=== PATIENT | female | born 1940 | race Caucasian/White ===

== ENCOUNTER 2017-01-29 05:59 | Emergency (ER) | payer MEDICARE, MEDICAID ==
[~2017-01-29] VITALS: Ht 177.8 cm; Wt 172.4 kg
--- NOTE | 2017-01-29 06:36 | Emergency Room Report ---
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 IS O2 DEPENDENT AT 3L PER N/C. 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 N Clinical Suspician of Infection? Y Mental Status: 1 - Regular (Normal Baseline) Sepsis Risk:Severe Sepsis Risk Have you (or family members/close friends) recently traveled outside the [place]? N If Yes, where/when: Have you had exposure to infectious disease within the past month? N TB? Other? Specify: Source patient, RN notes reviewed, family, EMS, old records Exam Limitations no limitations Comment pt with prod cough with no hemoptysis over the last few days and no chest pain - uses 02 daily Cardiac Chest Pain Chest pain indicative of cardiac No Timing/Duration this morning Severity moderate ALLERGIES Coded Allergies: No Known Allergies (10/10/16) Home Medications Active Scripts Albuterol/Ipratropiu (Duoneb) 3 ML IH QID #120 NEB Prov: 11/02/11 Reported Medications LISINOPRIL (Lisinopril) 20 MG PO DAILY Clopidogrel Bisulfate (Plavix) 75 MG PO DAILY Tramadol Hcl (Tramadol 50MG) 1-2 TAB PO TID Cyclobenzaprine Hcl (Flexeril) 5 MG PO DAILY OXYCODONE HCL/ACETAMINOPHEN (Percocet 5-325 MG Tablet) 1 TAB PO Q 6 HOURS PRN PAIN WARFARIN SOD (Warfarin 5MG) 5 MG PO DAILY Furosemide (Lasix 40MG) 40 MG PO DAILY PRAMIPEXOLE DIHYDROCHLORIDE MO (Pramipexole) 0.25 MG NG DAILY Sertraline Hydrochloride (Sertraline 100MG) 100 MG PO DAILY Sitagliptin Phosphate (Januvia) 100 MG PO DAILY History Medical History General CAD? Yes Angina: Yes SC: No Hypertension? Yes Hyperlipidemia? No CHF? Yes DVT? No PE? No COPD? Yes Asthma? Yes Anemia? No GERD? No Gastric ulcers? No GI Bleed? No Hernia? No Thyroid Problems? No Hypothyroidism? No CVA? No Seizures? No Diabetes? Yes Insulin Dependent: No Insulin Pump: No Home FSBS? Yes Renal Insuffiency? No End Stage Renal Disease? No UTI? No Stones? No BPH? No GB Disease: Yes Nephritic Syndrome? No Asplenia? No Hepatitis? No Sickle Cell Disease? No Arthritis? No Migraines? No Cataracts? No Glaucoma? No MRSA? No HIV? No TB? No Anxiety? Yes Depression? No Cancer? No More? No Immunization Hx DT/Tetanus UNKNOWN Surgical Hx Previous Surgery?Y JOVANNA GALLBLADDER [id number] STENT INSERTION Social History Smoking Hx Smoker: Former Smoker Tobacco: No Are you/the child exposed to second-hand smoke: No Alcohol Alcohol: No Drugs none Review of Systems All Other Systems Reviewed and Negative Constitutional see HPI, denies fever, weakness Eyes denies drainage ENT denies: ear discharge, epistaxis, throat pain, throat swelling. Respiratory cough, shortness of breath, denies wheezing Cardiovascular see HPI, chest pain, denies palpitations, denies syncope Gastrointestinal denies abdominal pain, denies diarrhea, denies vomiting Genitourinary denies: dysuria, frequency, hesitancy, hematuria. Musculoskeletal denies back pain, denies joint pain, denies joint swelling, denies neck pain Skin denies rash Psychiatric/Neurological denies headache, denies seizure Physical Exam Vital Signs Vital Signs Date Time Temp Pulse Resp B/P Pulse O2 O2 Flow FiO2 Ox Delivery Rate 01/29 0729 93 20 130/97 95 3 01/29 0642 98.0 112 20 123/106 92 4 01/29 0614 24 93 6 01/29 0614 93 01/29 0600 98.0 100 24 137/62 93 6 - WBC >12,000 or <4,000 or 10% bands? 2 or more SIRS Criteria Met? B/P:130/97 MAP:87 Creatinine >2.0? UA output<0.5ml/kg/hr for 2 hrs? Platelet count >100,000? Lactate >2.0mmol/1? INR >1.2 or PTT > than 60 sec? Evidence of Organ Dysfunction? Provider documented clinical suspician of infection? Y Sepsis Criteria Count: 2 Sepsis Risk: Severe Sepsis Risk General Appearance no apparent distress Eye Exam - bilateral eye PERRL, bilateral eye EOMI Ear, Nose, Throat normal ENT inspection Neck non-tender Respiratory Status No: respiratory distress. Lung Sounds bilateral: rhonchi, wheezing. 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 No Results/Orders Laboratory Tests 01/29/17 0625: Lactic Acid 0.6 01/29/17 0625: B-Natriuretic Peptide 113 H 01/29/17 0625: Sodium 135 L, Potassium 5.3 H, Chloride 98, Carbon Dioxide 34 H, BUN 27 H, Creatinine 1.0, Estimated Creat Clear 134, Estimated GFR (MDRD) 54 L, Glucose 108 H, Calcium 8.7, Total Bilirubin 0.4, AST 15, ALT 20, Alkaline Phosphatase 105, Creatine Kinase 54, CK-MB (CK-2) Rel Index 1.5, CK and CKMB Interp 0.8, Troponin I < 0.02, Total Protein 7.7, Albumin 3.1 L, Globulin 4.6 H, Albumin/ Globulin Ratio 0.7 L, PT 33.9 H, INR 3.10 H, WBC 11.3 H, RBC 3.68 L, Hgb 10.9 L, Hct 33.9 L, MCV 91.9, RDW 13.7, Plt Count 351, MPV 7.1 L, Gran % 80.1 H, Gran # 9.0 H, Lymphocytes % 11.8, Monocytes % 4.1, Eosinophils % 3.7, Basophils % 0.3, Lymphocytes # 1.3, Monocytes # 0.5, Eosinophils # 0.4, Basophils # 0.0, PUBS MCHC 32.1, MCH 29.5 Current Medication Orders Sig/Prieto Start time Last Medication Dose Route Stop Time Status Admin Albuterol 0 .STK-MED ONE 01/29 737 DC INH Albuterol/Ipratropium 0 .STK-MED ONE 01/29 731 DC INH Albuterol 2.5 MG ONCE ONE 01/29 07 DC 01/29 INH 01/29 0731 0736 Ceftriaxone Sodium 1 GM ONCE ONE 01/29 730 DC 01/29 Sodium Chloride 50 ML IV 01/29 0759 0729 Methylprednisolone 125 MG ONCE ONE 01/29 0730 DC 01/29 Sodium Succinate IV 01/29 731 0728 Ceftriaxone Sodium 0 .STK-MED ONE 01/30 728 DC IV Methylprednisolone 0 .STK-MED ONE 01/30 728 DC Sodium Succinate .ROUTE Sodium Chloride 50 ML .STK-MED ONE 01/30 728 DC IV Furosemide 0 .STK-MED ONE 01/29 719 DC .ROUTE Furosemide 40 MG ONCE ONE 01/29 07 DC 01/29 IV 01/30 716 07 Sodium Chloride 10 ML PRN PRN 01/29 06 AC IV 01/30 0609 Orders Procedure Date/time Status RT REQUEST ALBUTEROL NEB 01/29 0725 Active PROTHROMBIN TIME 01/29 0646 Complete BRAIN NATRIURETIC PEPTIDE 01/29 0646 Complete ELECTROCARDIOGRAM REQUEST 01/29 0611 Active IV SALINE LOCK 01/29 0611 Active OXYGEN PER NURSE 01/29 0611 Active CULTURE, BLOOD 01/29 0611 Active URINALYSIS/COMPLETE 01/29 0611 Active LACTIC ACID 01/29 0611 Complete CBC WITH AUTO DIFF 01/29 0611 Complete CARDIAC ENZYMES 01/29 0611 Complete CHEM 12 PROFILE 01/29 0611 Complete CM/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 ST/Twave chgs XRAY/CT/US XRAY/CT/US XRAY chest XR interpretation by reviewed by me Xray Results abnormal (cm) Departure Departure Time of Disposition 0759 Disposition DC Home or Self Care(routine) Clinical Impression Primary Impression: Bronchitis Secondary Impressions: A-fib Qualifiers: Atrial fibrillation type: chronic Qualified Code: I48.2 - Chronic atrial fibrillation Condition STABLE Referrals RAJESH CALDWELL (Family) Patient Instructions DI for Acute Bronchitis Additional Instructions use meds and see pcp for follow up Discharge Counseling Counseled pt/family regarding diagnosis, test results, medications/RX, follow up needs Prescriptions Current Visit Scripts Azithromycin (Zithromycin (Z-SARAH) 250MG Tab) 250 MG PO DAILY #6 TAB TAKE TWO (2) TABLETS ON DAY 1, THEN ONE (1) TABLET DAY #2 THRU #5 ED Critical Care Critical Care No at 0804
[2017-01-29 06:38] LABS: HEMOGLOBIN 10.9 g/dL (12.2-16.2); LYMPH # 1.3 K/mm3 (0.7-4.5); LYMPH % 11.8 % (10-50.0)
--- NOTE | 2017-01-29 07:09 | RADIOLOGY REPORT PS360 ---
CHEST-PORTABLE HISTORY: Shortness of breath C/O SOB ORDERING PHYSICIAN: Angel Luis Delaney MD PATIENT AGE: 76 years COMPARISON: 11/01/2011 FINDINGS: The cardiomediastinal silhouette and pulmonary vascularity are within normal limits. The lungs are clear without infiltrates, suspicious nodules, or pleural effusions. No acute bony abnormalities. IMPRESSION: Negative chest, no acute finding
[2017-01-29 07:12] LABS: BUN 27 mg/dL (7-18); GFR (ESTIMATED) 54 ML/MIN (59-)
[2017-01-29 08:24] VITALS: BP 130/97
--- OUTSIDE RECORDS SUMMARY | 2017-02-21 02:36 | External Medical Summary Rpt ---
Author Author , VINNIE BIRMINGHAM Address Unknown Phone [email or web address] Care Team Providers Care Rhit Name Role Phone NATALIA BRIAN, Unavailable Unavailable NATALIA BRIAN [facility], Unavailable Unavailable [facility], Unavailable Unavailable [facility] BIRDWHISTELL, Unavailable Unavailable BIRDWHISTELL BIRDWHISTELL, Unavailable Unavailable BIRDWHISTELL BIRDWHISTELL MAT, Unavailable Unavailable [facility], Unavailable Unavailable [facility] CONCEPCIÓN FARIA, Unavailable Unavailable CONCEPCIÓN FARIA [facility] Unavailable Unavailable [facility], [facility] MARLYN, ELI H, Unavailable Unavailable MARLYN, ELI H ELIECER BADILLO, Unavailable Unavailable ELIECER BADILLO [facility]OND Unavailable Unavailable [facility] Unavailable Unavailable SERVICE, [facility] MELINA AYALA BUCK, Unavailable Unavailable DIGNA MCLAUGHLIN Unavailable Unavailable ANJANA DOMÍNGUEZ Unavailable Unavailable CONCEPCIÓN GONZALEZ, Unavailable Unavailable CONCEPCIÓN YE[facility], Unavailable Unavailable [facility] Unavailable Unavailable PULMONARY M, [facility] [place] [facility] [facility] YAJAIRA TER, YAJAIRA TER Unavailable Unavailable ORTEGA HESHAM, ORTEGA Unavailable Unavailable HESHAM [facility], Unavailable Unavailable [facility] TERE, TERE Unavailable Unavailable TERE MARIA ISABEL, Unavailable Unavailable TERE MARIA ISABEL ANNE CARRANZA, Unavailable Unavailable ANNE CARRANZA MD Un[facility] MD [facility] ASTRID GOODWIN Unavailable Unavailable ASTRID GOODWIN Unavailable Unavailable [facility]available Unavailable SPECIAL, [facility] CRISTY CARSON III, Unavailable Unavailable CRISTY CARSON III [facility], Unavailable Unavailable [facility], Unavailable Unavailable [facility] RONALD SEGURA, Unavailable Unavailable RONALD SEGURA [facility] Unavailable Unavailable [facility], [facility] Unavailable Unavailable [facility]ATION [facility], [facility] Unavailable Unavailable [facility], [facility] Unavailable Unavailable H[facility]PITA[facility] Unavailable Unavailable HOSPITAL, [facility] Unavailable Unavailable HOSPITA, [facility] GREGONIS VERITO, Unavailable Unavailable GREGONIS VERITO ANKITA RHO, ANKITA Unavailable Unavailable RHO ANKITA, NATTY G, Unavailable Unavailable ANKITA, NATTY G REMINGTON, SANDRO E, Unavailable Unavailable REMINGTON, SANDRO E HALLAK PAT, HALLAK Unavailable Unavailable PAT KEYUR NICK, Unavailable Unavailable KEYUR NICK DAVID P, Unavailable Unavailable CONCEPCIÓN LAMAR [facility] Unavailable Unavailable INC, [facility] Unavailable Unavailable HOSPITAL P, [facility] P MARIE PICHARDO, Unavailable Unavailable MARIE PICHARDO, Unavailable Unavailable Tod PERES KAPALI, Unavailable Unavailable N A LEELA III JASON, Unavailable Unavailable LEELA III JASON [facility] Unavailable Unavailable IMAGING ASS, [facility] DOMINGO DO, Unavailable Unavailable DOMINGO DO KUMSEEMA III DAYNE, Unavailable Unavailable KUMLER III [facility] Unavailable Unavailable [facility], [facility] Unavailable Unavailable [facility], [facility], Unavailable [facility]available [facility] Unavailable Unavailable [facility] L[facility]NN JR DWI, LYNN Unavailable Unavailable JR DWI CRIS BAILEY E, Unavailable Unavailable CRIS BAILEY E JOSAFAT REY, Unavailable Unavailable JOSAFAT RYE MARTIN J, Unavailable Unavailable MERLIN BREWSTER MARTIN Unavailable Unavailable MERLIN ROSE Unavailable Unavailable MERLIN NÚÑEZ Unavailable Unavailable ANGE KASPER, Unavailable Unavailable ANGE BOYER CARLI, Unavailable Unavailable CAIO CARLI CAIO CARLI, Unavailable Unavailable CAIO CARLI CAIO, CARLI B, Unavailable Unavailable CAIO, CARLI B [facility] Unavailable Unavailable ASSOCIAT, [facility] Unavailable Unavailable SURGERY, [facility] Unavailable Unavailable MEDICAL, [facility] CAROLANN GARDNER, Unavailable Unavailable CAROLANN GARDNER [facility] Unavailable Unavailable ASSOCIATES, [facility] CARLOTA STAFFORD Unavailable Unavailable [facility] Unavailable Unavailable LAB, [facility] Unavailable Unavailable LAB, [facility] MELLISSA DUONG, Unavailable Unavailable MELLISSA DUONG [facility], Unavailable Unavailable [facility], Unavailable Unavailable [facility] LING DEYANIRA, Unavailable Unavailable LING DEYANIRA LING DEYANIRA, Unavailable Unavailable LING DEYANIRA MISSAEL ERNIE, MISSAEL ERNIE Unavailable Unavailable MISSAEL ERNIE, MISSAEL ERNIE Unavailable Unavailable ANSLEY ROXANA, ANSLEY ROXANA Unavailable Unavailable SARAFF KIR, SARAFF Unavailable Unavailable KIR SCALF YUE, SCALF YUE Unavailable Unavailable SCALF, FAROOQ E, Unavailable Unavailable SCALF, FAROOQ E [facility] Unavailable Un[facility], [facility] Unavailable Unavailable [facility] LLC, [facility] Unavailable Unavailable [facility]QU[facility], [facility] Unavailable Unavailable [facility]QUIP[facility], [facility] Unavailable Unavailable INC, [facility] Unavailable Unavailable NETWORK, [facility] Unavailable Unavailable NETWORK, [facility], Unavailable Unavailable [facility] DOUG CAMACHO Unavailable Unavailable MARICRUZ, Unavailable Unavailable MARICRUZ DEL [facility] ALEXANDER [facility] Unavailable Unavailable SU[facility]PLY, [facility] Unavailable Unavailable SUPPLY, [facility], Unavailable Unavailable [facility], HEALTHCARE SUPPLY, [facility], Unavailable Unavailable LLC, HEALTHCARE SUPPLY, [facility] Unavailable Unavailable INC PATRICA HARO, Unavailable Unavailable PATRICA HARO [facility] [id number], Unavailable Unavailable [facility] [id number] [facility] Unavailable Unavailable #571, [facility] Unavailable [facility]available #591, [facility] # Unavailable Unavailable [id number], [facility] # [id number] TERESO III DEYANIRA, Unavailable Unavailable GALMAN III YUE LOPEZ, Unavailable Unavailable YUE DANG A D, Unavailable Unavailable Britta DIEGO [facility], Unavailable [facility]available [facility], [facility]available [facility]available [facility] AMADOR CAMERON K, Unavailable Unavailable AMADOR CAMERON K [facility], Unavailable [facility]available [facility], Unavailable Unavailable [facility] RAJESH DERAS, Unavailable Unavailable RAJESH DERAS Purpose Continuity of Care Document - 05-28-2007 through 2016 Problems Code Diagnosis DOS Provider Status G4730 SLEEP APNEA 12-17-2016 [facility] UNSPECIFIED MEDICAL EQUIPME J449 CHRONIC 12-17-2016 [facility] 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 UNS EQUIPME 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 R69 ILLNESS 11-20-2016 [facility] UNSPECIFIED TRANSPORTAT ION SER E119 TYPE 2 11-13-2016 [facility]ICAL WITHOUT SUPPLY COMPLICATIO NS I10 ESSENTIAL 10-26-2016 [facility] PRIMARY L HYPERTENSIO N M6281 MUSCLE 10-26-2016 [facility] WEAKNESS L GENERALIZED R296 REPEATED 10-26-2016 [facility] FALLS L I110 HYPERTENSIV 10-13-2016 [place] E HEART COMMUNTIY DISEASE HOSPITA WITH HEART FAILURE I4891 UNSPECIFIED 10-13-2016 [place] ATRIAL COMMUNTIY FIBRILLATIO HOSPITA N I509 HEART 10-13-2016 [place] FAILURE COMMUNTIY UNSPECIFIED HOSPITA M170 BILATERAL 10-13-2016 [place] PRIMARY COMMUNTIY OSTEOARTHRI HOSPITA TIS OF KNEE V23833 PAIN IN 10-13-2016 [facility] [place] RIGHT KNEE RADIOLOGY J57780 PAIN IN 10-13-2016 [facility] [place] LEFT KNEE RADIOLOGY M797 FIBROMYALGI 10-13-2016 [place] A COMMUNTIY HOSPITA S60649 PERSONAL 10-13-2016 [facility] HISTORY OF COMMUNTIY NICOTINE HOSPITA DEPENDENCE M1611 UNILATERAL 10-10-2016 [place] PRIMARY [facility]ICAL OSTEOARTHRI IMAGING ASS TIS RIGHT HIP M65990 PAIN IN 10-10-2016 [place] RIGHT HIP MEDICAL IMAGING ASS M68503 PAIN IN 10-10-2016 [place] RIGHT LEG MEDICAL IMAGING ASS 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 E1165 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[facility] DIABETES L MELLITUS WITH HYPERGLYCEM IA G4733 OBSTRUCTIVE 07-11-2016 [facility] SLEEP HOME APNEA ADULT MEDICAL PEDIATRIC EQUIPME 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 R079 CHEST PAIN 06-28-2016 [place] UNSPECIFIED CARDIOLOGY R609 EDEMA 06-28-2016 [place] UNSPECIFIED CARDIOLOGY E6601 MORBID 06-27-2016 [facility] OBESITY DUE INC TO EXCESS CALORIES M150 PRIMARY 06-27-2016 [facility] GENERALIZED MOBILITY INC OSTEOARTHRI TIS I5033 ACUTE ON 05-16-2016 [facility] CHRON L DIASTOLIC CONGESTIV HEART FAILURE Z6843 BODY MASS 05-16-2016 [facility] INDEX BMI L 50-59.9 ADULT M069 RHEUMATOID 04-25-2016 [facility] ARTHRITIS MOBILITY UNSPECIFIED INC M1990 UNSPECIFIED 04-25-2016 [facility] OSTEOARTHRI INC TIS UNSPECIFIED SITE E668 OTHER 01-05-2016 [facility] OBESITY L MAT J441 CHRONIC 01-05-2016 [facility] OBSTRUCTIVE L MAT PULMONARY DZ W/EXACERBAT ION N189 CHRONIC 01-05-2016 [facility] KIDNEY L MAT DISEASE UNSPECIFIED Z9181 HISTORY OF 01-05-2016 [facility] FALLING L MAT J56359 PAIN IN 12-10-2015 [place] RIGHT COMMUNTIY SHOULDER HOSPITA R57106 PAIN IN 12-10-2015 [place] LEFT LEG COMMUNTIY HOSPITA R600 LOCALIZED 12-10-2015 [facility] [place] EDEMA RADIOLOGY E662 MORBID 08-09-2015 [facility] SEVERE L MAT OBESITY W/ALVEOLAR HYPOVENTILA TION E669 OBESITY 07-13-2015 [place] [facility] UNSPECIFIED COMMUNTIY HOSPITA G2581 RESTLESS 07-13-2015 [place] LEGS COMMUNTIY SYNDROME HOSPITA G4710 HYPERSOMNIA 07-13-2015 EAR, NOSE AND THROAT UNSPECIFIED SPECIAL G4761 PERIODIC 07-13-2015 [place] LIMB COMMUNTIY MOVEMENT HOSPITA DISORDER R0689 OTHER 07-13-2015 [place] ABNORMALITI COMMUNTIY ES OF HOSPITA BREATHING I259 CHRONIC 06-14-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 UNSPECIFIED J9600 ACUTE 06-14-2015 MISSAEL ERNIE RESPIRATORY FAIL UNS HYPOXIA/HYP ERCAPNIA J9601 ACUTE 06-14-2015 [place] RESPIRATORY COMMUNTIY FAILURE HOSPITA WITH HYPOXIA J9602 ACUTE 06-14-2015 [place] RESPIRATORY COMMUNTIY FAILURE HOSPITA WITH HYPERCAPNIA N179 ACUTE 06-14-2015 [place] KIDNEY COMMUNTIY FAILURE HOSPITA UNSPECIFIED R0602 SHORTNESS 06-14-2015 [facility] [place] OF BREATH RADIOLOGY R200 ANESTHESIA 06-14-2015 MISSAEL ERNIE OF SKIN R4781 SLURRED 06-14-2015 [facility] [place] SPEECH RADIOLOGY Z6844 BODY MASS 06-14-2015 [place] INDEX BMI COMMUNTIY 60.0-69.9 HOSPITA ADULT 496 CHRONIC 01-22-2015 [facility] AIRWAY HOME OBSTRUCTION MEDICAL NEC EQUIPME 69979 OSTEOARTHRO 01-22-2015 [facility] S UNSPEC HOME WHETHER MEDICAL GEN/LOC EQUIPME UNSPEC SITE 45742 HYPERSOMNIA 01-14-2015 [facility] WITH SLEEP HOME APNEA MEDICAL UNSPECIFIED EQUIPME 91957 ATRIAL 12-17-2014 [facility] [employer] [facility] 03581 DIAB W/O 11-09-2014 [place] COMP TYPE STATES II/UNS NOT MEDICAL STATED SUPPLY UNCNTRL 28711 DIAB W/O 10-08-2014 [email or web address] COMP TYPE II/UNS TYPE UNCNTRL 76996 OBSTRUCTIVE 07-27-2014 [place] SLEEP COMMUNTIY APNEA HOSPITA 31484 GENERALIZED 07-06-2014 [facility] DISORDER 53518 RESTLESS 07-06-2014 [facility] LEGS L MAT SYNDROME 4149 UNSPECIFIED 07-06-2014 [facility] ISCHEMIC HEART DISEASE 5852 CHRONIC 07-06-2014 [facility] DISEASE STAGE II (MILD) 82200 GENERALIZED 07-06-2014 [facility] L MAT OSTEOARTHRO SIS UNSPECIFIED SITE 11156 SHORTNESS 02-24-2014 [facility] [place] PULMONARY M 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 29075 OTHER 02-24-2014 [facility] [place] NONSPECIFIC RADIOLOGY ABNORMAL FINDING OF LUNG FIELD 2662 OTHER 02-05-2014 [facility] B-COMPLEX L MAT DEFICIENCIE S V0382 NEED PROPH 02-05-2014 [facility] VACCINATION L MAT AGAINST STREP PNEUMONE V0481 NEED 02-05-2014 [facility] PROPHYLACTI L MAT C VACCINATION &INOCULATIO N FLU V5861 LONG-TERM 02-05-2014 [facility] (CURRENT) L [place] 32464 INSOMNIA 01-01-2014 [facility] UNSPECIFIED L MAT V643 PROCEDURE 12-09-2013 [facility] NOT CARRIED REGIONAL OUT FOR MEDICAL OTHER REASONS 7821 RASH AND 12-02-2013 [facility] OTHER L MAT NONSPECIFIC SKIN ERUPTION 4019 UNSPECIFIED 11-26-2013 [facility] ESSENTIAL REGIONAL HYPERTENSIO MEDICAL N 4293 CARDIOMEGAL 11-26-2013 [facility] ASSOCIAT 65756 OTHER 11-26-2013 [facility] DISEASES OF RADIOLOGY LUNG NOT ASSOCIAT ELSEWHERE CLASSIFIED V7283 OTHER 11-26-2013 [facility] SPECIFIED RADIOLOGY PRE-OPERATI ASSOCIAT VE EXAMINATION V7284 UNSPECIFIED 11-26-2013 [facility] PRE-OPERATI MEDICAL VE EXAMINATION 32619 MORBID 11-17-2013 [place] OBESITY CARDIOLOGY 52902 COR 11-17-2013 [place] ATHEROSLERO CARDIOLOGY UNSPEC TYPE VESSEL STILLAGUAMISH/DIDI T 80742 PRIMARY 10-02-2013 [facility] LOCALIZED L MAT OSTEOARTHRO SIS OT SPEC SITES 62608 UNSPECIFIED 10-02-2013 [facility] RETENTION L MAT OF URINE 22375 HYPOXEMIA 02-27-2013 [facility] MEDICAL EQUIPME 2724 OTHER AND 02-17-2013 [facility] HYPERLIPIDE SHAKIRA 4139 OTHER AND 02-17-2013 [facility]OSPITAL ANGINA PECTORIS 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 TRAN[facility] ANGPLSTY STS 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-30-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 27985 IDIOPATH 12-26-2012 [facility] SLEEP REL CARLI NONOBST ALVEOLAR HYPOVENT 4770 ALLERGIC 12-26-2012 [facility] RHINITIS CARLI DUE TO POLLEN 4778 ALLERGIC 12-26-2012 [facility] RHINITIS CARLI DUE TO OTHER ALLERGEN 3319 UNSPECIFIED 11-19-2012 [place] CEREBRAL MEDICAL DEGENERATIO IMAGING ASS N 4359 UNSPECIFIED 11-19-2012 [facility] CEREBRAL INC ISCHEMIA 4371 OTH 11-19-2012 [place] 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 4553 EXTERNAL 09-05-2012 [facility] W[facility] HEMORRHOIDS WITHOUT MENTION COMP 30022 DIVERTICULO 09-05-2012 [facility] SIS OF COLON 30858 DIARRHEA 09-05-2012 [facility] 14443 PRIMARY 07-01-2012 [facility] LOCALIZED GENERAL OSTEOARTHRO SURGERY SIS LOWER LEG 25660 PAIN IN 07-01-2012 [place] JOINT, GENERAL LOWER LEG SURGERY 14491 GENU VARUM 07-01-2012 [place] GENERAL SURGERY 4111 INTERMEDIAT 03-06-2012 [facility] SYNDROME 28171 CHEST PAIN 12-01-2011 [facility] [place] UNSPECIFIED RADIOLOGY 4011 ESSENTIAL 11-30-2011 [facility] Brown HYPERTENSIO ANJANA KAMARA N, [facility]ENIGN PLLC 80052 ATRIAL 11-30-2011 CON[facility] YEUNG MD PLLC 2409 GOITER, 11-01-2011 [place] UNSPECIFIED [facility] HOSPITA 490 BRONCHITIS 11-01-2011 [facility] III NOT DEYANIRA SPECIFIED ACUTE OR CHRONIC 88205 OBST 11-01-2011 [facility] HOSPITAL P W/ACUTE BRONCHITIS 48053 FEVER 11-01-2011 WEHR[facility] III UNSPECIFIED DEYANIRA 73911 OTHER CHEST 10-27-2011 [facility] ANT PAIN 7823 EDEMA 10-07-2011 [facility] HOME MEDICAL EQUIPME 7993 UNSPECIFIED 10-07-2011 [facility] MEDICAL EQUIPME 4280 CONGESTIVE 06-27-2011 [facility] RENAL CARE FAILURE PSC UNSPECIFIED 2859 UNSPECIFIED 05-19-2011 [facility] 7295 PAIN IN 03-31-2011 [facility] TISSUES OF MEDICAL LIMB SUPPLY 96329 OTHER FLUID 01-17-2011 [facility] 5853 CHRONIC 01-17-2011 [facility] DISEASE NETWORK STAGE III (MODERATE) 86217 OBSTRUCTIVE 01-09-2011 [facility] AN[facility] CHRONIC BRONCHITIS WITH EXACERBATIO N 5859 CHRONIC 01-09-2011 [facility] KIDNEY DISEASE UNSPECIFIED 66064 GEN 01-09-2011 [facility] OSTEOARTHRO SIS INVOLVING MULTIPLE SITES 72874 OBESITY, 01-06-2011 [facility] ANT UNSPECIFIED 75115 HTN CKD UNS 12-20-2010 [place] W/CKD COMMUNITY STAGE I HOSPITA THRU STAGE IV/UNS 74400 UNSPECIFIED 12-20-2010 [place] DIASTOLIC [facility] HEART HOSPITA FAILURE V8543 BODY MASS 12-20-2010 [place] INDEX COMMUNITY 50.0-59.9 HOSPITA ADULT 5990 URINARY 12-07-2010 [facility] INFE[facility] HOLDING SITE NOT SPECIFIED 86218 NOCTURIA 12-07-2010 [facility] 99372 URGENCY OF 12-07-2010 [facility] URINATION AMB 78873 URINARY 12-07-2010 [facility] HESITANCY AMB 74242 UNSPECIFIED 09-27-2010 [facility] SLEEP CARLI APNEA 91480 ACUTE 07-07-2010 [facility] GASTRITIS NKLIN DAYNE WITHOUT MENTION OF HEMORRHAGE 91164 ATROPHIC 07-07-2010 PATHOLOGY & GASTRITIS CYTOLOGY WITHOUT LAB MENTION OF HEMORRHAGE 62150 OTHER SPEC 07-07-2010 [place] [facility] GASTRITIS COMMUNITY WITHOUT HOSPITA MENTION HEMORRHAGE 5533 DIAPHRAGMAT 07-07-2010 [place] [facility] YANET W/O COMMUNITY MENTION HOSPITA OBSTRUCTION /GANGREN 97392 ABDOMINAL 07-07-2010 [facility] PAIN, NKLIN DAYNE EPIGASTRIC 3970 DISEASES OF 04-29-2010 [facility] TRICUSPID [facility] VALVE 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[facility] DISORDERS 65215 OTHER 04-29-2010 [facility] CARDIAC DYSRHYTHMIA S 65480 NUCLEAR 02-16-2010 [facility] SCLEROSIS DEYANIRA 35727 REGULAR 02-16-2010 [facility]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 DEYANIRA 68881 UNSPECIFIED 02-16-2010 [place] [address] MEMORY LOSS 01-05-2010 [facility] ANT 7931 NONSPEC 01-05-2010 [facility] [place] FIND RAD RADIOLOGY OTH EXAM BODY STRUCT LUNG FIELD 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 [facility] 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 7804 DIZZINESS 08-13-2009 [facility] AND [place] [facility] GIDDINESS 27590 OTHER 08-13-2009 [facility] ABNORMAL [facility] GLUCOSE 2449 UNSPECIFIED 08-11-2009 [facility] HOSP HYPOTHYROID INC ISM 7820 DISTURBANCE 08-04-2009 CON[facility] Hein OF SKIN MD [facility] SENSATION PSC 44474 ATHEROSLERO 07-30-2009 [facility] ART H EXTREM CARDIOLOGY W/INTERMIT ASSOC CLAUDICAT V1582 PERS HX 07-30-2009 [facility] TOBACCO USE [facility] PRESENTING HAZARDS HEALTH 7862 COUGH 07-02-2009 [facility] 7291 UNSPECIFIED 06-30-2009 [facility] MYALGIA [facility] [facility] AND MYOSITIS 4412 THORACIC 06-22-2009 [facility] [place] ANEURYSM RADIOLOGY WITHOUT MENTION OF RUPTURE 2761 HYPOSMOLALI 06-21-2009 [facility] MUNOZ TY AND/OR HYPONATREMI A 2767 HYPERPOTASS 06-21-2009 [facility] MUNOZ EMIA 43557 UNSPEC 06-21-2009 [facility] [place] CERBRL ART RADIOLOGY OCCLUSION W/O MENTION INFARCT 5849 ACUTE 06-21-2009 [facility] MUNOZ KIDNEY FAILURE UNSPECIFIED 5939 UNSPECIFIED 06-21-2009 [place] DISORDER [facility]RETER [facility] 67370 RHABDOMYOLY 06-21-2009 [place] SIS [facility]GENCY SERVICES ASSOC[facility]ATES 53467 ALTERED 06-21-2009 [place] MENTAL EMERGENCY STATUS SERVICES [facility] 83007 NONSPECIFIC 06-21-2009 [place] ABNORMAL EMERGENCY ELECTROCARD SERVICES IOGRAM ASSOCIATES 62153 HYPERTENSIV 06-16-2009 [place] [facility] DISEASE HOSPITAL UNSPEC W/HEART FAIL 4409 GENERALIZED 06-16-2009 [place] [facility] AND [facility] UNSPECIFIED HOSPITAL ATHEROSCLER OSIS V4509 OTHER 06-16-2009 [facility] CARDIAC [facility] DEVICE IN SITU V5789 OTHER 06-16-2009 [place] SPECIFIED [facility] ION PROCEDURE OTHER 2788 OTHER 06-09-2009 [place] V173 FAMILY 06-09-2009 [place] HISTORY OF [facility] ISCHEMIC HOSPITAL HEART DISEASE 7242 LUMBAGO 02-01-2009 ANGE BOYER 26803 SPINAL STEN 12-30-2008 [facility] [place] [facility] AL W/O ASSOCIATES NEUROGENIC CLAUDICATIO N 07058 OTHER&UNSPE 10-20-2008 [facility] [place] CIFIED DISC RADIOLOGY DISORDER OF LUMBAR REGION 4539 EMBOLISM 10-15-2008 [facility] AND H THROMBOSIS CARDIOLOGY OF ASSOC UNSPECIFIED SITE 84182 PAIN IN 10-15-2008 [facility] [place] JOINT RADIOLOGY PELVIC REGION AND THIGH 7224 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-13-2008 [facility] [place] 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 70314 AC ARLEN 10-12-2008 [facility] UNSPEC DEEP PROF SERV VES LOWER EXT V854 BODY MASS 10-12-2008 [facility] INDEX 40 HOSPITAL AND OVER ADULT 2801 IRON DEFIC 10-09-2008 [facility] DIET IRON INTAKE V5869 LONG-TERM 10-09-2008 [facility] (CURRENT) [facility] USE OF HOSPITAL OTHER PROF SERV MEDICATIONS 69519 ASTHMA, 09-17-2008 [facility] UNSPECIFIED [facility] , HOSP UNSPECIFIED STATUS 84340 UNSPECIFIED 09-17-2008 [facility] ARTHROPATHY HOSP SITE UNSPECIFIED 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 ELENO LAM[facility] 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 61663 COUGH 07-14-2008 [facility], VARIANT CARLI B ASTHMA 69794 UNSPECIFIED 2008 [facility] OSTEOPOROSI INC S 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 4779 ALLERGIC 05-21-2008 [facility], RHINITIS CARLI B CAUSE UNSPECIFIED 24578 OTHER 02-06-2008 [facility], CHRONIC CARLI B ALLERGIC CONJUNCTIVI TIS 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, OF NASAL CARLI B TURBINATES 4720 CHRONIC 01-21-2008 CAIO, RHINITIS CARLI B 4910 SIMPLE 01-21-2008 [facility] [id number] ESOPHAGEAL 01-21-2008 CAIO, REFLUX CARLI B [id number] PAIN IN 12-17-2007 [facility] [id number] UNSPECIFIED 12-17-2007 [facility] 58052 OTH 09-02-2007 AD FIBROMATOSE MELLISSA D S MUSCLE LIGAMENT AND FASCIA OTH 4660 ACUTE 08-19-2007 [facility] 08138 CAVUS 08-05-2007 AD DEFORMITY MELLISSA D OF FOOT, ACQUIRED Allergies, Adverse Reactions, Alerts Clinical Alert Notifications Alert Diabetes: no A1C in the last 6 months Diabetes: no eye exam in the last 365 days Diabetes: no influenza vaccine in the last 365 days Diabetes: no lipid panel in the last 365 days Diabetes: no urine protein screening in the last 365 days Medications Na ND Rx Da Fi Fi Am Da Di Ph RX Ph St me C No te ll ll ou ys ag ar # ys at rm s nt no ma ic us Or Da si cy ia de te s n re d TE [phone] 0 15 15 WA 44 MA Ac MA 87 -2 -2 .0 L- 96 RT ti ZE 70 6- 6- 00 MA 50 IN ve PA 14 20 20 RT 2 M 60 11 11 AN 15 1 PH TH AR ON MG MA Y CY L CA # PS UL 10 E 05 91 BE 68 04 04 00 30 7 WA 73 No Ac NZ 38 -0 -2 .0 L- 38 t ti ON 20 7- 4- 00 MA 51 Av ve AT 24 20 20 RT 6 ai AT 80 08 08 la E 1 PH bl 20 A1 e 0 0- MG 15 69 CA PS UL E RE 00 01 03 00 60 30 WA 73 No Ac QU 00 -1 -2 .0 L- 24 t ti IP 74 8- 6- 00 MA 27 Av ve 3 89 20 20 RT 7 ai 52 08 08 la MG 0 PH bl A1 e TA 0- BL 15 ET 69 00 05 03 06 30 30 WA 72 No Ac 00 -0 -2 .0 L- 82 t ti 60 6- 6- 00 MA 95 Av ve 11 20 20 RT 7 ai 73 07 08 la 1 PH bl A1 e 0- 15 69 TR 00 08 03 05 24 30 WA 72 No Ac AM 37 -2 -2 0. L- 99 t ti AD 84 0- 5- 00 MA 50 Av ve OL 15 20 20 0 RT 7 ai 10 07 08 la HC 1 PH bl L A1 e 50 0- 15 MG 69 TA BL ET 00 05 03 06 30 30 WA 72 No Ac 00 -0 -2 .0 L- 82 t ti 60 6- 5- 00 MA 95 Av ve 11 20 20 RT 7 ai 73 07 08 la 1 PH bl A1 e 0- 15 69 00 05 03 06 30 30 WA 72 No Ac 00 -0 -2 .0 L- 82 t ti 60 6- 4- 00 MA 95 Av ve 11 20 20 RT 7 ai 73 07 08 la 1 PH bl A1 e 0- 15 69 00 12 03 00 12 30 WA 45 No Ac 40 -2 -2 0. L- 09 t ti 60 8- 4- 00 MA 75 Av ve 36 20 20 0 RT 9 ai 30 07 08 la 1 PH bl A1 e 0- 15 69 RE 00 07 03 05 30 30 WA 72 No Ac QU 00 -2 -2 .0 L- 94 t ti IP 74 3- 4- 00 MA 40 Av ve 3 89 20 20 RT 2 ai 52 07 08 la MG 0 PH bl A1 e TA 0- BL 15 ET 69 Immunization Name Date Rout CVX Reac Dose Comm Prov Is Faci e tion ent ider Refu lity Give sed n IIV3 03-14 141 MART No MART 6-20 IN IN VACC 10 ANT INE SPLI T VIRU ANT S 0.5 ML DOSA GE IM USE IIV3 01-13 141 MART No MART 1-20 IN, IN, VACC 09 ANTH ANTH INE GINA GINA SPLI L L T VIRU S 0.5 ML DOSA GE IM USE Procedures Procedure DOS Code Location Performer Comment NEBULIZER E0570 FRAN PETERS WITH 7 HOME HOME COMPRESSO MEDICAL MEDICAL R EQUIPME EQUIPME HOS BED E0303 FRAN PETERS HEVY DUTY 7 HOME HOME W/WT CAP MEDICAL MEDICAL >350 EQUIPME EQUIPME PDS</=TO 600 PDS NONEMERGE A0130 FEDERATED FEDERATED NCY 7 TRANS TRANSPORT TRANSPORT SERVBLUEG ATION: ATION SER MAI ROTHI R VAN NEBULIZER E0570 FRAN PETERS WITH 7 HOME HOME COMPRESSO MEDICAL MEDICAL R EQUIPME EQUIPME BLD GLU A4253 [facility] TEST/REAG 7 [facility] T STRIPS MEDICAL MEDICAL HOME BLD SUPPLY SUPPLY GLU MON-50 NORMAL A4256 [facility] LOW AND 7 [facility] HIGH MEDICAL MEDICAL CALIBRATO SUPPLY SUPPLY R SOLUTION/ CHIPS LANCETS A4259 [facility] PER BOX 7 [facility] MEDICAL MEDICAL SUPPLY SUPPLY REPL BRANT A4235 [facility] LITHIUM 7 [facility] MED NECES MEDICAL MEDICAL ROMÁN BG SUPPLY SUPPLY MON OWN PT EA SPRING-PO A4258 [facility] WERED 7 [facility] DEVICE MEDICAL MEDICAL FOR SUPPLY SUPPLY LANCET EACH HOS BED E0303 FRAN PETERS HEVY DUTY 7 HOME HOME W/WT CAP MEDICAL MEDICAL >350 EQUIPME EQUIPME PDS</=TO 600 PDS PHYS CERT G0180 [facility]IRD[facility]IST BIRDWHIST MCR-COVR 7 ELL ELL ROMÁN HLTH SRVC PER CERT PRD NONEMERGE A0130 FEDERATED FEDERATED NCY 7 TRANS TRANSPORT TRANSPORT SERVBLUEG ATION: ATION SER MAI ROTHI R VAN NEBULIZER E0570 FRAN PETERS WITH 7 HOME HOME COMPRESSO MEDICAL MEDICAL R EQUIPME EQUIPME RADIOLOGI 28423 [facility] VAHID Mcclain 7 RADIOLOGY EXAMINATI ON KNEE 1/2 VIEWS THERAPEUT 33300 [facility] IC 7 N N PROPHYLAC COMMUNTIY COMMUNTIY TIC/DX HOSPITA HOSPITA INJECTION SUBQ/IM HOS BED E0303 FRAN FRAN HEVY DUTY 7 HOME HOME W/WT CAP MEDICAL MEDICAL >350 EQUIPME EQUIPME PDS</=TO 600 PDS DUP-SCAN 12404 FARZANA TERE XTR VEINS 7 MEDICAL IMAGING UNILATERA ASS L/LIMITED STUDY RADEX HIP 84936 FARZANA CULLEN 7 MEDICAL UNILATERA IMAGING L WITH ASS PELVIS 2-3 VIEWS NEBULIZER E0570 FRAN PETERS WITH 7 HOME HOME COMPRESSO MEDICAL MEDICAL R EQUIPME EQUIPME HOS BED E0303 FARN FRAN HEVY DUTY 7 HOME HOME W/WT CAP MEDICAL MEDICAL >350 EQUIPME EQUIPME PDS</=TO 600 PDS PORTABLE E0443 FRAN RAMIREZRELL O2 7 HOME HOME CONTENTS MEDICAL MEDICAL GASEOUS 1 EQUIPME EQUIPME MO SUPPLY=1 UNIT NORMAL A4256 [facility] AND [address] [place] [address] MEDICAL MEDICAL CALIBRATO SUPPLY SUPPLY R SOLUTION/ CHIPS PORTABLE E0443 FRAN RAMIREZRELL O2 7 HOME HOME CONTENTS MEDICAL MEDICAL GASEOUS 1 EQUIPME EQUIPME MO SUPPLY=1 UNIT NEBULIZER E0570 FRAN PETERS WITH 7 HOME HOME COMPRESSO MEDICAL MEDICAL R EQUIPME EQUIPME PHYS CERT G0180 BIRDWHIST BIRDWHIST MCR-COVR 7 ELL ELL ROMÁN HLTH SRVC PER CERT PRD HOS BED E0303 FRAN FRAN HEVY DUTY 7 HOME HOME W/WT CAP MEDICAL MEDICAL >350 EQUIPME EQUIPME PDS</=TO 600 PDS CONTINUOU E0601 FRAN PETERS S 7 HOME HOME POSITIVE MEDICAL MEDICAL AIRWAY EQUIPME EQUIPME PRESSURE DEVICE PORTABLE E0443 FRAN RAMIREZRELL O2 7 HOME HOME CONTENTS MEDICAL MEDICAL GASEOUS 1 EQUIPME EQUIPME MO SUPPLY=1 UNIT ECG 76098 AMINAH CAMACHO ROUTINE 7 N ECG CARDIOLOG W/LEAST Y 12 LDS W/I&R PWR E2366 EXTREME EXTREME ACSS 7 MOBILITY MOBILITY BATTRY INC INC CHRGR 1 MODE W/ONLY 1 BATTRY REPR/SRVC K0739 EXTREME EXTREME DME NOT 7 MOBILITY MOBILITY O2 RQR INC INC TECH CMPNT PER 15 MINS NEBULIZER E0570 FRAN PETERS WITH 7 HOME HOME COMPRESSO MEDICAL MEDICAL R EQUIPME EQUIPME HOS BED E0303 FRAN PETERS HEVY DUTY 7 HOME HOME W/WT CAP MEDICAL MEDICAL >350 EQUIPME EQUIPME PDS</=TO 600 PDS CONTINUOU E0601 FRAN PETERS S 7 HOME HOME POSITIVE MEDICAL MEDICAL AIRWAY EQUIPME EQUIPME PRESSURE DEVICE PORTABLE E0443 FRAN PETERS O2 7 HOME HOME CONTENTS MEDICAL MEDICAL GASEOUS 1 EQUIPME EQUIPME MO SUPPLY=1 UNIT NORMAL A4256 [place] LOW AND 7 STATES STATES HIGH MEDICAL MEDICAL CALIBRATO SUPPLY SUPPLY R SOLUTION/ CHIPS LANCETS A4259 UNITED UNITED PER BOX 7 STATES STATES OF [facility] MEDICAL MEDICAL SUPPLY SUPPLY BLD GLU A4253 UNITED UNITED TEST/REAG 7 STATES STATES T STRIPS MEDICAL MEDICAL HOME BLD SUPPLY SUPPLY GLU MON-50 ADMN SET A7003 YOUR YOUR SM VOL 7 PHARMACY PHARMACY NONFILTR [employer] PNEUMAT NEBULIZR DISPBL PHRM Q0513 YOUR YOUR DISPENSIN 7 PHARMACY PHARMACY G FEE [employer] INHALATIO N RX; PER 30 DAYS NEBULIZER E0570 FRAN PETERS WITH 7 HOME HOME COMPRESSO MEDICAL MEDICAL R EQUIPME EQUIPME ALBUTEROL J7620 YOUR YOUR TO 2.5 7 PHARMACY PHARMACY MG & [employer] IPRATROPI UM BROM TO 0.5 MG HOS BED E0303 FRAN PETERS HEVY DUTY 7 HOME HOME W/WT CAP MEDICAL MEDICAL >350 EQUIPME EQUIPME PDS</=TO 600 PDS CONTINUOU E0601 FRAN PETERS S 6 HOME HOME POSITIVE MEDICAL MEDICAL AIRWAY EQUIPME EQUIPME PRESSURE DEVICE PORTABLE E0443 FRAN PETERS O2 6 HOME HOME CONTENTS MEDICAL MEDICAL GASEOUS 1 EQUIPME EQUIPME MO SUPPLY=1 UNIT PWR WC E2361 EXTREME EXTREME ACSS 22NF 6 MOBILITY MOBILITY SEALED INC INC LEAD ACID BATTRY EA REPR/SRVC K0739 EXTREME EXTREME DME NOT 6 MOBILITY MOBILITY O2 RQR INC INC TECH CMPNT PER 15 MINS HOS BED E0303 FRAN RAMIREZRELL HEVY DUTY 6 HOME HOME W/WT CAP MEDICAL MEDICAL >350 EQUIPME EQUIPME PDS</=TO 600 PDS CONTINUOU E0601 FRAN PETERS S 6 HOME HOME POSITIVE MEDICAL MEDICAL AIRWAY EQUIPME EQUIPME PRESSURE DEVICE PORTABLE E0443 FRAN PETERS O2 6 HOME HOME CONTENTS MEDICAL MEDICAL GASEOUS 1 EQUIPME EQUIPME MO SUPPLY=1 UNIT HOS BED E0303 FRAN PETERS HEVY DUTY 6 HOME HOME W/WT CAP MEDICAL MEDICAL >350 EQUIPME EQUIPME PDS</=TO 600 PDS CONTINUOU E0601 FRAN Denney 6 HOME HOME POSITIVE MEDICAL MEDICAL AIRWAY EQUIPME EQUIPME PRESSURE DEVICE BLD GLU A4253 [facility] TEST/REAG 6 [facility] STATES T STRIPS MEDICAL MEDICAL HOME BLD SUPPLY SUPPLY GLU MON-50 SPRING-PO A4258 [facility] WERED [address] [place] [address] STATES DEVICE MEDICAL MEDICAL FOR SUPPLY SUPPLY LANCET EACH REPL BRANT A4235 [facility] LITHIUM 6 [facility] STATES MED NECES MEDICAL MEDICAL ROMÁN BG SUPPLY SUPPLY MON OWN PT EA LANCETS A4259 [facility] PER BOX 6 [facility] OF [facility] MEDICAL MEDICAL SUPPLY SUPPLY NORMAL A4256 [facility] LOW AND 6 [facility] HIGH MEDICAL MEDICAL CALIBRATO SUPPLY SUPPLY R SOLUTION/ CHIPS HOS BED E0303 FRAN PETERS HEVY DUTY 6 HOME HOME W/WT CAP MEDICAL MEDICAL >350 EQUIPME EQUIPME PDS</=TO 600 PDS CONTINUOU E0601 FRAN PETERS S 6 HOME HOME POSITIVE MEDICAL MEDICAL AIRWAY EQUIPME EQUIPME PRESSURE DEVICE O2 CONC 1 E1390 FRAN PETERS [place] 6 HOME HOME 85%/>02 MEDICAL MEDICAL CONC AT EQUIPME EQUIPME PRSC FLW RATE PRTBLE E0431 FRAN PETERS GASEOUS 6 HOME HOME O2 SYS MEDICAL MEDICAL RENT; EQUIPME EQUIPME FLWMTR HUMIDFR&M ASK HOS BED E0303 FRAN PETERS HEVY DUTY 6 HOME HOME W/WT CAP MEDICAL MEDICAL >350 EQUIPME EQUIPME PDS</=TO 600 PDS CONTINUOU E0601 FRAN PETERS S 6 HOME HOME POSITIVE MEDICAL MEDICAL AIRWAY EQUIPME EQUIPME PRESSURE DEVICE PHYS G0179 BIRDWHIST BIRDWHIST RE-CERT 6 ELL MAT ELL MAT MCR-COVR ROMÁN HLTH SRVC RE-CERT PRD O2 CONC 1 E1390 FRAN PETERS [place] 6 HOME HOME 85%/>02 MEDICAL MEDICAL CONC AT EQUIPME EQUIPME PRSC FLW RATE PRTBLE E0431 FRAN PETERS GASEOUS 6 HOME HOME O2 SYS MEDICAL MEDICAL RENT; EQUIPME EQUIPME FLWMTR HUMIDFR&M ASK CONTINUOU E0601 FRAN PETERS S 6 HOME HOME POSITIVE MEDICAL MEDICAL AIRWAY EQUIPME EQUIPME PRESSURE DEVICE DUP-SCAN 90289 [facility] [place] SCALF YUE XTR VEINS 6 RADIOLOGY UNILATERA L/LIMITED STUDY RADIOLOGI 67841 [facility] [place] SCALF YUE C 6 RADIOLOGY EXAMINATI ON KNEE 3 VIEWS RADEX 76078 [facility] [place] SCALF YUE SHOULDER 6 RADIOLOGY COMPLETE MINIMUM 2 VIEWS FILTER A7038 FRAN PETERS DISPBL 6 HOME HOME USED MEDICAL MEDICAL W/POS EQUIPME EQUIPME ARWAY PRESSURE DEVICE TUBING A7037 FRAN PETERS USED WITH 6 HOME HOME POSITIVE MEDICAL MEDICAL AIRWAY EQUIPME EQUIPME PRESSURE DEVICE FACE MASK A7031 FRAN PETERS 6 HOME HOME INTERFACE MEDICAL MEDICAL REPLCMT EQUIPME EQUIPME FULL FACE MASK EA PRTBLE E0431 FRAN PETERS GASEOUS 6 HOME HOME O2 SYS MEDICAL MEDICAL RENT; EQUIPME EQUIPME FLWMTR HUMIDFR&M ASK O2 CONC 1 E1390 FRAN GARAY [place] 6 HOME HOME 85%/>02 MEDICAL MEDICAL CONC AT E[facility] CONTINUOU E0601 FRAN PETERS S 6 HOME HOME POSITIVE MEDICAL MEDICAL AIRWAY EQUIPME EQUIPME PRESSURE DEVICE BLD GLU A4253 UNITED UNITED TEST/REAG 6 STATES STATES T STRIPS MEDICAL MEDICAL HOME BLD SUPPLY SUPPLY GLU MON-50 LANCETS A4259 UNITED UNITED PER BOX 6 STATES STATES OF [facility] MEDICAL MEDICAL SUPPLY SUPPLY NORMAL A4256 UNITED UNITED LOW AND 6 [facility] STATES HIGH MEDICAL MEDICAL CALIBRATO SUPPLY SUPPLY R SOLUTION/ CHIPS O2 CONC 1 E1390 FRAN PETERS [place] 6 HOME HOME 85%/>02 MEDICAL MEDICAL CONC AT EQUIPME EQUIPME PRSC FLW RATE PHYS G0179 BIRDWHIST BIRDWHIST RE-CERT 6 ELL MAT DESIREE [facility] MCR-COVR ROMÁN HLTH SRVC RE-CERT PRD PRTBLE E0431 FRAN PETERS GASEOUS 6 HOME HOME O2 SYS MEDICAL MEDICAL RENT; EQUIPME EQUIPME FLWMTR HUMIDFR&M ASK CONTINUOU E0601 FRAN RAMIREZRELL S 6 HOME HOME POSITIVE MEDICAL MEDICAL AIRWAY EQUIPME EQUIPME PRESSURE DEVICE FACE MASK A7031 FRAN FRAN 6 HOME HOME INTERFACE MEDICAL MEDICAL REPLCMT EQUIPME EQUIPME FULL FACE MASK EA PRTBLE E0431 FRAN PETERS GASEOUS 6 HOME HOME O2 SYS MEDICAL MEDICAL RENT; EQUIPME EQUIPME FLWMTR HUMIDFR&M ASK O2 CONC 1 E1390 FRAN PETERS [place] 6 HOME HOME 85%/>02 MEDICAL MEDICAL CONC AT EQUIPME EQUIPME PRSC FLW RATE CONTINUOU E0601 FRAN PETERS S 6 HOME HOME POSITIVE MEDICAL MEDICAL AIRWAY EQUIPME EQUIPME PRESSURE DEVICE FULL FACE A7030 FRAN PETERS MASK 6 HOME HOME USED MEDICAL MEDICAL W/POS EQUIPME EQUIPME ARWAY PRESS DEVICE EA HEADGEAR A7035 FRAN PETERS USED 6 HOME HOME W/POSITIV MEDICAL MEDICAL E AIRWAY EQUIPME EQUIPME PRESSURE DEVICE PHYS G0179 BIRDWHIST BIRDWHIST RE-CERT 6 [facility] RAMÍREZ [facility] MCR-COVR ROMÁN HLTH SRVC RE-CERT PRD O2 CONC 1 E1390 FRAN PETERS [place] 6 HOME HOME 85%/>02 MEDICAL MEDICAL CONC AT EQUIPME EQUIPME PRSC FLW RATE PRTBLE E0431 FRAN PETERS GASEOUS 6 HOME HOME O2 SYS MEDICAL MEDICAL RENT; EQUIPME EQUIPME FLWMTR HUMIDFR&M ASK HUMDIFIR E0562 FRAN PETERS HEATED 6 HOME HOME USED MEDICAL MEDICAL W/POS EQUIPME EQUIPME ARWAY PRESSURE DEVICE FILTER A7038 FRAN PETRES DISPBL 6 HOME HOME USED MEDICAL MEDICAL W/POS EQUIPME EQUIPME ARWAY PRESSURE DEVICE FILTER A7039 FRAN PETERS NON 6 HOME HOME DISPBL MEDICAL MEDICAL USED EQUIPME EQUIPME W/POS ARWAY PRESS DEVICE TUBING A7037 FRAN PETERS USED WITH 6 HOME HOME POSITIVE MEDICAL MEDICAL AIRWAY EQUIPME EQUIPME PRESSURE DEVICE CONTINUOU E0601 FRAN PETERS S 6 HOME HOME POSITIVE MEDICAL MEDICAL AIRWAY EQUIPME EQUIPME PRESSURE DEVICE O2 CONC 1 E1390 FRAN PETERS [place] 6 HOME HOME 85%/>02 MEDICAL MEDICAL CONC AT EQUIPME EQUIPME [facility] FLW RATE PRTBLE E0431 FRAN PETERS GASEOUS 6 HOME HOME O2 SYS MEDICAL MEDICAL RENT; EQUIPME EQUIPME FLWMTR HUMIDFR&M ASK POLYSOM 47173 [facility] 6/>YRS 6 N N SLEEP COMMUNTIY COMMUNTIY W/CPAP HOSPITA HOSPITA 4/> ADDL STEVE ATTND PHYS CERT G0180 BIRDWHIST BIRDWHIST MCR-COVR 6 ELL MAT ELL MAT ROMÁN HLTH SRVC PER CERT PRD O2 CONC 1 E1390 FRAN PETERS [place] 6 HOME HOME 85%/>02 MEDICAL MEDICAL CONC AT EQUIPME [facility]QU[facility]ME [facility] [address]11 BIRDWHIST BIRDWHIST DISCHARGE 6 ELL MAT ELL MAT DAY MANAGEMEN T 30 MIN/< PRTBLE E0431 FRAN PETERS GASEOUS 6 HOME HOME O2 SYS MEDICAL MEDICAL RENT; EQUIPME EQUIPME FLWMTR HUMIDFR&M ASK CRITICAL 02882 MISSAEL KLEIN CARE 6 ILL/INJUR ED PATIENT INIT 30-[address] [place] [address] [facility] [place] ANKITA HEAD/BRAI 6 RADIOLOGY RHO N W/O CONTRAST MATERIAL RADIOLOGI 00297 [facility] [place] ANKITA C 6 RADIOLOGY RHO EXAMINATI ON CHEST SINGLE VIEW FRONTAL ECG 71332 MISSAEL KLEIN ROUTINE 6 ECG W/LEAST 12 LDS I&R ONLY O2 CONC 1 E1390 FRAN GARAY [place] 6 HOME HOME 85%/>02 MEDICAL MEDICAL CONC AT EQUIPME EQUIPME [facility] FLW RATE PRTBLE E0431 FRAN PETERS GASEOUS 6 HOME HOME O2 SYS MEDICAL MEDICAL RENT; EQUIPME EQUIPME FLWMTR HUMIDFR&M ASK PRTBLE E0431 FRAN PETERS GASEOUS 5 HOME HOME O2 SYS MEDICAL MEDICAL RENT; EQUIPME EQUIPME FLWMTR HUMIDFR&M ASK O2 CONC 1 E1390 FRAN GARAY [place] 5 HOME HOME 85%/>02 MEDICAL MEDICAL CONC AT EQUIPME EQUIPME PRSC FLW RATE O2 CONC 1 E1390 FRAN GARAY [place] 5 HOME HOME 85%/>02 MEDICAL MEDICAL CONC AT EQUIPME EQUIPME PRSC FLW RATE PRTBLE E0431 FRAN PETERS GASEOUS 5 HOME HOME O2 SYS MEDICAL MEDICAL RENT; EQUIPME EQUIPME FLWMTR HUMIDFR&M ASK PRTBLE E0431 FRAN PETERS GASEOUS 5 HOME HOME O2 SYS MEDICAL MEDICAL RENT; EQUIPME EQUIPME FLWMTR HUMIDFR&M ASK O2 CONC 1 E1390 FRAN GARAY [place] 5 HOME HOME 85%/>02 MEDICAL MEDICAL CONC AT EQUIPME EQUIPME PRSC FLW RATE WALKER E0149 FRAN PETERS HEAVY 5 HOME HOME DUTY MEDICAL MEDICAL WHEELED EQUIPME EQUIPME RIGID/FOL D ANY TYPE EA O2 CONC 1 E1390 FRAN SINGER 5 HOME HOME 85%/>02 MEDICAL MEDICAL CONC AT EQUIPME EQUIPME PRSC FLW RATE PRTBLE E0431 FRAN PETERS GASEOUS 5 HOME HOME O2 SYS MEDICAL MEDICAL RENT; EQUIPME EQUIPME FLWMTR HUMIDFR&M ASK PRVS TEST G0249 [facility] & 5 [facility] EQUIP E SUPPLY, E SUPPLY, [employer] MON; ONCE A WEEK O2 CONC 1 E1390 FRAN GARAY [place] 5 HOME HOME 85%/>02 MEDICAL MEDICAL CONC AT EQUIPME EQUIPME PRSC FLW RATE PRTBLE E0431 FRAN PETERS GASEOUS 5 HOME HOME O2 SYS MEDICAL MEDICAL RENT; EQUIPME EQUIPME FLWMTR HUMIDFR&M ASK PRTBLE E0431 FRAN PETERS GASEOUS 5 HOME HOME O2 SYS MEDICAL MEDICAL RENT; EQUIPME EQUIPME FLWMTR HUMIDFR&M ASK O2 CONC 1 E1390 FRAN PETERS [place] 5 HOME HOME 85%/>02 MEDICAL MEDICAL CONC AT EQUIPME EQUIPME PRSC FLW RATE SPRING-PO A4258 UNITED UNITED WERED 5 [facility] STATES DEVICE MEDICAL MEDICAL FOR SUPPLY SUPPLY LANCET EACH NORMAL A4256 [place] LOW AND 5 [facility] HIGH MEDICAL MEDICAL CALIBRATO SUPPLY SUPPLY R SOLUTION/ CHIPS REPL BRANT A4233 [place] ALKALINE 5 [facility] STATES NOT J MEDICAL MEDICAL CELL ROMÁN SUPPLY SUPPLY BG MON OWND PT O2 CONC 1 E1390 FRAN GARAY [place] 5 HOME HOME 85%/>02 MEDICAL MEDICAL CONC AT EQUIPME EQUIPME PRSC FLW RATE PRTBLE E0431 FRAN PETERS GASEOUS 5 HOME HOME O2 SYS MEDICAL MEDICAL RENT; EQUIPME EQUIPME FLWMTR HUMIDFR&M ASK BLD GLU A4253 [facility] TEST/REAG 5 MEDICAL MEDICAL T STRIPS [place] HOME BLD GLU MON-50 LANCETS A4259 [facility] PER BOX 5 MEDICAL MEDICAL OF [facility] O2 CONC 1 E1390 FRAN GARAY [place] 5 HOME HOME 85%/>02 MEDICAL MEDICAL CONC AT EQUIPME EQUIPME PRSC FLW RATE PRTBLE E0431 FRAN PETERS GASEOUS 5 HOME HOME O2 SYS MEDICAL MEDICAL RENT; EQUIPME EQUIPME FLWMTR HUMIDFR&M ASK PRTBLE E0431 FRAN PETERS GASEOUS 5 HOME HOME O2 SYS MEDICAL MEDICAL RENT; EQUIPME EQUIPME FLWMTR HUMIDFR&M ASK O2 CONC 1 E1390 FRAN GARAY [place] 5 HOME HOME 85%/>02 MEDICAL MEDICAL CONC AT EQUIPME EQUIPME PRSC FLW RATE BLD GLU A4253 UNITED UNITED TEST/REAG 5 STATES STATES T STRIPS MEDICAL MEDICAL HOME BLD SUPPLY SUPPLY GLU MON-50 LANCETS A4259 UNITED UNITED PER BOX 5 STATES STATES OF [facility] MEDICAL MEDICAL SUPPLY SUPPLY NORMAL A4256 [place] LOW AND 5 STATES STATES HIGH MEDICAL MEDICAL CALIBRATO SUPPLY SUPPLY R SOLUTION/ CHIPS POLYSOM 75378 [facility] 6/>YRS 5 N N SLEEP 4/> COMMUNTIY COMMUNTIY ADDL HOSPITA HOSPITA STEVE ATTND NORMAL A4256 [facility] LOW AND 5 MEDICAL MEDICAL HIGH [place] CALIBRATO R SOLUTION/ CHIPS LANCETS A4259 [facility] PER BOX 5 MEDICAL MEDICAL 100 [email or web address] [place] BLD GLU A4253 [facility] TEST/REAG 5 MEDICAL MEDICAL T STRIPS [facility] HOME BLD GLU MON-50 O2 CONC 1 E1390 FRAN PETERS [place] 5 HOME HOME 85%/>02 MEDICAL MEDICAL CONC AT EQUIPME EQUIPME PRSC FLW RATE PRTBLE E0431 FRAN FRAN GASEOUS 5 HOME HOME O2 SYS MEDICAL MEDICAL RENT; EQUIPME EQUIPME FLWMTR HUMIDFR&M ASK COMPREHEN 91644 [facility] SIVE 5 DIAGNOSTI DIAGNOSTI [place] [address] [facility] THYROXINE 5 DIAGNOSTI DIAGNOSTI TOTAL CS CS COLLECTIO 51706 [facility] N VENOUS 5 DIAGNOSTI DIAGNOSTI [place] [address] [facility] THYROID 5 DIAGNOSTI DIAGNOSTI STIMULATI CS CS NG HORMONE TSH HEMOGLOBI 50838 [facility] N 5 DIAGNOSTI DIAGNOSTI GLYCOSYLA CS CS EUGENIO A1C THYROID 58623 [facility] HORM 5 DIAGNOSTI DIAGNOSTI UPTK/THYR CS CS OID HORMONE BINDING RATIO BLOOD 52255 [facility] COUNT 5 DIAGNOSTI DIAGNOSTI COMPLETE CS CS AUTO&AUTO DIFRNTL WBC PRTBLE E0431 FRAN FRAN GASEOUS 5 HOME HOME O2 SYS MEDICAL MEDICAL RENT; EQUIPME EQUIPME FLWMTR HUMIDFR&M ASK REPL BRANT A4233 [place] UNITED ALKALINE 4 STATES STATES NOT J MEDICAL MEDICAL CELL ROMÁN SUPPLY SUPPLY BG MON OWND PT BLD GLU A4253 UNITED UNITED TEST/REAG 4 STATES STATES T STRIPS MEDICAL MEDICAL HOME BLD SUPPLY SUPPLY GLU MON-50 LANCETS A4259 UNITED UNITED PER BOX 4 STATES STATES OF [facility] MEDICAL MEDICAL SUPPLY SUPPLY NORMAL A4256 [place] LOW AND 4 [facility] STATES HIGH MEDICAL MEDICAL CALIBRATO SUPPLY SUPPLY R SOLUTION/ CHIPS PRTBLE E0431 FRAN PETERS GASEOUS 4 HOME HOME O2 SYS MEDICAL MEDICAL RENT; EQUIPME EQUIPME FLWMTR HUMIDFR&M ASK O2 CONC 1 E1390 FRAN PETERS [place] 4 HOME HOME 85%/>02 MEDICAL MEDICAL CONC AT EQUIPME EQUIPME PRSC FLW RATE O2 CONC 1 E1390 FRANCURT PETERS [place] 4 HOME HOME 85%/>02 MEDICAL MEDICAL CONC AT EQUIPME EQUIPME PRSC FLW RATE PRTBLE E0431 FRAN RAMIREZRELL GASEOUS 4 HOME HOME O2 SYS MEDICAL MEDICAL RENT; EQUIPME EQUIPME FLWMTR HUMIDFR&M ASK BLD GLU A4253 [facility] TEST/REAG 4 MEDICAL MEDICAL T STRIPS [facility] HOME BLD GLU SUN- SPMTRY 74314 [facility] W/VC 4 N N EXPIRATOR COMMUNITY COMMUNITY Y JIE HOSPITA HOSPITA W/WO MXML VOL VNTJ BRNCDILAT 92239 [facility] RSPSE 4 [place] SPMTRY PULMONARY PRE&POST- M BRNCDILAT ADMN PLETHYSMO 74872 [facility] GRAPHY 4 [place] VER[place] LUNG PULMONARY VOLUMES M W/WO AIRWAY RESIST CT THORAX 04753 [facility] [place] SCALF YUE W/O 4 [place] [address] [facility] DIFFUSING 4 [place] VERITO CAPACITY PULMONARY M O2 CONC 1 E1390 FRAN PETERS [place] 4 HOME HOME 85%/>02 MEDICAL MEDICAL CONC AT EQUIPME EQUIPME PRSC FLW RATE PRTBLE E0431 FRAN RAMIREZRELL GASEOUS 4 HOME HOME O2 SYS MEDICAL MEDICAL RENT; EQUIPME EQUIPME FLWMTR HUMIDFR&M ASK INJECTION J3420 BIRDWHIST BIRDWHIST VIT B-12 4 ELL MAT ELL MAT [place] TO 1000 MCG PHRM Q0513 [facility] DISPENSIN 4 PHARMACY PHARMACY G FEE #591 #591 INHALATIO N RX; PER 30 DAYS THERAPEUT 51321 BIRDWHIST BIRDWHIST IC 4 ELL MAT DESIREE MAT PROPHYLAC TIC/DX INJECTION SUBQ/IM ALBUTEROL J7613 [facility] INHAL 4 PHARMACY PHARMACY NON-CP #591 #591 PROD THRU DME U DOSE 1 MG LANCETS A4259 [facility] PER BOX 4 MEDICAL MEDICAL OF 100 [place] BLD GLU A4253 [facility] TEST/REAG 4 MEDICAL MEDICAL T STRIPS [place] HOME BLD GLU MON-50 NORMAL A4256 [facility] LOW AND 4 MEDICAL MEDICAL HIGH [place] CALIBRATO R SOLUTION/ CHIPS SPRING-PO A4258 [facility] WERED 4 MEDICAL SDET [facility] FOR LANCET EACH O2 CONC 1 E1390 FRAN FRAN DEL [place] 4 HOME HOME 85%/>02 MEDICAL MEDICAL CONC AT EQUIPME EQUIPME PRS FLW RATE PRTBLE E0431 FRAN FRAN GASEOUS 4 HOME HOME O2 SYS MEDICAL MEDICAL RENT; EQUIPME EQUIPME FLWMTR HUMIDFR&M ASK INJECTION J3420 BIRDWHIST BIRDWHIST VIT B-12 4 ELL LEXI RAMÍREZ MAT [place]AN[place]BA [place] TO 1000 MCG THERAPEUT 96825 BIRDWHIST BIRDWHIST IC 4 ELL MAT DESIREE MAT PROPHYLAC TIC/DX INJECTION SUBQ/IM O2 CONC 1 E1390 FRAN FRAN DEL PORT 4 HOME HOME 85%/>02 MEDICAL MEDICAL CONC AT EQUIPME EQUIPME PRSC FLW RATE PRTBLE E0431 FRAN FRAN GASEOUS 4 HOME HOME O2 SYS MEDICAL MEDICAL RENT; EQUIPME EQUIPME FLWMTR HUMIDFR&M ASK ANTIBODY 47242 [facility] BOWER SCREEN 4 W W RBC EACH [facility] MEDICAL MEDICAL TECHNIQUE THERAPEUT 96772 BIRDWHIST BIRDWHIST IC 4 ELL MAT DESIREE MAT PROPHYLAC TIC/DX INJECTION SUBQ/IM INJECTION J3420 BIRDWHIST BIRDWHIST VIT B-12 4 ELL MAT DESIREE MAT [place] TO 1000 MCG ANTIBODY 29717 CHELI BOWER SCREEN 4 W W RBC EACH [facility] SER[facility] MEDICAL MEDICAL TECHNIQUE RADIOLOGI 94165 [facility] EXAM 4 HESHAM CHEST 2 RADIOLOGY VIEWS ASSOCIAT FRONTAL&L ATERAL ECG 70272 [facility] ROUTINE 4 N N ECG CARDIOLOG CARDIOLOG W/LEAST Y Y 12 LDS W/I&R O2 CONC 1 E1390 [facility] [place] 4 HOME HOME 85%/>02 MEDICAL MEDICAL CONC AT EQUIPME EQUIPME PRSC FLW RATE PRTBLE E0431 FRAN FRAN GASEOUS 4 HOME HOME O2 SYS MEDICAL MEDICAL RENT; EQUIPME EQUIPME FLWMTR HUMIDFR&M ASK PRTBLE E0431 FRAN FRAN GASEOUS 4 HOME HOME O2 SYS MEDICAL MEDICAL RENT; EQUIPME EQUIPME FLWMTR HUMIDFR&M ASK O2 CONC 1 E1390 [facility] [place] 4 HOME HOME 85%/>02 MEDICAL MEDICAL CONC AT EQUIPME EQUIPME PRSC FLW RATE FORMOTERO J7606 YOUR YOUR L 4 PHARMACY PHARMACY FUMARATE [facility] INHAL [place] U DOSE FORM 20 MCG BUDESONID J7626 YOUR YOUR E INHAL 4 PHARMACY PHARMACY NON-CP [facility] UNIT DOSE UP TO 0.5 MG ADMN SET A7005 YOUR YOUR W/SM VOL 4 PHARMACY PHARMACY NONFILTR [employer] NEBULIZR NON-DISPB L ALBUTEROL J7613 YOUR YOUR INHAL 4 PHARMACY PHARMACY NON-CP [facility] PROD THRU DME U DOSE 1 MG THERAPEUT 09852 BIRDWHIST BIRDWHIST IC 4 ELL MAT ELL MAT PROPHYLAC TIC/DX INJECTION SUBQ/IM INJECTION J3420 BIRDWHIST BIRDWHIST VIT B-12 4 ELL MAT ELL MAT CYAN[place] TO 1000 MCG O2 CONC 1 E1390 [facility] [place] 4 HOME HOME 85%/>02 MEDICAL MEDICAL CONC AT EQUIPME EQUIPME PRSC FLW RATE PRTBLE E0431 FRAN FRAN GASEOUS 4 HOME HOME O2 SYS MEDICAL MEDICAL RENT; EQUIPME EQUIPME FLWMTR HUMIDFR&M ASK PRTBLE E0431 FRAN PETERS GASEOUS 4 HOME HOME O2 SYS MEDICAL MEDICAL RENT; EQUIPME EQUIPME FLWMTR HUMIDFR&M ASK O2 CONC 1 E1390 [facility] [place] 4 HOME HOME 85%/>02 MEDICAL MEDICAL CONC AT EQUIPME EQUIPME PRSC FLW RATE O2 CONC 1 E1390 FRAN GARAY [place] 4 HOME HOME 85%/>02 MEDICAL MEDICAL CONC AT EQUIPME EQUIPME PRSC FLW RATE PRTBLE E0431 FRAN PETERS GASEOUS 4 HOME HOME O2 SYS MEDICAL MEDICAL RENT; EQUIPME EQUIPME FLWMTR HUMIDFR&M ASK FORMOTERO J7606 YOUR YOUR L 4 PHARMACY PHARMACY [facility] INHAL [place] U DOSE FORM 20 MCG BUDESONID J7626 YOUR YOUR E INHAL 4 PHARMACY PH[facility]ACY [facility] UNIT DOSE UP TO 0.5 MG ALBUTEROL J7613 YOUR YOUR INHAL 4 PHARMACY PHARMACY [facility] PROD THRU DME U DOSE 1 MG PHRM Q0513 YOUR YOUR DISPENSIN 4 PHARMACY PHARMACY [facility] INHALATIO N RX; PER 30 DAYS PRTBLE E0431 FRAN PETERS GASEOUS 4 HOME HOME O2 SYS MEDICAL MEDICAL RENT; EQUIPME EQUIPME FLWMTR HUMIDFR&M ASK O2 CONC 1 E1390 [facility] [place] 4 HOME HOME 85%/>02 MEDICAL MEDICAL CONC AT EQUIPME EQUIPME PRSC FLW RATE FORMOTERO J7606 YOUR YOUR L 3 PHARMACY PHARMACY [facility] INHAL [place] U DOSE FORM 20 MCG BUDESONID J7626 YOUR YOUR E INHAL 3 PHARMACY PHARMACY [facility] UNIT DOSE UP TO 0.5 MG PHRM Q0513 YOUR YOUR DISPENSIN 3 PHARMACY PHARMACY [facility] INHALATIO N RX; PER 30 DAYS ALBUTEROL J7613 YOUR YOUR INHAL 3 PHARMACY PHARMACY [facility] PROD THRU DME U DOSE 1 MG O2 CONC 1 E1390 [facility] [place] 3 HOME HOME 85%/>02 MEDICAL MEDICAL CONC AT EQUIPME EQUIPME PRSC FLW RATE PRTBLE E0431 FRAN RAMIREZRELL GASEOUS 3 HOME HOME O2 SYS MEDICAL MEDICAL RENT; EQUIPME EQUIPME FLWMTR HUMIDFR&M ASK PRTBLE E0431 FRAN RAMIREZRELL GASEOUS 3 HOME HOME O2 SYS MEDICAL MEDICAL RENT; EQUIPME EQUIPME FLWMTR HUMIDFR&M ASK O2 CONC 1 E1390 [facility] [place] 3 HOME HOME 85%/>02 MEDICAL MEDICAL CONC AT EQUIPME EQUIPME PRSC FLW RATE PRTBLE E0431 FRAN PETERS GASEOUS 3 HOME HOME O2 SYS MEDICAL MEDICAL RENT; EQUIPME EQUIPME FLWMTR HUMIDFR&M ASK FORMOTERO J7606 YOUR YOUR L 3 PHARMACY PHARMACY FUMARATE [employer] INHAL [place]OR[place] U DOSE FORM 20 MCG BUDESONID J7626 YOUR YOUR E INHAL 3 PHARMACY PHARMACY NON-CP [employer] UNIT DOSE UP TO 0.5 MG ALBUTEROL J7613 YOUR YOUR INHAL 3 PHARMACY PHARMACY NON-CP [employer] PROD THRU DME U DOSE 1 MG PHRM Q0513 YOUR YOUR DISPENSIN 3 PHARMACY PHARMACY G FEE [employer] INHALATIO N RX; PER 30 DAYS PROTHROMB 87533 [facility] IN TIME [address] [place] [address] R & L HRT [address] WINJX HRT ART& L VENTR IMG PROTHROMB 17193 [facility] IN [address] [facility] [place]IN [address] [facility] DGRADJ [address] [place] [address] PRODUCTS D-DIMER QUANTITAT DINA BLOOD [address] COMPLETE AUTOMATED RADIOLOGI [address] EXAMINATI ON CHEST SINGLE VIEW FRONTAL LIPID [address] HOSP[facility] BASIC [address] [facility] METABOLIC [address] [place] [address] PANEL CALCIUM TOTAL O2 CONC 1 E1390 FRAN PETERS DEL PORT 3 HOME HOME 85%/>02 MEDICAL MEDICAL CONC AT EQUIPME EQUIPME PRSC FLW RATE ECG 95881 [facility] OLIVARES ROUTINE 3 KIR KIR ECG W/LEAST 12 LDS TRCG ONLY W/O I&R ECHO 71850 [facility] OLIVARES TTHRC R-T 3 KIR KIR 2D W/WOM-MOD E COMPL SPEC&COLR D PRTBLE E0431 FRAN FRAN GASEOUS 3 HOME HOME O2 SYS MEDICAL MEDICAL RENT; EQUIPME EQUIPME FLWMTR HUMIDFR&M ASK ADMN SET A7003 FRAN FRAN SM VOL 3 HOME HOME NONFILTR MEDICAL MEDICAL PNEUMAT EQUIPME EQUIPME NEBULIZR DISPBL PWR E2361 EXTREME EXTREME ACSS 22NF 3 MOBILITY MOBILITY SEALED INC INC LEAD ACID BATTRY EA REPR/SRVC K0739 EXTREME EXTREME DME NOT 3 MOBILITY MOBILITY O2 RQR INC INC TECH CMPNT PER 15 MINS PWR E2366 EXTREME EXTREME ACSS 3 MOBILITY MOBILITY BATTRY INC INC CHRGR 1 MODE W/ONLY 1 BATTRY PRTBLE E0431 FRAN FRAN GASEOUS 3 HOME HOME O2 SYS MEDICAL MEDICAL RENT; EQUIPME EQUIPME FLWMTR HUMIDFR&M ASK BUDESONID J7626 YOUR YOUR E INHAL 3 PHARMACY PHARMACY NON- [employer] [facility] UNIT DOSE UP TO 0.5 MG FORMOTERO J7606 YOUR YOUR L 3 PHARMACY PHARMACY FUMARATE [facility] INHAL [place] U DOSE FORM 20 MCG PHRM Q0513 YOUR YOUR DISPENSIN 3 PHARMACY PHARMACY G FEE [facility] INHALATIO N RX; PER 30 DAYS BRNCDILAT 94747 CAIO CAIO RSPSE 3 CARLI BOYCE SPMTRY PRE&POST- BRNCDILAT ADMN PRESSURIZ 26587 CAIO CAIO ED/NONPRE 3 CARLI BOYCE SSURIZED INHALATIO N TREATMENT ALBUTEROL J7613 YOUR YOUR INHAL 3 PHARMACY PHARMACY NON- [employer] [facility] PROD THRU DME U DOSE 1 MG DEMO&/NOVA 45993 CAIO CAIO L OF PT 3 CARLI BOYCE UTILIZ AERSL GEN/NEB/I NHLR/IP ADMN SET A7005 YOUR YOUR W/SM VOL 3 PHARMACY PH[facility] NEBULIZR NON-DISPB L PRTBLE E0431 FRAN RAMIREZRELL GASEOUS 3 HOME HOME O2 SYS MEDICAL MEDICAL RENT; EQUIPME EQUIPME FLWMTR HUMIDFR&M ASK COLLECTIO 27980 JACQUES HANNA N VENOUS 3 [facility] BLOOD INC INC VENIPUNCT URE CREATININ 48364 JACQUES HANNA E BLOOD 3 [facility] INC INC MRI BRAIN 42561 [place] TERE BRAIN 3 MEDICAL [place] ISABEL STEM W/[place] [address] JACQUES HANNA UREA 3 [facility] NITROGEN INC INC QUANTITAT DINA O2 CONC 1 E1390 FRAN PETERS [place] 3 HOME HOME 85%/>02 MEDICAL MEDICAL CONC AT EQUIPME EQUIPME PRSC FLW RATE PRTBLE E0431 FRAN RAMIREZRELL GASEOUS 3 HOME HOME O2 SYS MEDICAL MEDICAL RENT; EQUIPME EQUIPME FLWMTR HUMIDFR&M ASK ECG 83963 MAITEAFF MARSHALL ROUTINE 3 KIR KIR ECG W/LEAST 12 LDS TRCG ONLY W/O I&R ECHO 44153 MARSHALL OLIVARES TTHRC R-T 3 KIR KIR 2D W/WOM-MOD E COMPL SPEC&COLR D PRTBLE E0431 FRAN RAMIREZRELL GASEOUS 3 HOME HOME O2 SYS MEDICAL MEDICAL RENT; EQUIPME EQUIPME FLWMTR HUMIDFR&M ASK COLONOSCO 10477 ASTRID WILTON ASTRID WILTON PY 3 W/BIOPSY SINGLE/[place] [address] SURG 3 MACEY & PATHOLOGY DUBILIER GROSS&DASHA ROSCOPIC EXAM PRTBLE E0431 FRAN RAMIREZRELL GASEOUS 3 HOME HOME O2 SYS MEDICAL MEDICAL RENT; EQUIPME EQUIPME FLWMTR HUMIDFR&M ASK PRTBLE E0431 FRAN RAMIREZRELL GASEOUS 3 HOME HOME O2 SYS MEDICAL MEDICAL RENT; EQUIPME EQUIPME FLWMTR HUMIDFR&M ASK COMMODE E0168 FRAN PETERS CHAIR 3 HOME HOME XTRA MEDICAL MEDICAL WIDE&/HEV EQUIPME EQUIPME Y DUTY STATION/M OBIL LANCETS A4259 [place] PER BOX 3 STATES STATES OF MEDICAL MEDICAL SUPPLY SUPPLY NORMAL A4256 [place] LOW AND 3 [facility] HIGH MEDICAL MEDICAL CALIBRATO SUPPLY SUPPLY R SOLUTION/ CHIPS BLD GLU A4253 UNITED [place] TEST/REAG 3 STATES STATES T STRIPS MEDICAL MEDICAL HOME BLD SUPPLY SUPPLY GLU MON-50 RADIOLOGI 85591 CHELI Mcclain 3 W GENERAL III DAYNE EXAMINATI SURGERY ON KNEE 1/2 VIEWS RADIOLOGI 02398 CHELI Mcclain EXAM 3 W GENERAL III DAYNE BOTH SURGERY KNEES STANDING ANTEROPOS T PRTBLE E0431 FRAN PETERS GASEOUS 3 HOME HOME O2 SYS MEDICAL MEDICAL RENT; EQUIPME EQUIPME FLWMTR HUMIDFR&M ASK PRTBLE E0431 FRAN PETERS GASEOUS 3 HOME HOME O2 SYS MEDICAL MEDICAL RENT; EQUIPME EQUIPME FLWMTR HUMIDFR&M ASK O2 CONC 1 E1390 FRAN PETERS DEL PORT 3 HOME HOME 85%/>02 MEDICAL MEDICAL CONC AT EQUIPME EQUIPME PRSC FLW RATE PRTBLE E0431 FRAN PETERS GASEOUS 2 HOME HOME O2 SYS MEDICAL MEDICAL RENT; EQUIPME EQUIPME FLWMTR HUMIDFR&M ASK BLD GLU A4253 UNITED [place] TEST/REAG 2 STATES STATES T STRIPS MEDICAL MEDICAL HOME BLD SUPPLY SUPPLY GLU MON-50 NORMAL A4256 UNITED UNITED LOW AND 2 STATES STATES HIGH MEDICAL MEDICAL CALIBRATO SUPPLY SUPPLY R SOLUTION/ CHIPS LANCETS A4259 UNITED UNITED PER BOX 2 STATES STATES OF [facility] MEDICAL MEDICAL SUPPLY SUPPLY SPRING-PO A4258 [place] WERED 2 [facility] STATES DEVICE MEDICAL MEDICAL FOR SUPPLY SUPPLY LANCET EACH REPL BRANT A4233 [place] ALKALINE 2 [facility] STATES NOT J MEDICAL MEDICAL CELL ROMÁN SUPPLY SUPPLY BG MON OWND PT PRTBLE E0431 FRAN PETERS GASEOUS 2 HOME HOME O2 SYS MEDICAL MEDICAL RENT; EQUIPME EQUIPME FLWMTR HUMIDFR&M ASK CV STRS [address] XERS&/OR RX CONT ECG TRCG ONLY MYOCARDIA [address] MULTIPLE STUDIES INJECTION J2785 [address] REGADENOS ON 0.1 MG PRTBLE E0431 FRAN FRAN GASEOUS 2 HOME HOME O2 SYS MEDICAL MEDICAL RENT; EQUIPME EQUIPME FLWMTR HUMIDFR&M ASK ECG 92164 [place] SARAFF ROUTINE 2 INTERNAL KIR ECG MEDICINE W/LEAST 12 LDS TRCG ONLY W/O I&R PRTBLE E0431 FRAN FRAN GASEOUS 2 HOME HOME O2 SYS MEDICAL MEDICAL RENT; EQUIPME EQUIPME FLWMTR HUMIDFR&M ASK PRTBLE E0431 FRAN FRAN GASEOUS 2 HOME HOME O2 SYS MEDICAL MEDICAL RENT; EQUIPME EQUIPME FLWMTR HUMIDFR&M ASK LANCETS A4259 UNITED UNITED PER BOX 2 STATES STATES OF 100 MEDICAL MEDICAL SUPPLY SUPPLY BLD GLU A4253 UNITED [place] TEST/REAG 2 STATES STATES T STRIPS MEDICAL MEDICAL HOME BLD SUPPLY SUPPLY GLU MON-50 NORMAL A4256 UNITED [place] LOW AND 2 STATES STATES HIGH MEDICAL MEDICAL CALIBRATO SUPPLY SUPPLY R SOLUTION/ [facility] [address] [place] DISCHARGE 2 ANJANA GARNER MD [facility] MANAGEMEN T 30 MIN/< ECHO 78273 [place] TRANSESOP 2 ANJANA GRANT HAG R-T [facility] 2D W/PRB IMG ACQUISJ I&R RADIOLOGI 36545 [facility] [place] LEELA C 2 RADIOLOGY III JASON EXAMINATI ON CHEST SINGLE VIEW FRONTAL PRESCRIPT G8553 [place] [facility] IONS GEN 2 ANJANA GRANT TRANSMITT [facility] ED QUALIFIED ERX SYS MEDICATIO 60170 [place] N ADMIN & 2 ANJANA GRANT MD [facility] HEMODYNAM IC MEASURMEN T ECHO 40435 [place] TTHRC R-T 2 ANJANA Duong MD [facility] W/WOM-MOD E COMPL SPEC&COLR D ECG 32763 [place] ROUTINE 2 ANJANA GRANT ECG [facility] W/LEAST 12 LDS I&R ONLY CATH PLMT 40405 [place] L HRT & 2 ANJANA GRANT ARTS PLL W/NJX & ANGIO IMG S&I INITIAL 80326 [place] Brown [facility] 2 ANJANA GRANT CARE/DAY PLL 50 MINUTES ECG 80257 ALEXA OLIVARES ROUTINE 2 INTERNAL KIR ECG MEDICINE W/LEAST 12 LDS TRCG ONLY W/O I&R PRTBLE E0431 FRAN PETERS GASEOUS 2 HOME HOME O2 SYS MEDICAL MEDICAL RENT; EQUIPME EQUIPME FLWMTR HUMIDFR&M ASK CREATINE 67784 JACQUES HANNA KINASE 2 [place] [address] JACQUES HANNA INFUSION 2 [facility] THERAPY/P INC INC ROPHYLAXI S /DX 1ST TO 1 [place] [address] JACQUES HANNA TROPONIN 2 [facility] QUANTITAT INC INC DINA CREATINE 94165 JACQUES HANNA KINASE MB 2 [facility] FRACTION INC INC ONLY CREATINE 17795 JACQUES HANNA KINASE MB 2 [facility] [place] [address] JACQUES HANNA TROPONIN 2 [facility] QUANTITAT INC INC DINA BLOOD 71286 JACQUES HANNA COUNT 2 [facility] COMPLETE INC INC AUTO&AUTO DIFRNTL WBC NATRIURET 70803 JACQUES HANNA IC 2 [facility] PEPTIDE INC INC ECG 82405 JACQUES BAILEY JR ROUTINE 2 [facility] W/LEAST P 12 LDS I&R ONLY RADIOLOGI 64382 FARZANA Mcclain 2 MEDICAL [place] ISABEL EXAMINATI IMAGING ON CHEST ASS SINGLE VIEW FRONTAL CREATINE 92669 JACQUES HANNA KINASE 2 [facility] TOTAL INC INC COMPREHEN 75281 JACQUES HANNA SIVE 2 [facility] METABOLIC INC INC PANEL PRESSURIZ 14781 JACQUES HANNA ED/NONPRE 2 [facility] SSURIZED INC INC INHALATIO N TREATMENT US SOFT 16770 [facility] TISSUE 2 N N [facility] H[facility]PITA TIME IMGE DOCM ECG 68916 JACQUES HANNA ROUTINE 2 [facility] ECG INC INC W/LEAST 12 LDS TRCG ONLY W/O I&R URNLS DIP 83497 JACQUES HANNA 2 [facility] STICK/TAB INC INC LET REAGENT AUTO MICROSCOP Y CULTURE 31839 JACQUES HANNA BACTERIAL 2 [facility] BLOOD INC INC AEROBIC W/ID ISOLATES PRTBLE E0431 FRAN FRAN GASEOUS 2 HOME HOME O2 SYS MEDICAL MEDICAL RENT; EQUIPME EQUIPME FLWMTR HUMIDFR&M ASK ECG 84966 MERLIN BOYER ROUTINE 2 ANT ANT ECG W/LEAST 12 LDS W/I&R HOS BED E0303 FRAN FRAN HEVY DUTY 2 HOME HOME W/WT CAP MEDICAL MEDICAL >350 EQUIPME EQUIPME PDS</=TO 600 PDS PRTBLE E0431 FRAN FRAN GASEOUS 2 HOME HOME O2 SYS MEDICAL MEDICAL RENT; EQUIPME EQUIPME FLWMTR HUMIDFR&M ASK HOS BED E0303 FRAN FRAN HEVY DUTY 2 HOME HOME W/WT CAP MEDICAL MEDICAL >350 EQUIPME EQUIPME PDS</=TO 600 PDS PRTBLE E0431 FRAN FRAN GASEOUS 2 HOME HOME O2 SYS MEDICAL MEDICAL RENT; EQUIPME EQUIPME FLWMTR HUMIDFR&M ASK BLD GLU A4253 UNITED UNITED TEST/REAG 2 STATES STATES T STRIPS MEDICAL MEDICAL HOME BLD SUPPLY SUPPLY GLU MON-50 SPRING-PO A4258 UNITED UNITED WERED 2 STATES STATES DEVICE MEDICAL MEDICAL FOR SUPPLY SUPPLY LANCET EACH NORMAL A4256 [place] LOW AND 2 STATES STATES HIGH MEDICAL MEDICAL CALIBRATO SUPPLY SUPPLY R SOLUTION/ [facility] LANCETS A4259 [place] PER BOX 2 [facility] STATES OF 100 MEDICAL MEDICAL SUPPLY SUPPLY REPL BRANT A4233 [facility] 2 STATES STATES NOT J MEDICAL MEDICAL CELL ROMÁN SUPPLY SUPPLY BG MON OWND PT HOS BED E0303 FRAN PETERS HEVY DUTY 2 HOME HOME W/WT CAP MEDICAL MEDICAL >350 EQUIPME EQUIPME PDS</=TO 600 PDS PRTBLE E0431 FRAN PETERS GASEOUS 2 HOME HOME O2 SYS MEDICAL MEDICAL RENT; EQUIPME EQUIPME FLWMTR HUMIDFR&M ASK PORTABLE E0443 FRAN PETERS O2 2 HOME HOME CONTENTS MEDICAL MEDICAL GASEOUS 1 EQUIPME EQUIPME MO SUPPLY=1 UNIT LIPID 55937 [facility]ST PANEL 2 DIAGNOSTI DIAGNOSTI CS CS COMPREHEN 30534 [facility] SIVE 2 DIAGNOSTI DIAGNOSTI METABOLIC CS CS PANEL COLLECTIO 10521 [facility] N VENOUS 2 DIAGNOSTI DIAGNOSTI [place] [address] [facility] THYROID 2 DIAGNOSTI DIAGNOSTI STIMULATI CS CS NG HORMONE TSH HEMOGLOBI 88614 [facility] N 2 DIAGNOSTI DIAGNOSTI GLYCOSYLA CS CS EUGENIO A1C BLOOD 94867 [facility] COUNT 2 DIAGNOSTI DIAGNOSTI COMPLETE CS CS AUTO&AUTO DIFRNTL WBC HOS BED E0303 FRAN PETERS HEVY DUTY 2 HOME HOME W/WT CAP MEDICAL MEDICAL >350 EQUIPME EQUIPME PDS</=TO 600 PDS PRTBLE E0431 FRAN PETERS GASEOUS 2 HOME HOME O2 SYS MEDICAL MEDICAL RENT; EQUIPME EQUIPME FLWMTR HUMIDFR&M ASK BASIC 77468 [facility] METABOLIC 2 RENAL PAT PANEL CARE PSC CALCIUM IONIZED CREATININ 25218 [facility] E OTHER 2 RENAL PAT SOURCE CARE PSC COLLECTIO 32916 [facility] N VENOUS 2 RENAL PAT BLOOD CARE PSC VENIPUNCT URE URNLS DIP 42474 [facility] 2 RENAL PAT STICK/TAB CARE PSC LET RGNT AUTO W/O MICROSCOP Y HOS BED E0303 FRAN RAMIREZRELL HEVY DUTY 2 HOME HOME W/WT CAP MEDICAL MEDICAL >350 EQUIPME EQUIPME PDS</=TO 600 PDS PRTBLE E0431 FRAN RAMIREZRELL GASEOUS 2 HOME HOME O2 SYS MEDICAL MEDICAL RENT; EQUIPME EQUIPME FLWMTR HUMIDFR&M ASK COMPREHEN 75969 [facility] SIVE 2 DIAGNOSTI DIAGNOSTI METABOLIC CS CS PANEL COLLECTIO 80898 [facility] N VENOUS 2 DIAGNOSTI DIAGNOSTI BLOOD CS CS VENIPUNCT URE HEMOGLOBI 08391 [facility] QUEST N 2 DIAGNOSTI DIAGNOSTI GLYCOSYLA CS CS EUGENIO A1C HOS BED E0303 FRAN FRAN HEVY DUTY 1 HOME HOME W/WT CAP MEDICAL MEDICAL >350 EQUIPME EQUIPME PDS</=TO 600 PDS PRTBLE E0431 FRAN FRAN GASEOUS 1 HOME HOME O2 SYS MEDICAL MEDICAL RENT; EQUIPME EQUIPME FLWMTR HUMIDFR&M ASK BLD GLU A4253 UNITED [place] TEST/REAG 1 STATES STATES T STRIPS MEDICAL MEDICAL HOME BLD SUPPLY SUPPLY GLU MON-50 LANCETS A4259 UNITED UNITED PER BOX 1 STATES STATES OF [facility] MEDICAL MEDICAL SUPPLY SUPPLY NORMAL A4256 [place] LOW AND 1 [facility] HIGH MEDICAL MEDICAL CALIBRATO SUPPLY SUPPLY R SOLUTION/ CHIPS PRTBLE E0431 FRAN FRAN GASEOUS 1 HOME HOME O2 SYS MEDICAL MEDICAL RENT; EQUIPME EQUIPME FLWMTR HUMIDFR&M ASK HOS BED E0303 FRAN RAMIREZRELL HEVY DUTY 1 HOME HOME W/WT CAP MEDICAL MEDICAL >350 EQUIPME EQUIPME PDS</=TO 600 PDS PRTBLE E0431 FRAN RAMIREZRELL GASEOUS 1 HOME HOME O2 SYS MEDICAL MEDICAL RENT; EQUIPME EQUIPME FLWMTR HUMIDFR&M ASK HOS BED E0303 FRAN FRAN HEVY DUTY 1 HOME HOME W/WT CAP MEDICAL MEDICAL >350 EQUIPME EQUIPME PDS</=TO 600 PDS ADMINISTR G0008 MERLIN BOYER ATION OF 1 ANT ANT INFLUENZA VIRUS VACCINE INFLUENZA Q2037 MERLIN BOYER VACC 1 ANT ANT SPLIT VIRUS 3 YRS & > IM FLUVIRIN PRTBLE E0431 FRANCURT PETERS GASEOUS 1 HOME HOME O2 SYS MEDICAL MEDICAL RENT; EQUIPME EQUIPME FLWMTR HUMIDFR&M ASK 25 69061 [facility] SPECTRUM HYDROXY 1 LABORATOR LABORATOR INCLUDES Y NETWORK Y NETWORK FRACTIONS IF PERFORMED CALCIUM 83975 [facility] TOTAL 1 LABORATOR LABORATOR Y NETWORK Y NETWORK CREATININ 33454 SPECTRUM SPECTRUM E OTHER 1 LABORATOR LABOR[place] [address] S[facility]RUM SPECTRUM URINE 1 LABORATOR LABORATOR [place] [address] SPECTRUM SPECTRUM UREA 1 LABORATOR LABORATOR NITROGEN [place] [address] SPECTRUM SPECTRUM PARATHORM 1 LABORATOR LABORATOR [place] [address] SPECTRUM SPECTRUM PHOSPHORU 1 LABORATOR LABORATOR S Y NETWORK Y NETWORK INORGANIC BASIC 98283 [facility] S[facility] METABOLIC 1 LABORATOR LABORATOR PANEL Y NETWORK Y NETWORK CALCIUM TOTAL O2 CONC 1 E1390 FRAN PETERS [place] 1 HOME HOME 85%/>02 MEDICAL MEDICAL CONC AT EQUIPME EQUIPME PRSC FLW RATE PHYS CERT G0180 MERLIN BOYER MCR-COVR 1 ANT ANT ROMÁN HLTH SRVC PER CERT PRD HOS BED E0303 FRAN PETERS HEVY DUTY 1 HOME HOME W/WT CAP MEDICAL MEDICAL >350 EQUIPME EQUIPME PDS</=TO 600 PDS PRTBLE E0431 FRAN PETERS GASEOUS 1 HOME HOME O2 SYS MEDICAL MEDICAL RENT; EQUIPME EQUIPME FLWMTR HUMIDFR&M [facility] 92328 MERLIN BOYER DISCHARGE 1 ANT ANT DAY MANAGEMEN T 30 MIN/< A4258 UNITED UNITED WERED 1 STATES STATES DEVICE MEDICAL MEDICAL FOR SUPPLY SUPPLY LANCET EACH BLD GLU A4253 UNITED UNITED TEST/REAG 1 STATES STATES T STRIPS MEDICAL MEDICAL HOME BLD SUPPLY SUPPLY GLU MON-50 NORMAL A4256 UNITED [place] LOW AND 1 STATES STATES HIGH MEDICAL MEDICAL CALIBRATO SUPPLY SUPPLY R SOLUTION/ [place]IPS LANCETS A4259 UNITED UNITED PER BOX 1 STATES STATES OF [facility] MEDICAL MEDICAL SUPPLY SUPPLY REPL BRANT A4233 UNITED UNITED ALKALINE 1 STATES STATES NOT J MEDICAL MEDICAL CELL ROMÁN SUPPLY SUPPLY BG MON OWND PT SBSQ [address]11 [facility] 1 RENAL CARE/DAY CARE PSC 35 MINUTES NEBULIZER E0570 US MED US MED WITH 1 INC INC COMPRESSO R SBSQ 11044 [facility] 1 ANT ANT CARE/DAY 25 MINUTES SBSQ 68977 [facility] 1 RENAL CARE/DAY CARE PSC 35 MINUTES SBSQ 55183 [facility] 1 RENAL CARE/DAY CARE PSC 35 MINUTES SBSQ 87121 [facility] 1 ANT ANT CARE/DAY 25 MINUTES INITIAL 02874 [facility] 1 RENAL CARE/DAY CARE PSC 70 MINUTES INITIAL 27834 [facility] 1 ANT ANT CARE/DAY 50 MINUTES O2 CONC 1 E1390 [facility] 1 HOME HOME 85%/>02 MEDICAL MEDICAL CONC AT EQUIPME EQUIPME [facility] FLW RATE CULTURE 87795 LAB FRANK LAB FRANK BACTERIAL 1 [employer] QUANTTATI VE COLONY COUNT URINE URNLS DIP 99209 [facility] 1 AMB AMB STICK/TAB LET RGNT NON-AUTO W/O MICRSCP MARIFER 49377 [facility] 1 AMB AMB ING RESIDUAL URINE&/BL ADDER CAP HOS BED E0303 FRAN FRAN HEVY DUTY 1 HOME HOME W/WT CAP MEDICAL MEDICAL >350 EQUIPME EQUIPME PDS</=TO 600 PDS PRTBLE E0431 FRAN FRAN GASEOUS 1 HOME HOME O2 SYS MEDICAL MEDICAL RENT; EQUIPME EQUIPME FLWMTR HUMIDFR&M ASK NEBULIZER E0570 US MED US MED WITH 1 INC INC COMPRESSO R O2 CONC 1 E1390 FRAN [place] [place] 1 HOME HOME 85%/>02 MEDICAL MEDICAL CONC AT EQUIPME EQUIPME [facility] FLW RATE HOS BED E0303 FRAN FRAN HEVY DUTY 1 HOME HOME W/WT CAP MEDICAL MEDICAL >350 EQUIPME EQUIPME PDS</=TO 600 PDS PRTBLE E0431 FRAN PETERS GASEOUS 1 HOME MED HOME MED O2 SYS EQUIP. L EQUIP. L RENT; FLWMTR HUMIDFR&M ASK NEBULIZER E0570 US MED US MED WITH 1 INC INC COMPRESSO R O2 CONC 1 E1390 FRAN [facility] [place] 1 HOME MED HOME MED 85%/>02 EQUIP. L EQUIP. L CONC AT [facility] FLW RATE HOS BED E0303 FRAN PETERS HEVY DUTY 1 HOME HOME W/WT CAP MEDICAL MEDICAL >350 EQUIPME EQUIPME PDS</=TO 600 PDS DEMO&/NOVA 55922 CAIO CAIO L OF PT 1 CARLI CARLI UTILIZ AERSL GEN/NEB/I NHLR/IP THERAPEUT 25692 CAIO CAIO IC 1 CARLI CARLI PROPHYLAC TIC/DX INJECTION SUBQ/IM PRTBLE E0431 FRAN PETERS GASEOUS 1 HOME MED HOME MED O2 SYS EQUIP. L EQUIP. L RENT; FLWMTR HUMIDFR&M ASK INJECTION J2010 CAIO CAIO 1 CARLI CARLI LINCOMYCI N HCL UP TO 300 MG LEVALBUTE J7614 CAIO CAIO ROL INHAL 1 CARLI CARLI NON-CP THRU DME U DOSE 0.5 MG HEMOGLOBI 91010 [facility] N 1 [facility] GLYCOSYLA EUGENIO A1C COMPREHEN 72355 [facility] SIVE 1 [facility] METABOLIC PANEL COLLECTIO 01091 [facility] N VENOUS 1 [facility] BLOOD VENIPUNCT URE BRNCDILAT 92172 CAIO CAIO RSPSE 1 CARLI CARLI SPMTRY PRE&POST- BRNCDILAT ADMN INJECTION J1040 CAIO CAIO 1 CARLI CARLI METHYLPRE DNISOLONE ACETATE 80 MG IPRATROPI J7644 CAIO CAIO UM 1 CARLI CARLI BROMIDE INHAL NON-CP U DOSE PER MG LANCETS A4259 UNITED UNITED PER BOX 1 STATES STATES OF [facility] MEDICAL MEDICAL SUPPLY SUPPLY NORMAL A4256 [place] LOW AND 1 [facility] HIGH MEDICAL MEDICAL CALIBRATO SUPPLY SUPPLY R SOLUTION/ [place]IPS BLD GLU A4253 UNITED UNITED TEST/REAG 1 STATES STATES T STRIPS MEDICAL MEDICAL HOME BLD SUPPLY SUPPLY GLU MON-50 NEBULIZER E0570 US MED US MED WITH 1 INC INC COMPRESSO R O2 CONC 1 E1390 FRAN [place] 1 HOME MED HOME MED 85%/>02 EQUIP. L EQUIP. L CONC AT [facility] FLW RATE PRTBLE E0431 FRAN RAMIREZRELL GASEOUS 1 HOME MED HOME MED O2 SYS EQUIP. L EQUIP. L RENT; FLWMTR HUMIDFR&M ASK NEBULIZER E0570 US MED US MED WITH 1 INC INC COMPRESSO R PRTBLE E0431 FRAN RAMIREZRELL GASEOUS 1 HOME MED HOME MED O2 SYS EQUIP. L EQUIP. L RENT; FLWMTR HUMIDFR&M ASK NEBULIZER E0570 US MED US MED WITH 1 INC INC COMPRESSO R O2 CONC 1 E1390 FRAN PETERS [place] 1 HOME MED HOME MED 85%/>02 EQUIP. L EQUIP. L CONC AT [facility] FLW RATE ANES 80983 [facility] UPPER GI 1 ANESTHESI PAT ENDOSCOPY A GROUP PROXIMAL PSC TO DUODENUM SPECIAL 80332 PATHOLOGY PATHOLOGY STAIN 1 & & GROUP 1 CYTOLOGY CYTOLOGY MICROORGA LAB LAB NISMS I&R SPCL STN 48918 PATHOLOGY PATHOLOGY 2 I&R 1 & & EXCPT CYTOLOGY CYTOLOGY MICROORG/ LAB LAB ENZYME/IM CYT UNLISTED 22824 [facility] ANESTHESI 1 N N A [facility] PROCEDURE HOSPITA HOSPITA EGD 91200 [facility] TRANSORAL 1 N N BIOPSY [facility] SINGLE/[place] [address] PATHOLOGY PATHOLOGY SURG 1 & & PATHOLOGY CYTOLOGY CYTOLOGY LAB LAB GROSS&DASHA ROSCOPIC EXAM GLUC BLD 94153 [facility] GLUC MNTR 1 N N DEV [facility] CLEARED HOSPITA HOSPITA FDA SPEC HOME USE PRTBLE E0431 [facility] 1 HOME MED HOME MED O2 SYS EQUIP. L EQUIP. L RENT; FLWMTR HUMIDFR&M ASK HEMOGLOBI 37561 [facility] N 1 [facility] GLYCOSYLA EUGENIO A1C BLOOD 22830 [facility] COUNT 1 [facility] COMPLETE AUTO&AUTO DIFRNTL WBC COMPREHEN 31547 [facility] SIVE 1 [facility] METABOLIC PANEL COLLECTIO 55466 [facility] N VENOUS 1 [facility] BLOOD VENIPUNCT URE NEBULIZER E0570 US MED US MED WITH 1 INC INC COMPRESSO R BLD GLU A4253 [facility] TEST/REAG 1 [facility] T STRIPS MEDICAL MEDICAL HOME BLD SUPPLY SUPPLY GLU MON-50 SPRING-PO A4258 [facility] WERED 1 [facility] DEVICE MEDICAL MEDICAL FOR SUPPLY SUPPLY LANCET EACH REPL BRANT A4235 [facility] LITHIUM [address] [place] [address] MED NECES MEDICAL MEDICAL ROMÁN BG SUPPLY SUPPLY MON OWN PT EA NORMAL A4256 [facility] LOW AND 1 [facility] HIGH MEDICAL MEDICAL CALIBRATO SUPPLY SUPPLY R SOLUTION/ CHIPS LANCETS A4259 [facility] PER BOX [address] [place] [address] MEDICAL MEDICAL SUPPLY SUPPLY FILTER A7013 US MED US MED DISPOSABL 1 INC INC W/AREOSOL COMPRESS/ US GENERATOR ADMN SET A7003 US MED US MED SM VOL 1 INC INC NONFILTR PNEUMAT NEBULIZR DISPBL PHRM Q0513 [facility] MED US MED DISPENSIN 1 INC INC G FEE INHALATIO N RX; PER 30 DAYS ALBUTEROL J7620 US MED US MED TO 2.5 1 INC INC MG & IPRATROPI UM BROM TO 0.5 MG O2 CONC 1 E1390 [facility] DEL PORT 1 HOME MED HOME MED 85%/>02 EQUIP. L EQUIP. L CONC AT [facility] FLW RATE PRTBLE E0431 [facility] 1 HOME MED HOME MED O2 SYS EQUIP. L EQUIP. L RENT; FLWMTR HUMIDFR&M ASK NEBULIZER E0570 US MED US MED WITH 1 INC INC COMPRESSO R ALBUTEROL J7620 US MED US MED TO 2.5 1 INC INC MG & IPRATROPI UM BROM TO 0.5 MG ADMN SET A7003 US MED US MED SM VOL 1 INC INC NONFILTR PNEUMAT NEBULIZR DISPBL FILTER A7013 US MED US MED DISPOSABL 1 INC INC W/AREOSOL COMPRESS/ US GENERATOR PHRM Q0513 US MED US MED DISPENSIN 1 INC INC G FEE INHALATIO N RX; PER 30 DAYS O2 CONC 1 E1390 [facility] [place] 0 HOME MED HOME MED 85%/>02 EQUIP. L EQUIP. L CONC AT [facility] FLW RATE PRTBLE E0431 [facility] 0 HOME MED HOME MED O2 SYS EQUIP. L EQUIP. L RENT; FLWMTR HUMIDFR&M ASK PLCMT G0269 [facility] OCCL DEVC [address] [place] [address] ARLEN/ART POST SURG/INTR VNL PROC FIBRIN 60987 [facility] [id number] PRODUCTS D-DIMER QUANTITAT DINA COLLECTIO 63349 [facility] VENOUS [address] [place] [address] [place] [address] [facility] TRIIODOTH [address] [place] [address] YRONINE T3 TOTAL TT3 INJECTION 92293 [facility] CARDIAC [address] [place] [address] CATHJ L VENTR/L ATR ANGIOGRAP H BLOOD 51568 [facility] COUNT [address] [place] [address] COMPLETE AUTOMATED HEMOGLOBI [id number] GLYCOSYLA EUGENIO A1C NATRIURET 55042 [facility] IC [address] [place] [address] PEPTIDE RADIOLOGI 08109 [facility] C EXAM [address] [place] [address] CHEST 2 VIEWS FRONTAL&[place] [address] [facility] THYROID 38 [place] [address] STIMULATI NG HORMONE TSH L HRT [id number] [place] [address] [facility] C-[address] F/SLCTV C ANGRPH I SI&R 10516 [facility] F/NJX PX [address] [place] [address] DURING C-CATHJ VENTR&/AT R ANGRPH I SI&R 57706 [facility] F/ORX PX [address] [place] [address] DURING C-CATHJ PULM&/OR SELECT ECHO 78431 [facility] TTHRC R-T [address] [place] [address] 2D W/WOM-MOD E COMPL SPEC&COLR D INTRDUCR/ C1894 [facility] SHEATH [address] [place] [address] NOT GUID INTRACARD EP NON-LASR CLOSURE C1760 [facility] DEVICE [address] [place] [address] VASCULAR ECG 72110 [facility] ROUTINE [address] [place] [address] ECG W/LEAST 12 LDS TRCG ONLY W/O I&R BASIC [address] PANEL CALCIUM IONIZED NEBULIZER E0570 US MED US MED WITH 0 INC INC COMPRESSO R ALBUTEROL J7620 US MED US MED TO 2.5 0 INC INC MG & IPRATROPI UM BROM TO 0.5 MG FILTER A7013 US MED US MED DISPOSABL 0 INC INC W/AREOSOL COMPRESS/ US GENERATOR ADMN SET A7003 US MED US MED SM VOL 0 INC INC NONFILTR PNEUMAT NEBULIZR DISPBL PHRM Q0513 US MED US MED DISPENSIN 0 INC INC G FEE INHALATIO N RX; PER 30 DAYS BLD GLU A4253 YUVAL-LATONIA BARAKAT-LATONIA TEST/REAG 0 PHARMACY PHARMACY T STRIPS #591 #591 HOME BLD GLU MON-50 O2 CONC 1 E1390 [facility] 0 HOME MED HOME MED 85%/>02 EQUIP. L EQUIP. L CONC AT [facility] FLW RATE PRTBLE E0431 FRAN PETERS GASEOUS 0 HOME MED HOME MED O2 SYS EQUIP. L EQUIP. L RENT; FLWMTR HUMIDFR&M ASK ADMINISTR G0008 MERLIN BOYER ATION OF 0 ANT ANT INFLUENZA VIRUS VACCINE IIV3 56912 MERLIN BOYER VACCINE 0 ANT ANT SPLIT VIRUS 0.5 ML DOSAGE IM USE COMPREHEN 82043 [facility] SIVE 0 [facility] METABOLIC PANEL COLLECTIO 03103 [facility] N VENOUS 0 [facility] BLOOD VENIPUNCT URE HEMOGLOBI 81797 [facility] N 0 [facility] GLYCOS[place] [address] [facility] THYROID 0 [facility] STIMULATI NG HORMONE TSH BLD GLU A4253 UNITED UNITED TEST/REAG 0 STATES STATES T STRIPS MEDICAL MEDICAL HOME BLD SUPPLY SUPPLY GLU MON-50 LANCETS A4259 UNITED UNITED PER BOX 0 STATES STATES OF 100 MEDICAL MEDICAL SUPPLY SUPPLY NORMAL A4256 UNITED [place] LOW AND 0 STATES STATES HIGH MEDICAL MEDICAL CALIBRATO SUPPLY SUPPLY R SOLUTION/ CHIPS NEBULIZER E0570 US MED US MED WITH 0 INC INC COMPRESSO R ALBUTEROL J7620 US MED US MED TO 2.5 0 INC INC MG & IPRATROPI UM BROM TO 0.5 MG ADMN SET A7003 US MED US MED SM VOL 0 INC INC NONFILTR PNEUMAT NEBULIZR DISPBL FILTER A7013 US MED US MED DISPOSABL 0 INC INC W/AREOSOL COMPRESS/ US GENERATOR PHRM Q0513 US MED US MED DISPENSIN 0 INC INC G FEE INHALATIO N RX; PER 30 DAYS O2 CONC 1 E1390 FRAN RAMIREZRELL [place] 0 HOME MED HOME MED 85%/>02 EQUIP. L EQUIP. L CONC AT [facility] FLW RATE NEBULIZER E0570 US MED US MED WITH 0 INC INC COMPRESSO R DETERMINA 84059 RICHARDSO RICHARDSO TION 0 N DEYANIRA N DEYANIRA REFRACTIV E STATE O2 CONC 1 E1390 [facility]AN RAM[place]ZRELL [place] 0 HOME MED HOME MED 85%/>02 EQUIP. L EQUIP. L CONC AT [facility] FLW RATE ALBUTEROL J7620 US MED US MED TO 2.5 0 INC INC MG & IPRATROPI UM BROM TO 0.5 MG PHRM Q0513 US MED US MED DISPENSIN 0 INC INC G FEE INHALATIO N RX; PER 30 DAYS FILTER A7013 US MED US MED DISPOSABL 0 INC INC W/AREOSOL COMPRESS/ US GENERATOR ADMN SET A7003 US MED US MED SM VOL 0 INC INC NONFILTR PNEUMAT NEBULIZR DISPBL NEBULIZER E0570 US MED US MED WITH 0 INC INC COMPRESSO R O2 CONC 1 E1390 [facility] [place] 0 HOME MED HOME MED 85%/>02 EQUIP. L EQUIP. L CONC AT [facility] FLW RATE COMPREHEN 29760 [facility] SIVE 0 [place] [facility] METABOLIC PANEL COLLECTIO 83518 [facility] N VENOUS 0 [facility] BLOOD VENIPUNCT URE ELECTRIC E0215 UNITED [place] HEAT PAD 0 STATES STATES MOIST MEDICAL MEDICAL SUPPLY SUPPLY COLLECTIO 46281 [facility] N VENOUS 0 [facility] BLOOD VENIPUNCT URE COMPREHEN 09974 [facility] SIVE 0 [facility] METABOLIC PANEL BLOOD 73643 [facility] COUNT 0 [facility] COMPLETE AUTO&[place] [address] [facility] THYROID 0 [facility] STIMULATI NG HORMONE TSH RADIOLOGI 86561 [facility] C EXAM 0 N N CHEST 2 COMMUNITY COMMUNITY VIEWS HOSPITA HOSPITA FRONTAL&L ATERAL BLD GLU A4253 UNITED UNITED TEST/REAG 0 STATES STATES T STRIPS MEDICAL MEDICAL HOME BLD SUPPLY SUPPLY GLU MON-50 SPRING-PO A4258 UNITED UNITED WERED 0 STATES STATES DEVICE MEDICAL MEDICAL FOR SUPPLY SUPPLY LANCET EACH NORMAL A4256 UNITED UNITED LOW AND 0 STATES STATES HIGH MEDICAL MEDICAL CALIBRATO SUPPLY SUPPLY R SOLUTION/ CHIPS LANCETS A4259 UNITED UNITED PER BOX 0 STATES STATES OF [facility] MEDICAL MEDICAL SUPPLY SUPPLY ADMN SET A7003 US MED US MED SM VOL 0 INC INC NONFILTR PNEUMAT NEBULIZR DISPBL FILTER A7013 US MED US MED DISPOSABL 0 INC INC W/AREOSOL COMPRESS/ US GENERATOR PHRM Q0513 US MED US MED DISPENSIN 0 INC INC G FEE INHALATIO N RX; PER 30 DAYS ALBUTEROL J7620 US MED US MED TO 2.5 0 INC INC MG & IPRATROPI UM BROM TO 0.5 MG NEBULIZER E0570 US MED US MED WITH 0 INC INC COMPRESSO R O2 CONC 1 E1390 FRAN FRAN [place] 0 HOME MED HOME MED 85%/>02 EQUIP. L EQUIP. L CONC AT [facility] FLW RATE COMPREHEN 86465 [facility] SIVE 0 [facility] METABOLIC PANEL COLLECTIO 73258 [facility] N VENOUS 0 [facility] BLOOD VENIPUNCT URE HEMOGLOBI 62141 [facility] N 0 [facility] GLYCOSYLA EUGENIO A1C O2 CONC 1 E1390 FRAN FRAN [place] 0 HOME MED HOME MED 85%/>02 EQUIP. EQUIP. CONC AT [facility] FLW RATE O2 CONC 1 E1390 FRAN FRAN [place] 0 HOME MED HOME MED 85%/>02 EQUIP. EQUIP. CONC AT [facility] FLW RATE PWR E2361 SOURCE SOURCE ACSS 22NF 0 ONE ONE SEALED MEDICAL CROSSING WATCHMAN ACID INC INC BATTRY EA PWR K0825 SOURCE SOURCE GRP 2 0 ONE ONE HEVY DUTY MEDICAL MEDICAL CAPT INC INC CHAIR PT [phone] LBS WHEELCHAI E2208 SOURCE SOURCE R 0 ONE ONE ACCESSORY MEDICAL MEDICAL CYLINDER INC INC TANK CARRIER EACH ACCSS E0973 SOURCE SOURCE ADJUSTBL 0 ONE ONE HT DTACH MEDICAL MEDICAL ARMRST INC INC CMPL ASSMBL EA BLD GLU A4253 [facility] TEST/REAG 0 PHARMACY PHARMACY T STRIPS #591 #591 HOME BLD GLU MON-50 O2 CONC 1 E1390 FRANEngageSciencesRELL DEL [place] 0 HOME MED HOME MED 85%/>02 EQUIP. EQUIP. CONC AT [facility] FLW RATE PROTEIN 96589 [facility] TOTAL 0 [facility] XCPT REFRACTOM ETRY URINE COLLECTIO 92269 [facility] N VENOUS 0 [facility] BLOOD VENIPUNCT URE PROTEIN 33075 [facility] ELECTROP 0 [facility] FXJ&NEEL OTH FLUS CONCENTRA TI PROTEIN 67970 [facility] ELECTROPH 0 [facility] ORETIC FRACTJ&QU ANTJ SERUM PROTEIN 98808 [facility] XCPT 0 [facility] REFRACTOM ETRY SERUM PLASMA/WH L BLD CREATININ 36284 [facility] E OTHER 0 [facility] [place] [address] [facility] IRON 0 [facility] BLOOD 61288 [facility] COUNT 0 [facility] COMPLETE AUTO&AUTO DIFRNTL WBC IRON 48017 [facility] BINDING 0 [facility] CAPACITY HEMOGLOBI 04178 [facility] N 0 [facility] GLYCOSYLA EUGENIO A1C COLLECTIO 75625 [facility] N VENOUS 0 [facility] [place] [address] [facility] FERRITIN 0 [facility] COMPREHEN 89647 [facility] SIVE 0 [facility] METABOLIC PANEL PROTEIN 42440 JACQUES HANNA ELECTROPH 0 [facility] ORETIC INC INC FRACTJ&QU ANTJ SERUM CYANOCOBA 68071 JACQUES HANNA CAMILLE 0 [facility] VITAMIN INC INC B-12 COLLECTIO 96137 JACQUES HANNA N VENOUS 0 [facility] BLOOD INC INC VENIPUNCT URE HEMOGLOBI 79063 JACQUES HANNA N 0 [facility]OS[facility] GLYCOSYLA [place] [address] JACQUES HANNA FREE 0 [facility] [place] [address] JACQUES HANNA THYROID 0 [facility] STIMULATI INC INC NG HORMONE TSH O2 CONC 1 E1390 [facility] [place] 0 HOME MED HOME MED 85%/>02 EQUIP. EQUIP. CONC [facility] PRSC FLW RATE NDL EMG 2 08765 [facility], XTR W/WO 0 MD [facility] RELATED PSC PARASPINA L AREAS NRV CNDJ 60634 [facility], AMPLT&LAT 0 MD [facility] ENCY EA PSC NRV MOTOR W/F-WAVE STD NRV CNDJ 89320 [facility], AMPLITUDE 0 MD [facility] F[facility] & PSC LATENCY EACH NERVE SENSORY CHLORIDE 95614 [facility] BLD [address] [place] [address] [place] [address] [facility] UREA [address] [place] [address] NITROGEN QUANTITAT DINA BLOOD [address] HEMATOCRI T SODIUM [address] PLASMA OR WHOLE BLOOD GLUCOSE [address] DINA BLOOD XCPT REAGENT STRIP AORTOGRAP 33317 [facility] HY ABDL [address] [place] [address] BI ILIOFEM LOW EXTREM CATH RS&I ANGIOGRAP 95852 [facility] ANJANA, HY 0 LTH [facility] EXTREMITY CARDIOLOG Y ASSOC BILATERAL RS&I AORTOGRAP 75931 [facility] ANJANA, HY 0 LTH [facility] ABDOMINAL CARDIOLOG Y ASSOC SERIALOGR APHY RS&I POTASSIUM [address] PLASMA/WH OLE BLOOD BLOOD 94096 [facility] COUNT [address] [place] [address] PLATELET AUTOMATED CREATININ 44395 [facility] E BLOOD [address] [place] [address] COLLECTIO 89149 [facility] N VENOUS [address] [place] [address] BLOOD VENIPUNCT URE INTRODUCT 61662 [facility] ION [address] [place] [address] CATHETER AORTA CATHETER C1887 [facility] GUIDING [address] [place] [address] INTRDUCR/ C1894 [facility] SHEATH [address] [place] [address] NOT GUID INTRACARD EP NON-LASR CLOSURE C1760 [facility] DEVICE [address] [place] [address] VASCULAR PLCMT G0269 [facility] OCCL DEVC [address] [place] [address] ARLEN/ART POST SURG/INTR VNL PROC URNLS DIP 34756 RAKESH COCOLG, 0 AMADOR AMADOR STICK/TAB K K LET RGNT NON-AUTO W/O MICRSCP MARIFER 06570 COCOLG COCOLG, POST-VOID 0 AMADOR AMADOR ING K K RESIDUAL URINE&/BL ADDER CAP O2 CONC 1 E1390 FRAN PETERS [place] 0 HOME MED HOME MED 85%/>02 EQUIP. EQUIP. CONC AT [facility] FLW RATE CT THORAX 46541 [facility] W/O 0 N N [facility] BLOOD 44744 [facility] COUNT 0 [facility] COMPLETE AUTO&AUTO DIFRNTL WBC CREATINE 63427 [facility] KINASE 0 [facility] TOTAL COLLECTIO 20124 [facility] N VENOUS 0 [facility] BLOOD VENIPUNCT URE COMPREHEN 34530 [facility] SIVE 0 [facility] METABOLIC PANEL C-REACTIV 44904 [facility] E PROTEIN 0 [facility] EXTRACTAB 60348 [facility] LE 0 [facility] NUCLEAR ANTIGEN ANTIBODY ANY METHOD ANTIBODY 30567 [facility] BORDETELL 0 [facility] A ANTINUCLE 61214 [facility] AR 0 [facility] ANTIBODIE S CARMINE ALBUTEROL J7620 [facility] TO 2.5 0 PHARMACY PHARMACY MG & #571 #571 IPRATROPI UM BROM TO 0.5 MG HOME E0607 [facility] BLOOD 0 PHARMACY PHARMACY GLUCOSE #571 #571 MONITOR LANCETS A4259 [facility] PER BOX 0 PHARMACY PHARMACY OF 100 #571 #571 BLD GLU A4253 [facility] TEST/REAG 0 PHARMACY PHARMACY T STRIPS #571 #571 HOME BLD GLU MON-50 PHRM Q0513 SUNDAY BRAND DISPENSIN 0 PHARMACY PHARMACY G FEE #571 #571 INHALATIO N RX; PER 30 DAYS HOSPITAL 78724 [facility] DISCHARGE 0 ANT ANT DAY MANAGEMEN T 30 MIN/< RADIOLOGI 87433 [facility] VAHID DERAS, C EXAM 0 RADIOLOGY RAJESH Casas CHEST 2 VIEWS FRONTAL&L ATERAL SBSQ 54298 [facility] 0 ANT ANT CARE/DAY 25 MINUTES CRITICAL 10240 NINA CLINE, CARE 0 EMERGENCY ELI H ILL/INJUR SERVICES ED PATIENT ASSOCIATE INIT S 30-[place] [address] [facility] VAHID DERAS, HEAD/BRAI 0 RADIOLOGY RAJESH Casas N W/O CONTRAST MATERIAL RADIOLOGI 65840 [facility] VAHID DERAS, C 0 RADIOLOGY RAJESH Casas EXAMINATI ON CHEST SING[place]IEW FRONTAL ECG 80639 NINA CLINE, ROUTINE 0 EMERGENCY ELI H ECG SERVICES W/LEAST 12 [facility] ASSOCIATE I&R ONLY S INITIAL 15861 [facility] 0 ANT ANT CARE/DAY 70 MINUTES OUTPATIEN 50423 [facility] T CARDIAC 0 N N REHAB [facility] ECG MONITORIN G CV STRS 01000 ZULEIKA YEUNG, TST 0 LTH [facility] XERS&/OR CARDIOLOG RX CONT Y ASSOC ECG W/SI&R MYOCARDIA 51018 ZULEIKA YEUNG L SPECT 0 LTH [facility] MULTIPLE CARDIOLOG STUDIES Y ASSOC TECHNETIU A9502 ZULIEKA YEUNG M TC-99M 0 LTH [facility] TETROFOSM CARDIOLOG IN DX PER Y ASSOC STUDY DOSE INJECTION J2785 ZULEIKA YEUNG, 0 LTH [facility] REGADENOS CARDIOLOG ON 0.1 MG Y ASSOC ECG 07781 [facility] ROUTINE 0 N N ECG [facility] W/[facility] 12 [facility] TRCG ONLY W/O I&R NON-INVAS 62447 [facility] 0 N N PHYSIOLOG [facility] EXTREMITY ART 2 LEVEL O2 CONC 1 E1390 [facility]AN FRAN [place] 0 HOME MED HOME MED 85%/>02 EQUIP. EQUIP. CONC AT [facility] FLW RATE HOSPITAL 33896 MERLIN BOYER, DISCHARGE 0 ANGE L ANGE L DAY MANAGEMEN T 30 MIN/< SBSQ 24905 [facility] ANGE L CARE/DAY 25 MINUTES INITIAL 03058 MERLIN BOYER, [facility] 0 ANGE L ANGE L CARE/DAY 70 MINUTES DEMO&/NOVA 54025 [facility] L OF PT 0 N N UTILIZ [facility] GEN/NEB/I NHLR/IP ECHO 83064 CANDIDO REY, [facility] R-T 0 JOSAFAT MAURICE 2D P P W/WOM-MOD E COMPL SPEC&COLR D RADIOLOGI 54642 [facility] [place] ANKITA, C EXAM 0 RADIOLOGY NATTY G CHEST 2 VIEWS FRONTAL&L ATERAL O2 CONC 1 E1390 [facility] [place] 9 HOME MED HOME MED 85%/>02 EQUIP. EQUIP. CONC AT [facility] FLW RATE O2 CONC 1 E1390 [facility] [place]AN [place] 9 HOME MED HOME MED 85%/>02 EQUIP. EQUIP. CONC AT [facility] FLW RATE O2 CONC 1 E1390 [facility] [place] [place] 9 HOME MED HOME MED 85%/>02 EQUIP. EQUIP. CONC AT [facility] FLW RATE O2 CONC 1 E1390 [facility] [place] [place] 9 HOME MED HOME MED 85%/>02 EQUIP. EQUIP. CONC AT [facility] FLW RATE ARTHROCEN 79539 MERLIN BOYER TESIS 9 ANGE [place] ASPIR&/IN J MAJOR JT/KELLY W/O US ADMINISTR G0008 MERLIN BOYER, ATION OF 9 ANGE [place] INFLUENZA VIRUS VACCINE IIV3 23551 MERLIN, MERLIN, VACCINE 9 ANGE L ANGE L SPLIT VIRUS 0.5 ML DOSAGE IM USE O2 CONC 1 E1390 [facility] [place] 9 HOME MED HOME MED 85%/>02 EQUIP. EQUIP. CONC AT [facility] FLW RATE O2 CONC 1 E1390 [facility] [place] 9 HOME MED HOME MED 85%/>02 EQUIP. EQUIP. CONC AT [facility] FLW RATE 3D 99395 TERE CARRANZA, RENDERING 9 ANNE ANNE W/INTERP & [place] [address]37 TERE CARRANZA, SPINAL 9 ANNE ANNE CANAL LUMBAR W/O CONTRAST MATERIAL NEBULIZER E0570 FRAN FRAN WITH 9 HOME MED HOME MED COMPRESSO EQUIP. EQUIP. R [facility] O2 CONC 1 E1390 FRAN PETERS [place] 9 HOME MED HOME MED 85%/>02 EQUIP. EQUIP. CONC AT [facility] FLW RATE HOSPITAL 84801 ZULEIKA YEUNG, DISCHARGE 9 [facility] DAY CARDIOLOG MANAGEMEN Y ASSOC T 30 MIN/< ECG 01402 ZULEIKA YEUNG, ROUTINE 9 [facility] ECG CARDIOLOG W/LEAST Y ASSOC 12 LDS I&R ONLY CT LUMBAR 99120 [facility] [place] SCALF, SPINE 9 RADIOLOGY FAROOQ E W/CONTRAS T MATERIAL MYELOGRAP 13991 [facility] [place] SCAL[place], Y 9 RADIOLOGY FAROOQ E LUMBOSACR AL RS&I NEBULIZER E0570 FRAN PETERS WITH 9 HOME MED HOME MED COMPRESSO EQUIP. EQUIP. R [facility] CONTRAST 8721 [facility] MYELOGRAM [address] [place] [address] [facility]NA, [facility] 9 [facility] CARE/DAY CARDIOLOG 15 Y ASSOC MINUTES [facility] [address] [facility] 9 PHYSICIAN RONALD Marshall CARE/DAY S GROUP 25 MINUTES [facility] [address]304 [facility] 9 MD Oskar FARIA SHARON CARE/DAY PSC [address] LOWER [address] [facility] [place] AYALA, EXTREMITY 9 RADIOLOGY MELINA L W/O CONTRAST MATERIAL NON-INVAS 68933 [facility], 9 [facility] PHYSIOLOG CARDIOLOG IC STD Y ASSOC EXTREMITY ART 2 LEVEL INITIAL 54972 [facility] INPAT[facility] 9 MD Oskar FARIA SHARON CONSULT PSC NEW/ESTAB PT 110 MIN SBSQ 03265 [facility] CARE/DAY CARDIOLOG 15 Y ASSOC MINUTES ECG 37453 [facility] ANJANA, ROUTINE 9 [facility] ECG CARDIOLOG W/LEAST Y ASSOC 12 LDS I&[place] [address] [facility] [place] ANGIOGRAP 9 RADIOLOGY LD, A D HY CHEST W/CONTRAS T/[place] [address] [facility] [place] CERVICAL 9 RADIOLOGY LD, A D SPINE W/O CONTRAST MATERIAL INITIAL 65621 [facility] CARE/DAY CARDIOLOG 30 Y ASSOC MINUTES AMB A0427 [facility] SERVICE 9 AMBULANCE AMBULANCE ALS SERVICE SERVICE EMERGENCY TRANSPORT LEVEL 1 CRITICAL 45806 [facility] 9 EMERGENCY MERLIN J ILL/INJUR SERVICES ED PATIENT ASSOCIATE INIT S 30-74 MIN BLOOD 63551 JACQUES HANNA COUNT 9 [facility] COMPLETE INC INC AUTO&AUTO DIFRNTL WBC ECG 41315 JACQUES BRIAN, ROUTINE 9 [facility] ECG HOSPITAL W/LEAST PROF SERV 12 LDS I&R ONLY 3D 73169 JACQUES HANNA RENDERING 9 [facility] INC INC W/INTERP& POSTPROC DIFF WORK STATION CT LOWER 44277 FARZANA GARDNER, EXTREMITY 9 MEDICAL CAROLANN P W/O IMAGING CONTRAST ASSOCIATE MATERIAL S COMPREHEN 90042 JACQUES HANNA SIVE 9 [facility] METABOLIC INC INC PANEL THERAPEUT 24221 JACQUES HANNA IC 9 [facility] INJECTION INC INC IV PUSH EACH NEW DRUG FIBRIN 17627 JACQUES HANNA DGRADJ 9 [facility] PRODUCTS INC INC D-DIMER QUAL/SEMI NEEL GROUND A0425 [facility] 9 AMBULANCE AMBULANCE PER SERVICE SERVICE STATUTE MILE DUP-SCAN 19376 FARZANA GARDNER, XTR VEINS 9 MEDICAL CAROLANN P IMAGING UNILATERA ASSOCIATE L/LIMITED S STUDY ECG 23989 JACQUES HANNA ROUTINE 9 [facility] ECG INC INC W/LEAST 12 LDS TRCG ONLY W/O I&R THERAPEUT 90244 JACQUES HANNA IC 9 [facility] PROPHYLAC INC INC TIC/DX INJECTION SUBQ/IM HOSPITAL 86542 ZULEIKA YEUNG, DISCHARGE 9 [facility] DAY CARDIOLOG MANAGEMEN Y ASSOC T 30 MIN/< ECG 98190 ZULEIKA YEUNG, ROUTINE 9 [facility] ECG CARDIOLOG W/LEAST Y ASSOC 12 LDS I&R ONLY ECHO 27735 ZULEIKA YEUNG, TTHRC R-T 9 [facility] 2D CARDIOLOG W/WOM-MOD Y ASSOC E COMPL SPEC&COLR D I SI&R 16362 MARYA ANJANA, F/NJX PX 9 [facility] DURING CARDIOLOG C-CATHJ Y ASSOC PULM&/OR SELECT I SI&R 86177 COMMONAMYA ANJANA, F/NJX PX 9 [facility] DURING CARDIOLOG C-CATHJ Y ASSOC VENTR&[place] [address] ZULEIKA YEUNG, C-CATHJ 9 [facility] F/SLCTV C CARDIOLOG ANGRPH Y ASSOC L HRT 33332 ZULEIKA YEUNG, CATHETERI 9 [facility] ZATION CARDIOLOG RETROGRAD Y ASSOC E BRACHIAL PERQ INITIAL 10909 PULMONARY SADIE INPATIENT 9 S, CONSULT ASSOCIATE QUANG MARKHAM/ESTAB S, INC PT 80 MIN ENDOLUMIN 54298 ZULEIKA YEUNG, AL 9 [facility] CORONARY CARDIOLOG IVUS OCT Y ASSOC I&R INITIAL VESSEL TCAT PLMT 52823 ZULEIKA KESSLERIDY, 9 LTH [facility] Brwon INTRACORO CARDIOLOG NARY Y ASSOC STENT PRQ 1 VESSEL INJECTION 17389 ZULEIKA YEUNG, CARDIAC 9 [facility] CATHJ L CARDIOLOG VENTR/L Y ASSOC ATR ANGIOGRAP H SPMTRY 24337 PULMONARY VILLARAN, W/VC 9 PATRICA EXPIRATOR ASSOCIATE Y JIE S, INC W/WO MXML VOL VNTJ PERQ 0066 [facility] TRANSLUMI [address] [place] [address] NAL CORONARY ANGIOPLAS TY PTCA ANGIOCARD 8853 [facility] IOGRAPHY [address] [place] [address] OF LEFT HEART STRUCTURE S INSERTION [address] DRUG-ELUT ING CORONARY ARTERY STENT CORONARY 8856 [facility] ARTERIOGR [address] [place] [address] APHY USING TWO CATHETERS LEFT 3722 [facility] HEART [address] [place] [address] CARDIAC CATHETERI ZATION O2 CONC 1 E1390 [facility] [place] 9 HOME MED HOME MED 85%/>02 EQUIP. EQUIP. CONC AT [employer] PRS FLW RATE CRITICAL 11898 AMOS MONTERROSO 9 EMERGENCY KEYUR R ILL/INJUR SERVICES ED PATIENT ASSOCIATE INIT S 30-74 MIN BASIC 62613 JACQUES HANNA METABOLIC 9 [facility] PANEL INC INC CALCIUM TOTAL ECG 74551 OMA PRATER 9 [facility] W/LEAST PROF SERV 12 LDS I&R ONLY CREATINE 70218 JACQUES HANNA KINASE 9 [facility] TOTAL INC INC RADIOLOGI 33868 Johny ÁLVAREZ 9 MEDICAL ANNE EXAMINATI IMAGING ON CHEST ASSOCIATE SINGLE S VIEW FRONTAL BLOOD 81498 JACQUES HANNA COUNT 9 [facility] COMPLETE INC INC AUTO&AUTO DIFRNTL WBC CREATINE 77379 JACQUES HANNA KINASE MB 9 [facility] [place] [address] JACQUES HANNA TROPONIN 9 [facility] QUANTITAT INC INC DINA THER 74757 JACQUES HANNA PROPH/DX 9 [facility] NJX IV INC INC PUSH SINGLE/1S T SBST/DRUG ECG 58019 JACQUES HANNA ROUTINE 9 [facility] ECG INC INC W/LEAST 12 LDS TRCG ONLY W/O I&R INITIAL [address] CARE/DAY CARDIOLOG 50 Y ASSOC MINUTES GROUND A0425 [facility] MILEAGE 9 AMBULANCE AMBULANCE PER SERVICE SERVICE STATUTE MILE AMBULANCE A0429 [facility] SERVICE 9 AMBULANCE AMBULANCE BLS SERVICE SERVICE EMERGENCY TRANSPORT LIPID 50151 JACQUES HANNA PANEL 9 [facility] INC INC DUP-SCAN 58573 ALEXA BADILLO, LIONELR VEINS 9 ELIECER Casey COMPLETE CARDIOLOG Y BILATERAL CONSULTAN STUDY T NEBULIZER E0570 FRAN PETERS WITH 9 HOME MED HOME MED COMPRESSO EQUIP. EQUIP. R [facility] ANESTHESI 70482 [facility] A LUMBAR 9 [facility] ANESTHESI M NOS A PSC GRAFF 86250 NEUROSURG NEUROSURG FACETECTO 9 ICAL ICAL MY&FORAMT ASSOCIATE ASSOCIATE KEVIN 1 SGM S S EA CRV THRC/LMBR OTHER 0309 [facility] EXPLORATI 9 [facility] RESSION OF SPINAL CANAL [facility] 67567 NEUROSURG NEUROSURG FACETECTO 9 ICAL ICAL MY & ASSOCIATE ASSOCIATE FORAMOTOM S S Y 1 SEGMENT LUMBAR ECG 88717 CARDIOLOG Tod BANDA ROUTINE 9 Y A ECG ASSOCIATE W/LEAST S OF 12 LDS FORMAN W/I&R ECG 04437 [facility] ROUTINE 9 ORTH, ECG CARDIOLOG MARIE W/LEAST Y 12 LDS CONSULTAN I&R ONLY T O2 CONC 1 E1390 [facility] [place] 9 HOME MED HOME MED 85%/>02 EQUIP. EQUIP. CONC AT [facility] FLW RATE NEBULIZER E0570 FRAN PETERS WITH 9 HOME MED HOME MED COMPRESSO EQUIP. EQUIP. R [facility] O2 CONC 1 E1390 [facility] [place] 9 HOME MED HOME MED 85%/>02 EQUIP. EQUIP. CONC AT [facility] FLW RATE 3D 85908 TERE CARRANZA, RENDERING 9 ANNE ANNE W/INTERP & [place] [address] TERE, TERE, SPINAL 9 ANNE ANNE CANAL LUMBAR W/O CONTRAST MATERIAL NEBULIZER E0570 FRAN FRAN WITH 9 HOME MED HOME MED COMPRESSO EQUIP. EQUIP. R [facility] PROF SVCS 55473 CAIO, CAIO, ALLG 9 CARLI B CARLI B IMMNTX X W/PRV ALLGIC XTRCS NJXS SPMTRY 81619 CAIO, CAIO, W/VC 9 CARLI B CARLI B EXPIRATOR Y JIE W/WO MXML VOL VNTJ O2 CONC 1 E1390 [facility] [place] 9 HOME MED HOME MED 85%/>02 EQUIP. EQUIP. CONC AT [facility] FLW RATE 25 [id number] JACQUES HANNA HYDROXY 9 [facility] INCLUDES INC INC FRACTIONS IF PERFORMED COLLECTIO 76792 JACQUES HANNA N VENOUS 9 MEM [facility]OSP BLOOD INC INC VENIPUNCT URE FLUOR 49133 BRIANDA LAMAR, NEEDLE/CA 9 CONCEPCIÓN Ferrera TH SPINE/PAR ASPINAL DX/[place] NJX 85771 BRIANDA LAMAR, ANES&/STR 9 CONCEPCIÓN Ferrera D JT NRV LMBR/SAC 1 LVL O2 CONC 1 E1390 [facility] [place] 9 HOME MED HOME MED 85%/>02 EQUIP. EQUIP. CONC AT [facility] FLW RATE NEBULIZER E0570 FRAN FRAN WITH 9 HOME MED HOME MED COMPRESSO EQUIP. EQUIP. R [facility] SPMTRY 49539 CAIO, CAIO, W/VC 9 CARLI B CARLI B EXPIRATOR Y JIE W/WO MXML VOL VNTJ O2 CONC 1 E1390 [facility] [place] 8 HOME MED HOME MED 85%/>02 EQUIP. EQUIP. CONC AT [facility] FLW RATE NEBULIZER E0570 FRAN PETERS WITH 8 HOME MED HOME MED COMPRESSO EQUIP. EQUIP. R [facility] O2 CONC 1 E1390 [facility] [place] 8 HOME MED HOME MED 85%/>02 EQUIP. EQUIP. CONC AT [facility] FLW RATE PROF SVCS 04497 CAIO, CAIO, ALLG 8 CARLI B CARLI B IMMNTX X W/PRV ALLGIC XTRCS NJXS NEBULIZER E0570 FRAN PETERS WITH 8 HOME MED HOME MED COMPRESSO EQUIP. EQUIP. R [facility] O2 CONC 1 E1390 [facility] [place] 8 HOME MED HOME MED 85%/>02 EQUIP. EQUIP. CONC AT [facility] FLW RATE PROF SVCS 40684 CAIO, CAIO, ALLG 8 CARLI B CARLI B IMMNTX X W/PRV ALLGIC XTRCS NJXS PROF SVCS 00251 CAIO, CAIO, ALLG 8 CARLI B CARLI B IMMNTX X W/PRV ALLGIC XTRCS NJXS NEBULIZER E0570 FRAN PETERS WITH 8 HOME MED HOME MED COMPRESSO EQUIP. EQUIP. R [facility] PREPJ& 25412 CAIO, CAIO, ALLERGEN 8 CARLI B CARLI B IMMUNOTHE RAPY 1/ASSOCIATE ART DIRECTOR ANTIGEN O2 CONC 1 E1390 [facility] 8 HOME MED HOME MED 85%/>02 EQUIP. EQUIP. CONC AT [facility] FLW RATE SPMTRY 91064 CAIO, CAIO, W/VC 8 CARLI B CARLI B EXPIRATOR Y JIE W/WO MXML VOL VNTJ PERCUTANE 18897 CAIO, CAIO, OUS TESTS 8 CARLI B CARLI B W/ALLERGE VIKA EXTRACTS INTRACUTA 95422 CAIO, CAIO, NEOUS 8 CARLI B CARLI B TESTS W/ALLERGE VIKA EXTRACTS O2 CONC 1 E1390 [facility] [place] 8 HOME MED HOME MED 85%/>02 EQUIP. EQUIP. CONC AT [facility] FLW RATE COLLECTIO 16790 JACQUES HANNA N VENOUS 8 [facility] [place] [address] JACQUES HANNA GAMMAGLOB 8 [facility] ULIN IGE INC INC BLOOD 55656 JACQUES HANNA COUNT 8 [facility] COMPLETE INC INC AUTO&AUTO DIFRNTL WBC RADIOLOGI 49800 JACQUES HANNA C EXAM 8 [facility] CHEST 2 INC INC VIEWS FRONTAL&L ATERAL ALPHA-1-A 86755 JACQUES HANNA NTITRYPSI 8 [facility] N TOTAL INC INC ALPHA-1-A 31073 JACQUES HANNA NTITRYPSI 8 [facility] N INC INC PHENOTYPE PERCUTANE 75571 CAIO KEARNEY, OUS TESTS 8 CARLI B CARLI B W/ALLERGE VIKA EXTRACTS BRNCDILAT 63165 CAIO KEARNEY, RSPSE 8 CARLI B CARLI B SPMTRY PRE&POST- BRNCDILAT ADMN NEBULIZER E0570 FRAN PETERS WITH 8 HOME MED HOME MED COMPRESSO EQUIP. EQUIP. R [facility] ADMN SET A7005 YOUR YOUR W/SM VOL 8 PHARMACY PHARMACY NONFILTR [facility] NEBULIZR NON-DISPB L BUDESONID J7626 CAIO KEARNEY, E INHAL 8 CARLI B CARLI B NON-CP UNIT DOSE UP TO 0.5 MG ALBUTEROL J7620 YOUR YOUR TO 2.5 8 PHARMACY PHARMACY MG & [facility] IPRATROPI UM BROM TO 0.5 MG ALBUTEROL J7611 CAIO KEARNEY, INHAL 8 CARLI B CARLI B NON-CP THRU DME CONC FORM 1 MG IPRATROPI J7644 CAIO KEARNEY 8 CARLI B CARLI B BROMIDE INHAL NON-CP U DOSE PER MG AREO MASK A7015 FRAN PETERS USED W/ 8 HOME MED HOME MED DME NEB EQUIP. EQUIP. [facility] ALBUTEROL J7613 YOUR YOUR INHAL 8 PHARMACY PHARMACY NON-[facility] PROD THRU DME U DOSE 1 MG PHARM [id number] YOUR YOUR DISPEN 8 PHARMACY PHARMACY FEE INHAL [facility] RX; INITIAL 30-DAY SUPPLY O2 CONC 1 E1390 [facility] 8 HOME MED HOME MED 85%/>02 EQUIP. EQUIP. CONC AT [facility] FLW RATE O2 CONC 1 E1390 [facility] 8 HOME MED HOME MED 85%/>02 EQUIP. EQUIP. CONC AT [facility] FLW RATE O2 CONC 1 [facility] MED HOME MED 85%/>02 EQUIP. EQUIP. CONC AT [facility] FLW RATE O2 CONC 1 E1390 [facility] 8 HOME MED HOME MED 85%/>02 EQUIP. EQUIP. CONC AT [facility] FLW RATE COLLECTIO 72601 [place], N VENOUS 8 [facility] VENIPUNCT CENTERINC URE INJECTION 91980 PAWSAT, PAWSAT, 1 TENDON 8 MELLISSA Casas SHEATH/LI GAMENT APONEUROS IS INJECTION J1030 PAWSAT, PAWSAT, 8 MELLISSA Yessenia Casas METHYLPRE DNISOLONE ACETATE 40 MG O2 CONC 1 E1390 [facility] 8 HOME MED HOME MED 85%/>02 EQUIP. EQUIP. CONC AT [facility] FLW RATE INJECTION J1030 PAWSAT, PAWSAT, 8 MELLISSA Casas METHYLPRE DNISOLONE ACETATE 40 MG INJECTION 56468 PAWSAT, PAWSAT, 1 TENDON 8 MELLISSA Casas SHEATH/LI GAMENT APONEUROS IS STRAPPING 42056 PAWSAT, PAWSAT, ANKLE 8 MELLISSA Casas &/FOOT O2 CONC 1 E1390 [facility] 8 HOME MED HOME MED 85%/>02 EQUIP. EQUIP. CONC AT [facility] FLW RATE O2 CONC 1 E1390 [facility] 8 HOME MED HOME MED 85%/>02 EQUIP. EQUIP. CONC AT [facility] FLW RATE O2 CONC 1 E1390 [facility] 8 HOME MED HOME MED 85%/>02 EQUIP. EQUIP. CONC AT [facility] FLW RATE Encounters Encounter Start End Date Code Location Performer Type Date EMERGENCY 16564 [facility] 7 7 N [facility] 7 N OUTPATIEN [facility] HOSPITA OFF[facility] 00340 [facility] 7 7 N T VISIT CARDIOLOG 25 Y MINUTES OFFICE 90043 [facility] OUTPATIEN 7 7 DESIREE RAMÍREZ T VISIT 25 MINUTES HOSPITAL [facility] 62157 [facility] 6 6 DESIREE ELLIOTT T VISIT 15 MINUTES HOSPITAL [facility] - 6 6 N [facility] - 6 6 N [facility]PATIENT [facility] 5 5 [facility] 25504 [facility] OUTPATIEN 5 5 DESIREE ELLIOTT T VISIT 25 MINUTES HOSPITAL [facility] - 4 4 N OUTPATIEN [facility] HOSPITA OFFICE 80754 BIRDWHIST BIRDWHIST OUTPATIEN 4 4 DESIREE ELLIOTT T VISIT 10 MINUTES [facility] - 4 4 W [facility] MEAWVIE - 4 4 W [facility] [address] OFFICE 35947 CAIO CAIO OUTPATIEN 3 3 CARLI CARLI T VISIT 40 MINUTES HOSPITAL JACQUES - 3 3 [facility] OUTPATIEN INC T OFFICE 11410 CHELI HANSEN OUTPATIEN 3 3 W GENERAL III DAYNE T NEW 30 SURGERY MINUTES OFFICE 85231 MERLIN Schmitt OUTPATILAY 2 2 C C T VISIT 25 MINUTES [facility] - 2 [facility] OUTPATIEN T OFFICE 67249 MERLIN ROJAS 2 2 ANT ANT T VISIT 25 MINUTES HOSPITAL JACQU[facility] - 2 2 [facility] OUTPATIEN INC T EMERGENCY 68154 JACQUES 2 2 [facility] DEPARTMEN INC T VISIT HIGH/URGE NT SEVERITY OFFICE 19238 MERLIN ROJAS 2 2 ANT ANT T VISIT 25 MINUTES OFFICE 98721 [facility] RENAL PAT T VISIT CARE PSC 25 MINUTES OFFICE 27928 MERLIN ROJAS 2 2 ANT ANT T VISIT 25 MINUTES OFFICE 26860 MERLIN ROJAS 1 1 ANT ANT T VISIT 15 MINUTES OFFICE 32052 [facility] 1 1 RENAL PAT T VISIT CARE PSC 25 MINUTES OFFICE 25139 MERLIN ROJAS 1 1 ANT ANT T VISIT 25 MINUTES HOSPITAL [facility] - 1 N INPATIENT COMMUNITY HOSPITA OFFICE 77926 [facility] OUTPATIEN 1 1 AMB AMB T VISIT 25 MINUTES OFFICE 16859 MERLIN ROJAS 1 1 ANT ANT T VISIT 15 MINUTES OFFICE 06564 MERLIN ROJAS 1 1 ANT ANT T VISIT 15 MINUTES OFFICE 81873 MERLIN ROJAS 1 1 ANT ANT T VISIT 25 MINUTES HOSPITAL [facility] - 1 1 N OUTPATIEN [facility] HOSPITA OFFICE 18548 MERLIN BOYER OUTPATIEN 1 1 ANT ANT T VISIT 25 MINUTES [facility] 0 0 [facility] OUTPATI T OFFICE 81533 MERLIN BOYER OUTPATIEN 0 0 ANT ANT T VISIT 25 MINUTES OFFICE 19281 [facility] OUTPATIEN 0 0 N DEYANIRA T NEW 45 MINUTES OFFICE 39597 MERLIN BOYER OUTPATIEN 0 0 ANT ANT T VISIT 25 MINUTES HOSPITAL [facility] - 0 0 N OUTPATIEN [facility] HOSPITA OFFICE 79980 MERLIN BOYER OUTPATIEN 0 0 ANT ANT T VISIT 25 MINUTES OFFICE 44056 MERLIN BOYER OUTPATIEN 0 0 ANGE [place] T VISIT 25 MINUTES OFFICE 33486 MERLIN BOYER OUTPATIEN 0 0 ANT ANT T VISIT 25 MINUTES OFFICE 26280 MERLNI BOYER OUTPATIEN 0 0 ANT ANT T VISIT 25 MINUTES HOSPITAL JACQU[facility] - 0 0 [facility] OUTPATIEN [facility] T OFFICE 39177 CONCEPCIÓN FARIA, OUTPATIEN 0 0 MD CONCEPCIÓN FARIA T VISIT PSC 40 MINUTES [facility] - 0 0 [facility] OUTPATI T OFFICE 94013 WINDISCH, WINDISCH, OUTPATIEN 0 0 AMADOR AMADOR T NEW 30 K K MINUTES OFFICE 21816 MARYA ANJANA OUTPATIEN 0 0 [facility] CONCEPCIÓN Vazquez VISIT 5 CARDIOLOG MINUTES Y ASSOC [facility] - 0 0 N OUTPATIEN [facility] HOSPITAL OFFICE 87045 COMMONWEA ANJANA OUTPATIEN 0 0 [facility] CONCEPCIÓN Brown T VISIT CARDIOLOG 15 Y ASSOC MINUTES OFFICE 11607 [facility] OUTPATIEN 0 0 N T NEW [facility] - [address] [facility] - 0 0 N INPATIENT [facility] OFFICE 99431 MERLIN BOYER OUTPATIEN 9 9 ANGE [place] T VISIT 15 MINUTES OFFICE 15334 NEUROSURG BOB DO 9 9 ICAL DOMINGO Ferrera T VISIT ASSOCIATE 15 S MINUTES OFFICE 05600 MERLIN BOYER OUTPATIEN 9 9 ANGE [place] T NEW 45 MINUTES [address] [address] INPATIENT EMERGENCY 35518 JACQUES DEPT 9 9 [facility] VISIT INC HIGH SEVERITY& THREAT FUN EMERGENCY 83515 JACQUES DEPT 9 9 [facility] VISIT INC HIGH SEVERITY& THREAT FUN [facility] [address] INPATIENT HOSPITAL [facility] - 9 9 [facility] OFFICE 62795 CARDIOLOG Tod BANDAAT 9 9 Y A ION ASSOCIATE NEW/ESTAB S OF PATIENT [place] 40 MIN OFFICE 35749 BRIANDA LAMAR OUTPATIEN 9 9 CONCEPCIÓN Ferrera T VISIT 25 MINUTES OFFICE 82576 CAIO KEARNEY OUTPATIEN 9 9 CARLI B CARLI B T VISIT 25 MINUTES HOSP[facility] [place] - 9 9 [facility] OUTPATIEN INC T OFFICE 99215 BRIANDA LAMAR OUTPATIEN 9 9 CONCEPCIÓN Ferrera T NEW 45 MINUTES OFFICE 52042 CAIO KEARNEY OUTPATIEN 9 9 CARLI B CARLI B T VISIT 25 MINUTES OFFICE 00227 CAIO KEARNEY OUTPATILAY 8 8 CARLI B CARLI B T VISIT 25 MINUTES HOSPITAL J[facility] - 8 8 [facility] OUTPATIEN INC T OFFICE 35789 CAIO KEARNEY, CONSULTAT 8 8 CARLI B CARLI B ION NEW/ESTAB PATIENT 80 MIN OFFICE 21719 [place] OUT[facility]IEN 8 8 PRIMARY T VISIT CARE 10 [facility] [place] FREE 8 8 PRIMARY STANDING CARE [facility] OFFICE 97148 [place] OUTPATIEN 8 8 PRIMARY T VISIT CARE 10 [facility] [place] FREE 8 8 PRIMARY STANDING CARE [facility] [place] FREE 8 8 PRIMARY STANDING CARE [facility] OFFICE 88470 [place] OUTPATIEN 8 8 PRIMARY T VISIT CARE 10 [facility] OFFICE 67881 PAWSAT, AD, OUTPATIEN 8 8 MELLISSA Casas T [facility] 20 MINUTES OFFICE 34288 [place] OUTPATIEN 8 8 PRIMARY T VISIT CARE 10 [facility] [place] FREE 8 8 PRIMARY STANDING CARE [facility] FREE 8 8 [facility]
--- OUTSIDE RECORDS SUMMARY | 2017-02-21 02:36 | External Medical Summary Rpt ---
Author Author , VINNIE BIRMINGHAM Address Unknown Phone [email or web address] Care Team Providers Care Procurement Agent Name Role Phone NATALIA BRIAN, Unavailable Unavailable [...] Unavailable Unavailable ELIECER BADILLO BOND Unavailable Unavailable [facility] Unavailable Unavailable SERVICE, [facility] MELINA AYALA BUCK, Unavailable Unavailable DIGNA MCLAUGHLIN Unavailable Unavailable ANJANA DOMÍNGUEZ Unavailable Unavailable CONCEPCIÓN GONZALEZ, Unavailable Unavailable CONCEPCIÓN YEUNG [facility], Unavailable Unavailable [facility] Unavailable Unavailable PULMONARY M, [facility] YAJAIRA TER, YAJAIRA TER Unavailable Unavailable ORTEGA HESHAM, ORTEGA Unavailable Unavailable HESHAM [facility], Unavailable Unavailable [facility] TERE, TERE Unavailable Unavailable TERE MARIA ISABEL, Unavailable Unavailable TERE MARIA ISABEL ANNE CARRANZA, Unavailable Unavailable ANNE CARRANZA MD Un[facility] ASTRID GOODWIN Unavailable Unavailable ASTRID [...] Unavailable Unavailable [facility]SP[facility]ATION [facility], [facility] Unavailable Unavailable CARDIOLOGY, [facility] Unavailable Unavailable HOSPITA, [facility] Unavailable [facility]available HOSPITAL, [facility] Unavailable Unavailable HOSPITA, [facility] GREGONIS VERITO, Unavailable Unavailable GREGONIS VERITO ANKITA RHO, ANKITA Unavailable Unavailable RHO ANKITA, NATTY G, Unavailable Unavailable ANKITA, NATTY G REMINGTON, SANDRO E, Unavailable Unavailable REMINGTON, SANDRO E HALLAK PAT, HALLAK Unavailable Unavailable PAT KEYUR NICK, Unavailable Unavailable KEYUR NICK DAVID P, Unavailable Unavailable CONCEPCIÓN LAMAR [facility] Unavailable Unavailable INC, [facility] Unavailable Unavailable HOSPITAL P, [facility] P MARIE PICHARDO, Unavailable Unavailable MARIE PICHARDO, Unavailable Unavailable Tod PERES KAPALI, Unavailable Unavailable N A LEELA III JASON, Unavailable Unavailable LEELA III JASON [facility] Unavailable Unavailable IMAGING ASS, [facility] DOMINGO DO, Unavailable Unavailable DOMINGO DO KUMSEEMA III DAYNE, Unavailable Unavailable KUMLER III [facility] Unavailable Unavailable [facility], [facility] Unavailable Unavailable HOLD[facility], [facility], Unavailable [facility]available [facility] Unavailable Unavailable [facility] L[facility]NN JR DWI, LYNN Unavailable Unavailable JR DWI CRIS BAILEY E, Unavailable Unavailable CRIS BAILEY E JOSAFAT REY, Unavailable Unavailable JOSAFAT REY MARTIN J, Unavailable Unavailable MERLIN BREWSTER MARTIN Unavailable Unavailable MERLIN ROSE Unavailable Unavailable MERLIN NÚÑEZ Unavailable Unavailable ANGE KASPER, Unavailable Unavailable ANGE BOYER CARLI, Unavailable Unavailable CAIO CARLI CAIO CARLI, Unavailable Unavailable CAIO CARLI CAIO, CARLI B, Unavailable Unavailable CAIO, CARLI B [facility] Unavailable Unavailable ASSOCIAT, [facility] Unavailable Unavailable SURGERY, [facility] Unavailable Unavailable MEDICAL, [facility] CAROLANN GARDNER, Unavailable Unavailable CAROLANN GARDNER [...] LABORATORY Unavailable Unavailable NETWORK, [facility], Unavailable Unavailable [facility] DOUG CAMACHO Unavailable Unavailable MARICRUZ, Unavailable Unavailable MARICRUZ [facility] Unavailable Unavailable SUPPLY, [facility] Unavailable Unavailable SUPPLY, [facility], Unavailable Unavailable [facility], HEALTHCARE SUPPLY, [facility], Unavailable Unavailable LLC, HEALTHCARE SUPPLY, [facility], [facility] Unavailable Unavailable INC PATRICA HARO, Unavailable Unavailable PATRICA HARO [facility] [id number], Unavailable Unavailable [facility] [id number] [facility] Unavailable Unavailable #571, [facility] Unavailable Unavailable #591, [facility] # Unavailable Unavailable [id number], [facility] # [id number] TERESO III DEYANIRA, Unavailable Unavailable GALMAN III [...] TRANSPORTAT ION SER E119 TYPE 2 11-13-2016 [facility]ICAL WITHOUT SUPPLY COMPLICATIO NS I10 ESSENTIAL 10-26-2016 [facility] PRIMARY L HYPERTENSIO N M6281 MUSCLE 10-26-2016 [facility] WEAKNESS L GENERALIZED R296 REPEATED 10-26-2016 [facility] FALLS L I110 HYPERTENSIV 10-13-2016 [facility] E HEART COMMUNTIY DISEASE HOSPITA WITH HEART FAILURE I4891 UNSPECIFIED 10-13-2016 [facility] ATRIAL COMMUNTIY FIBRILLATIO HOSPITA N I509 HEART 10-13-2016 [facility] FAILURE COMMUNTIY UNSPECIFIED HOSPITA M170 BILATERAL 10-13-2016 [facility] PRIMARY COMMUNTIY OSTEOARTHRI HOSPITA TIS OF KNEE G43124 PAIN IN 10-13-2016 [facility] [place] RIGHT [place]NEE RADIOLOGY C17625 PAIN IN 10-13-2016 [facility] [place] LEFT KNEE RADIOLOGY M797 FIBROMYALGI 10-13-2016 [facility] A COMMUNTIY HOSPITA M48966 PERSONAL 10-13-2016 [facility] HISTORY OF COMMUNTIY NICOTINE HOSPITA DEPENDENCE M1611 UNILATERAL 10-10-2016 [facility] OSTEOARTHRI IMAGING ASS TIS RIGHT HIP Q33447 PAIN IN 10-10-2016 [place] RIGHT HIP MEDICAL IMAGING ASS J07584 PAIN IN 10-10-2016 [place] RIGHT LEG MEDICAL IMAGING ASS 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 E1165 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[facility] DIABETES L MELLITUS WITH HYPERGLYCEM IA G4733 OBSTRUCTIVE 07-11-2016 [facility]EP HOME APNEA ADULT MEDICAL PEDIATRIC EQUIPME 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 R079 CHEST PAIN 06-28-2016 [facility] UNSPECIFIED CARDIOLOGY R609 EDEMA 06-28-2016 [facility] UNSPECIFIED CARDIOLOGY E6601 MORBID 06-27-2016 EXTREME SEVERE [...] HISTORY OF 01-05-2016 [facility] FALLING L MAT V67579 PAIN IN 12-10-2015 [facility] RIGHT COMMUNTIY SHOULDER HOSPITA Y47713 PAIN IN 12-10-2015 [facility] LEFT LEG COMMUNTIY HOSPITA R600 LOCALIZED 12-10-2015 [facility] [place] EDEMA RADIOLOGY E662 MORBID 08-09-2015 [facility] SEVERE L MAT OBESITY W/ALVEOLAR HYPOVENTILA TION E669 OBESITY 07-13-2015 [facility] UNSPECIFIED COMMUNTIY HOSPITA G2581 RESTLESS 07-13-2015 [facility] LEGS COMMUNTIY SYNDROME HOSPITA G4710 HYPERSOMNIA 07-13-2015 EAR, NOSE AND THROAT UNSPECIFIED SPECIAL G4761 PERIODIC 07-13-2015 [facility] LIMB COMMUNTIY MOVEMENT HOSPITA DISORDER R0689 OTHER 07-13-2015 [facility] ABNORMALITI COMMUNTIY ES OF HOSPITA BREATHING I259 CHRONIC 06-14-2015 [facility] ISCHEMIC COMMUNTIY HEART HOSPITA DISEASE UNSPECIFIED J9600 ACUTE 06-14-2015 [facility] ERNIE RESPIRATORY FAIL UNS HYPOXIA/HYP ERCAPNIA J9601 ACUTE 06-14-2015 [facility] RESPIRATORY COMMUNTIY FAILURE HOSPITA WITH HYPOXIA J9602 ACUTE 06-14-2015 [facility] RESPIRATORY COMMUNTIY FAILURE HOSPITA WITH HYPERCAPNIA N179 ACUTE 06-14-2015 [facility] KIDNEY COMMUNTIY FAILURE HOSPITA UNSPECIFIED R0602 SHORTNESS 06-14-2015 [facility] [place] OF BREATH RADIOLOGY R200 ANESTHESIA 06-14-2015 [facility] ERNIE OF SKIN R4781 SLURRED 06-14-2015 [facility] [place] SPEECH RADIOLOGY Z6844 BODY MASS 06-14-2015 [facility] INDEX BMI COMMUNTIY 60.0-69.9 HOSPITA ADULT 496 CHRONIC 01-22-2015 [facility]AY HOME OBSTRUCTION MEDICAL NEC EQUIPME 25649 OSTEOARTHRO 01-22-2015 [facility] S UNSPEC HOME WHETHER MEDICAL GEN/LOC EQUIPME UNSPEC SITE 68835 HYPERSOMNIA 01-14-2015 [facility] WITH SLEEP HOME APNEA MEDICAL UNSPECIFIED EQUIPME 70233 ATRIAL 12-17-2014 [email or web address] N SUPPL[facility] [employer] 99939 DIAB W/O 11-09-2014 [facility] COMP TYPE STATES II/UNS NOT MEDICAL STATED SUPPLY UNCNTRL 47722 DIAB W/O 10-08-2014 [facility] MENT[facility] MEDICAL RUST COMP TYPE II/UNS TYPE UNCNTRL 29757 OBSTRUCTIVE 07-27-2014 [facility] SLEEP COMMUNTIY APNEA HOSPITA 29250 GENERALIZED 07-06-2014 [facility] DISORDER 58303 RESTLESS 07-06-2014 [facility] LEGS L MAT SYNDROME 4149 UNSPECIFIED 07-06-2014 [facility] ISCHEMIC HEART DISEASE 5852 CHRONIC 07-06-2014 [facility] DISEASE STAGE II (MILD) 91161 GENERALIZED 07-06-2014 [facility] L MAT OSTEOARTHRO SIS UNSPECIFIED SITE 83924 SHORTNESS 02-24-2014 [facility] BREATH [place] PULMONARY M 55174 SOLITARY 02-24-2014 [facility] PULMONARY COMMUNITY NODULE HOSPITA 35058 OTHER 02-24-2014 [facility] [place] NONSPECIFIC RADIOLOGY ABNORMAL FINDING OF LUNG FIELD 2662 OTHER 02-05-2014 [facility] B-COMPLEX L MAT DEFICIENCIE S V0382 NEED PROPH 02-05-2014 [facility] VACCINATION L MAT AGAINST STREP PNEUMONE V0481 NEED 02-05-2014 [facility] PROPHYLACTI L MAT C VACCINATION &INOCULATIO N FLU V5861 LONG-TERM 02-05-2014 [facility] (CURRENT) L MAT USE OF ANTICOAGULA NTS 00363 INSOMNIA 01-01-2014 [facility] UNSPECIFIED L MAT V643 PROCEDURE 12-09-2013 [facility] NOT CARRIED REGIONAL OUT FOR MEDICAL OTHER REASONS 7821 RASH AND 12-02-2013 [facility] OTHER L MAT NONSPECIFIC SKIN ERUPTION 4019 UNSPECIFIED 11-26-2013 [facility] ESSENTIAL REGIONAL HYPERTENSIO MEDICAL N 4293 CARDIOMEGAL 11-26-2013 [facility] Y [facility] ASSOC[facility]AT 36291 OTHER 11-26-2013 [facility] DISEASES OF RADIOLOGY LUNG NOT ASSOCIAT ELSEWHERE CLASSIFIED V7283 OTHER 11-26-2013 [facility] SPECIFIED RADIOLOGY PRE-OPERATI ASSOCIAT VE EXAMINATION V7284 UNSPECIFIED 11-26-2013 [facility] PRE-OPERATI MEDICAL VE EXAMINATION 35549 MORBID 11-17-2013 [facility] OBESITY CARDIOLOGY 77401 COR 11-17-2013 [facility] ATHEROSLERO CARDIOLOGY UNSPEC TYPE VESSEL EWIIAAPAAYP/DIDI T 32075 PRIMARY 10-02-2013 [facility] LOCALIZED L MAT OSTEOARTHRO SIS OT SPEC SITES 36363 UNSPECIFIED 10-02-2013 [facility] RETENTION L MAT OF URINE 38388 HYPOXEMIA 02-27-2013 [facility] MEDICAL EQUIPME 2724 OTHER AND 02-17-2013 [facility] HYPERLIPIDE SHAKIRA 4139 OTHER AND 02-17-2013 [facility] HOSPITAL ANGINA PECTORIS 93284 CORONARY 02-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 CORONARY ARTERY 4168 OTHER 02-17-2013 [facility] 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 30367 OTHER 02-14-2013 [facility] MALAISE AND HOSPITAL FATIGUE 38120 OTHER 02-14-2013 [facility] DYSPNEA AND HOSPITAL RESPIRATORY ABNORMALITI ES V4582 POSTSURG 02-14-2013 [facility] PERCTONSIL HOSPITAL TRANSLUMINA L COR ANGPLSTY STS 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-30-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 10833 IDIOPATH 12-26-2012 [facility] SLEEP REL CARLI NONOBST ALVEOLAR HYPOVENT 4770 ALLERGIC 12-26-2012 [facility] RHINITIS CARLI DUE TO POLLEN 4778 ALLERGIC 12-26-2012 [facility] RHINITIS CARLI DUE TO OTHER ALLERGEN 3319 UNSPECIFIED 11-19-2012 [place] CERE[facility]AL MEDICAL DEGENERATIO IMAGING ASS N 4359 UNSPECIFIED 11-19-2012 [facility] CEREBRAL INC ISCHEMIA 4371 OTH 11-19-2012 [place] 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 4553 EXTERNAL 09-05-2012 [facility] HEMORRHOIDS WITHOUT MENTION COMP 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 51475 DIARRHEA 09-05-2012 [facility] 46883 PRIMARY 07-01-2012 [facility] LOCALIZED GENERAL OSTEOARTHRO SURGERY SIS LOWER LEG 04200 PAIN IN 07-01-2012 [facility] JOINT, GENERAL LOWER LEG SURGERY 70103 GENU VARUM 07-01-2012 [facility] GENER[facility] 4111 INTERMEDIAT 03-06-2012 [facility] SYNDROME 45748 CHEST PAIN 12-01-2011 [facility] [place] UNSPECIFIED RADIOLOGY 4011 ESSENTIAL 11-30-2011 CON[facility] Brown HYPERTENSIO ANJANA KAMARA N, BENIGN PLLC 71482 ATRIAL 11-30-2011 CONCEPCIÓN YEUNG MD PLLC 2409 GOITER, 11-01-2011 [facility] UNSPECIFIED [facility] HOSPITA 490 BRONCHITIS 11-01-2011 [facility] III NOT DEYANIRA SPECIFIED ACUTE OR CHRONIC 81682 OBST 11-01-2011 [facility] HOSPITAL P W/ACUTE BRONCHITIS 21106 FEVER 11-01-2011 [facility] III UNSPECIFIED DEYANIRA 14236 OTHER CHEST 10-27-2011 [facility] ANT PAIN 7823 EDEMA 10-07-2011 [facility] MEDICAL EQUIPME 7993 UNSPECIFIED 10-07-2011 [facility] MEDICAL EQUIPME 4280 CONGESTIVE 06-27-2011 [facility] RENAL CARE FAILURE PSC UNSPECIFIED 2859 UNSPECIFIED 05-19-2011 [facility]EMIA [facility] 7295 PAIN IN 03-31-2011 [facility] TISSUES OF MEDICAL LIMB SUPPLY 92602 OTHER FLUID 01-17-2011 [facility] 5853 CHRONIC 01-17-2011 [facility] DISEASE NETWORK STAGE III (MODERATE) 60776 OBSTRUCTIVE 01-09-2011 [facility] ANT CHRONIC BRONCHITIS WITH EXACERBATIO N 5859 CHRONIC 01-09-2011 [facility] ANT KIDNEY DISEASE UNSPECIFIED 79002 GEN 01-09-2011 [facility] ANT OSTEOARTHRO SIS INVOLVING MULTIPLE SITES 28845 OBESITY, 01-06-2011 [facility] ANT UNSPECIFIED 45663 HTN CKD UNS 12-20-2010 [facility] W/CKD COMMUNITY STAGE I HOSPITA THRU STAGE IV/UNS 43556 UNSPECIFIED 12-20-2010 [facility] DIASTOLIC [facility] HEART HOSPITA FAILURE V8543 BODY MASS 12-20-2010 [facility] INDEX COMMUNITY 50.0-59.9 HOSPITA ADULT 5990 URINARY 12-07-2010 LAB [facility] [employer] HOLDING SITE NOT SPECIFIED 74520 NOCTURIA 12-07-2010 [facility] 31791 URGENCY OF 12-07-2010 [facility] URINATION AMB 10224 URINARY 12-07-2010 [facility] HESITANCY AMB 74146 UNSPECIFIED 09-27-2010 [facility] SLEEP CARLI APNEA 53364 ACUTE 07-07-2010 [facility] GASTRITIS NKLIN DAYNE WITHOUT MENTION OF HEMORRHAGE 71485 ATROPHIC 07-07-2010 PATHOLOGY & GASTRITIS CYTOLOGY WITHOUT LAB MENTION OF HEMORRHAGE 20990 OTHER SPEC 07-07-2010 [facility] GASTRITIS COMMUNITY WITHOUT HOSPITA MENTION HEMORRHAGE 5533 DIAPHRAGMAT 07-07-2010 [facility] YANET W/O COMMUNITY MENTION HOSPITA OBSTRUCTION /GANGREN 64184 ABDOMINAL 07-07-2010 [facility] PAIN, NKLIN DAYNE EPIGASTRIC 3970 DISEASES OF 04-29-2010 [facility] TRICUSPID [facility] VALVE 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 56894 OTHER 04-29-2010 [facility] CARDIAC DYSRHYTHMIA S 94010 NUCLEAR 02-16-2010 [facility] SCLEROSIS DEYANIRA 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 DEYANIRA 44783 UNSPECIFIED 02-16-2010 [place] [address] MEMORY LOSS 01-05-2010 [facility] ANT 7931 NONSPEC 01-05-2010 [facility] [place] FIND RAD RADIOLOGY OTH EXAM BODY STRUCT LUNG FIELD 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 [facility] 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 7804 DIZZINESS 08-13-2009 [facility] AND [place] [facility] GIDDINESS 38595 OTHER 08-13-2009 [facility] ABNORMAL [facility] GLUCOSE 2449 UNSPECIFIED 08-11-2009 [facility] HOSP HYPOTHYROID INC ISM 7820 DISTURBANCE 08-04-2009 CON[facility] Hein OF SKIN MD GIANA SENSATION PSC 38326 ATHEROSLERO 07-30-2009 [facility] ART H EXTREM CARDIOLOGY W/INTERMIT ASSOC CLAUDICAT V1582 PERS HX 07-30-2009 [facility] TOBACCO USE [facility] PRESENTING [facility] 7862 COUGH 07-02-2009 [facility] 7291 UNSPECIFIED 06-30-2009 [facility] MYALGIA [facility] AND MYOSITIS 4412 THORACIC 06-22-2009 [facility] [place] ANEURYSM RADIOLOGY WITHOUT MENTION OF RUPTURE 2761 HYPOSMOLALI 06-21-2009 [facility] MUNOZ TY AND/OR HYPONATREMI A 2767 HYPERPOTASS 06-21-2009 [facility] MUNOZ EMIA 78779 UNSPEC 06-21-2009 [facility] [place] CERBRL ART RADIOLOGY OCCLUSION W/O MENTION INFARCT 5849 ACUTE 06-21-2009 [facility] MUNOZ KIDNEY FAILURE UNSPECIFIED 5939 UNSPECIFIED 06-21-2009 [facility] DISORDER [facility] 57793 RHABDOMYOLY 06-21-2009 [facility] SIS [facility] 99297 ALTERED 06-21-2009 [facility] MENTAL EMERGENCY STATUS SERVICES [facility] 26381 NONSPECIFIC 06-21-2009 [facility] ABNORMAL EMERGENCY ELECTROCARD SERVICES IOGRAM ASSOCIATES 89146 HYPERTENSIV 06-16-2009 [facility] UNSPEC W/HEART FAIL 4409 GENERALIZED 06-16-2009 [facility] AND [facility] UNSPECIFIED HOSPITAL ATHEROSCLER OSIS V4509 OTHER 06-16-2009 [facility] CARDIAC [facility] DEVICE IN SITU V5789 OTHER 06-16-2009 [facility] SPECIFIED [facility] REHABILITAT HOSPITAL ION PROCEDURE OTHER 2788 OTHER 06-09-2009 [facility] V173 FAMILY 06-09-2009 [facility] HISTORY OF [facility] ISCHEMIC HOSPITAL HEART DISEASE 7242 LUMBAGO 02-01-2009 ANGE BOYER 25406 SPINAL STEN 12-30-2008 NEUROSURGIC [facility] REG AL W/O ASSOCIATES NEUROGENIC CLAUDICATIO N 08196 OTHER&UNSPE 10-20-2008 [facility] [place] CIFIED DISC RADIOLOGY DISORDER OF LUMBAR REGION 4539 EMBOLISM 10-15-2008 [facility] AND H THROMBOSIS CARDIOLOGY OF ASSOC UNSPECIFIED SITE 48459 PAIN IN 10-15-2008 [facility] [place] JOINT RADIOLOGY PELVIC REGION AND THIGH 7224 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-13-2008 [facility] [place] 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 43553 AC ARLEN 10-12-2008 [facility] UNSPEC DEEP PROF SERV VES LOWER EXT V854 BODY MASS 10-12-2008 [facility] INDEX 40 HOSPITAL AND OVER ADULT 2801 IRON DEFIC 10-09-2008 [facility] DIET IRON INTAKE V5869 LONG-TERM 10-09-2008 [facility] (CURRENT) [facility] USE OF HOSPITAL OTHER PROF SERV MEDICATIONS 90444 ASTHMA, 09-17-2008 [facility] UNSPECIFIED [facility] , HOSP UNSPECIFIED STATUS 56777 UNSPECIFIED 09-17-2008 [facility] ARTHROPATHY HOSP SITE UNSPECIFIED 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 57716 COUGH 07-14-2008 [facility], VARIANT CARLI B ASTHMA 91561 UNSPECIFIED 2008 [facility] OSTEOPOROSI INC S 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 4779 ALLERGIC 05-21-2008 [facility], RHINITIS CARLI B CAUSE UNSPECIFIED 02563 OTHER 02-06-2008 [facility], CHRONIC CARLI B ALLERGIC CONJUNCTIVI TIS 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, OF NASAL CARLI B TURBINATES 4720 CHRONIC 01-21-2008 [facility], RHINITIS CARLI B 4910 SIMPLE 01-21-2008 [facility]IC [facility] 29484 ESOPHAGEAL 01-21-2008 CAIO, REFLUX CARLI B 18443 PAIN IN 12-17-2007 [facility] JOINT, SITE PRIMARY CARE UNSPECIFIED CENTERINC 7245 UNSPECIFIED 12-17-2007 [facility] BACKACHE [facility]ENTER[facility] 85363 OTH 09-02-2007 AD FIBROMATOSE MELLISSA D S MUSCLE LIGAMENT AND FASCIA OTH 4660 ACUTE 08-19-2007 LYNN [facility] BRONCHITIS [facility] 17536 CAVUS 08-05-2007 AD DEFORMITY MELLISSA D OF [...] MEDICAL R EQUIPME EQUIPME BLD GLU A4253 [facility] TEST/REAG 7 [facility] T [facility] MEDICAL MEDICAL HOME BLD SUPPLY SUPPLY GLU MON-50 NORMAL A4256 [facility] LOW AND 7 [facility] HIGH MEDICAL MEDICAL CALIBRATO SUPPLY SUPPLY R SOLUTION/ CHIPS LANCETS A4259 [facility] PER BOX 7 [facility] OF [facility] MEDICAL MEDICAL SUPPLY SUPPLY REPL BRANT A4235 [facility] LITHIUM 7 [facility] MED NECES MEDICAL MEDICAL ROMÁN BG SUPPLY SUPPLY MON OWN PT EA SPRING-PO A4258 [facility] WERED 7 [facility] DEVICE MEDICAL MEDICAL FOR SUPPLY SUPPLY LANCET [...] [facility] MEDICAL R EQUIPME EQUIPME RADIOLOGI 08413 [facility] VAHID Mcclain 7 RADIOLOGY EXAMINATI ON KNEE 1/2 VIEWS THERAPEUT 14035 [facility] IC 7 N N PROPHYLAC COMMUNTIY COMMUNTIY TIC/DX HOSPITA HOSPITA INJECTION SUBQ/IM HOS BED E0303 FRAN FRAN HEVY DUTY 7 HOME HOME W/WT CAP MEDICAL MEDICAL >350 EQUIPME EQUIPME PDS</=TO 600 PDS DUP-SCAN 27626 FARZANA TERE XTR VEINS 7 MEDICAL IMAGING UNILATERA ASS L/LIMITED STUDY RADEX HIP 97373 FARZANA CULLEN 7 MEDICAL UNILATERA IMAGING L WITH ASS PELVIS 2-3 VIEWS NEBULIZER E0570 FRAN PTEERS WITH 7 HOME HOME [facility]O MEDICAL MEDICAL R EQUIPME EQUIPME HOS BED E0303 FRAN FRAN HEVY DUTY 7 HOME HOME W/WT CAP MEDICAL MEDICAL >350 EQUIPME EQUIPME PDS</=TO 600 PDS PORTABLE E0443 FRAN RAMIREZRELL O2 7 HOME HOME CONTENTS MEDICAL MEDICAL GASEOUS 1 EQUIPME EQUIPME MO SUPPLY=1 UNIT NORMAL A4256 [facility] AND [address] [place] [address] MEDICAL MEDICAL CALIBRATO SUPPLY SUPPLY R SOLUTION/ [...] 1 EQUIPME EQUIPME MO SUPPLY=1 UNIT ECG 95435 AMINAH CAMACHO ROUTINE 7 N ECG CARDIOLOG [...] UNITED PER BOX 7 STATES STATES OF [facility] MEDICAL MEDICAL SUPPLY SUPPLY BLD GLU A4253 UNITED UNITED TEST/REAG 7 STATES STATES T STRIPS MEDICAL MEDICAL HOME BLD SUPPLY SUPPLY GLU MON-50 ADMN SET A7003 YOUR YOUR SM VOL 7 PHARMACY PHARMACY NONFILTR [facility] PNEUMAT NEBULIZR DISPBL PHRM Q0513 YOUR YOUR DISPENSIN 7 PHARMACY PHARMACY G FEE [facility] INHALATIO N RX; PER 30 DAYS NEBULIZER E0570 FRAN PETERS WITH 7 HOME HOME [facility] MEDICAL MEDICAL R EQUIPME EQUIPME ALBUTEROL J7620 YOUR YOUR TO 2.5 7 PHARMACY PHARMACY MG & [facility] IPRATROPI UM BROM TO 0.5 MG HOS [...] EQUIPME EQUIPME PRESSURE DEVICE BLD GLU A4253 [facility] TEST/REAG 6 [facility] STATES T STRIPS MEDICAL MEDICAL HOME BLD SUPPLY SUPPLY GLU MON-50 SPRING-PO A4258 [facility] WERED [address] [place] [address] STATES DEVICE MEDICAL MEDICAL FOR SUPPLY SUPPLY LANCET EACH REPL BRANT A4235 [facility] LITHIUM 6 [facility] STATES MED NECES MEDICAL MEDICAL ROMÁN BG SUPPLY SUPPLY MON OWN PT EA LANCETS A4259 [facility] PER BOX 6 [facility] MEDICAL MEDICAL SUPPLY SUPPLY NORMAL A4256 [facility] LOW AND 6 [facility] HIGH MEDICAL MEDICAL CALIBRATO SUPPLY SUPPLY R [...] MEDICAL AIRWAY EQUIPME EQUIPME PRESSURE DEVICE DUP-SCAN 62680 [facility] [place] SCALF Y[place] XTR VEINS 6 RADIOLOGY UNILATERA L/LIMITED STUDY RADIOLOGI 53269 [facility] [place] [facility]AL[facility] C 6 RADIOLOGY EXAMINATI ON KNEE 3 VIEWS RADEX 15900 [facility] [place] SCAL[place] YUE SHOULDER 6 RADIOLOGY [...] 85%/>02 MEDICAL MEDICAL CONC AT EQUIPME EQUIPME [facility] FLW RATE CONTINUOU E0601 FRAN PETERS S 6 HOME HOME POSITIVE MEDICAL MEDICAL AIRWAY EQUIPME EQUIPME PRESSURE DEVICE BLD GLU A4253 [facility] TEST/REAG 6 STATES STATES T STRIPS MEDICAL MEDICAL HOME BLD SUPPLY SUPPLY GLU MON-50 LANCETS A4259 [facility] PER BOX 6 STATES STATES OF [facility] MEDICAL MEDICAL SUPPLY SUPPLY NORMAL A4256 [facility] LOW AND 6 [facility] STATES HIGH MEDICAL MEDICAL CALIBRATO SUPPLY SUPPLY R SOLUTION/ CHIPS O2 CONC 1 E1390 FRAN PETERS DEL PORT 6 HOME HOME 85%/>02 MEDICAL MEDICAL CONC AT EQUIPME EQUIPME PRSC FLW RATE PHYS G0179 BIRDWHIST BIRDWHIST RE-CERT 6 ELL MAT [facility] MCR-COVR ROMÁN HLTH SRVC RE-CERT PRD PRTBLE E0431 FRAN PETERS GASEOUS 6 HOME HOME O2 SYS MEDICAL MEDICAL RENT; EQUIPME EQUIPME FLWMTR HUMIDFR&M ASK CONTINUOU E0601 FRAN RAMIREZRELL S 6 HOME HOME POSITIVE MEDICAL MEDICAL AIRWAY EQUIPME EQUIPME PRESSURE DEVICE FACE MASK A7031 FRAN FARN 6 HOME HOME INTERFACE MEDICAL MEDICAL REPLCMT [...] DEVICE PHYS G0179 BIRDWHIST BIRDWHIST RE-CERT 6 [facility] LEXI RAMÍREZ [facility] MCR-COVR ROMÁN HLTH SRVC RE-CERT PRD O2 [...] EQUIPME ARWAY PRESSURE DEVICE FILTER A7038 FRAN PETERS DISPBL 6 HOME [...] 85%/>02 MEDICAL MEDICAL CONC AT EQUIPME EQUIPME [facility] FLW RATE PRTBLE E0431 FRAN PETERS GASEOUS 6 HOME HOME O2 SYS MEDICAL MEDICAL RENT; EQUIPME EQUIPME FLWMTR HUMIDFR&M ASK POLYSOM 49338 [facility] 6/>YRS 6 N N SLEEP COMMUNTIY COMMUNTIY W/CPAP HOSPITA HOSPITA 4/> ADDL STEVE ATTND PHYS CERT G0180 BIRDWHIST BIRDWHIST MCR-COVR 6 ELL MAT ELL MAT ROMÁN HLTH SRVC PER CERT PRD O2 CONC 1 E1390 FRAN PETERS DEL [place] 6 HOME HOME 85%/>02 MEDICAL MEDICAL CONC AT EQUIPME EQUIPME [facility] 93438 BIRDWHIST BIRDWHIST DISCHARGE 6 ELL MAT ELL MAT DAY MANAGEMEN T 30 MIN/< PRTBLE E0431 FRAN PETERS GASEOUS 6 HOME HOME O2 SYS MEDICAL MEDICAL RENT; EQUIPME EQUIPME FLWMTR HUMIDFR&M ASK CRITICAL 81671 MISSAEL KLEIN CARE 6 ILL/INJUR ED PATIENT INIT 30-[address] [place] [address] [facility] [place] ANKITA HEAD/BRAI 6 RADIOLOGY RHO N W/O CONTRAST MATERIAL RADIOLOGI 47813 [facility] [place] ANKITA C 6 RADIOLOGY RHO EXAMINATI ON CHEST SINGLE VIEW FRONTAL ECG 91893 MISSAEL KLEIN ROUTINE 6 ECG W/LEAST 12 LDS I&R ONLY O2 CONC 1 E1390 FRAN GARAY PORT 6 HOME HOME 85%/>02 MEDICAL MEDICAL CONC AT EQUIPME EQUIPME [facility] FLW RATE PRTBLE E0431 FRAN PETERS [...] SUPPLY SUPPLY LANCET EACH NORMAL A4256 [place] LOW AND 5 [facility] HIGH MEDICAL MEDICAL CALIBRATO SUPPLY SUPPLY R SOLUTION/ CHIPS REPL BRANT A4233 [facility] [place] ALKALINE 5 [facility] STATES NOT [...] PER BOX 5 MEDICAL MEDICAL OF 100 [facility] O2 CONC 1 E1390 FRAN GARAY PORT [...] UNITED PER BOX 5 STATES STATES OF [facility] MEDICAL MEDICAL SUPPLY SUPPLY NORMAL A4256 [place] LOW AND 5 STATES STATES HIGH MEDICAL MEDICAL CALIBRATO SUPPLY SUPPLY R SOLUTION/ CHIPS POLYSOM 00833 [facility] 6/>YRS 5 N N SLEEP 4/> COMMUNTIY COMMUNTIY ADDL HOSPITA HOSPITA STEVE ATTND NORMAL A4256 [facility] LOW AND 5 MEDICAL MEDICAL HIGH [place] CALIBRATO R SOLUTION/ CHIPS LANCETS A4259 [facility] PER BOX 5 MEDICAL MEDICAL 100 [place] BLD GLU A4253 [facility] TEST/REAG 5 MEDICAL MEDICAL T STRIPS [facility] HOME BLD GLU MON-50 O2 CONC 1 E1390 FRAN PETERS DEL PORT 5 HOME HOME 85%/>02 MEDICAL MEDICAL CONC AT EQUIPME EQUIPME PRSC FLW RATE PRTBLE E0431 FRAN FRAN GASEOUS 5 HOME HOME O2 SYS MEDICAL MEDICAL RENT; EQUIPME EQUIPME FLWMTR HUMIDFR&M ASK COMPREHEN 12106 [facility]ST QUEST SIVE 5 DIAGNOSTI DIAGNOST[place] [address] QUEST QUEST THYROXINE 5 DIAGNOSTI DIAGNOSTI TOTAL CS CS COLLECTIO 87568 QUEST QUEST N VENOUS 5 DIAGNOSTI DIAGNOSTI [place] [address] QUEST QUEST THYROID 5 DIAGNOSTI DIAGNOSTI STIMULATI CS CS NG HORMONE TSH HEMOGLOBI 64795 QUEST QUEST N 5 DIAGNOSTI DIAGNOSTI GLYCOSYLA CS CS EUGENIO A1C THYROID 18721 QUEST QUEST HORM 5 DIAGNOSTI DIAGNOSTI UPTK/THYR CS CS OID HORMONE BINDING RATIO BLOOD 89676 QUEST QUEST COUNT 5 DIAGNOSTI DIAGNOSTI COMPLETE [...] UNITED PER BOX 4 STATES STATES OF [facility] MEDICAL MEDICAL SUPPLY SUPPLY NORMAL A4256 [place] LOW AND 4 [facility] STATES [...] BEYOND TEST/REAG 4 MEDICAL MEDICAL T STRIPS [facility] HOME BLD GLU SUN- SPMTRY 95319 [facility] W/VC 4 N N EXPIRATOR COMMUNITY COMMUNITY Y JIE HOSPITA HOSPITA W/WO MXML VOL VNTJ BRNCDILAT 81746 [facility] RSPSE 4 [place] VERITO SPMTRY PULMONARY PRE&POST- M BRNCDILAT ADMN PLETHYSMO 77738 [facility] GRAPHY 4 [place] VERITO LUNG PULMONARY VOLUMES M W/WO AIRWAY RESIST CT THORAX 67761 [facility] [place] SCALF YUE W/O [place] [address] [facility] DIFFUSING 4 [place] VERITO CAPACITY PULMONARY M O2 CONC 1 [...] INHALATIO N RX; PER 30 DAYS THERAPEUT 50811 BIRDWHIST BIRDWHIST IC 4 ELL MAT DESIREE [...] SPRING-PO A4258 [facility]YOND WERED 4 MEDICAL TRANSPORTATION SALES CONSULTANT [facility] FOR LANCET EACH O2 CONC 1 E1390 FRAN FRAN DEL PORT 4 HOME HOME 85%/>02 MEDICAL MEDICAL CONC AT EQUIPME EQUIPME PRS FLW RATE PRTBLE E0431 FRAN FRAN GASEOUS 4 HOME HOME O2 SYS MEDICAL MEDICAL RENT; EQUIPME EQUIPME FLWMTR HUMIDFR&M ASK INJECTION J3420 BIRDWHIST BIRDWHIST VIT B-12 4 ELL LEXI RAMÍREZ MAT CYANOCOBA [place] TO 1000 MCG THERAPEUT 89160 BIRDWHIST BIRDWHIST IC 4 ELL MAT DESIREE MAT PROPHYLAC TIC/DX INJECTION SUBQ/IM O2 CONC 1 E1390 FRAN FRAN DEL PORT 4 HOME HOME 85%/>02 MEDICAL MEDICAL CONC AT EQUIPME EQUIPME PRSC FLW RATE PRTBLE E0431 FRAN FRAN GASEOUS 4 HOME HOME O2 SYS MEDICAL MEDICAL RENT; EQUIPME EQUIPME FLWMTR HUMIDFR&M ASK ANTIBODY 90739 CHELI BOWER SCREEN 4 W W RBC EACH [facility] MEDICAL MEDICAL TECHNIQUE THERAPEUT 51833 BIRDWHIST BIRDWHIST IC 4 ELL MAT DESIREE MAT PROPHYLAC TIC/DX INJECTION SUBQ/IM INJECTION J3420 BIRDWHIST BIRDWHIST VIT B-12 4 ELL MAT DESIREE MAT CYANOCOBA [place] TO 1000 MCG ANTIBODY 88964 CHELI BOWER SCREEN 4 W W RBC EACH [facility] MEDICAL MEDICAL TECHNIQUE RADIOLOGI 90385 [facility] EXAM 4 HESHAM CHEST 2 RADIOLOGY VIEWS ASSOCIAT FRONTAL&L ATERAL ECG 66630 [facility] ROUTINE 4 N N ECG CARDIOLOG [...] YOUR YOUR L 4 PHARMACY PHARMACY FUMARATE [facility] INHAL [place] U DOSE FORM 20 MCG BUDESONID J7626 YOUR YOUR E INHAL 4 PHARMACY PHARMACY NON-CP [facility] UNIT DOSE UP TO 0.5 MG ADMN SET A7005 YOUR YOUR W/SM VOL 4 PHARMACY PHARMACY NONFILTR [facility] NEBULIZR NON-DISPB L ALBUTEROL J7613 YOUR YOUR INHAL 4 PHARMACY PHARMACY NON-CP [facility] PROD THRU DME U DOSE 1 MG THERAPEUT 26488 BIRDWHIST BIRDWHIST IC 4 ELL MAT ELL [...] YOUR YOUR L 3 PHARMACY PHARMACY FUMARATE [facility] INHAL [place] U DOSE FORM 20 MCG BUDESONID J7626 YOUR YOUR E INHAL 3 PHARMACY PHARMACY NON-CP [facility] UNIT DOSE UP TO 0.5 MG ALBUTEROL J7613 YOUR YOUR INHAL 3 PHARMACY PHARMACY NON-CP [facility] PROD THRU DME U DOSE 1 MG PHRM Q0513 YOUR YOUR DISPENSIN 3 PHARMACY PHARMACY G FEE [facility] [employer] INHALATIO N RX; PER 30 DAYS PROTHROMB 72671 [facility] IN TIME [address] [place] [address] R & L HRT [address] WINJX HRT ART& L VENTR IMG PROTHROMB 28856 [facility] IN [address] HOSPITAL FIBRIN [address] [facility] DGRADJ [address] [place] [address] PRODUCTS D-DIMER QUANTITAT DINA BLOOD [address] COMPLETE AUTOMATED RADIOLOGI [address] EXAMINATI ON CHEST SINGLE VIEW FRONTAL LIPID [address] H[facility] BASIC [address] [facility] METABOLIC [address] [place] [address] PANEL CALCIUM TOTAL O2 CONC 1 E1390 FRAN PETERS DEL PORT 3 HOME HOME 85%/>02 MEDICAL MEDICAL CONC AT EQUIPME EQUIPME PRSC FLW RATE ECG 46017 [facility]SH[facility] OLIVARES ROUTINE 3 KIR KIR ECG W/LEAST 12 LDS TRCG ONLY W/O I&R ECHO 06958 [facility] OLIVARES TTHRC R-T 3 KIR KIR [...] YOUR E INHAL 3 PHARMACY PHARMACY NON- [facility] UNIT DOSE UP TO 0.5 MG FORMOTERO J7606 YOUR YOUR L 3 PHARMACY PHARMACY FUMARATE [facility] INHAL [place] U DOSE FORM 20 MCG PHRM Q0513 YOUR YOUR DISPENSIN 3 PHARMACY PHARMACY G FEE [facility] INHALATIO N RX; PER 30 DAYS BRNCDILAT 33363 CAIO CAIO RSPSE 3 CARLI BOYCE SPMTRY PRE&POST- BRNCDILAT ADMN PRESSURIZ 13182 CAIO CAIO ED/NONPRE 3 CARLI BOYCE SSURIZED INHALATIO N TREATMENT ALBUTEROL J7613 YOUR YOUR INHAL 3 PHARMACY PHARMACY NON- [facility] PROD THRU DME U DOSE 1 MG DEMO&/NOVA 02705 CAIO CAIO L OF PT 3 CARLI BOYCE UTILIZ AERSL GEN/NEB/I NHLR/IP ADMN SET A7005 YOUR YOUR W/SM VOL 3 PHARMAC[facility] NE[facility]UL[facility] NON-DISPB L PRTBLE E0431 FRAN RAMIREZRELL GASEOUS 3 HOME HOME O2 SYS MEDICAL MEDICAL RENT; EQUIPME EQUIPME FLWMTR HUMIDFR&M ASK COLLECTIO 85686 JACQUES HANNA N VENOUS 3 [facility] BLOOD INC INC VENIPUNCT URE CREATININ 94808 JACQUES HANNA E BLOOD 3 [facility] INC INC MRI BRAIN 13095 [place] TERE BRAIN 3 MEDICAL MARIA ISABEL STEM W/[place] [address] JACQUES HANNA UREA 3 [facility] NITROGEN INC INC QUANTITAT DINA O2 CONC 1 E1390 FRAN PETERS DEL PORT 3 HOME HOME 85%/>02 MEDICAL MEDICAL CONC AT EQUIPME EQUIPME PRSC FLW RATE PRTBLE E0431 FRAN RAMIREZRELL GASEOUS 3 HOME HOME O2 SYS MEDICAL MEDICAL RENT; EQUIPME EQUIPME FLWMTR HUMIDFR&M ASK ECG 96956 MAITEAFF MARSHALL ROUTINE 3 KIR KIR ECG W/LEAST 12 LDS TRCG ONLY W/O I&R ECHO 23078 MARSH[facility] OLIVARES TTHRC R-T 3 KIR KIR 2D W/WOM-MOD E COMPL SPEC&COLR D PRTBLE E0431 FRAN RAMIREZRELL GASEOUS 3 HOME HOME O2 SYS MEDICAL MEDICAL RENT; EQUIPME EQUIPME FLWMTR HUMIDFR&M ASK COLONOSCO 32643 ASTRID WILTON ASTRID WILTON PY 3 W/BIOPSY SINGLE/[place] [address] SURG 3 MACEY & [...] MEDICAL MEDICAL SUPPLY SUPPLY NORMAL A4256 [place] LOW AND 3 [facility] HIGH MEDICAL MEDICAL CALIBRATO SUPPLY SUPPLY R SOLUTION/ CHIPS BLD GLU A4253 [facility] [place] TEST/REAG 3 STATES STATES T STRIPS MEDICAL MEDICAL HOME BLD SUPPLY SUPPLY GLU MON-50 RADIOLOGI 08669 CHELI Mcclain 3 W GENERAL III DAYNE EXAMINATI SURGERY ON KNEE 1/2 VIEWS RADIOLOGI 20571 CHELI Mcclain EXAM 3 W GENERAL III [...] UNITED PER BOX 2 STATES STATES OF [facility] MEDICAL MEDICAL SUPPLY SUPPLY SPRING-PO A4258 [place] WERED 2 [facility] STATES DEVICE MEDICAL MEDICAL FOR SUPPLY SUPPLY LANCET EACH REPL BRANT A4233 [place] ALKALINE 2 [facility] STATES NOT J MEDICAL MEDICAL CELL ROMÁN SUPPLY SUPPLY BG MON OWND PT PRTBLE E0431 FRAN PETERS GASEOUS 2 HOME HOME O2 SYS MEDICAL MEDICAL RENT; EQUIPME EQUIPME FLWMTR HUMIDFR&M ASK CV STRS [address] XERS&/OR RX CONT ECG TRCG ONLY MYOCARDIA [address] MULTIPLE STUDIES INJECTION J27[address] REGADENOS ON 0.1 MG PRTBLE E0431 FRAN FRAN GASEOUS 2 HOME HOME O2 SYS MEDICAL MEDICAL RENT; EQUIPME EQUIPME FLWMTR HUMIDFR&M ASK ECG 52972 [place] [facility] ROUTINE 2 INTERNAL KIR ECG [...] MEDICAL MEDICAL CALIBRATO SUPPLY SUPPLY R SOLUTION/ [facility] 15521 [facility] DISCHARGE 2 ANJANA GARNER MD [facility] MANAGEMEN T 30 MIN/< ECHO 65333 [facility] TRANSESOP 2 ANJANA GRANT HAG R-T [facility] 2D W/PRB IMG ACQUISJ I&R RADIOLOGI 26516 [facility] [place] LEELA C 2 RADIOLOGY III JASON EXAMINATI ON CHEST SINGLE VIEW FRONTAL PRESCRIPT G8553 [facility] IONS GEN 2 ANJANA GRANT TRANSMITT [facility] ED QUALIFIED ERX SYS MEDICATIO 98505 [facility] N ADMIN & 2 ANJANA GRANT MD [facility] HEMODYNAM IC MEASURMEN T ECHO 88905 [facility] TTHRC R-T 2 ANJANA Duong MD [facility] W/WOM-MOD E COMPL SPEC&COLR D ECG 04131 [facility] ROUTINE 2 ANJANA GRANT ECG [facility] W/LEAST 12 LDS I&R ONLY CATH PLMT 43588 [facility] [facility] L HRT & 2 ANJANA GRANT ARTS PLL W/NJX & ANGIO IMG S&I INITIAL 25321 [facility] Brown [facility] 2 ANJANA GRANT CARE/DAY PLL 50 MINUTES ECG 38684 ALEXA OLIVARES ROUTINE 2 INTERNAL KIR ECG MEDICINE W/LEAST 12 LDS TRCG ONLY W/O I&R PRTBLE E0431 FRAN PETERS GASEOUS 2 HOME HOME O2 SYS MEDICAL MEDICAL RENT; EQUIPME EQUIPME FLWMTR HUMIDFR&M ASK CREATINE 17104 JACQUES HANNA KINASE 2 [place] [address] JACQUES HANNA INFUSION 2 [facility] THERAPY/P INC INC ROPHYLAXI S /DX 1ST TO 1 [place] [address] JACQUES HANNA TROPONIN 2 [facility] QUANTITAT INC INC DINA CREATINE 56060 JACQUES HANNA KINASE MB 2 [facility] FRACTION INC INC ONLY CREATINE 19174 JACQUES HANNA KINASE MB 2 [facility] [place] [address] JACQUES HANNA TROPONIN 2 [facility] QUANTITAT INC INC DINA BLOOD 31501 JACQUES HANNA COUNT 2 [facility] COMPLETE INC INC AUTO&AUTO DIFRNTL WBC NATRIURET 88868 JACQUES HANNA IC 2 [facility] PEPTIDE INC INC ECG 82681 JACQUES BAILEY JR ROUTINE 2 [facility] W/LEAST P 12 LDS I&R ONLY RADIOLOGI 32505 FARZANA Mcclain 2 MEDICAL MARIA ISABEL EXAMINATI IMAGING ON CHEST ASS SINGLE VIEW FRONTAL CREATINE 22644 JACQUES HANNA KINASE 2 [facility] TOTAL INC INC COMPREHEN 26711 JACQUES HANNA SIVE 2 [facility] METABOLIC INC INC PANEL PRESSURIZ 47059 JACQUES HANNA ED/NONPRE 2 [facility] SSURIZED INC INC INHALATIO N TREATMENT US SOFT 72562 [facility] TISSUE 2 N N HEAD & COMMUNITY COMMUNITY NECK REAL HOSPITA HOSPITA TIME IMGE DOCM ECG 39870 JACQUES HANNA ROUTINE 2 [facility] ECG INC INC W/LEAST 12 LDS TRCG ONLY W/O I&R URNLS DIP 76827 JACQUES HANNA 2 [facility] STICK/TAB INC INC LET REAGENT AUTO MICROSCOP Y CULTURE 93376 JACQUES HANNA BACTERIAL 2 [facility] BLOOD INC INC AEROBIC W/ID ISOLATES PRTBLE E0431 FRAN FRAN GASEOUS 2 HOME HOME O2 SYS MEDICAL MEDICAL RENT; EQUIPME EQUIPME FLWMTR HUMIDFR&M ASK ECG 98631 [facility] BOYER ROUTINE 2 ANT ANT ECG [...] SUPPLY SUPPLY LANCET EACH NORMAL A4256 [place] LOW AND 2 STATES STATES HIGH MEDICAL MEDICAL CALIBRATO SUPPLY SUPPLY R SOLUTION/ [facility] LANCETS A4259 [place] PER BOX 2 [facility] STATES [...] 1 EQUIPME EQUIPME MO SUPPLY=1 UNIT LIPID 43567 QUEST QUEST PANEL 2 DIAGNOSTI DIAGNOSTI CS CS COMPREHEN 43280 QUEST QUEST SIVE 2 DIAGNOSTI DIAGNOSTI METABOLIC CS CS PANEL COLLECTIO 49779 QUEST QUEST N VENOUS 2 DIAGNOSTI DIAGNOSTI [place]LOOD [place] [address] QUEST QUEST THYROID 2 DIAGNOSTI DIAGNOSTI STIMULATI CS CS NG HORMONE TSH HEMOGLOBI 77634 QUEST QUEST N 2 DIAGNOSTI DIAGNOSTI GLYCOSYLA CS CS EUGENIO A1C BLOOD 32366 QUEST QUEST COUNT 2 DIAGNOSTI DIAGNOSTI COMPLETE CS CS AUTO&AUTO DIFRNTL WBC HOS BED E0303 FRAN PETERS HEVY DUTY 2 HOME HOME W/WT CAP MEDICAL MEDICAL >350 EQUIPME EQUIPME PDS</=TO 600 PDS PRTBLE E0431 FRAN PETERS GASEOUS 2 HOME HOME O2 SYS MEDICAL MEDICAL RENT; EQUIPME EQUIPME FLWMTR HUMIDFR&M ASK BASIC 72226 [facility] METABOLIC 2 RENAL PAT PANEL CARE PSC CALCIUM IONIZED CREATININ 48188 [facility] E OTHER 2 RENAL PAT SOURCE CARE PSC COLLECTIO 21608 [facility] N VENOUS 2 RENAL PAT BLOOD CARE PSC VENIPUNCT URE URNLS DIP 17306 [facility] 2 RENAL PAT STICK/TAB CARE PSC LET RGNT AUTO W/O MICROSCOP Y HOS BED E0303 FRAN RAMIREZRELL HEVY DUTY 2 HOME HOME W/WT CAP MEDICAL MEDICAL >350 EQUIPME EQUIPME PDS</=TO 600 PDS PRTBLE E0431 FRAN RAMIREZRELL GASEOUS 2 HOME HOME O2 SYS MEDICAL MEDICAL RENT; EQUIPME EQUIPME FLWMTR HUMIDFR&M ASK COMPREHEN 88008 QUEST QUEST SIVE 2 DIAGNOSTI DIAGNOSTI METABOLIC CS CS PANEL COLLECTIO 14312 QUEST QUEST N VENOUS 2 DIAGNOSTI DIAGNOSTI BLOOD CS CS VENIPUNCT URE HEMOGLOBI 47701 QUEST QUEST N 2 DIAGNOSTI DIAGNOSTI GLYCOSYLA [...] UNITED PER BOX 1 STATES STATES OF [facility] MEDICAL MEDICAL SUPPLY SUPPLY NORMAL A4256 [place] LOW AND 1 [facility] HIGH MEDICAL MEDICAL CALIBRATO SUPPLY SUPPLY R [...] RENT; EQUIPME EQUIPME FLWMTR HUMIDFR&M ASK 25 83942 [facility] HYDROXY 1 LABORATOR LABORATOR INCLUDES Y NETWORK Y NETWORK FRACTIONS IF PERFORMED CALCIUM 61290 [facility] TOTAL 1 LABORATOR LABORATOR Y NETWORK Y NETWORK CREATININ 01099 [facility] SPECT[facility] E OTHER 1 LABORATOR LABORATOR [place] [address] SPECTRUM SPECTRUM URINE 1 LABORATOR LABORATOR [place] [address] SPECTRUM SPECTRUM UREA 1 LABORATOR LABORATOR NITROGEN [place] [address] SPECTRUM SPECTRUM PARATHORM 1 LABORATOR LABORATOR [place] [address] SPECTRUM SPECTRUM PHOSPHORU 1 LABORATOR LABORATOR S Y NETWORK Y NETWORK INORGANIC BASIC 24434 [facility] METABOLIC 1 LABORATOR LABORATOR PANEL [...] MEDICAL MEDICAL RENT; EQUIPME EQUIPME FLWMTR HUMIDFR&M [facility] 51499 MERLIN BOYER DISCHARGE 1 ANT ANT DAY [...] UNITED PER BOX 1 STATES STATES OF [facility] MEDICAL MEDICAL SUPPLY SUPPLY REPL BRANT A4233 UNITED UNITED ALKALINE 1 STATES STATES NOT J MEDICAL MEDICAL CELL ROMÁN SUPPLY SUPPLY BG MON OWND PT SBSQ 48571 [facility] 1 RENAL CARE/DAY CARE PSC 35 MINUTES NEBULIZER E0570 US MED US MED WITH 1 INC INC COMPRESSO R SBSQ 55430 [facility] 1 ANT ANT CARE/DAY 25 MINUTES SBSQ 74961 [facility] 1 RENAL CARE/DAY CARE PSC 35 MINUTES SBSQ 18083 [facility] 1 RENAL CARE/DAY CARE PSC 35 MINUTES SBSQ 15410 [facility] 1 ANT ANT CARE/DAY 25 MINUTES INITIAL 25248 [facility] 1 RENAL CARE/DAY CARE PSC 70 MINUTES INITIAL 13384 [facility] 1 ANT ANT CARE/DAY 50 MINUTES O2 CONC 1 E1390 [facility] 1 HOME HOME 85%/>02 MEDICAL MEDICAL CONC AT EQUIPME EQUIPME [facility] FLW RATE CULTURE 97025 LAB FRANK LAB FRANK BACTERIAL 1 [employer] QUANTTATI VE COLONY COUNT URINE URNLS DIP 26104 [facility] 1 AMB AMB STICK/TAB LET RGNT NON-AUTO W/O MICRSCP MARIFER 85072 [facility] 1 AMB AMB ING [...] 85%/>02 MEDICAL MEDICAL CONC AT EQUIPME EQUIPME [facility] FLW RATE HOS BED E0303 FRAN [...] 85%/>02 EQUIP. L EQUIP. L CONC AT [facility] FLW RATE HOS BED E0303 FRAN PETERS HEVY DUTY 1 HOME HOME W/WT CAP MEDICAL MEDICAL >350 EQUIPME EQUIPME PDS</=TO 600 PDS DEMO&/NOVA 84704 CAIO CAIO L OF PT 1 CARLI CARLI UTILIZ AERSL GEN/NEB/I NHLR/IP THERAPEUT 33978 CAIO CAIO IC 1 CARLI CARLI PROPHYLAC TIC/DX INJECTION SUBQ/IM PRTBLE E0431 FRAN PETERS GASEOUS 1 HOME MED HOME MED O2 SYS EQUIP. L EQUIP. L RENT; FLWMTR HUMIDFR&M ASK INJECTION J2010 CAIO CAIO 1 CARLI CARLI LINCOMYCI N HCL UP TO 300 MG LEVALBUTE J7614 CAIO CAIO ROL INHAL 1 CARLI CARLI NON-CP THRU DME U DOSE 0.5 MG HEMOGLOBI 02922 [facility] N 1 [facility] GLYCOSYLA EUGENIO A1C COMPREHEN 38727 [facility] SIVE 1 [facility] METABOLIC PANEL COLLECTIO 71837 [facility] N VENOUS 1 [facility] BLOOD VENIPUNCT URE BRNCDILAT 78717 CAIO CAOI RSPSE 1 CARLI CARLI SPMTRY PRE&POST- BRNCDILAT ADMN INJECTION J1040 CAIO CAIO 1 CARLI CARLI METHYLPRE DNISOLONE ACETATE 80 MG IPRATROPI J7644 CAIO CAIO UM 1 CARLI CARLI BROMIDE INHAL NON-CP U DOSE PER MG LANCETS A4259 UNITED UNITED PER BOX 1 STATES STATES OF [facility] MEDICAL MEDICAL SUPPLY SUPPLY NORMAL A4256 [place] LOW AND 1 [facility] HIGH MEDICAL MEDICAL CALIBRATO SUPPLY SUPPLY R SOLUTION/ [facility] BLD GLU A4253 UNITED UNITED TEST/REAG 1 STATES STATES T STRIPS MEDICAL MEDICAL HOME BLD SUPPLY SUPPLY GLU MON-50 NEBULIZER E0570 US MED US MED WITH 1 INC INC COMPRESSO R O2 CONC 1 E1390 FRAN PETERS [place] 1 HOME MED HOME MED 85%/>02 EQUIP. L EQUIP. L CONC AT [facility] FLW RATE PRTBLE E0431 FRAN RAMIREZRELL [...] 85%/>02 EQUIP. L EQUIP. L CONC AT [facility] FLW RATE ANES 48819 [facility] UPPER GI 1 ANESTHESI PAT ENDOSCOPY A GROUP PROXIMAL PSC TO DUODENUM SPECIAL 43553 PATHOLOGY PATHOLOGY STAIN 1 & & GROUP 1 CYTOLOGY CYTOLOGY MICROORGA LAB LAB NISMS I&R SPCL STN 99780 PATHOLOGY PATHOLOGY 2 I&R 1 & & EXCPT CYTOLOGY CYTOLOGY MICROORG/ LAB LAB ENZYME/IM CYT UNLISTED 53975 [facility] ANESTHESI 1 N N A [facility] [place] [place] PROCEDURE HOSPITA HOSPITA EGD 97847 [facility] TRANSORAL 1 N N BIOPSY [facility] [place] [place] SINGLE/[place] [address] PATHOLOGY PATHOLOGY SURG 1 & & PATHOLOGY CYTOLOGY CYTOLOGY LAB LAB GROSS&DASHA ROSCOPIC EXAM GLUC BLD 81983 [facility] GLUC MNTR 1 N N DEV COMMUNITY [facility] CLEARED HOSPITA HOSPITA FDA SPEC HOME USE PRTBLE E0431 FRAN PETERS GASEOUS 1 HOME MED HOME MED O2 SYS EQUIP. L EQUIP. L RENT; FLWMTR HUMIDFR&M ASK HEMOGLOBI 90469 [facility] N 1 [facility] GLYCOSYLA EUGENIO A1C BLOOD 11586 [facility] COUNT 1 [facility] COMPLETE AUTO&AUTO DIFRNTL WBC COMPREHEN 69464 [facility] SIVE 1 [facility] METABOLIC PANEL COLLECTIO 34678 [facility] N VENOUS 1 [facility] BLOOD VENIPUNCT URE NEBULIZER E0570 US MED US MED WITH 1 INC INC COMPRESSO R BLD GLU A4253 [facility] TEST/REAG 1 [facility] T STRIPS MEDICAL MEDICAL HOME BLD SUPPLY SUPPLY GLU MON-50 SPRING-PO A4258 [facility] WERED 1 [facility] DEVICE MEDICAL MEDICAL FOR SUPPLY SUPPLY LANCET EACH REPL BRANT A4235 [facility] LITHIUM [address] [place] [address] MED NECES MEDICAL MEDICAL ROMÁN BG SUPPLY SUPPLY MON OWN PT EA NORMAL A4256 [facility] LOW AND 1 [facility] HIGH MEDICAL MEDICAL CALIBRATO SUPPLY SUPPLY R SOLUTION/ CHIPS LANCETS A4259 [facility] [address] [place] [address] MEDICAL MEDICAL SUPPLY SUPPLY FILTER A7013 [place] [...] 85%/>02 EQUIP. L EQUIP. L CONC AT [facility] FLW RATE PRTBLE E0431 FRAN PETERS [...] 85%/>02 EQUIP. L EQUIP. L CONC AT [facility] FLW RATE PRTBLE E0431 [facility] GASEOUS 0 HOME MED HOME MED O2 SYS EQUIP. L EQUIP. L RENT; FLWMTR HUMIDFR&M ASK PLCMT [id number] [facility] OCCL DEVC [address] [place] [address] ARLEN/ART POST SURG/INTR VNL PROC FIBRIN 54820 [facility] [address]AD[address] PRODUCTS D-DIMER QUANTITAT DINA COLLECTIO 62112 [facility] VENOUS [address] [place] [address] [place] [address] [facility] TRIIODOTH [address] [place] [address] YRONINE T3 TOTAL TT3 INJECTION 72360 [facility] CARDIAC [address] [place] [address] CATHJ L VENTR/L ATR ANGIOGRAP H BLOOD 78845 [facility] COUNT [address] [place] [address] COMPLETE AUTOMATED HEMOGLOBI [id number] GLYCOSYLA EUGENIO A1C NATRIURET 86024 [facility] IC [address] [place] [address] PEPTIDE RADIOLOGI 78096 [facility] C EXAM [address] [place] [address] CHEST 2 VIEWS FRONTAL&[place] [address] [facility] THYROID [address] [place] [address] STIMULATI NG HORMONE TSH L HRT [id number] [place] [address] [facility] C-[address] F/SLCTV C ANGRPH I SI&R 48702 [facility] F/NJX PX [address] [place] [address] DURING C-CATHJ VENTR&/AT R ANGRPH I SI&R 69490 [facility] F/FLX PX [address] [place] [address] DURING C-CATHJ PULM&/OR SELECT ECHO 56069 [facility] TTHRC R-T [address] [place] [address] 2D W/WOM-MOD E COMPL SPEC&COLR D INTRDUCR/ [id number] [facility] SHEATH [address] [place] [address] NOT GUID INTRACARD EP NON-LASR CLOSURE C1760 [facility] DEVICE [address] [place] [address] VASCULAR ECG 26535 [facility] ROUTINE [address] [place] [address] ECG W/LEAST 12 LDS TRCG ONLY W/O I&R BASIC [id number] PANEL CALCIUM IONIZED NEBULIZER E0570 US [...] 85%/>02 EQUIP. L EQUIP. L CONC AT [facility] FLW RATE PRTBLE E0431 [facility] GASEOUS 0 HOME MED HOME MED O2 SYS EQUIP. L EQUIP. L RENT; FLWMTR HUMIDFR&M ASK ADMINISTR G0008 [facility] BOYER ATION OF 0 ANT ANT INFLUENZA VIRUS VACCINE IIV3 37962 [facility] VACCINE 0 ANT ANT SPLIT VIRUS 0.5 ML DOSAGE IM USE COMPREHEN 59503 [facility] SIVE 0 [facility] METABOLIC PANEL COLLECTIO 55954 [facility] N VENOUS 0 [facility] BLOOD VENIPUNCT URE HEMOGLOBI 20796 [facility] N 0 [facility] [place] [address] [facility] THYROID 0 [facility] STIMULATI NG HORMONE TSH BLD GLU A4253 [place] TEST/REAG 0 STATES STATES T [facility] BLD SUPPLY SUPPLY GLU MON-50 LANCETS A4259 [facility] [place] PER BOX 0 [place] 100 MEDICAL MEDICAL SUPPLY SUPPLY NORMAL A4256 [place] LOW AND 0 STATES STATES HIGH MEDICAL [...] 85%/>02 EQUIP. L EQUIP. L CONC AT [facility] FLW RATE NEBULIZER E0570 US MED US MED WITH 0 INC INC COMPRESSO R DETERMINA 65668 RICHARDSO RICHARDSO TION 0 N DEYANIRA N DEYANIRA REFRACTIV E STATE O2 CONC 1 E1390 [place]AN RAMIREZRELL DEL PORT 0 HOME MED HOME MED 85%/>02 EQUIP. L EQUIP. L CONC AT [facility] FLW RATE ALBUTEROL J7620 US MED [...] 85%/>02 EQUIP. L EQUIP. L CONC AT [facility] FLW RATE COMPREHEN 53524 LABONE OF [facility] OF SIVE 0 [place] [facility] METABOLIC PANEL COLLECTIO 76522 LABONE OF LABONE OF N VENOUS 0 [facility] BLOOD VENIPUNCT URE ELECTRIC E0215 [facility] [place] [facility] PAD 0 STATES STATES MOIST MEDICAL MEDICAL SUPPLY SUPPLY COLLECTIO 75416 LABONE OF LABONE OF N VENOUS 0 [facility] BLOOD VENIPUNCT URE COMPREHEN 13702 LABONE OF LABONE OF SIVE 0 [facility] METABOLIC PANEL BLOOD 86189 LABONE OF LABONE OF COUNT 0 [facility] COMPLETE AUTO&[place] [address] LABONE OF LABONE OF THYROID 0 [facility] STIMULATI NG HORMONE TSH RADIOLOGI 39780 [facility] C EXAM 0 N N CHEST [...] UNITED PER BOX 0 STATES STATES OF [facility] MEDICAL MEDICAL SUPPLY SUPPLY ADMN SET A7003 [...] 85%/>02 EQUIP. L EQUIP. L CONC AT [facility] FLW RATE COMPREHEN 50893 LABONE OF LABONE OF SIVE 0 [facility] METABOLIC PANEL COLLECTIO 79921 LABONE OF LABONE OF N VENOUS 0 [facility] BLOOD VENIPUNCT URE HEMOGLOBI 58297 LABONE OF LABONE OF N 0 [facility] GLYCOSYLA EUGENIO A1C O2 CONC 1 E1390 [place]AN [place] 0 HOME MED HOME MED 85%/>02 EQUIP. EQUIP. CONC AT [facility] FLW RATE O2 CONC 1 E1390 [place]AN [place] 0 HOME MED HOME MED 85%/>02 EQUIP. EQUIP. CONC AT [facility] FLW RATE PWR E2361 SOURCE SOURCE ACSS 22NF 0 ONE ONE SEALED MEDICAL LENDING ADVISOR ACID INC INC BATTRY EA PWR K0825 [...] BLD GLU MON-50 O2 CONC 1 E1390 [place]ANChannelkitRELL DEL [place] 0 HOME MED HOME MED 85%/>02 EQUIP. EQUIP. CONC AT [facility] FLW RATE PROTEIN 23953 LABONE OF LABONE OF TOTAL 0 [facility] XCPT REFRACTOM ETRY URINE COLLECTIO 11960 LABONE OF LABONE OF N VENOUS 0 [facility] BLOOD VENIPUNCT URE PROTEIN 41997 LABONE OF LABONE OF ELECTROP 0 [facility] FXJ&NEEL OTH FLUS CONCENTRA TI PROTEIN 89840 LABONE OF LABONE OF ELECTROPH 0 [facility] ORETIC FRACTJ&QU ANTJ SERUM PROTEIN 44748 LABONE OF LABONE OF XCPT 0 [facility] REFRACTOM ETRY SERUM PLASMA/WH L BLD CREATININ 14213 LABONE OF LABONE OF E OTHER 0 [facility] [place] [address] LABONE OF LABONE OF IRON 0 [facility] BLOOD 94889 LABONE OF LABONE OF COUNT 0 [facility] COMPLETE AUTO&AUTO DIFRNTL WBC IRON 61767 LABONE OF LABONE OF BINDING 0 [facility] CAPACITY HEMOGLOBI 01330 LABONE OF LABONE OF N 0 [facility] GLYCOSYLA EUGENIO A1C COLLECTIO 24160 LABONE OF LABONE OF N VENOUS 0 [facility] [address] LABONE OF LABONE OF FERRITIN 0 [facility] COMPREHEN 06403 LABONE OF LABONE OF SIVE 0 [facility] METABOLIC PANEL PROTEIN 02551 JACQUES HANNA ELECTROPH 0 [facility] ORETIC INC INC FRACTJ&QU ANTJ SERUM CYANOCOBA 49100 JACQUES HANNA [place] 0 [facility] VITAMIN INC INC B-12 COLLECTIO 64015 JACQUES HANNA N VENOUS 0 [facility] BLOOD INC INC VENIPUNCT URE HEMOGLOBI 22557 JACQUES HANNA N 0 [facility] GLYCOSYLA [place] [address] JACQUES HANNA FREE 0 [facility] [place] [address] JACQUES HANNA THYROID 0 [facility] STIMULATI INC INC NG HORMONE TSH O2 CONC 1 E1390 [place]AN [place] 0 HOME MED HOME MED 85%/>02 EQUIP. EQUIP. CONC AT [facility] PRSC FLW RATE NDL EMG 2 29272 [place] FARIA, XTR W/WO 0 MD [facility] FARIA RELATED PSC PARASPINA L AREAS NRV CNDJ 04256 [facility] FARIA, AMPLT&LAT 0 MD [place] FARIA ENCY EA PSC NRV MOTOR W/F-WAVE STD NRV CNDJ 43893 [facility] FARIA, AMPLITUDE 0 MD CONCEPCI[facility] FARIA & PSC LATENCY EACH NERVE SENSORY CHLORIDE 90623 [facility] BLD [address] [place] [address] [place] [address] [facility] UREA [address] [place] [address] NITROGEN QUANTITAT DINA BLOOD [address] HEMATOCRI T SODIUM [address] PLASMA OR WHOLE BLOOD GLUCOSE [address] DINA BLOOD XCPT REAGENT STRIP AORTOGRAP 75513 [facility] HY ABDL [address] [place] [address] BI ILIOFEM LOW EXTREM CATH RS&I ANGIOGRAP 42902 COMMONWEA ANJANA, HY 0 LTH [place] Brown EXTREMITY CARDIOLOG Y ASSOC BILATERAL RS&I AORTOGRAP 38438 COMMON[place]A ANJANA, HY 0 LTH [place]N rBown ABDOMINAL CARDIOLOG Y ASSOC SERIALOGR APHY RS&I POTASSIUM [address] PLASMA/WH OLE BLOOD BLOOD 62732 [facility] COUNT [address] [place] [address] PLATELET AUTOMATED CREATININ 29647 [facility] E BLOOD [address] [place] [address] COLLECTIO 39477 [facility] N VENOUS [address] [place] [address] BLOOD VENIPUNCT URE INTRODUCT 82213 [facility] ION [address] [place] [address] CATHETER AORTA CATHETER C1887 [facility] GUIDING [address] [place] [address] INTRDUCR/ C1894 [facility] SHEATH [address] [place] [address] NOT GUID INTRACARD EP NON-LASR CLOSURE C1760 [facility] DEVICE [address] [place] [address] VASCULAR PLCMT [id number] [facility] OCCL DEVC [address] [place] [address] ARLEN/ART POST SURG/INTR VNL PROC URNLS DIP 43927 RAKESH COCOLG, 0 AMADOR AMADOR STICK/TAB K K LET RGNT NON-AUTO W/O MICRSCP MARIFER 79389 COCOLG COCOLG, POST-VOID 0 AMADOR AMADOR ING K K RESIDUAL URINE&/BL ADDER CAP O2 CONC 1 E1390 [place]AN [place] 0 HOME MED HOME MED 85%/>02 EQUIP. EQUIP. CONC AT [facility] FLW RATE CT THORAX 50274 [facility] W/O 0 N N CONTRAST [facility] BLOOD 91524 LABONE OF LABONE OF COUNT 0 [facility] COMPLETE AUTO&AUTO DIFRNTL WBC CREATINE 88375 LABONE OF LABONE OF KINASE 0 [facility] TOTAL COLLECTIO 05992 LABONE OF LABONE OF N VENOUS 0 [facility] BLOOD VENIPUNCT URE COMPREHEN 71604 LABONE OF LABONE OF SIVE 0 [facility] METABOLIC PANEL C-REACTIV 61517 LABONE OF LABONE OF E PROTEIN 0 [facility] EXTRACTAB 95152 LABONE OF LABONE OF LE 0 [facility] NUCLEAR ANTIGEN ANTIBODY ANY METHOD ANTIBODY 28884 LABONE OF LABONE OF BORDETELL 0 [facility] A ANTINUCLE 92288 LABONE OF LABONE OF AR 0 [facility] ANTIBODIE S CARMINE ALBUTEROL J7620 [facility] [...] INHALATIO N RX; PER 30 DAYS HOSPITAL 17315 [facility] DISCHARGE 0 ANT ANT DAY MANAGEMEN T 30 MIN/< RADIOLOGI 34915 [facility] VAHID DERAS, C EXAM 0 RADIOLOGY RAJESH Casas CHEST 2 VIEWS FRONTAL&L ATERAL SBSQ 73562 [facility] 0 ANT ANT CARE/DAY 25 MINUTES CRITICAL 23974 NINA CLINE, CARE 0 EMERGENCY ELI H ILL/INJUR SERVICES ED PATIENT ASSOCIATE INIT S 30-[place] [address] [facility] VAHID DERAS, HEAD/BRAI 0 RADIOLOGY RAJESH Casas N W/O CONTRAST MATERIAL RADIOLOGI 13219 [facility] VAHID DERAS, C 0 RADIOLOGY RAJESH Casas EXAMINATI ON CHEST SINGLE VIEW FRONTAL ECG 69684 NINA CLINE, ROUTINE 0 EMERGENCY ELI H ECG SERVICES W/LEAST 12 [facility] ASSOCIATE I&R ONLY S INITIAL 10901 [facility] 0 ANT ANT CARE/DAY 70 MINUTES OUTPATIEN 75537 [facility] T CARDIAC 0 N N REHAB [facility] [place] W/[facility] ECG MONITORIN G CV STRS 62272 ZULEIKA YEUNG, TST 0 LTH [place] Brown XERS&/OR CARDIOLOG RX CONT Y ASSOC ECG W/SI&R MYOCARDIA 87322 ZULEIKA YEUNG L SPECT 0 LTH [place] MULTIPLE CARDIOLOG STUDIES Y ASSOC TECHNETIU A9502 ZULEIKA YEUNG M TC-99M 0 LTH [place] Brown TETROFOSM CARDIOLOG IN DX PER Y ASSOC STUDY DOSE INJECTION J2785 ZULEIKA YEUNG, 0 LTH [place] Brown REGADENOS CARDIOLOG ON 0.1 MG Y ASSOC ECG 05531 [facility] ROUTINE 0 N N ECG [facility] [place] W/[facility] 12 [facility] TRCG ONLY W/O I&R NON-INVAS 43756 [facility] 0 N N PHYSIOLOG [facility] EXTREMITY ART 2 LEVEL O2 CONC 1 E1390 [place] 0 HOME MED HOME MED 85%/>02 EQUIP. EQUIP. CONC AT [facility] FLW RATE HOSPITAL 15774 MER[facility] BOYER, DISCHARGE 0 ANGE L ANGE L DAY MANAGEMEN T 30 MIN/< SBSQ 48123 [facility] ANGE L CARE/DAY 25 MINUTES INITIAL 22605 MER[facility] BOYER, [facility] 0 ANGE L ANGE L CARE/DAY 70 MINUTES DEMO&/NOVA 53167 [facility] L OF PT 0 N N UTILIZ [facility] [place] [facility] GEN/NEB/I NHLR/IP ECHO 89074 CANDIDO REY, [facility] R-T 0 JOSAFAT MAURICE 2D P P W/WOM-MOD E COMPL SPEC&COLR D RADIOLOGI 89806 [facility] [place] ANKITA, C EXAM 0 RADIOLOGY NATTY G CHEST 2 VIEWS FRONTAL&L ATERAL O2 CONC 1 E1390 [place] 9 HOME MED HOME MED 85%/>02 EQUIP. EQUIP. CONC AT [facility] FLW RATE O2 CONC 1 E1390 [place] 9 HOME MED HOME MED 85%/>02 EQUIP. EQUIP. CONC AT [facility] FLW RATE O2 CONC 1 E1390 [place] 9 HOME MED HOME MED 85%/>02 EQUIP. EQUIP. CONC AT [facility] FLW RATE O2 CONC 1 E1390 [place] 9 HOME MED HOME MED 85%/>02 EQUIP. EQUIP. CONC AT [facility] FLW RATE ARTHROCEN 42519 MERLIN BOYER TESIS 9 ANGE [place] ASPIR&/IN J MAJOR JT/KELLY W/O US ADMINISTR G0008 MERLIN BOYER, ATION OF 9 ANGE [place] INFLUENZA VIRUS VACCINE IIV3 99955 MERLIN, MERLIN, VACCINE 9 ANGE L ANGE L SPLIT VIRUS 0.5 ML DOSAGE IM USE O2 CONC 1 E1390 [place] 9 HOME MED HOME MED 85%/>02 EQUIP. EQUIP. CONC AT [facility] FLW RATE O2 CONC 1 E1390 [place] 9 HOME MED HOME MED 85%/>02 EQUIP. EQUIP. CONC AT [facility] FLW RATE 3D 73942 TERE CARRANZA, RENDERING 9 ANNE ANNE W/INTERP & [place] [address] TERE CARRANZA, SPINAL 9 ANNE ANNE CANAL LUMBAR W/O CONTRAST MATERIAL NEBULIZER E0570 FRAN FRAN WITH 9 HOME MED HOME MED COMPRESSO EQUIP. EQUIP. R [facility] O2 CONC 1 E1390 [place]AN [place] 9 HOME MED HOME MED 85%/>02 EQUIP. EQUIP. CONC AT [facility] FLW RATE HOSPITAL 04796 ZULEIKA YEUNG, DISCHARGE [address] [facility] DAY CARDIOLOG MANAGEMEN Y ASSOC T 30 MIN/< ECG 50603 ZULEIKA YEUNG, ROUTINE 9 [facility] ECG CARDIOLOG W/LEAST Y ASSOC 12 LDS I&R ONLY CT LUMBAR 10794 [facility] [place] SCALF, SPINE 9 RADIOLOGY FAROOQ E W/CONTRAS T MATERIAL MYELOGRAP 10274 [facility] [place] SCAL[place], Y 9 RADIOLOGY FAROOQ E LUMBOSACR AL RS&I NEBULIZER E0570 FRAN PETERS WITH 9 HOME MED HOME MED COMPRESSO EQUIP. EQUIP. R [facility] CONTRAST 8721 [facility] MYELOGRAM [address] [place] [address] [facility], [facility] 9 [facility] CARE/DAY CARDIOLOG 15 Y ASSOC MINUTES [facility] 88547 [facility] 9 PHYSICIAN RONALD Marshall CARE/DAY S GROUP 25 MINUTES [facility] 09218 [facility] 9 MD Oskar FARIA SHARON CARE/DAY PSC [address] LOWER [address] [facility] [place] AYALA, EXTREMITY 9 RADIOLOGY MELINA L W/O CONTRAST MATERIAL NON-INVAS 51127 [facility] ANJANA, 9 [facility] PHYSIOLOG CARDIOLOG IC STD Y ASSOC EXTREMITY ART 2 LEVEL INITIAL 62340 [facility] INPATIENT 9 MD Oskar FARIA SHARON CONSULT PSC NEW/ESTAB PT 110 MIN SBSQ 40352 [facility] [address] [facility] CARE/DAY CARDIOLOG 15 Y ASSOC MINUTES ECG 24349 [facility] ANJANA, ROUTINE 9 [facility] ECG CARDIOLOG W/LEAST Y ASSOC 12 LDS I&[place] [address] [facility] [place] ANGIOGRAP 9 RADIOLOGY LD, A D HY CHEST W/CONTRAS T/[place] [address] [facility] [place] CERVICAL 9 RADIOLOGY LD, A D SPINE W/O CONTRAST MATERIAL INITIAL 78498 [facility] [address] [facility] CARE/DAY CARDIOLOG 30 Y ASSOC MINUTES AMB A0427 [facility] SERVICE 9 AMBULANCE AMBULANCE ALS SERVICE SERVICE EMERGENCY TRANSPORT LEVEL 1 CRITICAL 23421 [facility] 9 EMERGENCY MERLIN J ILL/INJUR SERVICES ED PATIENT ASSOCIATE INIT S 30-74 MIN BLOOD 84817 JACQUES HANNA COUNT 9 [facility] COMPLETE INC INC AUTO&AUTO DIFRNTL WBC ECG 14880 JACQUES BRIAN, ROUTINE 9 [facility] ECG HOSPITAL W/LEAST PROF SERV 12 LDS I&R ONLY 3D 68051 JACQUES HANNA RENDERING 9 [facility] INC INC W/INTERP& POSTPROC DIFF [place] LOWER 41758 FARZANA GARDNER, EXTREMITY 9 MEDICAL CAROLANN P W/O IMAGING CONTRAST ASSOCIATE MATERIAL S COMPREHEN 27345 JACQUES HANNA SIVE 9 [facility] METABOLIC INC INC PANEL THERAPEUT 47393 JACQUES HANNA IC 9 [facility] INJECTION INC INC IV PUSH EACH NEW DRUG FIBRIN 22349 JACQUES HANNA DGRADJ 9 [facility] PRODUCTS INC INC D-DIMER QUAL/SEMI NEEL GROUND A0425 [facility] 9 AMBULANCE AMBULANCE PER SERVICE SERVICE STATUTE MILE DUP-SCAN 41415 FARZANA GARDNER, XTR VEINS 9 MEDICAL CAROLANN P IMAGING UNILATERA ASSOCIATE L/LIMITED S STUDY ECG 94672 JACQUES HANNA ROUTINE 9 [facility] HOSP ECG INC INC W/LEAST 12 LDS TRCG ONLY W/O I&R THERAPEUT 10800 JACQUES HANNA IC 9 [facility] HOSP PROPHYLAC INC INC TIC/DX INJECTION SUBQ/IM HOSPITAL 15677 ZULEIKA YEUNG, DISCHARGE 9 [facility] [place] Brown DAY CARDIOLOG MANAGEMEN Y ASSOC T 30 MIN/< ECG 84838 ZULEIKA YEUNG, ROUTINE 9 [facility] [place] Brown ECG CARDIOLOG W/LEAST Y ASSOC 12 LDS I&R ONLY ECHO 33256 ZULEIKA YEUNG, TTHRC R-T 9 [facility] CONCEPCI[place]N Brown 2D CARDIOLOG W/WOM-MOD Y ASSOC E COMPL SPEC&COLR D I SI&R 28746 MARYA ANJANA, F/NJX PX 9 [facility] [place]PCI[place] Brown DURING CARDIOLOG C-CATHJ Y ASSOC PULM&/OR SELECT I SI&R 78982 COMMONAMYA ANJANA, F/NJX PX 9 [facility] CONCEPCI[place]N Brown DURING CARDIOLOG C-CATHJ Y ASSOC VENTR&/[place] [address] ZULEIKA YEUNG, C-CATHJ 9 [facility] CONCEPCI[place]N Brown F/SLCTV C CARDIOLOG ANGRPH Y ASSOC L HRT 20315 ZULEIKA YEUNG, CATHETERI 9 [facility] [place] Brown ZATION CARDIOLOG RETROGRAD Y ASSOC E BRACHIAL PERQ INITIAL 63339 PULMONARY SADIE INPATIENT 9 S, CONSULT ASSOCIATE QUANG MARKHAM/ESTAB S, INC PT 80 MIN ENDOLUMIN 24655 ZULEIKA YEUNG, AL 9 [facility] [place] Brown CORONARY CARDIOLOG IVUS OCT Y ASSOC I&R INITIAL VESSEL TCAT PLMT 67949 ZULEIKA KESSLERIDY, 9 LTH [place] Brown INTRACORO CARDIOLOG NARY Y ASSOC STENT PRQ 1 VESSEL INJECTION 79419 ZULEIKA YEUNG, CARDIAC 9 [facility] CONCEPCI[place] Brown CATHJ L CARDIOLOG VENTR/L Y ASSOC ATR ANGIOGRAP H SPMTRY 84083 PULMONARY VILLARAN, W/VC 9 PATRICA EXPIRATOR ASSOCIATE Y JIE S, INC W/WO MXML VOL VNTJ PERQ 0066 [facility] TRANSLUMI [address] [place] [address] NAL CORONARY ANGIOPLAS TY PTCA ANGIOCARD 8853 [facility] IOGRAPHY [address] [place] [address] OF LEFT HEART STRUCTURE S INSERTION [address] DRUG-ELUT ING CORONARY ARTERY STENT CORONARY 8856 [facility] ARTERIOGR [address] [place] [address] APHY USING TWO CATHETERS LEFT 3722 [facility] HEART [address] [place] [address] CARDIAC CATHETERI ZATION O2 CONC 1 E1390 [facility] [place] 9 HOME MED HOME MED 85%/>02 EQUIP. EQUIP. CONC AT [facility] FLW RATE CRITICAL 34178 [facility] MONTERROS[facility] 9 EMERGENCY KEYUR R ILL/INJUR SERVICES ED PATIENT ASSOCIATE INIT S 30-74 MIN BASIC 22918 JACQUES HANNA METABOLIC 9 [facility] HOSP PANEL INC INC CALCIUM TOTAL ECG 66552 OMA PRATER 9 [facility] W/LEAST PROF SERV 12 LDS I&R ONLY CREATINE 10843 JACQUES HANNA KINASE 9 [facility]OS[facility] TOTAL INC INC RADIOLOGI 69951 Johny ÁLVAREZ 9 MEDICAL ANNE EXAMINATI IMAGING ON CHEST ASSOCIATE SINGLE S VIEW FRONTAL BLOOD 28481 JACQUES HANNA COUNT 9 [facility] HOSP COMPLETE INC INC AUTO&AUTO DIFRNTL WBC CREATINE 88688 JACQUES HANNA KINASE MB 9 [facility] [place] [address] JACQUES HANNA TROPONIN 9 [facility] HOSP QUANTITAT INC INC DINA THER 50350 JACQUES HNANA PROPH/DX 9 [facility] HOSP NJX IV INC INC PUSH SINGLE/1S T SBST/DRUG ECG 46085 JACQUES HANNA ROUTINE 9 [facility] ECG INC INC W/LEAST 12 LDS TRCG ONLY W/O I&R INITIAL [address] CARE/DAY CARDIOLOG 50 Y ASSOC MINUTES GROUND A0425 [facility] MILEAGE 9 AMBULANCE AMBULANCE PER SERVICE SERVICE STATUTE MILE AMBULANCE A0429 [facility] SERVICE 9 AMBULANCE AMBULANCE BLS SERVICE SERVICE EMERGENCY TRANSPORT LIPID 43521 JACQUES HANNA PANEL 9 [facility] HOSP INC INC DUP-SCAN 20008 ALEXA BADILLO, LIONELR VEINS 9 ELIECER Casey COMPLETE CARDIOLOG Y BILATERAL CONSULTAN STUDY T NEBULIZER E0570 FRAN PETERS WITH 9 HOME MED HOME MED COMPRESSO EQUIP. EQUIP. R LLC [facility] ANESTHESI 27970 [facility]SON A LUMBAR 9 [facility] ANESTHESI M NOS A PSC GRAFF 76637 NEUROSURG NEUROSURG FACETECTO 9 ICAL ICAL MY&FORAMT ASSOCIATE ASSOCIATE KEVIN 1 SGM S S EA CRV THRC/LMBR OTHER 0309 [facility] C[facility] EXPLORATI 9 [facility] RESSION OF SPINAL CANAL [facility] 79685 NEUROSURG NEUROSURG FACETECTO 9 ICAL ICAL MY & ASSOCIATE ASSOCIATE FORAMOTOM S S Y 1 SEGMENT LUMBAR ECG 60310 CARDIOLOG Tod BANDA ROUTINE 9 Y A ECG ASSOCIATE W/LEAST S OF 12 LDS LIL[place]URN W/I&R ECG 12314 [place] ROUTINE 9 ORTH, ECG CARDIOLOG MARIE W/LEAST Y 12 LDS CONSULTAN I&R ONLY T O2 CONC 1 E1390 [facility] [place] [place] 9 HOME MED HOME MED 85%/>02 EQUIP. EQUIP. [facility] FLW RATE NEBULIZER E0570 FRAN PETERS WITH 9 HOME MED HOME MED COMPRESSO EQUIP. EQUIP. R LLC [facility] O2 CONC 1 E1390 [place] 9 HOME MED HOME MED 85%/>02 EQUIP. EQUIP. [facility] FLW RATE 3D 04358 TERE CRARANZA, RENDERING 9 ANNE ANNE W/INTERP & [place] [address] TERE, TERE, SPINAL 9 ANNE ANNE CANAL LUMBAR W/O CONTRAST MATERIAL NEBULIZER E0570 FRAN FRAN WITH 9 HOME MED HOME MED COMPRESSO EQUIP. EQUIP. R [facility] PROF SVCS 06257 CAIO, CAIO, ALLG 9 CARLI B CARLI B IMMNTX X W/PRV ALLGIC XTRCS NJXS SPMTRY 15197 CAIO, CAIO, W/VC 9 CARLI B CARLI B EXPIRATOR Y JIE W/WO MXML VOL VNTJ O2 CONC 1 E1390 [facility] [place] 9 HOME MED HOME MED 85%/>02 EQUIP. EQUIP. [facility] FLW RATE 25 40484 JACQUES HANNA HYDROXY 9 [facility] INCLUDES INC INC FRACTIONS IF PERFORMED COLLECTIO 80470 JACQUES HANNA N VENOUS [address] [facility] HOSP BLOOD INC INC VENIPUNCT URE FLUOR 31278 BRIANDA LAMAR, NEEDLE/CA 9 [facility] Ferrera TH SPINE/PAR ASPINAL DX/[place] [address] BRIANDA LAMAR, ANES&/STR 9 CONCE[facility] Ferrera D JT NRV LMBR/SAC 1 LVL O2 CONC 1 E1390 [place]T [facility] [place] 9 HOME MED HOME MED 85%/>02 EQUIP. EQUIP. [facility] FLW RATE NEBULIZER E0570 FRAN FRAN WITH 9 HOME MED HOME MED COMPRESSO EQUIP. EQUIP. R [facility] SPMTRY 14402 CAIO, CAIO, W/VC 9 CARLI B CARLI B EXPIRATOR Y JIE W/WO MXML VOL VNTJ O2 CONC 1 E1390 [facility] [place] 8 HOME MED HOME MED 85%/>02 EQUIP. EQUIP. [facility] FLW RATE NEBULIZER E0570 [facility] WITH 8 HOME MED HOME MED COMPRESSO EQUIP. EQUIP. R [facility] O2 CONC 1 E1390 [facility] [place] 8 HOME MED HOME MED 85%/>02 EQUIP. EQUIP. [facility] FLW RATE PROF SVCS 25383 CAIO, CAIO, ALLG 8 CARLI B CARLI B IMMNTX X W/PRV ALLGIC XTRCS NJXS NEBULIZER E0570 [facility] WITH 8 HOME MED HOME MED COMPRESSO EQUIP. EQUIP. R [facility] O2 CONC 1 E1390 [facility] [place] 8 HOME MED HOME MED 85%/>02 EQUIP. EQUIP. [facility] FLW RATE PROF SVCS 29999 CAIO, CAIO, ALLG 8 CARLI B CARLI B IMMNTX X W/PRV ALLGIC XTRCS NJXS PROF SVCS 72044 CAIO, CAIO, ALLG 8 CARLI B CARLI B IMMNTX X W/PRV ALLGIC XTRCS NJXS NEBULIZER E0570 [facility] WITH 8 HOME MED HOME MED COMPRESSO EQUIP. EQUIP. R [facility] PREPJ& 56017 CAIO, CAIO, ALLERGEN 8 CARLI B CARLI B IMMUNOTHE RAPY 1/YARN INSPECTOR ANTIGEN O2 CONC 1 E1390 [facility] 8 HOME MED HOME MED 85%/>02 EQUIP. EQUIP. [facility] FLW RATE SPMTRY 02720 CAIO, CAIO, W/VC 8 CARLI B CARLI B EXPIRATOR Y JIE W/WO MXML VOL VNTJ PERCUTANE 88167 CAIO, CAIO, OUS TESTS 8 CARLI B CARLI B W/ALLERGE VIKA EXTRACTS INTRACUTA 06891 CAIO, CAIO, NEOUS 8 CARLI B CARLI B TESTS W/ALLERGE VIKA EXTRACTS O2 CONC 1 E1390 [facility] 8 HOME MED HOME MED 85%/>02 EQUIP. EQUIP. [facility] FLW RATE COLLECTIO 10883 JACQU[facility] N VENOUS 8 [facility] [place] [address] JACQUES HANNA GAMMAGLOB 8 [facility] ULIN IGE INC INC BLOOD 83296 JACQUES HANNA COUNT 8 [facility] COMPLETE INC INC AUTO&AUTO DIFRNTL WBC RADIOLOGI 40216 JACQUES HANNA C EXAM 8 [facility] CHEST 2 INC INC VIEWS FRONTAL&L ATERAL ALPHA-1-A 42559 JACQUES HANNA NTITRYPSI 8 [facility] N TOTAL INC INC ALPHA-1-A 45130 JACQUES HANNA NTITRYPSI 8 [facility] N INC INC PHENOTYPE PERCUTANE 53764 CAIO KEARNEY, OUS TESTS 8 CARLI B CARLI B W/ALLERGE VIKA EXTRACTS BRNCDILAT 18476 CAIO KEARNEY, RSPSE 8 CARLI B CARLI B SPMTRY PRE&POST- BRNCDILAT ADMN NEBULIZER E0570 [facility] WITH 8 HOME MED HOME MED COMPRESSO EQUIP. EQUIP. R [facility] ADMN SET [id number] YOUR YOUR W/SM VOL 8 PHARMACY PHARMACY NONFILTR [facility] NEBULIZR NON-DISPB L BUDESONID J7626 CAIO KEARNEY, E INHAL 8 CARLI B CARLI B NON-CP UNIT DOSE UP TO 0.5 MG ALBUTEROL J7620 YOUR YOUR TO 2.5 8 PHARMACY PHARMACY [facility] & [facility] IPRATROPI UM BROM TO 0.5 MG ALBUTEROL J7611 CAIO KEARNEY, INHAL 8 CARLI B CARLI B NON-CP THRU DME CONC FORM 1 MG IPRATROPI J7644 CAIO KEARNEY 8 CARLI B CARLI B BROMIDE INHAL NON-CP U DOSE PER MG AREO MASK A7015 FR[facility] PETERS USED W/ 8 HOME MED HOME MED DME NEB EQUIP. EQUIP. [facility] ALBUTEROL J7613 YOUR YOUR INHAL 8 PHARMACY PHARMACY NON-[facility] PROD THRU DME U DOSE 1 MG PHARM [id number] YOUR YOUR DISPEN 8 PHARMACY PHARMACY FEE INHAL [facility] RX; INITIAL 30-DAY SUPPLY O2 CONC 1 E1390 [facility] 8 HOME MED HOME MED 85%/>02 EQUIP. EQUIP. [facility] FLW RATE O2 CONC 1 E1390 [facility] 8 HOME MED HOME MED 85%/>02 EQUIP. EQUIP. [facility] FL[facility] RATE O2 [facility] HOME MED 85%/>02 EQUIP. EQUIP. [facility] FLW RATE O2 CONC 1 E1390 [facility] 8 HOME MED HOME MED 85%/>02 EQUIP. EQUIP. [facility] FLW RATE COLLECTIO 53514 [facility], N VENOUS 8 [facility] URE INJECTION 97570 PAWSAT, PAWSAT, 1 TENDON 8 MELLISSA Casas SHEATH/LI GAMENT APONEUROS IS INJECTION J1030 PAWSAT, PAWSAT, 8 MELLISSA Yessenia Casas METHYLPRE DNISOLONE ACETATE 40 MG O2 CONC 1 E1390 [facility] 8 HOME MED HOME MED 85%/>02 EQUIP. EQUIP. [facility] FLW RATE INJECTION J1030 PAWSAT, PAWSAT, 8 MELLISSA Casas METHYLPRE DNISOLONE ACETATE 40 MG INJECTION 15072 PAWSAT, PAWSAT, 1 TENDON 8 MELLISSA Casas SHEATH/LI GAMENT APONEUROS IS STRAPPING 32921 PAWSAT, PAWSAT, ANKLE 8 MELLISSA Casas &/FOOT O2 CONC 1 E1390 [facility] 8 HOME MED HOME MED 85%/>02 EQUIP. EQUIP. [facility] FLW RATE O2 CONC 1 E1390 [facility] 8 HOME MED HOME MED 85%/>02 EQUIP. [facility]. [facility] R[facility] O2 CONC 1 [id number] [facility] PORT 8 HOME MED HOME MED 85%/>02 EQUIP. EQU[facility]. [facility] FL[facility] RATE Encounters Encounter Start End Date Code Location Performer Type Date EMERGENCY 77056 [facility] 7 7 N [facility] COMM[facility] T VISIT [facility] 7 7 N OUTPATIEN [facility] HOSPITA [facility]ICE 91563 [facility] 7 7 N T VISIT CARDIOLOG 25 Y MINUTES OFFICE 63973 [facility] 7 7 DESIREE RAMÍREZ T VISIT 25 MINUTES HOSPITAL [facility] 6 [facility] 52416 [facility] 6 6 DESIREE ELLIOTT T VISIT 15 MINUTES HOSPITAL [facility] - 6 6 N OUTPATIEN COMM[facility]TIY [facility] - 6 6 N INPATIENT COMM[facility]TIY [facility] - 5 5 N [facility] 27249 [facility] 5 5 DESIREE ELLIOTT T VISIT 25 MINUTES HOSPITAL [facility] - 4 4 N OUTPATIEN [facility] H[facility] OFFICE 16610 [facility] OUTPATIEN 4 4 DESIREE ELLIOTT T VISIT 10 MINUTES [facility] - 4 4 [facility] - 4 4 W [facility] [address] OFFICE 27748 CAIO CAIO OUTPATIEN 3 3 CARLI CARLI T VISIT 40 MINUTES [facility]OSPITAL [facility] - 3 3 [facility] T OFFICE 33264 CHELI HANSEN OUTPATIEN 3 3 W GENERAL III DAYNE T NEW 30 SURGERY MINUTES OFFICE 66811 MERLIN Schmitt OUTPATILAY 2 2 C C T VISIT 25 MINUTES [facility] - 2 [facility] OUTPATIEN T OFFICE 95886 MERLIN ROJAS 2 2 ANT ANT T VISIT 25 MINUTES HOSPITAL [facility] - 2 2 [facility] OUT[facility] INC T EMERGENCY 43475 JACQU[facility] 2 2 [facility] T VISIT HIGH/URGE NT SEVERITY OFFICE 18695 MERLIN ROJAS 2 2 ANT ANT T VISIT 25 MINUTES OFFICE 88084 [facility] RENAL PAT T VISIT CARE PSC 25 MINUTES OFFICE 31836 MERLIN ROJAS 2 2 ANT ANT T VISIT 25 MINUTES OFFICE 50349 MERLIN ROJAS 1 1 ANT ANT T VISIT 15 MINUTES OFFICE 07237 [facility] 1 RENAL PAT T VISIT CARE PSC 25 MINUTES OFFICE 09427 MERLIN ROJAS 1 1 ANT ANT T VISIT 25 MINUTES HOSPITAL [facility] - 1 N INPATIENT COMMUNITY HOSPITA OFFICE 24366 [facility] OUTPATI[facility] 1 1 AMB AMB T VISIT 25 MINUTES OFFICE 52047 MERLIN ROJAS 1 1 ANT ANT T VISIT 15 MINUTES OFFICE 59144 MERLIN ROJAS 1 1 ANT ANT T VISIT 15 MINUTES OFFICE 42473 MERLIN ROJAS 1 1 ANT ANT T VISIT 25 MINUTES [facility]OSPITAL [facility] - 1 1 N OUTPATIEN [facility] HOSPITA OFFICE 18564 MERLIN BOYER OUTPATIEN 1 1 ANT ANT T VISIT 25 MINUTES [facility] - 0 0 [facility] OUTPATI T OFFICE 72179 MERLIN BOYER OUTPATIEN 0 0 ANT ANT T VISIT 25 MINUTES OFFICE 38770 [facility] OUTPAT[facility] 0 0 N DEYANIRA T NEW 45 MINUTES OFFICE 16125 MRELIN BOYER OUTPATIEN 0 0 ANT ANT T VISIT 25 MINUTES [facility]OSP[facility] - 0 0 N OUTPATIEN [facility] HOSPITA OFFICE 09135 MERLIN BOYER OUTPATIEN 0 0 ANT ANT T VISIT 25 MINUTES OFFICE 89285 MERLIN BOYER OUTPATIEN 0 0 ANGE [place] T VISIT 25 MINUTES OFFICE 13660 MERLIN BOYER OUTPATIEN 0 0 ANT ANT T VISIT 25 MINUTES OFFICE 26693 MERLIN BOYER OUTPATIEN 0 0 ANT ANT T VISIT 25 MINUTES HOSPITAL [facility] 0 [facility] T OFFICE 87817 CONCEPCIÓN FARIA, OUTPATIEN 0 0 MD CONCEPCIÓN FARIA T VISIT PSC 40 MINUTES [facility]OSPITAL [facility] - 0 0 [facility] OUTPATI T OFFICE 22458 WINDISCH, WINDISCH, OUTPATIEN 0 0 AMADOR AMADOR T NEW 30 K K MINUTES OFFICE 51952 MARYA ANJANA OUTPATIEN 0 0 [facility] CONCEPCIÓN Vazquez VISIT 5 CARDIOLOG MINUTES Y ASSOC [facility] 0 0 N OUTPATIEN [facility] OFFICE 09850 COMMONWEA ANJANA OUTPATIEN 0 0 [facility] CONCEPCIÓN Brown T VISIT CARDIOLOG 15 Y ASSOC MINUTES OFFICE 30204 [facility] OUTPATIEN 0 0 N T NEW 10 [facility] - 0 0 N OUTPATIEN [facility] - 0 0 N INPATIENT [facility] OFFICE 08727 MERLIN BOYER OUTPATIEN 9 9 ANGE [place] T VISIT 15 MINUTES OFFICE 68219 NEUROSURG BOB DO 9 9 ICAL DOMINGO Ferrera T VISIT ASSOCIATE 15 S MINUTES OFFICE 99887 MERLIN BOYER OUTPATIEN 9 9 ANGE [place] T NEW 45 MINUTES [facility] [address] INPATIENT EMERGENCY 22978 JACQUES DEPT 9 9 [facility] VISIT INC HIGH SEVERITY& THREAT FUN EMERGENCY 91986 JACQUES DEPT 9 9 [facility] VISIT INC HIGH SEVERITY& THREAT FUN [facility] [address] INPATIENT HOSPITAL [facility] - 9 9 [facility] OFFICE 82157 CARDIOLOG Tod BANDAAT 9 9 Y A ION ASSOCIATE NEW/ESTAB S OF PATIENT [place] 40 MIN OFFICE 45103 BRIANDA LAMAR OUTPATIEN 9 9 CONCEPCIÓN Ferrera T VISIT 25 MINUTES OFFICE 53471 CAIO KEARNEY OUTPATIEN 9 9 CARLI B CARLI B T VISIT 25 MINUTES HOSPITAL [facility] - 9 9 [facility] OUTPATIEN INC T OFFICE 01865 BRIANDA LAMAR OUTPATIEN 9 9 CONCEPCIÓN Ferrera T NEW 45 MINUTES OFFICE 54860 CAIO KEARNEY OUTPATIEN 9 9 CARLI B CARLI B T VISIT 25 MINUTES OFFICE 57954 CAIO KEARNEY OUTPATILAY 8 8 CARLI B CARLI B T VISIT 25 MINUTES HOSPITAL [facility] - 8 8 [facility] OUTPATIEN INC T OFFICE 69643 CAIO KEARNEY, CONSULTAT 8 8 CARLI B CARLI B ION NEW/ESTAB PATIENT 80 MIN OFFICE 21220 [facility] OUT[facility] 8 8 PRIMARY T VISIT CARE 10 [facility] [place] [facility] FREE 8 8 PRIMARY STANDING CARE [facility] OFFICE 10872 [place] OUTPATIEN 8 8 PRIMARY T VISIT CARE 10 [facility] [place] [facility] FREE 8 8 PRIMARY STANDING CARE [facility] [place] FREE 8 8 PRIMARY STANDING CARE [facility] OFFICE 82425 [facility] OUTPATIEN 8 8 PRIMARY T VISIT CARE 10 [facility] OFFICE 76044 PAWSAT, AD, OUTPATIEN 8 8 MELLISSA Casas T [facility] 20 MINUTES OFFICE 44240 [place] OUTPATIEN 8 8 PRIMARY T VISIT CARE 10 [facility] [place] [facility] FREE 8 8 PRIMARY STANDING CARE [facility] FREE 8 8 [facility]
--- OUTSIDE RECORDS SUMMARY | 2017-02-21 02:49 | External Medical Summary Rpt ---
Author Author , VINNIE BIRMINGHAM Address Unknown Phone [email or web address] Care Team Providers Care Lieutenant General Name Role Phone NATALIA BRIAN, Unavailable Unavailable [...] Unavailable Unavailable ELIECER BADILLO BOND Unavailable Unavailable [facility] Unavailable Unavailable SERVICE, [facility] MELINA AYALA BUCK, Unavailable Unavailable DIGNA MCLAUGHLIN Unavailable Unavailable ANJANA DOMÍNGUEZ Unavailable Unavailable CONCEPCIÓN GONZALEZ, Unavailable Unavailable CONCEPCIÓN YEUNG [facility], Unavailable Unavailable [facility] Unavailable Unavailable PULMONARY M, [facility] YAJAIRA TER, YAJAIRA TER Unavailable Unavailable ORTEGA HESHAM, ORTEGA Unavailable Unavailable HESHAM [facility], Unavailable Unavailable [facility] TERE, TERE Unavailable Unavailable TERE MARIA ISABEL, Unavailable Unavailable TERE MARIA ISABEL ANNE CARRANZA, Unavailable Unavailable ANNE CARRANZA MD Un[facility] ASTRID GOODWIN Unavailable Unavailable ASTRID [...] Unavailable Unavailable TRANSPORTATION [facility], [facility] Unavailable Unavailable [facility], [facility] Unavailable [facility]available HOSPITA, [facility] Unavailable [facility]available HOSPITAL, [facility] Unavailable Unavailable HOSPITA, [facility] GREGONIS VERITO, Unavailable Unavailable GREGONIS VERITO ANKITA RHO, ANKITA Unavailable Unavailable RHO ANKITA, NATTY G, Unavailable Unavailable ANKITA, NATTY G REMINGTONSANDRO GRAY E, Unavailable Unavailable REMINGTON, SANDRO E HALLAK PAT, HALLAK Unavailable Unavailable KEYUR BETTENCOURT, Unavailable Unavailable KEYUR NICK DAVID P, Unavailable Unavailable CONCEPCIÓN LAMAR [facility] Unavailable Unavailable INC, [facility] Unavailable Unavailable HOSPITAL , [facility] MARIE PICHARDO, Unavailable Unavailable MARIE PICHARDO, Unavailable Unavailable Tod PERES KAPALI, Unavailable Unavailable N A LEELA III JASON, Unavailable Unavailable LEELA III JASON [facility] Unavailable Unavailable IMAGING ASS, [facility] DOMINGO DO, Unavailable Unavailable DOMINGO DO KUMLER III DAYNE, Unavailable Unavailable KUMLER III [facility] Unavailable Unavailable [facility], [facility] Unavailable Unavailable [facility], [facility], Unavailable [facility]available [facility] Unavailable Unavailable [facility] LYNN RAMON DWI, LYNN Unavailable Unavailable JR DWI CRIS BAILEY, Unavailable Unavailable CRIS BAILEY BENJAMIN P, Unavailable Unavailable JOSAFAT REY MARTIN J, Unavailable Unavailable MERLIN BREWSTER MARTIN Unavailable Unavailable MERLIN ROSE Unavailable Unavailable ALEXANDER Mcclain, MERLIN R Unavailable Unavailable ANGE KASPER, Unavailable Unavailable ANGE BOYER CARLI, Unavailable Unavailable CAIO CARLI CAIO CARLI, Unavailable Unavailable CAIO CARLI CAIO, CARLI B, Unavailable Unavailable CAIO, CARLI B [facility] Unavailable Unavailable ASSOCIAT, [facility] Unavailable Unavailable SURGERY, [facility] Unavailable Unavailable MEDICAL, [facility]ICAL Unavailable Unavailable ASSOCIATES, [facility]FF[facility] Unavailable Unavailable [facility] Unavailable Unavailable LAB, PATHOLOGY [...] FAROOQ E, Unavailable Unavailable SCALF, FAROOQ E ROSSI ANDRES Unavailable Unavailable [facility] Unavailable Unavailable EQUIP. L, [...] LABORATORY Unavailable Unavailable NETWORK, [facility] Unavailable Unavailable MARICRUZ, Unavailable Unavailable MARICRUZ DEL RIO ALEXANDER [facility] Unavailable Unavailable SU[facility], [facility] [place] [facility] Unavailable Unavailable SUPPLY, [facility], Unavailable Unavailable LLC, HEALTHCARE SUPPLY, [facility], Unavailable Unavailable LLC, HEALTHCARE SUPPLY, [facility], [facility] Unavailable Unavailable INC PATRICA HARO, Unavailable Unavailable PATRICA HARO [facility] [id number], Unavailable Unavailable [facility] [id number] [facility] Unavailable Unavailable [facility], [facility] Unavailable Unavailable #591, [facility] # Unavailable Unavailable [id number], [facility] # [id number] TERESO III DEYANIRA, Unavailable Unavailable TERESO III YUE LOPEZ, Unavailable Unavailable YUE DANG A D, Unavailable Unavailable Britta [facility], Unavailable Unavailable [facility], Unavailable Unavailable [facility], AMADOR K, Unavailable Unavailable AMADOR [facility], Unavailable Unavailable [facility] [...] TRANSPORTAT ION SER E119 TYPE 2 11-13-2016 [facility] MELLITUS MEDICAL WITHOUT SUPPLY COMPLICATIO NS I10 ESSENTIAL 10-26-2016 [facility] PRIMARY L HYPERTENSIO N M6281 MUSCLE 10-26-2016 [facility] WEAKNESS L GENERALIZED R296 REPEATED 10-26-2016 [facility] FALLS L I110 HYPERTENSIV 10-13-2016 [facility] E HEART COMMUNTIY DISEASE HOSPITA WITH HEART FAILURE I4891 UNSPECIFIED 10-13-2016 [facility] ATRIAL COMMUNTIY FIBRILLATIO HOSPITA N I509 HEART 10-13-2016 [facility] FAILURE COMMUNTIY UNSPECIFIED HOSPITA M170 BILATERAL 10-13-2016 [facility] PRIMARY COMMUNTIY OSTEOARTHRI HOSPITA TIS OF KNEE G75051 PAIN IN 10-13-2016 [facility] [place] RIGHT [facility]NEE RADIOLOGY R62040 PAIN IN 10-13-2016 [facility] [place] LEFT KNEE RADIOLOGY M797 FIBROMYALGI 10-13-2016 [facility] A COMMUNTIY HOSPITA A60551 PERSONAL 10-13-2016 [facility] HISTORY OF COMMUNTIY NICOTINE HOSPITA DEPENDENCE M1611 UNILATERAL 10-10-2016 [facility] OSTEOARTHRI IMAGING ASS TIS RIGHT HIP C21562 PAIN IN 10-10-2016 [place] RIGHT HIP MEDICAL IMAGING ASS R44136 PAIN IN 10-10-2016 [place] RIGHT LEG MEDICAL IMAGING ASS 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 E1165 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[facility] DIABETES L MELLITUS WITH HYPERGLYCEM IA G4733 OBSTRUCTIVE 07-11-2016 [facility] SLEEP HOME APNEA ADULT MEDICAL PEDIATRIC EQUIPME 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 R079 CHEST PAIN 06-28-2016 [facility] UNSPECIFIED CARDIOLOGY R609 EDEMA 06-28-2016 [facility] UNSPECIFIED CARDIOLOGY E6601 MORBID 06-27-2016 EXTREME SEVERE [...] HISTORY OF 01-05-2016 [facility] FALLING L MAT D18758 PAIN IN 12-10-2015 [facility] RIGHT COMMUNTIY SHOULDER HOSPITA U62048 PAIN IN 12-10-2015 [facility] LEFT LEG COMMUNTIY HOSPITA R600 LOCALIZED 12-10-2015 [facility] [place] [facility] RAD[facility]OLOG[facility] E662 MORBID 08-09-2015 [facility] SEVERE L MAT OBESITY W/ALVEOLAR HYPOVENTILA TION E669 OBESITY 07-13-2015 [facility] UNSPECIFIED COMMUNTIY HOSPITA G2581 RESTLESS 07-13-2015 [facility] LEGS COMMUNTIY SYNDROME HOSPITA G4710 HYPERSOMNIA 07-13-2015 EAR, NOSE AND THROAT UNSPECIFIED SPECIAL G4761 PERIODIC 07-13-2015 [facility] LIMB COMMUNTIY MOVEMENT HOSPITA DISORDER R0689 OTHER 07-13-2015 [facility] ABNORMALITI COMMUNTIY ES OF HOSPITA BREATHING I259 CHRONIC 06-14-2015 [facility] ISCHEMIC COMMUNTIY HEART HOSPITA DISEASE UNSPECIFIED J9600 ACUTE 06-14-2015 MISSAEL KLEIN RESPIRATORY FAIL UNS HYPOXIA/HYP ERCAPNIA J9601 ACUTE 06-14-2015 [facility] RESPIRATORY COMMUNTIY FAILURE HOSPITA WITH HYPOXIA J9602 ACUTE 06-14-2015 [facility] RESPIRATORY COMMUNTIY FAILURE HOSPITA WITH HYPERCAPNIA N179 ACUTE 06-14-2015 [facility] KIDNEY COMMUNTIY FAILURE HOSPITA UNSPECIFIED R0602 SHORTNESS 06-14-2015 [facility] [place] OF BREATH RADIOLOGY R200 ANESTHESIA 06-14-2015 MISSAEL ERNIE OF SKIN R4781 SLURRED 06-14-2015 [facility] [place] SPEECH RADIOLOG[facility] Z6844 BODY MASS 06-14-2015 [facility] INDEX BMI COMMUNTIY 60.0-69.9 HOSPITA ADULT 496 CHRONIC 01-22-2015 [facility] HOME OBSTRUCTION MEDICAL NEC EQUIPME 68450 OSTEOARTHRO 01-22-2015 [facility] S UNSPEC HOME WHETHER MEDICAL GEN/LOC EQUIPME UNSPEC SITE 95106 HYPERSOMNIA 01-14-2015 [facility] WITH SLEEP HOME APNEA MEDICAL UNSPECIFIED EQUIPME 70619 ATRIAL 12-17-2014 [employer] N SUPPLY, LLC 89656 DIAB W/O 11-09-2014 [place] COMP TYPE STATES II/UNS NOT MEDICAL STATED SUPPLY UNCNTRL 60030 DIAB W/O 10-08-2014 [facility] COMP TYPE II/UNS TYPE UNCNTRL 01757 OBSTRUCTIVE 07-27-2014 [facility] SLEEP COMMUNTIY APNEA HOSPITA 22349 GENERALIZED 07-06-2014 [facility] DISORDER 05344 RESTLESS 07-06-2014 [facility] LEGS L MAT SYNDROME 4149 UNSPECIFIED 07-06-2014 [facility] ISCHEMIC HEART DISEASE 5852 CHRONIC 07-06-2014 [facility] DISEASE STAGE II (MILD) 39894 GENERALIZED 07-06-2014 [facility] L MAT OSTEOARTHRO SIS UNSPECIFIED SITE 60832 SHORTNESS 02-24-2014 [facility] 30280 SOLITARY 02-24-2014 [facility] PULMONARY COMMUNITY NODULE HOSPITA 61080 OTHER 02-24-2014 [facility] [place] NONSPECIFIC RADIOLOGY ABNORMAL FINDING OF LUNG FIELD 2662 OTHER 02-05-2014 [facility] B-COMPLEX L MAT DEFICIENCIE S V0382 NEED PROPH 02-05-2014 [facility] VACCINATION L MAT AGAINST STREP PNEUMONE V0481 NEED 02-05-2014 [facility] PROPHYLACTI L MAT C VACCINATION &INOCULATIO N FLU V5861 LONG-TERM 02-05-2014 [facility] (CURRENT) L [place] 44110 INSOMNIA 01-01-2014 [facility] UNSPECIFIED L MAT V643 PROCEDURE 12-09-2013 [facility] NOT CARRIED REGIONAL OUT FOR MEDICAL OTHER REASONS 7821 RASH AND 12-02-2013 [facility] OTHER L MAT NONSPECIFIC SKIN ERUPTION 4019 UNSPECIFIED 11-26-2013 [facility] ESSENTIAL REGIONAL HYPERTENSIO MEDICAL N 4293 CARDIOMEGAL 11-26-2013 [facility]Y ASSOCIAT 79438 OTHER 11-26-2013 [facility] DISEASES OF RADIOLOGY LUNG NOT ASSOCIAT ELSEWHERE CLASSIFIED V7283 OTHER 11-26-2013 [facility] SPECIFIED RADIOLOGY PRE-OPERATI ASSOCIAT VE EXAMINATION V7284 UNSPECIFIED 11-26-2013 [facility] PRE-OPERATI MEDICAL VE EXAMINATION 34759 MORBID 11-17-2013 [facility] OBESITY CARDIOLOGY 08950 COR 11-17-2013 [facility] ATHEROSLERO CARDIOLOGY UNSPEC TYPE VESSEL [place]/DIDI T 47356 PRIMARY 10-02-2013 [facility] LOCALIZED L MAT OSTEOARTHRO SIS OT SPEC SITES 19150 UNSPECIFIED 10-02-2013 [facility] RETENTION L MAT OF URINE 70255 HYPOXEMIA 02-27-2013 [facility] MEDICAL EQUIPME 2724 OTHER AND 02-17-2013 [facility] HYPERLIPIDE SHAKIRA 4139 OTHER AND 02-17-2013 [facility] ANGINA PECTORIS 86620 CORONARY 02-17-2013 [facility] OSIS [place] CORONARY ARTERY 4168 OTHER 02-17-2013 [facility] PULMONARY HEART DISEASES 40205 OTHER 02-14-2013 [facility] FATIGUE 54903 OTHER 02-14-2013 [facility] D[facility] AND HOSPITAL RESPIRATORY ABNORMALITI ES V4582 POSTSURG 02-14-2013 [facility] TRANSLUMINA L COR ANGPLSTY STS 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-30-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 41979 IDIOPATH 12-26-2012 [facility] SLEEP REL CARLI NONOBST ALVEOLAR HYPOVENT 4770 ALLERGIC 12-26-2012 [facility] RHINITIS CARLI DUE TO POLLEN 4778 ALLERGIC 12-26-2012 [facility] RHINITIS CARLI DUE TO OTHER ALLERGEN 3319 UNSPECIFIED 11-19-2012 [place] CERE[facility]AL MEDICAL DEGENERATIO IMAGING ASS N 4359 UNSPECIFIED 11-19-2012 [facility] CEREBRAL INC ISCHEMIA 4371 OTH 11-19-2012 [place] 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 4553 EXTERNAL 09-05-2012 [facility] HEMORRHOIDS WITHOUT MENTION COMP 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 12672 DIARRHEA 09-05-2012 [facility] 73201 PRIMARY 07-01-2012 [facility] LOCALIZED GENERAL OSTEOARTHRO SURGERY SIS LOWER LEG 29940 PAIN IN 07-01-2012 [facility] JOINT, GENERAL LOWER LEG SURGERY 41121 GENU VARUM 07-01-2012 [facility] GENERAL SURGERY 4111 INTERMEDIAT 03-06-2012 [facility] SYNDROME 90840 CHEST PAIN 12-01-2011 [facility] [place] UNSPECIFIED RADIOLOGY 4011 ESSENTIAL 11-30-2011 CONCE[facility] Brown HYPERTENSIO ANJANA KAMARA N, BENIGN PLLC 57343 ATRIAL 11-30-2011 CONCEPCIÓN YEUNG MD PLLC 2409 GOITER, 11-01-2011 [facility] UNSPECIFIED COMMUNITY HOSPITA 490 BRONCHITIS 11-01-2011 WEHRMAN III NOT DEYANIRA SPECIFIED ACUTE OR CHRONIC 73556 OBST 11-01-2011 [facility] P W/ACUTE BRONCHITIS 62345 FEVER 11-01-2011 WEHRMAN III UNSPECIFIED DEYANIRA 33905 OTHER CHEST 10-27-2011 [facility] ANT PAIN 7823 EDEMA 10-07-2011 [facility] MEDICAL EQUIPME 7993 UNSPECIFIED 10-07-2011 [facility] HOME MEDICAL EQUIPME 4280 CONGESTIVE 06-27-[address] [facility] RENAL CARE FAILURE PSC UNSPECIFIED 2859 UNSPECIFIED 05-19-2011 [facility] 7295 PAIN IN 03-31-2011 [facility] TISSUES OF MEDICAL LIMB SUPPLY 90561 OTHER FLUID 01-17-2011 [facility] 5853 CHRONIC 01-17-2011 [facility] DISEASE NETWORK STAGE III (MODERATE) 75713 OBSTRUCTIVE 01-09-2011 [facility]LIN ANT CHRONIC BRONCHITIS WITH EXACERBATIO N 5859 CHRONIC 01-09-2011 [facility] ANT KIDNEY DISEASE UNSPECIFIED 27408 GEN 01-09-2011 MERLNI ANT OSTEOARTHRO SIS INVOLVING MULTIPLE SITES 39926 OBESITY, 01-06-2011 [facility] ANT UNSPECIFIED 81745 HTN CKD UNS 12-20-2010 [facility] W/CKD COMMUNITY STAGE I HOSPITA THRU STAGE IV/UNS 54965 UNSPECIFIED 12-20-2010 [facility] DIASTOLIC COMMUNITY HEART HOSPITA FAILURE V8543 BODY MASS 12-20-2010 [facility] INDEX COMMUNITY 50.0-59.9 HOSPITA ADULT 5990 URINARY 12-07-2010 LAB [facility] [employer] INFECTION HOLDING SITE NOT SPECIFIED 93383 NOCTURIA 12-07-2010 [facility] 33781 URGENCY OF 12-07-2010 [facility] URINATION AMB 50921 URINARY 12-07-2010 [facility] HESITANCY AMB 41129 UNSPECIFIED 09-27-2010 [facility] SLEEP CARLI APNEA 00407 ACUTE 07-07-2010 [facility] GASTRITIS NKLIN DAYNE WITHOUT MENTION OF HEMORRHAGE 92827 ATROPHIC 07-07-2010 PATHOLOGY & GASTRITIS CYTOLOGY WITHOUT LAB MENTION OF HEMORRHAGE 63998 OTHER SPEC 07-07-2010 [facility] GASTRITIS COMMUNITY WITHOUT HOSPITA MENTION HEMORRHAGE 5533 DIAPHRAGMAT 07-07-2010 [facility] YANET W/O COMMUNITY MENTION HOSPITA OBSTRUCTION /GANGREN 88162 ABDOMINAL 07-07-2010 [facility] PAIN, NKLIN DAYNE EPIGASTRIC 3970 DISEASES OF 04-29-2010 [facility] TRICUSPID [facility] VALVE 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 [facility] DISORDERS 68826 OTHER 04-29-2010 [facility] CARDIAC DYSRHYTHMIA S 25297 NUCLEAR 02-16-2010 [facility] SCLEROSIS DEYANIRA 59956 REGULAR 02-16-2010 [facility]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 DEYANIRA 18443 UNSPECIFIED 02-16-2010 [place] [address] MEMORY LOSS 01-05-2010 [facility] ANT 7931 NONSPEC 01-05-2010 [facility] [place] FIND RAD RADIOLOGY OTH EXAM BODY STRUCT LUNG FIELD 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 [facility] 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 7804 DIZZINESS 08-13-2009 [facility] GIDDINESS 27419 OTHER 08-13-2009 [facility] ABNORMAL [facility] GLUCOSE 2449 UNSPECIFIED 08-11-2009 [facility] HOSP HYPOTHYROID INC ISM 7820 DISTURBANCE 08-04-2009 CONCEPCIÓN HAMMER SKIN MD GIANA SENSATION PSC 19549 ATHEROSLERO 07-30-2009 [facility] NAT[facility] ART H EXTREM CARDIOLOGY W/INTERMIT ASSOC CLAUDICAT V1582 PERS HX 07-30-2009 [facility] TOBACCO USE [facility] PRESENTING HAZARDS HEALTH 7862 COUGH 07-02-2009 [facility] 7291 UNSPECIFIED 06-30-2009 [facility] MYALGIA [facility] AND MYOSITIS 4412 THORACIC 06-22-2009 [facility] [place] ANEURYSM RADIOLOGY WITHOUT MENTION OF RUPTURE 2761 HYPOSMOLALI 06-21-2009 [facility] MUNOZ TY AND/OR HYPONATREMI A 2767 HYPERPOTASS 06-21-2009 [facility] MUNOZ EMIA 78773 UNSPEC 06-21-2009 [facility] [place] CERBRL ART RADIOLOGY OCCLUSION W/O MENTION INFARCT 5849 ACUTE 06-21-2009 [facility] MUNOZ KIDNEY FAILURE UNSPECIFIED 5939 UNSPECIFIED 06-21-2009 [facility] DISORDER [facility]TER [facility] 51918 RHABDOMYOLY 06-21-2009 [place] SIS [facility] SERVICES [facility] 30999 ALTERED 06-21-2009 [facility] MENTAL [facility] STATUS SERVICES [facility] 43134 NONSPECIFIC 06-21-2009 [place] ABNORMAL EMERGENCY ELECTROCARD SERVICES IOGRAM ASSOCIATES 02126 HYPERTENSIV 06-16-2009 [facility] E HEART [facility] DISEASE HOSP[facility] UNSPEC W/HEART FAIL 4409 GENERALIZED 06-16-2009 [facility] AND [facility] UNSPECIFIED HOSPITAL ATHEROSCLER OSIS V4509 OTHER 06-16-2009 [facility] CARDIAC [facility] DEVICE IN SITU V5789 OTHER 06-16-2009 [facility] SPECIFIED [facility] REHABILITAT [facility] ION PROCEDURE OTHER 2788 OTHER 06-09-2009 [facility] HYPERALIMEN [facility] TATION HOSP[facility] V173 FAMILY 06-09-2009 [facility] HISTORY OF [facility] ISCHEMIC [facility] HEART DISEASE 7242 LUMBAGO 02-01-2009 ANGE BOYER 26989 SPINAL STEN 12-30-2008 NEUROSURGIC [facility] REG AL W/O ASSOCIATES NEUROGENIC CLAUDICATIO N 13020 OTHER&UNSPE 10-20-2008 [facility] [place] CIFIED DISC RADIOLOGY DISORDER OF LUMBAR REGION 4539 EMBOLISM 10-15-2008 [facility] THROMBOSIS CARDIOLOGY OF ASSOC UNSPECIFIED SITE 16116 PAIN IN 10-15-2008 [facility] [place] JOINT RADIOLOGY PELVIC REGION AND THIGH 7224 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-13-2008 [facility] [place] 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 93305 AC ARLEN 10-12-2008 [facility] UNSPEC DEEP PROF SERV VES LOWER EXT V854 BODY MASS 10-12-2008 [facility] INDEX 40 HOSPITAL AND OVER ADULT 2801 IRON DEFIC 10-09-2008 [facility] DIET IRON INTAKE V5869 LONG-TERM 10-09-2008 [facility] (CURRENT) [facility] USE OF HOSPITAL OTHER PROF SERV MEDICATIONS 91011 ASTHMA, 09-17-2008 [facility] UNSPECIFIED STATUS 98619 UNSPECIFIED 09-17-2008 [facility] SITE UNSPECIFIED 34930 DISPLCMT 07-31-2008 BRIANDA LUMBAR CONCEPCIÓN Ferrera 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 26056 COUGH 07-14-2008 [facility], VARIANT CARLI B ASTHMA 63034 UNSPECIFIED 2008 [facility] OSTEOPOROSI INC S 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 4779 ALLERGIC 05-21-2008 [facility], RHINITIS CARLI B CAUSE UNSPECIFIED 00891 OTHER 02-06-2008 [facility], CHRONIC CARLI B ALLERGIC CONJUNCTIVI TIS 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, OF NASAL CARLI B TURBINATES 4720 CHRONIC 01-21-2008 CAIO, RHINITIS CARLI B 4910 SIMPLE 01-21-2008 [facility] 15249 ESOPHAGEAL 01-21-2008 CAIO, REFLUX CARLI B 81546 PAIN IN 12-17-2007 [facility] JOINT, SITE PRIMARY CARE UNSPECIFIED CENTERINC 7245 UNSPECIFIED 12-17-2007 [facility] BACKACHE [facility]ARE [facility]ENTER[facility] 49786 OTH 09-02-2007 PAWSAT, FIBROMATOSE MELLISSA D S MUSCLE LIGAMENT AND FASCIA OTH 4660 ACUTE 08-19-2007 [facility] BRONCHITIS [facility]ARE [facility]ENTER[facility] 52118 CAVUS 08-05-2007 PAWT, DEFORMITY MELLISSA D OF FOOT, ACQUIRED Medications Na ND Rx Da Fi Fi [...] MG 15 69 CA PS UL E 00 05 03 06 30 30 WA 72 No Ac 00 -0 -2 .0 L- 82 t ti 60 6- 6- 00 MA 95 Av ve 11 20 20 RT 7 ai 73 07 08 la 1 PH bl A1 e 0- 15 69 RE 00 01 03 00 60 30 [...] 0- 15 MG 69 TA BL ET RE 00 07 03 05 30 30 [...] PH bl A1 e 0- 15 69 Immunization Name Date Rout CVX Reac Dose Comm Prov Is Faci e tion ent ider Refu lity Give sed n IIV3 11 141 MART No MART 6-20 IN IN VACC 10 ANT INE SPLI T VIRU ANT S 0.5 ML DOSA GE IM USE IIV3 09- 141 MART No MART 1-20 IN, IN, [...] TRANSPORT TRANSPORT SERVBLUEG ATION: ATION SER MAI ELLIOTTJASONRivera R VAN NEBULIZER E0570 [facility]ERS WITH 7 HOME HOME COMPRESSO MEDICAL MEDICAL R EQUIPME EQUIPME LANCETS A4259 [facility] [place] PER BOX 7 [facility] OF 100 MEDICAL MEDICAL SUPPLY SUPPLY SPRING-PO A4258 [facility] WERED 7 [facility] DEVICE MEDICAL MEDICAL FOR SUPPLY SUPPLY LANCET EACH BLD GLU A4253 [facility] TEST/REAG 7 [facility] T STRIPS MEDICAL MEDICAL HOME BLD SUPPLY SUPPLY GLU MON-[address] N[address] [facility] LOW AND 7 [facility] HIGH MEDICAL MEDICAL CALIBRATO SUPPLY SUPPLY R SOLUTION/ CHIPS REPL BRANT A4235 [facility] LITHIUM [address] [place] [address] MED NECES MEDICAL MEDICAL ROMÁN BG SUPPLY SUPPLY MON OWN PT EA HOS BED E0303 FRAN RAMIREZRELL HEVY DUTY 7 HOME HOME W/WT CAP MEDICAL MEDICAL >350 EQUIPME EQUIPME PDS</=TO 600 PDS PHYS CERT G0180 [facility] BIRDWHIST MCR-COVR 7 ELL ELL ROMÁN HLTH SRVC PER CERT PRD NONEMERGE A0130 FEDERATED FEDERATED NCY 7 TRANS TRANSPORT TRANSPORT SERVBLUEG ATION: ATION SER MAI GINO Schmitt VAN NEBULIZER E0570 [facility] WITH 7 HOME HOME COMPRESSO MEDICAL MEDICAL R EQUIPME EQUIPME THERAPEUT 96943 [facility] IC 7 N N PROPHYLAC COMMUNTIY COMMUNTIY TIC/DX HOSPITA HOSPITA INJECTION SUBQ/IM RADIOLOGI 43857 [facility] VAHID SAWYER C 7 RADIOLOGY EXAMINATI ON KNEE 1/2 VIEWS HOS BED E0303 FRAN RAMIREZRELL HEVY DUTY 7 HOME HOME W/WT CAP MEDICAL MEDICAL >350 EQUIPME EQUIPME PDS</=TO 600 PDS DUP-SCAN 28606 FARZANA CARRANZA XTR VEINS 7 MEDICAL IMAGING UNILATERA ASS L/LIMITED STUDY RADEX HIP 83290 [place] 7 MEDICAL UNILATERA IMAGING L WITH ASS PELVIS 2-3 VIEWS NEBULIZER E0570 FRNA PETERS WITH 7 HOME HOME COMPRESSO MEDICAL MEDICAL R EQUIPME EQUIPME HOS BED E0303 FRAN PETERS HEVY DUTY 7 HOME HOME W/WT CAP MEDICAL MEDICAL >350 EQUIPME EQUIPME PDS</=TO 600 PDS PORTABLE E0443 FRAN PETERS O2 7 HOME HOME CONTENTS MEDICAL MEDICAL GASEOUS 1 EQUIPME EQUIPME MO SUPPLY=1 UNIT NORMAL A4256 [facility] AND [address] [place] [address] HIGH MEDICAL MEDICAL CALIBRATO SUPPLY SUPPLY R SOLUTION/ CHIPS PORTABLE E0443 FRAN PETERS O2 7 HOME [...] 1 EQUIPME EQUIPME MO SUPPLY=1 UNIT ECG 55056 [facility] ROUTINE 7 N ECG CARDIOLOG W/LEAST Y 12 LDS W/I&R PWR E2366 EXTREME EXTREME ACSS 7 MOBILITY MOBILITY BATTRY INC INC CHRGR 1 MODE W/ONLY 1 BATTRY REPR/SRVC K0739 EXTREME EXTREME DME NOT 7 MOBILITY MOBILITY O2 RQR INC INC TECH CMPNT PER 15 MINS NEBULIZER E0570 FRAN PETERS WITH 7 HOME HOME COMPRESSO MEDICAL MEDICAL R EQUIPME EQUIPME HOS BED E0303 FRAN RAMIREZRELL HEVY DUTY 7 HOME HOME W/WT CAP MEDICAL MEDICAL >350 EQUIPME EQUIPME PDS</=TO 600 PDS CONTINUOU E0601 FRAN PETERS S 7 HOME HOME POSITIVE MEDICAL MEDICAL AIRWAY EQUIPME EQUIPME PRESSURE DEVICE PORTABLE E0443 FRAN PETERS O2 7 HOME HOME CONTENTS MEDICAL MEDICAL GASEOUS 1 EQUIPME EQUIPME MO SUPPLY=1 UNIT NORMAL A4256 [facility] LOW AND 7 STATES STATES HIGH MEDICAL MEDICAL CALIBRATO SUPPLY SUPPLY R SOLUTION/ CHIPS BLD GLU A4253 [facility] TEST/REAG 7 STATES STATES T STRIPS MEDICAL MEDICAL HOME BLD SUPPLY SUPPLY GLU MON-50 LANCETS A4259 [facility] PER BOX 7 STATES STATES OF 100 MEDICAL MEDICAL SUPPLY SUPPLY ADMN SET A7003 YOUR YOUR SM VOL 7 PHARMACY PHARMACY NONFILTR [employer] PNEUMAT NEBULIZR DISPBL NEBULIZER E0570 FRAN PETERS WITH 7 HOME HOME COMPRESSO MEDICAL MEDICAL R EQUIPME EQUIPME PHRM Q0513 YOUR YOUR DISPENSIN 7 PHARMACY PHARMACY G FEE [employer] INHALATIO N RX; PER 30 DAYS ALBUTEROL J7620 YOUR YOUR TO 2.5 7 PHARMACY PHARMACY MG & [employer] IPRATROPI UM BROM TO 0.5 MG HOS BED E0303 FRAN FRAN HEVY DUTY 7 HOME HOME W/WT CAP MEDICAL MEDICAL >350 EQUIPME EQUIPME PDS</=TO 600 PDS CONTINUOU E0601 FRAN PETERS S 6 HOME HOME POSITIVE MEDICAL MEDICAL AIRWAY EQUIPME EQUIPME PRESSURE DEVICE PORTABLE E0443 FRAN RAMIREZRELL O2 6 HOME HOME CONTENTS MEDICAL MEDICAL GASEOUS 1 EQUIPME EQUIPME MO SUPPLY=1 UNIT REPR/SRVC K0739 EXTREME EXTREME DME NOT 6 MOBILITY MOBILITY O2 RQR INC INC TECH CMPNT PER 15 MINS PWR E2361 EXTREME EXTREME ACSS 22NF 6 MOBILITY MOBILITY SEALED INC INC LEAD ACID BATTRY EA HOS BED E0303 FRAN FRAN HEVY DUTY 6 HOME HOME W/WT CAP MEDICAL MEDICAL >350 EQUIPME EQUIPME PDS</=TO 600 PDS CONTINUOU E0601 FRAN PETERS S 6 HOME HOME POSITIVE MEDICAL MEDICAL AIRWAY EQUIPME EQUIPME PRESSURE DEVICE PORTABLE E0443 FRAN FRAN O2 6 HOME HOME CONTENTS MEDICAL MEDICAL GASEOUS 1 EQUIPME EQUIPME MO SUPPLY=1 UNIT HOS BED E0303 FRAN PETERS HEVY DUTY 6 HOME HOME W/WT CAP MEDICAL MEDICAL >350 EQUIPME EQUIPME PDS</=TO 600 PDS CONTINUOU E0601 FRAN PETERS S 6 HOME HOME POSITIVE MEDICAL MEDICAL AIRWAY EQUIPME EQUIPME PRESSURE DEVICE BLD GLU A4253 [facility] TEST/REAG [address] [place] [address] T STRIPS MEDICAL MEDICAL HOME BLD SUPPLY SUPPLY GLU MON-[address] [facility] LITHIUM [address] [place] [address] STATES MED NECES MEDICAL MEDICAL ROMÁN BG SUPPLY SUPPLY MON OWN PT EA NORMAL A4256 [facility] LOW AND [address] [place] [address] HIGH MEDICAL MEDICAL CALIBRATO SUPPLY SUPPLY R SOLUTION/ CHIPS SPRING-PO A4258 [facility] WERED [address] [place] [address] DEVICE MEDICAL MEDICAL FOR SUPPLY SUPPLY LANCET EACH LANCETS A4259 [facility] PER BOX 6 [facility] MEDICAL MEDICAL SUPPLY SUPPLY HOS BED E0303 FRAN PETERS HEVY DUTY [...] MAT MCR-COVR ROMÁN HLTH SRVC RE-CERT PRD PRTBLE E0431 FRAN PETERS GASEOUS 6 HOME HOME O2 SYS MEDICAL MEDICAL RENT; EQUIPME EQUIPME FLWMTR HUMIDFR&M ASK O2 CONC 1 E1390 FRAN FRAN DEL PORT 6 HOME HOME 85%/>02 MEDICAL MEDICAL CONC AT EQUIPME EQUIPME PRSC FLW RATE CONTINUOU E0601 FRAN PETERS S 6 HOME HOME POSITIVE MEDICAL MEDICAL AIRWAY EQUIPME EQUIPME PRESSURE DEVICE RADIOLOGI 26550 [facility] [place] SCALF YUE C 6 RADIOLOGY EXAMINATI ON KNEE 3 VIEWS DUP-SCAN 56205 [facility] [place] SCALF YUE XTR VEINS 6 RADIOLOGY UNILATERA L/LIMITED STUDY RADEX 83459 [facility] [place] SCALF YUE SHOULDER 6 RADIOLOGY COMPLETE MINIMUM 2 VIEWS FACE MASK A7031 FRAN PETERS 6 HOME HOME INTERFACE MEDICAL MEDICAL REPLCMT EQUIPME EQUIPME FULL FACE MASK EA TUBING A7037 FRAN PETERS USED WITH 6 HOME HOME POSITIVE MEDICAL MEDICAL AIRWAY EQUIPME EQUIPME PRESSURE DEVICE FILTER A7038 FRAN PETERS DISPBL 6 HOME HOME USED MEDICAL MEDICAL W/POS EQUIPME EQUIPME ARWAY PRESSURE DEVICE O2 CONC 1 E1390 FRAN AGRAY PORT 6 HOME HOME 85%/>02 MEDICAL MEDICAL CONC AT EQUIPME EQUIPME PRSC FLW RATE PRTBLE E0431 FRAN PETERS GASEOUS 6 HOME HOME O2 SYS MEDICAL MEDICAL RENT; EQUIPME EQUIPME FLWMTR HUMIDFR&M ASK CONTINUOU E0601 FRAN Denney 6 HOME HOME POSITIVE MEDICAL MEDICAL AIRWAY EQUIPME EQUIPME PRESSURE DEVICE BLD GLU A4253 UNITED [place] TEST/REAG 6 STATES STATES T [facility] MED[facility] MEDICAL HOME BLD SUPPLY SUPPLY GLU MON-50 NORMAL A4256 UNITED UNITED LOW AND 6 STATES STATES HIGH MEDICAL MEDICAL CALIBRATO SUPPLY SUPPLY R SOLUTION/ CHIPS LANCETS A4259 UNITED UNITED PER BOX 6 STATES STATES OF [facility] MEDICAL MEDICAL SUPPLY SUPPLY O2 CONC 1 E1390 FRAN GARAY PORT 6 HOME HOME 85%/>02 MEDICAL MEDICAL CONC AT EQUIPME EQUIPME PRSC FLW RATE PRTBLE E0431 FRAN PETERS GASEOUS 6 HOME HOME O2 SYS MEDICAL MEDICAL RENT; EQUIPME EQUIPME FLWMTR HUMIDFR&M ASK PHYS G0179 BIRDWHIST BIRDWHIST RE-CERT 6 ELL MAT ELL MAT MCR-COVR ROMÁN HLTH SRVC RE-CERT PRD CONTINUOU E0601 FRAN PETERS S 6 HOME HOME POSITIVE MEDICAL MEDICAL AIRWAY EQUIPME EQUIPME PRESSURE DEVICE FACE MASK A7031 FRAN PETERS 6 HOME HOME INTERFACE MEDICAL MEDICAL REPLCMT EQUIPME EQUIPME FULL FACE MASK EA O2 CONC 1 E1390 FRAN PETERS DEL [...] MEDICAL MEDICAL AIRWAY EQUIPME EQUIPME PRESSURE DEVICE FILTER A7038 FRAN PETERS DISPBL 6 HOME HOME USED MEDICAL MEDICAL W/POS EQUIPME EQUIPME ARWAY PRESSURE DEVICE FILTER A7039 FRNA PETERS NON 6 HOME HOME DISPBL MEDICAL MEDICAL USED EQUIPME EQUIPME W/POS ARWAY PRESS DEVICE CONTINUOU E0601 FRAN PETERS S 6 HOME HOME POSITIVE MEDICAL MEDICAL AIRWAY EQUIPME EQUIPME PRESSURE DEVICE O2 CONC 1 E1390 FRAN GARAY PORT 6 HOME HOME 85%/>02 MEDICAL MEDICAL CONC AT EQUIPME EQUIPME PRSC FLW RATE PRTBLE E0431 FRAN PETERS GASEOUS 6 HOME HOME O2 SYS MEDICAL MEDICAL RENT; EQUIPME EQUIPME FLWMTR HUMIDFR&M ASK POLYSOM 08847 [facility] 6/>YRS 6 N N SLEEP COMMUNTIY COMMUNTIY W/CPAP HOSPITA HOSPITA 4/> ADDL STEVE ATTND PHYS CERT G0180 BIRDWHIST BIRDWHIST MCR-COVR 6 ELL MAT ELL MAT ROMÁN HLTH SRVC PER CERT PRD PRTBLE E0431 FRAN PETERS GASEOUS 6 HOME HOME O2 SYS MEDICAL MEDICAL RENT; EQUIPME EQUIPME FLWMTR HUMIDFR&M ASK HOSPITAL 35581 BIRDWHIST BIRDWHIST DISCHARGE 6 ELL MAT ELL MAT DAY MANAGEMEN T 30 MIN/< O2 CONC 1 E1390 FRAN SINGER 6 HOME HOME 85%/>02 MEDICAL MEDICAL CONC AT [place] [address] [facility] [place] ANKITA HEAD/BRAI 6 RADIOLOGY RHO N W/O CONTRAST MATERIAL RADIOLOGI 68768 [facility] [place] ANKITA C 6 RADIOLOGY RHO EXAMINATI ON CHEST SINGLE VIEW FRONTAL CRITICAL 95820 MISSAELMana FELIPEY ERNIE CARE 6 ILL/INJUR ED PATIENT INIT 30-74 MIN ECG 49505 MISSAEL CANAS ERNIE ROUTINE 6 ECG W/LEAST 12 LDS I&R ONLY PRTBLE E0431 FRAN PETERS GASEOUS 6 HOME [...] MEDICAL RENT; EQUIPME EQUIPME FLWMTR HUMIDFR&M ASK WALKER E0149 FRAN PETERS HEAVY 5 HOME HOME DUTY MEDICAL MEDICAL WHEELED EQUIPME EQUIPME RIGID/FOL D ANY TYPE EA O2 CONC 1 E1390 FRAN GARAY PORT 5 HOME HOME 85%/>02 MEDICAL MEDICAL CONC AT EQUIPME EQUIPME PRSC FLW RATE PRTBLE E0431 FRAN PETERS GASEOUS 5 HOME HOME O2 SYS MEDICAL MEDICAL RENT; EQUIPME EQUIPME FLWMTR HUMIDFR&M ASK PRVS TEST G0249 [facility] MATL & 5 [facility] EQUIP E SUPPLY, E SUPPLY, [facility] MON; ONCE A WEEK PRTBLE E0431 FRAN PETERS GASEOUS 5 HOME [...] MEDICAL RENT; EQUIPME EQUIPME FLWMTR HUMIDFR&M ASK [facility] A4258 UNITED UNITED WERED 5 [facility] STATES DEVICE MEDICAL MEDICAL FOR SUPPLY SUPPLY LANCET EACH REPL BRANT A4233 [facility] ALKALINE 5 [facility] NOT J MEDICAL MEDICAL CELL ROMÁN SUPPLY SUPPLY BG MON OWND PT NORMAL A4256 [facility] LOW AND [address] [place] [address] HIGH MEDICAL MEDICAL CALIBRATO SUPPLY SUPPLY R SOLUTION/ CHIPS O2 CONC 1 E1390 FRAN PETERS DEL PORT 5 HOME HOME 85%/>02 MEDICAL MEDICAL CONC AT EQUIPME EQUIPME PRSC FLW RATE PRTBLE E0431 FRAN PETERS GASEOUS 5 HOME HOME O2 SYS MEDICAL MEDICAL RENT; EQUIPME EQUIPME FLWMTR HUMIDFR&M ASK LANCETS A4259 [facility] PER BOX [address] [place] BLD GLU A4253 [facility] TEST/REAG 5 MEDICAL MEDICAL T STRIPS [facility] HOME BLD GLU MON-50 O2 CONC 1 [...] CONC AT EQUIPME EQUIPME PRSC FLW RATE NORMAL A4256 [place] LOW AND [address] [place] [address] STATES HIGH MEDICAL MEDICAL CALIBRATO SUPPLY SUPPLY R SOLUTION/ CHIPS LANCETS A4259 UNITED UNITED PER BOX 5 STATES STATES OF [facility] MEDICAL MEDICAL SUPPLY SUPPLY BLD GLU A4253 [place] TEST/REAG 5 [facility] STATES T STRIPS MEDICAL MEDICAL HOME BLD SUPPLY SUPPLY GLU MON-50 POLYSOM 40989 EAR, NOSE SHASHY 6/>YRS 5 AND CHANELLE SLEEP 4/> THROAT ADDL SPECIAL STEVE ATTND BLD GLU A4253 [facility] TEST/REAG 5 MEDICAL MEDICAL T STRIPS [facility] HOME BLD GLU MON-50 LANCETS A4259 [facility] PER BOX 5 MEDICAL MEDICAL OF 100 [place] NORMAL A4256 [facility] LOW AND 5 MEDICAL MEDICAL HIGH [place] CALIBRATO R SOLUTION/ CHIPS O2 CONC 1 E1390 FRAN PETERS DEL PORT 5 HOME HOME 85%/>02 MEDICAL MEDICAL CONC AT EQUIPME EQUIPME PRSC FLW RATE PRTBLE E0431 FRAN RAMIREZRELL GASEOUS 5 HOME HOME O2 SYS MEDICAL MEDICAL RENT; EQUIPME EQUIPME FLWMTR HUMIDFR&M ASK COMPREHEN 31008 [facility] SIVE 5 DIAGNOSTI DIAGNOST[place] [address] [facility] THYROXINE 5 DIAGNOSTI DIAGNOSTI TOTAL CS CS HEMOGLOBI 52250 [facility] N 5 DIAGNOSTI DIAGNOSTI GLYCOSYLA CS CS EUGENIO A1C BLOOD 22031 [facility] COUNT 5 DIAGNOSTI DIAGNOSTI COMPLETE CS CS AUTO&AUTO DIFRNTL WBC THYROID 13249 [facility] HORM 5 DIAGNOSTI DIAGNOSTI UPTK/THYR CS [place] [address] [facility] THYROID 5 DIAGNOSTI DIAGNOSTI STIMULATI CS CS NG HORMONE TSH COLLECTIO 11983 [facility] N VENOUS 5 DIAGNOSTI DIAGNOSTI BLOOD CS CS VENIPUNCT URE PRTBLE E0431 FRAN RAMIREZRELL GASEOUS 5 HOME HOME O2 SYS MEDICAL MEDICAL RENT; EQUIPME [facility]ME [facility] H[facility] ASK BLD GLU A4253 UNITED UNITED TEST/REAG 4 STATES STATES T STRIPS MEDICAL MEDICAL HOME BLD SUPPLY SUPPLY GLU MON-50 REPL BRANT A4233 UNITED UNITED ALKALINE 4 STATES STATES NOT J MEDICAL MEDICAL CELL ROMÁN SUPPLY SUPPLY BG MON OWND PT LANCETS A4259 UNITED UNITED PER BOX 4 STATES STATES OF 100 MEDICAL MEDICAL SUPPLY SUPPLY NORMAL A4256 UNITED [place] LOW AND 4 STATES STATES HIGH MEDICAL MEDICAL CALIBRATO SUPPLY [...] FLWMTR HUMIDFR&M ASK O2 CONC 1 E1390 FRANCURT PETERS DEL PORT 4 HOME HOME 85%/>02 MEDICAL MEDICAL CONC AT [facility] FLW RATE BLD GLU A4253 [facility] TEST/REAG 4 MEDICAL MEDICAL T STRIPS [facility] HOME BLD GLU MON-50 PLETHYSMO 36053 [facility] GRAPHY 4 [place] LUNG PULMONARY VOLUMES M W/WO AIRWAY RESIST SPMTRY 06007 [facility] W/VC 4 N N [facility] Y JIE HOSPITA HOSPITA W/WO MXML VOL VNTJ BRNCDILAT 87952 [facility] RSPSE 4 [place] VERIT[place] SPMTRY PULMONARY PRE&POST- M BRNCDILAT ADMN CT THORAX 99495 [facility] [place] SCALF YUE W/O [place] [address] [facility] DIFFUSING 4 [place] VERIT[place] CAPACITY PULMONARY M PRTBLE E0431 FRAN RAMIREZRELL GASEOUS 4 HOME HOME O2 SYS MEDICAL MEDICAL RENT; EQUIPME EQUIPME FLWMTR HUMIDFR&M ASK O2 CONC 1 E1390 FRANCURT PETERS DEL PORT 4 HOME HOME 85%/>02 MEDICAL MEDICAL CONC AT [facility]QUIPME [facility] FLW RATE PHRM Q0513 [facility] DISPENSIN 4 PHARMACY PHARMACY G FEE #591 #591 INHALATIO N RX; PER 30 DAYS THERAPEUT 70338 BIRDWHIST BIRDWHIST IC 4 ELL MAT ELL MAT PROPHYLAC TIC/DX INJECTION SUBQ/IM INJECTION J3420 BIRDWHIST BIRDWHIST VIT B-12 4 ELL MAT ELL MAT [place]AN[place] TO 1000 MCG ALBUTEROL J7613 [facility] INHAL 4 PHARMACY PHARMACY NON-CP #591 #591 PROD THRU DME U DOSE 1 MG PO A4258 [facility] WERED 4 MEDICAL VP [place] FOR LANCET EACH NORMAL A4256 [facility] LOW AND 4 MEDICAL MEDICAL HIGH [place] CALIBRATO R SOLUTION/ [place]IPS LANCETS A4259 [facility] PER BOX 4 MEDICAL MEDICAL OF 100 [place] BLD GLU A4253 [facility] TEST/REAG 4 MEDICAL MEDICAL T STRIPS [place] HOME BLD GLU MON-50 O2 CONC 1 E1390 FRAN FRAN DEL PORT 4 HOME HOME 85%/>02 MEDICAL MEDICAL CONC AT EQUIPME EQUIPME PRSC FLW RATE PRTBLE E0431 FRAN FRAN GASEOUS 4 HOME HOME O2 SYS MEDICAL MEDICAL RENT; EQUIPME EQUIPME FLWMTR HUMIDFR&M ASK THERAPEUT 20569 BIRDWHIST BIRDWHIST IC 4 ELL MAT ELL MAT PROPHYLAC TIC/DX INJECTION SUBQ/IM INJECTION J3420 BIRDWHIST BIRDWHIST VIT B-12 4 ELL MAT ELL MAT [place] TO 1000 MCG PRTBLE E0431 FRAN FRAN GASEOUS 4 HOME HOME O2 SYS MEDICAL MEDICAL RENT; EQUIPME EQUIPME FLWMTR HUMIDFR&M ASK O2 CONC 1 E1390 FRAN FRAN DEL PORT 4 HOME HOME 85%/>02 MEDICAL MEDICAL CONC AT EQUIPME EQUIPME [facility] FLW RATE ANTIBODY 15566 MEADOWVIE MEADOWVIE SCREEN 4 W W RBC EACH [facility] MEDICAL MEDICAL TECHNIQUE INJECTION J3420 BIRDWHIST BIRDWHIST VIT B-12 4 ELL MAT ELL MAT [place] TO 1000 MCG THERAPEUT 99387 BIRDWHIST BIRDWHIST IC 4 ELL MAT ELL MAT PROPHYLAC TIC/DX INJECTION SUBQ/IM RADIOLOGI 80811 [facility] HESHAM CHEST 2 RADIOLOGY VIEWS ASSOCIAT FRONTAL&L ATERAL ANTIBODY 39240 MEADOWVIE MEADOWVIE SCREEN 4 W W RBC EACH [facility] MEDICAL MEDICAL TECHNIQUE ECG 85259 [facility] ROUTINE 4 N N ECG CARDIOLOG CARDIOLOG W/LEAST Y Y 12 LDS W/I&R PRTBLE E0431 FRAN PETERS GASEOUS 4 HOME [...] YOUR YOUR L 4 PHARMACY PHARMACY FUMARATE [facility] INHAL [place] U DOSE FORM 20 MCG BUDESONID J7626 YOUR YOUR E INHAL 4 PHARMACY PHARMACY NON- [employer] UNIT DOSE UP TO 0.5 MG ALBUTEROL J7613 YOUR YOUR INHAL 4 PHARMACY PHARMACY NON- [employer] PROD THRU DME U DOSE 1 MG ADMN SET A7005 YOUR YOUR W/SM VOL 4 PHARMACY PHARMACY NONFILTR [employer] NEBULIZR NON-DISPB L INJECTION J3420 BIRDWHIST BIRDWHIST VIT B-12 4 ELL MAT ELL MAT [place] TO 1000 MCG THERAPEUT 81450 BIRDWHIST BIRDWHIST IC 4 ELL MAT ELL MAT PROPHYLAC TIC/DX INJECTION SUBQ/IM PRTBLE E0431 FRAN PETERS GASEOUS 4 HOME [...] CONC AT EQUIPME EQUIPME PRSC FLW RATE PHRM Q0513 YOUR YOUR DISPENSIN 4 PHARMACY PHARMACY G [facility] LLC INHALATIO N RX; PER 30 DAYS BUDESONID J7626 YOUR YOUR E INHAL 4 PHARMACY PHARMACY NON-CP LLC LLC UNIT DOSE UP TO 0.5 MG FORMOTERO J7606 YOUR YOUR L 4 PHARMACY PHARMACY F[facility] LLC LLC INHAL [place] U DOSE FORM 20 MCG ALBUTEROL J7613 YOUR YOUR INHAL 4 PHARMACY PHARMACY NON-CP LLC LLC PROD THRU DME U DOSE 1 MG PRTBLE E0431 FRAN PETERS GASEOUS 4 HOME [...] PROD THRU DME U DOSE 1 MG PRTBLE E0431 FRAN PETERS GASEOUS 3 HOME [...] MEDICAL RENT; EQUIPME EQUIPME FLWMTR HUMIDFR&M ASK PHRM Q0513 YOUR YOUR DISPENSIN 3 PHARMACY PHARMACY G FEE [facility] INHALATIO N RX; PER 30 DAYS BUDESONID J7626 YOUR YOUR E INHAL 3 PHARMACY PHARMACY NON-CP [facility] UNIT DOSE UP TO 0.5 MG FORMOTERO J7606 YOUR YOUR L 3 PHARMACY PHARMACY FUMARATE [facility] INHAL [place] U DOSE FORM 20 MCG ALBUTEROL J7613 YOUR YOUR INHAL 3 PHARMACY PHARMACY NON-CP [employer] PROD THRU DME U DOSE 1 MG PROTHROMB 32665 [facility] IN [address] HOSPITAL R & L HRT [address] WINJX HRT ART& L VENTR IMG LIPID [address] [facility]OSP[facility] BASIC [address] [facility] METABOLIC [address] [place] [address] PANEL CALCIUM TOTAL RADIOLOGI [address] EXAMINATI ON CHEST SINGLE VIEW FRONTAL PROTHROMB 47821 [facility] IN [address] FIBRIN [address] [facility] DGRADJ [address] [place] [address] PRODUCTS D-DIMER QUANTITAT DINA BLOOD [address] COMPLETE AUTOMATED O2 CONC 1 E1390 FRAN PETERS DEL PORT 3 HOME HOME 85%/>02 MEDICAL MEDICAL CONC AT EQUIPME EQUIPME PRSC FLW RATE ECHO 81300 MARSHALL OLIVARES TTHRC R-T 3 KIR KIR 2D W/WOM-MOD E COMPL SPEC&COLR D ECG 81884 [facility]SHALL OLIVARES ROUTINE 3 KIR KIR ECG W/LEAST 12 LDS TRCG ONLY W/O I&R PRTBLE E0431 FRAN FRAN GASEOUS 3 HOME HOME O2 SYS MEDICAL MEDICAL RENT; EQUIPME EQUIPME FLWMTR HUMIDFR&M ASK ADMN SET A7003 FRAN FRAN SM VOL 3 HOME HOME NONFILTR MEDICAL MEDICAL PNEUMAT EQUIPME EQUIPME NEBULIZR DISPBL REPR/SRVC K0739 EXTREME EXTREME DME NOT 3 MOBILITY MOBILITY O2 RQR INC INC TECH CMPNT PER 15 MINS PWR E2366 EXTREME EXTREME ACSS 3 MOBILITY MOBILITY BATTRY INC INC CHRGR 1 MODE W/ONLY 1 BATTRY PWR E2361 EXTREME EXTREME ACSS 22NF 3 MOBILITY MOBILITY SEALED INC INC LEAD ACID BATTRY EA PRTBLE E0431 FRAN FRAN GASEOUS 3 HOME HOME O2 SYS MEDICAL MEDICAL RENT; EQUIPME EQUIPME FLWMTR HUMIDFR&M ASK PHRM Q0513 YOUR YOUR DISPENSIN 3 PHARMACY PHARMACY G FEE [facility] INHALATIO N RX; PER 30 DAYS DEMO&/NOVA 90250 CAIO KEARNEY L OF PT 3 CARLI BOYCE UTILIZ AERSL GEN/NEB/I NHLR/IP PRESSURIZ 43337 CAIO KEARNEY ED/NONPRE 3 CARLI BOYCE SSURIZED INHALATIO N TREATMENT BUDESONID J7626 YOUR YOUR E INHAL 3 PHARMACY PHARMACY NON- [facility] UNIT DOSE UP TO 0.5 MG FORMOTERO J7606 YOUR YOUR L 3 PHARMACY PHARMACY FUMARATE [facility] INHAL [place] U DOSE FORM 20 MCG BRNCDILAT 34268 CAIO KEARNEY RSPSE 3 CARLI BOYCE SPMTRY PRE&POST- BRNCDILAT ADMN ADMN SET A7005 YOUR YOUR W/SM VOL 3 PHARMACY PHARMACY NONFILTR [facility] NEBULIZR NON-DISPB L ALBUTEROL J7613 YOUR YOUR INHAL 3 PHARMACY PHARMACY NON-CP [facility] PROD THRU DME U DOSE 1 MG PRTBLE E0431 FRAN FRAN GASEOUS 3 HOME HOME O2 SYS MEDICAL MEDICAL RENT; EQUIPME EQUIPME FLWMTR HUMIDFR&M ASK CREATININ 70058 JACQUES HANNA E BLOOD 3 [facility] INC INC MRI BRAIN 16830 FARZANA CARRANZA BRAIN 3 MEDICAL MARIA ISABEL STEM W/O IMAGING CONTRAST ASS MATERIAL COLLECTIO 85536 JACQUES HANNA N VENOUS 3 [facility] [place] [address] JACQUES HANNA UREA 3 [facility] NITROGEN INC INC QUANTITAT DINA O2 CONC 1 E1390 FRAN PETERS DEL PORT 3 HOME HOME 85%/>02 MEDICAL MEDICAL CONC AT EQUIPME EQUIPME PRSC FLW RATE PRTBLE E0431 FRAN RAMIREZRELL GASEOUS 3 HOME HOME O2 SYS MEDICAL MEDICAL RENT; EQUIPME EQUIPME FLWMTR HUMIDFR&M ASK ECG 65430 MARSHALL OLIVARES ROUTINE 3 KIR KIR ECG W/LEAST 12 LDS TRCG ONLY W/O I&R ECHO 83148 MARSHALL OLIVARES TTHRC R-T 3 KIR KIR 2D W/WOM-MOD E COMPL SPEC&COLR D PRTBLE E0431 FRAN PETERS GASEOUS 3 HOME HOME O2 SYS MEDICAL MEDICAL RENT; EQUIPME EQUIPME FLWMTR HUMIDFR&M ASK COLONOSCO 72371 ASTRID WILTON ASTRID WILTON PY 3 W/BIOPSY [place]ING[place] [address] SURG 3 MACEY & PATHOLOGY DUBILIER GROSS&DASHA ROSCOPIC EXAM PRTBLE E0431 FRAN PETERS GASEOUS 3 HOME HOME O2 SYS MEDICAL MEDICAL RENT; EQUIPME EQUIPME FLWMTR HUMIDFR&M ASK PRTBLE E0431 FRAN PETERS GASEOUS 3 HOME HOME O2 SYS MEDICAL MEDICAL RENT; EQUIPME EQUIPME FLWMTR HUMIDFR&M ASK COMMODE E0168 FRAN PETERS CHAIR 3 HOME HOME XTRA MEDICAL MEDICAL WIDE&/HEV EQUIPME EQUIPME Y DUTY STATION/M OBIL BLD GLU A4253 [place] TEST/REAG 3 STATES STATES T STRIPS MEDICAL MEDICAL HOME BLD SUPPLY SUPPLY GLU MON-50 LANCETS A4259 UNITED UNITED PER BOX 3 STATES STATES OF 100 MEDICAL MEDICAL SUPPLY SUPPLY NORMAL A4256 [place] LOW AND 3 STATES STATES HIGH MEDICAL MEDICAL CALIBRATO SUPPLY SUPPLY R SOLUTION/ [place]IPS RADIOLOGI 73193 CHELI Mcclain 3 W GENERAL III DAYNE EXAMINATI SURGERY ON KNEE 1/2 VIEWS RADIOLOGI 34683 KAYLEESachiCHRISTIANE JADE Mcclain EXAM 3 W GENERAL III DAYNE [...] MEDICAL SUPPLY SUPPLY REPL BRANT A4233 [place] ALKALINE 2 STATES STATES NOT J MEDICAL MEDICAL CELL ROMÁN SUPPLY SUPPLY BG MON OWND PT NORMAL A4256 [place] LOW AND 2 STATES STATES HIGH MEDICAL MEDICAL CALIBRATO SUPPLY SUPPLY R SOLUTION/ CHIPS BLD GLU A4253 [place] TEST/REAG 2 STATES STATES T [facility]IPS MEDICAL MEDICAL HOME BLD SUPPLY SUPPLY GLU MON-50 WEST SUFFIELD-PO A4258 UNITED UNITED WERED 2 STATES STATES DEVICE MEDICAL MEDICAL FOR SUPPLY SUPPLY LANCET EACH PRTBLE E0431 FRAN PETERS GASEOUS 2 HOME HOME O2 SYS MEDICAL MEDICAL RENT; EQUIPME EQUIPME FLWMTR HUMIDFR&M ASK CV STRS [address] XERS&/OR RX CONT ECG TRCG ONLY INJECTION J[address] REGADENOS ON 0.1 MG MYOCARDIA [address] MULTIPLE STUDIES PRTBLE E0431 FRAN FRAN GASEOUS 2 HOME HOME O2 SYS MEDICAL MEDICAL RENT; EQUIPME EQUIPME FLWMTR HUMIDFR&M ASK ECG 14654 BEXAR SARAFF ROUTINE 2 INTERNAL KIR ECG MEDICINE [...] SUPPLY R SOLUTION/ [place]IPS LANCETS A4259 [place] PER BOX 2 STATES STATES OF [facility] MEDICAL MEDICAL SUPPLY [facility] [address] [place] DISCHARGE 2 ANJANA GARNER MD [facility] MANAGEMEN T 30 MIN/< RADIOLOGI 60170 [facility] [place] LEELA C 2 RADIOLOGY III JASON EXAMINATI ON CHEST SINGLE VIEW FRONTAL ECHO 68383 [place] TRANSESOP 2 ANJANA GRANT HAG R-T [facility] 2D W/PRB IMG ACQUISJ I&R PRESCRIPT G8553 [place] IONS GEN 2 ANJANA GRANT TRANSMITT [facility] ED QUALIFIED ERX SYS ECG 23563 [place] ROUTINE 2 ANJANA WILSON MD [facility] W/LEAST 12 LDS I&R ONLY ECHO 75982 [place] TTHRC R-T 2 ANJANA Duong MD [facility] W/WOM-MOD E COMPL SPEC&COLR D ECG 98898 BEXAR SARAFF ROUTINE 2 INTERNAL KIR ECG MEDICINE W/LEAST 12 LDS TRCG ONLY W/O I&R CATH PLMT 61623 [place] L HRT & 2 ANJANA PADILLA MD [facility] W/NJX & ANGIO IMG S&I INITIAL 45395 [place] [facility] 2 ANJANA GRANT CARE/DAY [facility] 50 MINUTES MEDICATIO 44372 [place] ANY N ADMIN & 2 ANJANA GRANT MD [facility] HEMODYNAM IC MEASURMEN T PRTBLE E0431 FRAN PETERS GASEOUS 2 HOME HOME O2 SYS MEDICAL MEDICAL RENT; EQUIPME EQUIPME FLWMTR HUMIDFR&M ASK CREATINE 73359 JACQUES HANNA KINASE 2 [facility] [place] [address] JACQUES HANNA TROPONIN 2 [facility] [place] [address] JACQUES HANNA INFUSION 2 [facility] THERAPY/P INC INC ROPHYLAXI S /DX 1ST TO 1 HR CREATINE 79445 JACQUES HANNA KINASE MB 2 [facility] FRACTION INC INC ONLY CREATINE 16706 JACQUES [facility]ANNA KINASE MB 2 [facility] FRACTION INC INC ONLY NATRIURET 13104 [facility] IC 2 [facility] PEPTIDE INC INC BLOOD 56584 [facility] COUNT 2 [facility] COMPLETE INC INC AUTO&[place] [address] J[facility] TROPONIN 2 [facility] QUANTITAT INC INC DINA CULTURE 15837 [facility] BACTERIAL 2 [facility] BLOOD INC INC AEROBIC W/ID ISOLATES PRESSURIZ 01763 [facility] ED/NONPRE 2 [facility] SSURIZED INC INC INHALATIO N TREATMENT CREATINE 86444 [facility] KINASE 2 [facility] TOTAL INC INC ECG 01405 JACQUES BAILEY JR ROUTINE 2 [facility] W/LEAST P 12 LDS I&R ONLY ECG 51069 [facility]AC[facility]AN[facility] ROUTINE 2 [facility] ECG INC INC W/LEAST 12 LDS TRCG ONLY W/O I&R US SOFT 05712 [facility] N [facility] H[facility] TIME IMGE DOCM URNLS DIP 80806 [facility] STICK/TAB INC INC LET REAGENT AUTO MICROSCOP Y RADIOLOGI 74667 [facility] 2 MEDICAL [place]EL EXAMINATI IMAGING ON CHEST ASS SINGLE VIEW FRONTAL COMPREHEN 52812 JACQUES [facility]ANNA SIVE 2 [facility] METABOLIC INC INC PANEL PRTBLE E0431 FRAN FRAN GASEOUS 2 HOME HOME O2 SYS MEDICAL MEDICAL RENT; EQUIPME EQUIPME FLWMTR HUMIDFR&M ASK ECG 89168 [facility] ROUTINE 2 ANT ANT ECG [...] ASK REPL BRANT [id number] [place] 2 STATES STATES NOT J MEDICAL MEDICAL CELL ROMÁN SUPPLY SUPPLY BG MON OWND PT LANCETS A4259 [place] PER BOX 2 STATES STATES OF MEDICAL MEDICAL SUPPLY SUPPLY NORMAL [id number] [place] LOW AND 2 STATES STATES HIGH MEDICAL MEDICAL CALIBRATO SUPPLY SUPPLY R SOLUTION/ [place]-PO A4258 [place] WERED 2 STATES STATES DEVICE MEDICAL MEDICAL FOR SUPPLY SUPPLY LANCET EACH BLD GLU A4253 [place] TEST/REAG 2 [facility] STATES T STRIPS MEDICAL MEDICAL HOME BLD SUPPLY SUPPLY GLU MON-50 HOS BED E0303 FRAN FRAN HEVY DUTY 2 HOME HOME W/WT CAP MEDICAL MEDICAL >350 EQUIPME EQUIPME PDS</=TO 600 PDS PRTBLE E0431 FRAN FRAN GASEOUS 2 HOME HOME O2 SYS MEDICAL MEDICAL RENT; EQUIPME EQUIPME FLWMTR HUMIDFR&M ASK PORTABLE E0443 FRAN RAMIREZRELL O2 2 HOME HOME CONTENTS MEDICAL MEDICAL GASEOUS 1 EQUIPME EQUIPME MO SUPPLY=1 UNIT COMPREHEN 01710 [facility] SIVE 2 DIAGNOSTI DIAGNOSTI METABOLIC CS CS PANEL LIPID 07746 [facility] QUEST PANEL 2 DIAGNOSTI DIAGNOSTI CS CS BLOOD 02970 [facility] QUEST COUNT 2 DIAGNOSTI DIAGNOSTI COMPLETE CS CS AUTO&AUTO DIFRNTL WBC HEMOGLOBI 82084 [facility] QUEST N 2 DIAGNOSTI DIAGNOSTI GLYCOSY[place] [address] [facility] QUEST THYROID 2 DIAGNOSTI DIAGNOSTI STIMULATI CS CS NG HORMONE TSH COLLECTIO 36089 [facility] QUEST N VENOUS 2 DIAGNOSTI DIAGNOSTI BLOOD CS CS VENIPUNCT URE HOS BED E0303 FRAN FRAN HEVY DUTY 2 HOME HOME W/WT CAP MEDICAL MEDICAL >350 EQUIPME EQUIPME PDS</=TO 600 PDS PRTBLE E0431 FRAN FRAN GASEOUS 2 HOME HOME O2 SYS MEDICAL MEDICAL RENT; EQUIPME EQUIPME FLWMTR HUMIDFR&M ASK BASIC 43288 [facility] METABOLIC 2 RENAL PAT PANEL CARE PSC CALCIUM IONIZED URNLS DIP 59891 [facility] 2 RENAL PAT STICK/TAB CARE PSC LET RGNT AUTO W/O MICROSCOP Y COLLECTIO 67361 [facility] RENAL PAT BLOOD CARE PSC VENIPUNCT URE CREATININ 89937 [facility] OTHER [facility] RENAL PAT SOURCE CARE PSC HOS BED E0303 FRAN FRAN HEVY DUTY 2 HOME HOME W/WT CAP MEDICAL MEDICAL >350 EQUIPME EQUIPME PDS</=TO 600 PDS PRTBLE E0431 FRAN FRAN GASEOUS 2 HOME HOME O2 SYS MEDICAL MEDICAL RENT; EQUIPME EQUIPME FLWMTR HUMIDFR&M ASK COMPREHEN 64217 [facility] SIVE 2 DIAGNOSTI DIAGNOSTI METABOLIC CS CS PANEL HEMOGLOBI 20230 [facility] N 2 DIAGNOSTI DIAGNOSTI GLYCOSYLA CS CS EUGENIO A1C COLLECTIO 38964 [facility] N VENOUS 2 DIAGNOSTI DIAGNOSTI BLOOD CS CS VENIPUNCT URE HOS BED E0303 FRAN FRAN HEVY DUTY 1 HOME HOME W/WT CAP MEDICAL MEDICAL >350 EQUIPME EQUIPME PDS</=TO 600 PDS PRTBLE E0431 FRAN FRAN GASEOUS 1 HOME HOME O2 SYS MEDICAL MEDICAL RENT; EQUIPME EQUIPME FLWMTR HUMIDFR&M ASK LANCETS A4259 UNITED UNITED PER BOX 1 STATES STATES OF 100 MEDICAL MEDICAL SUPPLY SUPPLY NORMAL A4256 UNITED [place] LOW AND 1 STATES STATES HIGH MEDICAL MEDICAL CALIBRATO SUPPLY SUPPLY R SOLUTION/ CHIPS BLD GLU A4253 UNITED [place] TEST/REAG 1 STATES STATES T STRIPS MEDICAL MEDICAL HOME BLD SUPPLY SUPPLY GLU SUN- PRTBLE E0431 FRAN FRAN GASEOUS 1 HOME [...] YRS & > IM FLUVIRIN PRTBLE E0431 FRAN FRAN GASEOUS 1 HOME HOME O2 SYS MEDICAL MEDICAL RENT; EQUIPME EQUIPME FLWMTR HUMIDFR&M ASK 25 81858 SPECTRUM SPECTRUM HYDROXY 1 LABORATOR LABORATOR INCLUDES Y NETWORK Y NETWORK FRACTIONS IF PERFORMED BASIC 47655 S[facility]UM SPECTRUM METABOLIC 1 LABORATOR LABORATOR PANEL Y [place] [address] SPECTRUM SPECTRUM PARATHORM 1 LABORATOR [place]OR[place] [address] SPECTRUM SPECTRUM PHOSPHORU 1 LABORATOR LABORATOR [place] [address] SPECTRUM SPECTRUM URINE 1 LABORATOR LABORATOR [place] [address] SPECTRUM SPECTRUM UREA 1 LABORATOR LABORATOR NITROGEN Y NETWORK Y NETWORK URINE CREATININ 41951 SPECTRUM SPECTRUM E OTHER 1 LABORATOR LABORATOR SOURCE Y NETWORK Y NETWORK CALCIUM 76484 SPECTRUM SPECTRUM TOTAL 1 LABORATOR LABORATOR Y NETWORK Y NETWORK O2 CONC 1 E1390 [facility] [place] 1 HOME HOME 85%/>02 MEDICAL MEDICAL CONC AT EQUIPME EQUIPME PRSC FLW RATE PHYS CERT G0180 [facility] MCR-COVR 1 ANT ANT ROMÁN HLTH SRVC PER CERT PRD HOS BED E0303 [facility] HEVY DUTY 1 HOME HOME W/WT CAP MEDICAL MEDICAL >350 EQUIPME EQUIPME PDS</=TO 600 PDS PRTBLE E0431 [facility] PETERS GASEOUS 1 HOME HOME O2 SYS MEDICAL MEDICAL RENT; EQUIPME EQUIPME FLWMTR HUMIDFR&M ASK NEBULIZER E0570 US MED US MED WITH 1 INC INC COMPRESSO R REPL BRANT A4233 [place] ALKALINE 1 STATES STATES NOT J MEDICAL MEDICAL CELL ROMÁN SUPPLY SUPPLY BG MON OWND PT SBSQ 04197 [facility] 1 RENAL CARE/DAY CARE PSC 35 MINUTES NORMAL A4256 [place] LOW AND 1 STATES STATES HIGH MEDICAL MEDICAL CALIBRATO SUPPLY SUPPLY R SOLUTION/ CHIPS LANCETS A4259 UNITED [place] PER BOX 1 STATES [place] OF 100 MEDICAL MEDICAL SUPPLY SUPPLY BLD GLU A4253 UNITED UNITED TEST/REAG 1 STATES STATES T STRIPS MEDICAL MEDICAL HOME BLD SUPPLY SUPPLY GLU MON-50 HOSPITAL 52878 [facility] DISCHARGE 1 ANT ANT DAY MANAGEMEN T 30 MIN/< SPRING-PO A4258 [place] WERED 1 [facility] STATES DEVICE MEDICAL MEDICAL FOR SUPPLY SUPPLY LANCET EACH SBSQ 97478 [facility] 1 ANT ANT CARE/DAY 25 MINUTES SBSQ 80238 [facility] 1 RENAL CARE/DAY CARE PSC 35 MINUTES SBSQ 87882 [facility] 1 RENAL CARE/DAY CARE PSC 35 MINUTES SBSQ 66667 [facility] 1 ANT ANT CARE/DAY 25 MINUTES INITIAL 65844 [facility] 1 ANT ANT CARE/DAY 50 MINUTES INITIAL 77871 [facility] 1 RENAL CARE/DAY CARE PSC 70 MINUTES O2 CONC 1 E1390 [facility] 1 HOME HOME 85%/>02 MEDICAL MEDICAL CONC AT EQUIPME EQUIPME PRS FLW RATE URNLS DIP 23473 [facility] 1 AMB AMB STICK/TAB LET RGNT NON-AUTO W/O MICRSCP MARIFER 91437 [facility] POST-VOID 1 AMB AMB ING RESIDUAL URINE&/BL ADDER CAP CULTURE 32363 LAB FRANK LAB FRANK BACTERIAL 1 [employer] QUANTTATI VE COLONY COUNT URINE HOS BED E0303 [facility] HEVY DUTY 1 HOME HOME W/WT CAP MEDICAL MEDICAL >350 EQUIPME EQUIPME PDS</=TO 600 PDS PRTBLE E0431 [facility] GASEOUS 1 HOME HOME O2 SYS MEDICAL MEDICAL RENT; EQUIPME EQUIPME FLWMTR HUMIDFR&M ASK NEBULIZER E0570 US MED US MED WITH 1 INC INC COMPRESSO R O2 CONC 1 E1390 [facility] 1 HOME HOME 85%/>02 MEDICAL MEDICAL CONC AT EQUIPME EQUIPME PRSC FLW RATE HOS BED E0303 [facility] HEVY DUTY 1 HOME HOME W/WT CAP MEDICAL MEDICAL >350 EQUIPME EQUIPME PDS</=TO 600 PDS PRTBLE E0431 [facility] PET[facility] GASEOUS 1 HOME MED HOME MED O2 SYS EQUIP. L EQUIP. L RENT; FLWMTR HUMIDFR&M ASK NEBULIZER E0570 US MED US MED WITH 1 INC INC COMPRESSO R O2 CONC 1 E1390 [facility] 1 HOME MED HOME MED 85%/>02 EQUIP. L EQUIP. L CONC AT [facility] FLW RATE HOS BED E0303 [facility] HEVY DUTY 1 HOME HOME W/WT CAP MEDICAL MEDICAL >350 EQUIPME EQUIPME PDS</=TO 600 PDS HEMOGLOBI 21936 [facility] N 1 [facility] GLYCOSYLA EUGENIO A1C INJECTION J1040 CAIO CAIO 1 CARLI CARLI METHYLPRE DNISOLONE ACETATE 80 MG IPRATROPI J7644 CAIO CAIO UM 1 CARLI CARLI BROMIDE INHAL NON-CP U DOSE PER MG LEVALBUTE J7614 CAIO CAIO ROL INHAL 1 CARLI CARLI NON-CP THRU DME U DOSE 0.5 MG INJECTION J2010 CAIO CAIO 1 CARLI CARLI LINCOMYCI N HCL UP TO 300 MG COLLECTIO 64617 [facility] N VENOUS 1 [facility] BLOOD VENIPUNCT URE COMPREHEN 84854 [facility] SIVE 1 [facility] METABOLIC PANEL PRTBLE E0431 FRAN PETERS GASEOUS 1 HOME MED HOME MED O2 SYS EQUIP. L EQUIP. L RENT; FLWMTR HUMIDFR&M ASK THERAPEUT 93114 CAIO CAIO IC 1 CARLI CARLI PROPHYLAC TIC/DX INJECTION SUBQ/IM DEMO&/NOVA 45554 CAIO CAIO L OF PT 1 CARLI CARLI UTILIZ AERSL GEN/NEB/I NHLR/IP BRNCDILAT 86272 CAIO CAIO RSPSE 1 CARLI CARLI SPMTRY PRE&POST- BRNCDILAT ADMN NORMAL A4256 UNITED [place] LOW AND 1 STATES STATES HIGH MEDICAL MEDICAL CALIBRATO SUPPLY SUPPLY R SOLUTION/ CHIPS LANCETS A4259 UNITED UNITED PER BOX 1 [place] 100 MEDICAL MEDICAL SUPPLY SUPPLY BLD GLU A4253 UNITED [place] TEST/REAG 1 STATES STATES T STRIPS MEDICAL MEDICAL HOME BLD SUPPLY SUPPLY GLU MON-50 NEBULIZER E0570 [facility] MED WITH 1 INC INC COMPRESSO R O2 CONC 1 E1390 [facility] [place] 1 HOME MED HOME MED 85%/>02 EQUIP. L EQUIP. L CONC AT [facility] FLW RATE PRTBLE E0431 FRAN RAMIREZRELL GASEOUS 1 HOME MED HOME MED O2 SYS EQUIP. L EQUIP. L RENT; FLWMTR HUMIDFR&M ASK NEBULIZER E0570 US MED US MED WITH 1 INC INC COMPRESSO R PRTBLE E0431 FRAN FRAN GASEOUS 1 HOME MED HOME MED O2 SYS EQUIP. L EQUIP. L RENT; FLWMTR HUMIDFR&M ASK NEBULIZER E0570 US MED US MED WITH 1 INC INC COMPRESSO R O2 CONC 1 E1390 [facility] [place] 1 HOME MED HOME MED 85%/>02 EQUIP. L EQUIP. L CONC AT [facility] FLW RATE ANES 56699 AR VAN UPPER GI 1 ANESTHESI PAT ENDOSCOPY A GROUP PROXIMAL PSC TO DUODENUM EGD 64225 [facility] TRANSORAL 1 N N BIOPSY [facility] SINGLE/MU HOSPITA HOSPITA LTIPLE UNLISTED 15533 [facility] ANESTHESI 1 N N A [facility] [place] [address] PATHOLOGY PATHOLOGY SURG 1 & & PATHOLOGY CYTOLOGY CYTOLOGY LAB LAB GROSS&DASHA ROSCOPIC EXAM GLUC BLD 01062 [facility] GLUC MNTR 1 N N DEV [facility] CLEARED HOSPITA HOSPITA FDA SPEC HOME USE SPECIAL 28504 PATHOLOGY PATHOLOGY STAIN 1 & & GROUP 1 CYTOLOGY CYTOLOGY MICROORGA LAB LAB NISMS I&R SPCL STN 43450 PATHOLOGY PATHOLOGY 2 I&R 1 & & EXCPT CYTOLOGY CYTOLOGY MICROORG/ LAB LAB ENZYME/IM CYT PRTBLE E0431 FRANCURT PETERS GASEOUS 1 HOME MED HOME MED O2 SYS EQUIP. L EQUIP. L RENT; FLWMTR HUMIDFR&M ASK COMPREHEN 27098 [facility] SIVE 1 [employer] [facility] [employer] INC METABOLIC PANEL BLOOD 06563 [facility] COUNT 1 [employer] [facility] [employer] INC COMPLETE AUTO&AUTO DIFRNTL WBC HEMOGLOBI 74633 [facility] N 1 [employer] [facility] [employer] INC GLYCOSYLA EUGENIO A1C COLLECTIO 58949 [facility] N VENOUS 1 [place] INC BLOOD VENIPUNCT URE NEBULIZER E0570 US MED US MED WITH 1 INC INC COMPRESSO R LANCETS A4259 [place] PER BOX 1 [facility] MEDICAL MEDICAL SUPPLY SUPPLY NORMAL A4256 [place] LOW AND 1 [facility] HIGH MEDICAL MEDICAL CALIBRATO SUPPLY SUPPLY R SOLUTION/ CHIPS BLD GLU A4253 [facility] TEST/REAG 1 [facility] T STRIPS MEDICAL MEDICAL HOME BLD SUPPLY SUPPLY GLU MON-50 SPRING-PO A4258 [facility] WERED 1 [facility] DEVICE MEDICAL MEDICAL FOR SUPPLY SUPPLY LANCET EACH REPL BRANT A4235 [facility] LITHIUM [address] [place] [address] MED NECES MEDICAL MEDICAL ROMÁN BG SUPPLY SUPPLY MON OWN PT EA FILTER A7013 US MED US MED DISPOSABL [...] 85%/>02 EQUIP. L EQUIP. L CONC AT [facility] FLW RATE PRTBLE E0431 FRAN PETERS GASEOUS [...] 1 INC INC NONFILTR PNEUMAT NEBULIZR DISPBL O2 CONC 1 E1390 [facility] [place] 0 HOME MED HOME MED 85%/>02 EQUIP. L EQUIP. L CONC AT [facility] [place] [address] YRONINE T3 TOTAL TT3 BASIC 79453 [facility] METABOLIC [address] [place] [address] PANEL CALCIUM IONIZED INJECTION 13237 [facility] CARDIAC [address] [place] [address] CATHJ L VENTR/L ATR ANGIOGRAP H RADIOLOGI 81998 [facility] C EXAM [address] [place] [address] CHEST 2 VIEWS FRONTAL&L ATERAL PLCMT G0269 [facility] OCCL DEV[address] ARLEN/ART POST SURG/INTR VNL PROC ECHO 84716 [facility] [address] [place] [address] 2D W/WOM-MOD E COMPL SPEC&COLR D PRTBLE E0431 FRAN FRAN GASEOUS 0 HOME MED HOME MED O2 SYS EQUIP. L EQUIP. L RENT; FLWMTR HUMIDFR&M ASK ECG 17538 [facility] ROUTINE [address] [place] [address] ECG W/LEAST 12 LDS TRCG ONLY W/O I&R COLLECTIO 52373 [facility] VENOUS [address] [place] [address] [place] [address] [facility] THYROID [address] [place] [address] STIMULATI NG HORMONE TSH INTRDUCR/ C1894 [facility] SHEATH [address] [place] [address] NOT GUID INTRACARD EP NON-LASR HEMOGLOBI [address] GLYCOSYLA EUGENIO A1C NATRIURET 11652 [facility] IC [address] [place] [address] PEPTIDE FIBRIN 96885 [facility] DGRADJ [address] [place] [address] PRODUCTS D-DIMER QUANTITAT DINA BLOOD 23346 [facility] COUNT [address] [place] [address] COMPLETE AUTOMATED CLOSURE C1760 [facility] DEVICE [address] [place] [address] VASCULAR L HRT 37575 [facility] CATHETERI [address] [place] [address] Z[place] [address] F/SLCTV C ANGRPH I SI&R 16306 [facility] F/NJX PX [address] [place] [address] DURING C-CATHJ VENTR&/AT R ANGRPH I SI&R 61089 [facility] F/NJX PX [address] [place] [address] DURING C-CATHJ PULM&/OR SELECT NEBULIZER E0570 US MED US MED WITH 0 INC INC COMPRESSO R ALBUTEROL J7620 US MED US MED TO 2.5 0 INC INC MG & IPRATROPI UM BROM TO 0.5 MG PHRM Q0513 US MED US MED DISPENSIN 0 INC INC G FEE INHALATIO N RX; PER 30 DAYS ADMN SET A7003 US MED US MED SM VOL 0 INC INC NONFILTR PNEUMAT NEBULIZR DISPBL FILTER A7013 US MED US MED DISPOSABL 0 INC INC W/AREOSOL COMPRESS/ US GENERATOR BLD GLU A4253 [facility] TEST/REAG 0 PHARMACY PHARMACY T STRIPS #591 #591 HOME BLD GLU MON-50 O2 CONC 1 E1390 [facility] [place] 0 HOME MED HOME MED 85%/>02 EQUIP. L EQUIP. L CONC AT [facility] FLW RATE PRTBLE E0431 FRAN PETERS GASEOUS 0 HOME MED HOME MED O2 SYS EQUIP. L EQUIP. L RENT; FLWMTR HUMIDFR&M ASK COMPREHEN 78276 [facility] SIVE 0 [employer] METABOLIC PANEL IIV3 53353 MERLIN BOYER VACCINE 0 ANT ANT SPLIT VIRUS 0.5 ML DOSAGE IM USE ADMINISTR G0008 MERLIN BOYER ATION OF 0 ANT ANT INFLUENZA VIRUS VACCINE HEMOGLOBI 07807 [facility] N 0 [employer] [place] [address] [facility] THYROID 0 [employer] STIMULATI NG HORMONE TSH COLLECTIO 84527 [facility] N VENOUS 0 [employer] INC [place] INC BLOOD VENIPUNCT URE LANCETS A4259 UNITED UNITED PER BOX 0 STATES [place] OF 100 MEDICAL MEDICAL SUPPLY SUPPLY NORMAL A4256 UNITED [place] LOW AND 0 STATES STATES HIGH MEDICAL MEDICAL CALIBRATO SUPPLY SUPPLY R SOLUTION/ CHIPS BLD GLU A4253 UNITED [place] TEST/REAG 0 STATES STATES T STRIPS MEDICAL MEDICAL HOME BLD SUPPLY SUPPLY GLU MON-50 NEBULIZER E0570 US MED US MED WITH 0 INC INC COMPRESSO R PHRM Q0513 US MED US MED DISPENSIN [...] 0 INC INC W/AREOSOL COMPRESS/ US GENERATOR O2 CONC 1 [facility] HOME MED HOME MED 85%/>02 EQUIP. L EQUIP. L CONC AT [facility] FLW RATE NEBULIZER E0570 US MED US MED WITH 0 INC INC COMPRESSO R DETERMINA 38749 RICHARDSO RICHARDSO TION 0 N DEYANIRA N DEYANIRA REFRACTIV E STATE O2 CONC 1 E1390 [facility] [place] 0 HOME MED HOME MED 85%/>02 EQUIP. L EQUIP. L CONC AT [facility] FLW RATE ALBUTEROL J7620 US MED US [...] MED WITH 0 INC INC COMPRESSO R COMPREHEN 55890 [facility] SIVE 0 [facility] METABOLIC PANEL O2 CONC 1 E1390 [facility] [place] 0 HOME MED HOME MED 85%/>02 EQUIP. L EQUIP. L CONC AT [facility] FLW RATE COLLECTIO 49469 [facility] N VENOUS 0 [facility] BLOOD VENIPUNCT URE ELECTRIC E0215 [place] HEAT PAD 0 [facility] MOIST MEDICAL MEDICAL SUPPLY SUPPLY BLOOD 98622 [facility] COUNT 0 [facility] COMPLETE AUTO&AUTO DIFRNTL WBC COLLECTIO 04525 [facility] N VENOUS 0 [facility] [place] [address] [facility] THYROID 0 [facility] STIMULATI NG HORMONE TSH COMPREHEN 03668 [facility] SIVE 0 [facility] METABOLIC PANEL RADIOLOGI 55435 [facility] [place] C EXAM 0 RADIOLOGY RHO CHEST 2 VIEWS FRONTAL&L ATERAL LANCETS A4259 UNITED UNITED PER BOX 0 STATES STATES OF [facility] MEDICAL MEDICAL SUPPLY SUPPLY BLD GLU A4253 [place] TEST/REAG 0 [facility] STATES T STRIPS MEDICAL MEDICAL HOME BLD SUPPLY SUPPLY GLU MON-50 SPRING-PO A4258 UNITED UNITED WERED 0 [facility] DEVICE MEDICAL MEDICAL FOR SUPPLY SUPPLY LANCET EACH NORMAL A4256 [place] LOW AND 0 STATES STATES HIGH MEDICAL MEDICAL CALIBRATO SUPPLY SUPPLY R SOLUTION/ CHIPS ADMN SET A7003 US MED US MED [...] INC COMPRESSO R O2 CONC 1 E1390 [facility] [place] 0 HOME MED HOME MED 85%/>02 EQUIP. L EQUIP. L CONC AT [facility] FLW RATE COMPREHEN 92770 [facility] SIVE 0 [facility] METABOLIC PANEL COLLECTIO 78080 [facility] N VENOUS 0 [facility] BLOOD VENIPUNCT URE HEMOGLOBI 34302 [facility] N 0 [facility] GLYCOSYLA EUGENIO A1C O2 CONC 1 E1390 [facility] PORT 0 HOME MED HOME MED 85%/>02 EQUIP. EQUIP. CONC AT [facility] FLW RATE O2 CONC 1 E1390 [facility] PORT 0 HOME MED HOME MED 85%/>02 EQUIP. EQUIP. CONC AT [facility] FLW RATE ACCSS E0973 SOURCE SOURCE ADJUSTBL 0 ONE ONE HT DTACH MEDICAL MEDICAL ARMRST [employer] CMPL ASSMBL EA WHEELCHAI E2208 SOURCE SOURCE R 0 ONE ONE ACCESSORY MEDICAL MEDICAL CYLINDER [employer] TANK CARRIER EACH PWR E2361 SOURCE SOURCE ACSS 22NF 0 ONE ONE SEALED MEDICAL BODY DIE MAKER ACID INC INC BATTRY EA PWR K0825 SOURCE SOURCE GRP 2 0 ONE ONE HEVY DUTY MEDICAL MEDICAL CAPT [employer] CHAIR PT [phone] LBS BLD GLU A4253 [facility] TEST/REAG 0 PHARMACY PHARMACY T [facility]IPS #591 #591 HOME BLD GLU MON-50 O2 CONC 1 E1390 [facility] PORT 0 HOME MED HOME MED 85%/>02 EQUIP. EQUIP. CONC AT [facility] FLW RATE PROTEIN 64471 [facility] TOTAL 0 [facility] XCPT REFRACTOM ETRY URINE CREATININ 06506 [facility] E OTHER 0 [facility] SOURCE COLLECTIO 26726 [facility] N VENOUS 0 [facility] BLOOD VENIPUNCT URE PROTEIN 88296 [facility] XCPT 0 [facility] REFRACTOM ETRY SERUM PLASMA/WH L BLD PROTEIN 47419 [facility] ELECTROPH 0 [facility] ORETIC FRACTJ&QU ANTJ SERUM PROTEIN 47552 [facility] ELECTROP 0 [facility] FXJ&[place] [address] [facility] FERRITIN 0 [facility] IRON 69985 [facility] BINDING 0 [facility] CAPACITY HEMOGLOBI 32376 [facility] N 0 [facility] GLYCOSYLA EUGENIO A1C BLOOD 03664 [facility] COUNT 0 [facility] COMPLETE AUTO&AUTO DIFRNTL WBC COLLECTIO 31378 [facility] N VENOUS 0 [facility] [address] [facility] IRON 0 [facility] COMPREHEN 12320 [facility] SIVE 0 [facility] METABOLIC PANEL CYANOCOBA 13565 [facility] [place] [facility] VITAMIN [place] INC B-12 [place] [address] [facility]AC[facility] HANNA FREE [facility] [place] [address] JACQU[facility] HANNA THYROID 0 [facility] STIMULATI INC INC NG HORMONE TSH COLLECTIO 84938 [facility]ACQU[facility] HANNA N VENOUS 0 [facility] BLOOD INC INC VENIPUNCT URE HEMOGLOBI 23435 JACQUES RODRIGESON N 0 [facility] GLYCOSYLA INC INC EUGENIO A1C PROTEIN 50698 [facility]ACQUES HANNA ELECTROPH 0 [facility] ORETIC INC INC FRACTJ&QU ANTJ SERUM O2 CONC 1 E1390 [facility] [place] 0 HOME MED HOME MED 85%/>02 EQUIP. EQUIP. CONC AT [facility] FLW RATE NDL EMG 2 20213 [facility] F[facility], XTR W/WO 0 MD [facility] RELATED PSC PARASPINA L AREAS NRV CNDJ 82976 [facility], AMPLT&LAT 0 MD [facility] EA PSC NRV MOTOR W/F-WAVE STD NRV CNDJ 71126 [facility], AMPLITUDE 0 MD CONCEPCI[facility] FARIA & PSC LATENCY EACH NERVE SENSORY INTRDUCR/ C1894 [facility] SHEATH [address] [place] [address] NOT G[place] [address] [facility] UREA [address] [place] [address] NITROGEN QUANTITAT DINA BLOOD [address] HEMATOCRI T COLLECTIO 00417 [facility] N VENOUS [address] [place] [address] BLOOD VENIPUNCT URE GLUCOSE [address] DINA BLOOD XCPT REAGENT STRIP SODIUM [address] PLASMA OR WHOLE BLOOD POTASSIUM [address] PLASMA/WH OLE BLOOD INTRODUCT 91212 [facility] ION [address] [place] [address] CATHETER AORTA CLOSURE C1760 [facility] DEVICE [address] [place] [address] VASCULAR CATHETER [address] AORTOGRAP [address] [facility] HY ABDL [address] [place] [address] BI ILIOFEM LOW EXTREM CATH RS&I ANGIOGRAP 47359 COMMON[facility] ANJANA, HY 0 [facility] CONCEPCIÓN Brown EXTREMITY CARDIOLOG Y ASSOC BILATERAL RS&I CREATININ 64356 [facility] E BLOOD [address] [place] [address] CHLORIDE 65349 [facility] BLD [address] [place] [address] PLCMT [id number] [facility] OCCL DEVC [address] [place] [address] ARLEN/ART POST SURG/INTR VNL PROC AORTOGRAP 23559 COMMONWEA ANJANA, HY 0 [facility] CONCEPCIÓN Brown ABDOMINAL CARDIOLOG Y ASSOC SERIALOGR APHY RS&I BLOOD [address] PLATELET AUTOMATED URNLS DIP 52780 RAKESH CAMERON, 0 AMADOR AMADOR STICK/TAB K K LET RGNT NON-AUTO W/O MICRSCP MARIFER 30529 [place], [place], POST-VOID 0 AMADOR AMADOR ING K K RESIDUAL URINE&/BL ADDER CAP O2 CONC 1 E1390 [facility] [place] 0 HOME MED HOME MED 85%/>02 EQUIP. EQUIP. CONC AT [facility] FLW RATE CT THORAX 77319 [facility] [place], W/O 0 RADIOLOGY NATTY G CONTRAST MATERIAL CREATINE 77244 [facility] KINASE 0 [facility] TOTAL ANTINUCLE 93120 [facility] AR 0 [facility] ANTIBODIE S CARMINE COMPREHEN 13628 [facility] SIVE 0 [facility] METABOLIC PANEL EXTRACTAB 06077 [facility] LE 0 [facility] NUCLEAR ANTIGEN ANTIBODY ANY METHOD ANTIBODY 26292 [facility] BORDETELL 0 [facility] A BLOOD 54151 [facility] COUNT 0 [facility] COMPLETE AUTO&AUTO DIFRNTL WBC C-REACTIV 67518 [facility] E PROTEIN 0 [facility] COLLECTIO 81739 [facility] N VENOUS 0 [facility] BLOOD VENIPUNCT URE HOME E0607 [facility] BLOOD 0 [facility] PHARMACY GLUCOSE #571 #571 MONITOR LANCETS A4259 [facility] PER BOX 0 [facility]ACY [facility] OF [facility] #571 #571 BLD GLU A4253 [facility] TEST/REAG 0 PHARMACY PHARMACY T STRIPS #571 #571 HOME BLD GLU MON-50 ALBUTEROL J7620 [facility] TO 2.5 0 PHARMACY PHARMACY MG & #571 #571 IPRATROPI UM BROM TO 0.5 MG PHRM Q0513 [facility] DISPENSIN 0 PHARMACY PHARMACY G FEE #571 #571 INHALATIO N RX; PER 30 DAYS [facility] [address] [facility] 0 ANT ANT DAY MANAGEMEN T 30 MIN/< SBSQ 43570 [facility] 0 ANT ANT CARE/DAY 25 MINUTES RADIOLOGI 63658 [facility] VAHID DERAS, C EXAM 0 RADIOLOGY RAJESH Casas CHEST 2 VIEWS FRONTAL&L ATERAL ECG 23594 NINA CLINE, ROUTINE 0 EMERGENCY ELI H ECG SERVICES W/LEAST 12 LDS ASSOCIATE I&R ONLY S CRITICAL 89246 NINA CHENEYARI, CARE 0 EMERGENCY ELI H ILL/INJUR SERVICES ED PATIENT ASSOCIATE INIT S 30-74 MIN RADIOLOGI 19369 [facility] VAHID DERAS, C 0 RADIOLOGY RAJESH Casas [place]AM[place]AT[place] [address] [facility] VAHID DERAS, HEAD/BRAI 0 RADIOLOGY RAJESH Casas N W/O CONTRAST MATERIAL INITIAL 37891 [facility] 0 ANT ANT CARE/DAY 70 MINUTES OUTPATIEN 62824 [facility] T CARDIAC 0 N N RE[facility]AB [facility] W/[facility] ECG MONITORIN G INJECTION J2785 ZULEIKA YEUNG, 0 [facility] CARDIOLOG ON 0.1 MG Y ASSOC CV STRS 91920 MARYA ANJANA, TST 0 [facility] XERS&/OR CARDIOLOG RX CONT Y ASSOC ECG W/SI&R TECHNETIU A9502 ZULEIKA YEUNG, M TC-99M 0 [facility] TETROFOSM CARDIOLOG IN DX PER Y ASSOC STUDY DOSE MYOCARDIA 27868 ZULEIKA YEUNG L SPECT 0 L[facility] MULTIPLE CARDIOLOG STUDIES Y ASSOC ECG 08002 [facility] ROUTINE 0 N N ECG [facility] 12 LDS TRCG ONLY W/O I&R NON-INVAS 26712 [facility] 0 N N PHYSIOLOG [facility] EXTREMITY ART 2 LEVEL O2 CONC 1 E1390 [facility] 0 HOME MED HOME MED 85%/>02 EQUIP. EQUIP. CONC AT [facility] 657[address] [facility] BOYER, DISCHARGE 0 ANGE L ANGE L DAY MANAGEMEN T 30 MIN/< SBSQ 04303 [facility] 0 [facility]GE CASSIDY L CARE/DAY 25 MINUTES INITIAL 44367 [facility] ANGE L CARE/DAY 70 MINUTES DEMO&/NOVA 85837 [facility] L OF PT 0 N N UTILIZ [facility] GEN/NEB/I NHLR/IP RADIOLOGI 76142 [facility] [place] ANK[place], C EXAM 0 RADIOLOGY NATTY G CHEST 2 VIEWS FRONTAL&L ATERAL ECHO 70264 CANDIDO REY, [facility] R-T 0 JOSAFAT MAURICE 2D P P W/WOM-MOD E COMPL SPEC&COLR D O2 CONC 1 E1390 [place] [address] HOME MED HOME MED 85%/>02 EQUIP. EQUIP. [facility]C AT [facility] FLW RATE O2 CONC 1 E1390 [place] [address] HOME MED HOME MED 85%/>02 EQUIP. EQUIP. [facility] AT [facility] FLW RATE O2 CONC 1 E1390 [place] [address] HOME MED HOME MED 85%/>02 EQUIP. EQUIP. [facility] AT [facility] FLW RATE O2 CONC 1 E1390 [place] [address] HOME MED HOME MED 85%/>02 EQUIP. EQUIP. [facility] ARTHROCEN 92075 MERLIN BOYER TESIS 9 ANGE L ANGE Marquise ASPIR&/IN J MAJOR JT/BURSA W/O US IIV3 79720 EMRLIN BOYER, VACCINE 9 ANGE Marquise ANGE Marquise SPLIT VIRUS 0.5 ML DOSAGE IM USE ADMINISTR G0008 MERLIN BOYER, ATION OF 9 ANGE L ANGE L INFLUENZA VIRUS VACCINE O2 CONC 1 E1390 [place] [address] HOME MED HOME MED 85%/>02 EQUIP. EQUIP. [facility] O2 CONC 1 E1390 [place] [address] HOME MED HOME MED 85%/>02 EQUIP. EQUIP. [facility] 3D 07-30-200 81847 TERE CARRANZA, RENDERING 9 ANNE ANNE W/INTERP & [place] MRI 07742 TERE, TERE, SPINAL 9 ANNE ANNE CANAL LUMBAR W/O CONTRAST MATERIAL NEBULIZER E0570 FRAN PETERS WITH 9 HOME MED HOME MED COMPRESSO EQUIP. EQUIP. R [facility] O2 CONC 1 E1390 [place] 9 HOME MED HOME MED 85%/>02 EQUIP. EQUIP. [facility]OSP[facility] [address]202 COMMONA ANJANA, DISCHARGE 9 [facility] DAY CARDIOLOG MANAGEMEN Y ASSOC T 30 MIN/< CT LUMBAR 92912 [place] [place] SCALF, SPINE 9 RADIOLOGY FAROOQ E W/CONTRAS T MATERIAL ECG 65967 MARY ANJANA, ROUTINE 9 [facility] ECG CARDIOLOG W/LEAST Y ASSOC 12 LDS I&R ONLY NEBULIZER E0570 FRAN PETERS WITH 9 HOME MED HOME MED COMPRESSO EQUIP. EQUIP. R [facility] MYELOGRAP 99650 [place] SCALF, Y 9 RADIOLOGY FAROOQ E LUMBOSACR AL RS&I CONTRAST 8721 [facility] MYELOGRAM 9 [facility] [address]31 [facility] 9 [facility] CARE/DAY CARDIOLOG 15 Y ASSOC MINUTES SBSQ 39645 [facility] 9 PHYSICIAN RONALD Marshall CARE/DAY S GROUP 25 MINUTES SBSQ 78230 [facility] 9 MD Oskar FARIA SHARON CARE/DAY PSC [address] LOWER [address] [facility] [place] AYALA, EXTREMITY 9 RADIOLOGY MELINA L W/O CONTRAST MATERIAL INITIAL 37079 [facility] INPATIENT 9 MD Oskar FARIA SHARON CONSULT PSC NEW/ESTAB PT 110 MIN NON-INVAS 37936 [facility], 9 [facility] PHYSIOLOG CARDIOLOG IC STD Y ASSOC EXTREMITY ART 2 LEVEL SBSQ 70955 MARY ANJANA, HOSPITAL 9 [facility] CARE/DAY CARDIOLOG 15 Y ASSOC MINUTES ECG 73541 ZULEIKA YEUNG, ROUTINE 9 [facility] ECG CARDIOLOG W/LEAST Y ASSOC 12 LDS I&R ONLY INITIAL 19109 [facility], [facility] 9 [facility] CARE/DAY [place]ARDI[place] [address] [place] [address] [place] ANGIOGRAP 9 RADIOLOGY LD, A D HY CHEST W/CONTRAS T/[place] [address] [place] CERVICAL 9 RADIOLOGY LD, A D SPINE W/O CONTRAST MATERIAL FIBRIN 16622 JACQUES HANNA DGRADJ 9 [facility] PRODUCTS INC INC D-DIMER QUAL/SEMI NEEL BLOOD 72397 JACQUES HANNA COUNT 9 [facility] COMPLETE INC INC AUTO&AUTO DIFRNTL WBC THERAPEUT 07980 JACQUES HANNA IC 9 [facility] INJECTION INC INC IV PUSH EACH NEW DRUG AMB A0427 [facility] SERVICE 9 AMBULANCE AMBULANCE ALS SERVICE SERVICE EMERGENCY TRANSPORT LEVEL 1 CRITICAL 66188 NINA BREWSTER CARE 9 EMERGENCY MERLIN J ILL/INJUR SERVICES ED PATIENT ASSOCIATE INIT S 30-[address] LOWER 97130 JACQUES HANNA EXTREMITY 9 [facility] W/O INC INC CONTRAST MATERIAL GROUND A0425 [facility] MILEAGE 9 AMBULANCE AMBULANCE PER SERVICE SERVICE STATUTE MILE 3D 66088 JACQUES HANNA RENDERING 9 [facility] INC INC W/INTERP& POSTPROC DIFF WORK STATION COMPREHEN 60512 JACQUES HANNA SIVE 9 [facility] METABOLIC INC INC PANEL ECG 06086 NINA BREWSTER ROUTINE 9 EMERGENCY MERLIN J ECG SERVICES W/LEAST 12 LDS ASSOCIATE I&R ONLY S THERAPEUT 66689 JACQUES HANNA IC 9 [facility] PROPHYLAC INC INC TIC/DX INJECTION SUBQ/IM ECG 56551 JACQUES HANNA ROUTINE 9 [facility] ECG INC INC W/LEAST 12 LDS TRCG ONLY W/O I&R DUP-SCAN 78520 JACQUES HANNA XTR VEINS 9 [facility] INC INC UNILATERA L/LIMITED STUDY ECG 17362 ZULEIKA YEUNG, ROUTINE 9 [facility]CEPCI[facility] Brown ECG CARDIOLOG W/LEAST Y ASSOC 12 [facility] I&R ONLY HOSPITAL 74062 ZULEIKA YEUNG, DISCHARGE 9 [facility] Brown DAY CARDIOLOG MANAGEMEN Y ASSOC T 30 MIN/< ENDOLUMIN 01293 ZULEIKA YEUNG, AL 9 [facility] Brown CORONARY CARDIOLOG IVUS OCT Y ASSOC I&R INITIAL VESSEL TCAT PLMT 94685 ZULEIKA YEUNG, 9 [facility] Brown INTRACORO CARDIOLOG NARY Y ASSOC STENT PRQ 1 VESSEL INJECTION 98662 ZULEIKA YEUNG, CARDIAC 9 [facility] Brown CATHJ L CARDIOLOG VENTR/L Y ASSOC ATR ANGIOGRAP H INITIAL 12693 PULMONARY TZOUANAKI INPATIENT 9 S, CONSULT ASSOCIATE QUANG MARKHAM/ESTAB S, INC PT 80 MIN ECHO 28949 ZULEIKA YEUNG, TTHRC R-T 9 [facility] Brown 2D CARDIOLOG W/WOM-MOD Y ASSOC E COMPL SPEC&COLR D SPMTRY 93994 PULMONARY VILLARAN, W/VC 9 PATRICA EXPIRATOR ASSOCIATE Y JIE S, INC W/WO MXML VOL VNTJ O2 CONC 1 E1390 FRAN PETERS [place] 9 HOME MED HOME MED 85%/>02 EQUIP. EQUIP. [facility] FL[facility] RATE L HRT 18267 ZULEIKA YEUNG, CATHETERI 9 [facility] Brown ZATION CARDIOLOG RETROGRAD Y ASSOC E BRACHIAL PERQ I SI&R 55559 ZULEIKA YEUNG, F/NJX PX 9 [facility] Brown DURING CARDIOLOG C-CATHJ Y ASSOC PULM&/OR SELECT I SI&R 34501 ZLUEIKA YEUNG, F/NJX PX 9 [facility] Brown DURING CARDIOLOG C-CATHJ Y ASSOC VENTR&/[place] [address] ZULEIKA YEUNG C-CATHJ 9 [facility] CON[facility] F/SLCTV C CARDIOLOG ANGRPH Y ASSOC LEFT 3722 [facility] HEART [address] [place] [address] CARDIAC CATHETERI ZATION CORONARY 8856 [facility] ARTERIOGR [address] [place] [address] APHY USING TWO CATHETERS INSERTION [address] DRUG-ELUT ING CORONARY ARTERY STENT ANGIOCARD 8853 [facility] IOGRAPHY [address] [place] [address] OF LEFT HEART STRUCTURE S PERQ 0066 [facility] TRANSLUMI [address] [place] [address] NAL CORONARY ANGIOPLAS TY PTCA CREATINE 13824 JACQUES HANNA KINASE MB 9 [facility] [place] [address] JACQUES HANNA TROPONIN 9 [facility] QUANTITAT INC INC DINA BLOOD 48149 JACQUES HANNA COUNT 9 [facility] COMPLETE INC INC AUTO&AUTO DIFRNTL WBC THER 57846 JACQUES HANNA PROPH/DX 9 [facility] NJX IV INC INC PUSH SINGLE/1S T SBST/DRUG CREATINE 71820 JACQUES HANNA KINASE 9 [facility] TOTAL INC INC ECG 14265 OMA MONTERROSO 9 EMERGENCY KEYUR R ECG SERVICES W/LEAST 12 LDS ASSOCIATE I&R ONLY S ECG 10424 JACQUES HANNA ROUTINE 9 [facility] ECG INC INC W/LEAST 12 LDS TRCG ONLY W/O I&R AMBULANCE A0429 [facility] SERVICE 9 AMBULANCE AMBULANCE BLS SERVICE SERVICE EMERGENCY TRANSPORT GROUND A0425 [facility] MILEAGE 9 AMBULANCE AMBULANCE PER SERVICE SERVICE STATUTE MILE INITIAL [address] CARE/DAY CARDIOLOG 50 Y ASSOC MINUTES LIPID 70250 JACQUES HANNA PANEL 9 [facility] INC INC RADIOLOGI 24804 JACQUES HANNA C 9 [facility] EXAMINATI INC INC ON CHEST SINGLE VIEW FRONTAL CRITICAL 92043 NINA NICK, CARE 9 EMERGENCY KEYUR R ILL/INJUR SERVICES ED PATIENT ASSOCIATE INIT S 30-74 MIN BASIC 42634 JACQUES HANNA METABOLIC 9 [facility] PANEL INC INC CALCIUM TOTAL DUP-SCAN 45761 ALEXA BADILLO, XTR VEINS 9 ELIECER G COMPLETE CARDIOLOG Y BILATERAL CONSULTAN STUDY T NEBULIZER E0570 FRAN PETERS WITH 9 HOME MED HOME MED COMPRESSO EQUIP. EQUIP. R [facility] 18246 NEUROSURG NEUROSURG FACETECTO 9 ICAL ICAL MY&FORAMT ASSOCIATE ASSOCIATE KEVIN 1 SGM S S EA CRV THRC/LMBR ANESTHESI 77446 [facility] A LUMBAR 9 [place] III, [place] ANESTHESI M NOS A PSC [facility] 10226 NEUROSURG NEUROSURG FACETECTO 9 ICAL ICAL MY & ASSOCIATE ASSOCIATE DARNELLM S S Y 1 SEGMENT LUMBAR OTHER 0309 [facility] EXPLORATI 9 [facility]P RESSION OF SPINAL CANAL ECG 25006 [facility] ROUTINE 9 ORTH, ECG CARDIOLOG MARIE W/LEAST Y 12 LDS CONSULTAN I&R ONLY T ECG 35941 CARDIOLOG Tod BANDA ROUTINE 9 Y A ECG ASSOCIATE W/LEAST S OF 12 [facility] W/I&R O2 CONC 1 E1390 [place] 9 HOME MED HOME MED 85%/>02 EQUIP. EQUIP. CONC AT [employer] [facility] [employer] [facility] FLW RATE NEBULIZER E0570 FRANCURT PETERS WITH 9 HOME MED HOME MED COMPRESSO EQUIP. EQUIP. R [facility] O2 CONC 1 E1390 [place] 9 HOME MED HOME MED 85%/>02 EQUIP. EQUIP. CONC AT [employer] [facility] PRS FLW RATE MRI 16127 TERE CARRANZA, SPINAL 9 ANNE ANNE CANAL LUMBAR W/O CONTRAST MATERIAL 3D 77594 TERE CARRANZA, RENDERING 9 ANNE ANNE W/INTERP & POSTPROCE SS SUPERVISI ON NEBULIZER E0570 FRAN FRAN WITH 9 HOME MED HOME MED COMPRESSO [facility]IP. [facility] [address] CAIO, CAIO, W/VC 9 CARLI B CARLI B EXPIRATOR Y JIE W/[place] [address] CAIO, CAIO, ALLG 9 CARLI B CARLI B IMMNTX X W/PRV ALLGIC XTRCS NJXS O2 CONC 1 E1390 [place] 9 HOME MED HOME MED 85%/>02 EQUIP. EQUIP. CONC AT [facility] R[facility] 25 [address] JACQUES HANNA HYDROXY 9 [facility] INCLUDES INC INC FRACTIONS IF PERFORMED COLLECTIO 63994 JACQUES HANNA N VENOUS 9 [facility] [place]OD [place] [address] BRIANDA LAMAR, ANES&/STR 9 [facility] Casas JT NRV LMBR/SAC 1 LVL FLUOR 46381 BRIANDA LAMAR, NEEDLE/CA 9 [facility] Ferrera TH SPINE/PAR ASPINAL DX/THER ADDON O2 CONC 1 E1390 [place] 9 HOME MED HOME MED 85%/>02 EQUIP. EQUIP. CONC AT [facility] FL[facility] RATE NEBULIZER E0570 FRAN PETERS WITH 9 HOME MED HOME MED COMPRESSO EQUIP. EQUIP. R [facility] 08513 CAIO, CAIO, W/VC 9 CARLI B CARLI B EXPIRATOR Y JIE W/WO MXML VOL VNTJ O2 CONC 1 E1390 [place] 8 HOME MED HOME MED 85%/>02 EQUIP. EQUIP. CONC AT [facility] FL[facility] RATE NEBULIZER E0570 FRAN PETERS WITH 8 HOME MED HOME MED COMPRESSO EQUIP. EQUIP. R [facility] O2 CONC 1 E1390 [place] 8 HOME MED HOME MED 85%/>02 EQUIP. EQUIP. CONC [facility] [place] [address] CAIO, CAIO, ALLG 8 CARLI B CARLI B IMMNTX X W/PRV ALLGIC XTRCS NJXS NEBULIZER E0570 FRAN PETERS WITH 8 HOME MED HOME MED COMPRESSO EQUIP. EQUIP. R [facility] O2 CONC 1 E1390 [place] 8 HOME MED HOME MED 85%/>02 EQUIP. EQUIP. CONC AT [facility] FLW RATE PROF SVCS 22980 CAIO, CAIO, ALLG 8 CARLI B CARLI B IMMNTX X W/PRV ALLGIC XTRCS NJXS PROF SVCS 95987 CAIO, CAIO, ALLG 8 CARLI B CARLI B IMMNTX X W/PRV ALLGIC XTRCS NJXS NEBULIZER E0570 FRAN PETERS WITH 8 HOME MED HOME MED COMPRESSO EQUIP. EQUIP. R [facility] PREPJ& 16269 CAIO, CAIO, ALLERGEN 8 CARLI B CARLI B IMMUNOTHE RAPY 1/WELLNESS MANAGER ANTIGEN O2 CONC 1 E1390 FRANCURT PETERS [facility] PORT 8 HOME MED HOME MED 85%/>02 EQUIP. EQUIP. CONC AT [facility] FL[facility] RATE SPMTRY 91687 CIAO, CAIO, W/VC 8 CARLI B CARLI B EXPIRATOR Y JIE W/WO MXML VOL VNTJ PERCUTANE 50850 CAIO, CAIO, OUS TESTS 8 CARLI B CARLI B W/ALLERGE VIKA EXTRACTS INTRACUTA 13108 CAIO, CAIO, NEOUS 8 CARLI B CARLI B TESTS W/ALLERGE VIKA EXTRACTS O2 CONC 1 E1390 [place]T [place]RELL [place] 8 HOME MED HOME MED 85%/>02 EQUIP. EQUIP. CONC [facility] RATE RADIOLOGI 09724 Johny ÁLVAREZ EXAM 8 MEDICAL ANNE CHEST 2 IMAGING VIEWS ASSOCIATE FRONTAL&L S ATERAL ALPHA-1-A 63518 JACQUES HANNA NTITRYPSI 8 [facility] N TOTAL INC INC ALPHA-1-A 90482 JACQUES HANNA NTITRYPSI 8 [facility] N INC INC PHENOTYPE BLOOD 08677 JACQUES HANNA COUNT 8 [facility] COMPLETE INC INC AUTO&[place] [address] JACQUES HANNA GAMMAGLOB 8 [facility] ULIN IGE INC INC COLLECTIO 96414 JACQUES HANNA N VENOUS 8 [facility] BLOOD INC INC VENIPUNCT URE IPRATROPI J7644 CAIO KEARNEY, UM 8 CARLI B CARLI B BROMIDE INHAL NON-CP U DOSE PER MG ADMN SET A7005 YOUR YOUR W/SM VOL 8 PHARMACY PHARMACY NONFILTR [facility] NEBULIZR NON-DISPB L BRNCDILAT 95158 CAIO KEARNEY, RSPSE 8 CARLI B CARLI B SPMTRY PRE&POST- BRNCDILAT ADMN PERCUTANE 22423 CAIO KEARNEY, OUS TESTS 8 CARLI B CARLI B W/ALLERGE VIKA EXTRACTS ALBUTEROL J7620 YOUR YOUR TO 2.5 8 PHARMACY PHARMACY [employer] [facility] IPRATROPI UM BROM TO 0.5 MG BUDESONID J7626 CAIO KEARNEY, E INHAL 8 CARLI B CARLI B NON-CP UNIT DOSE UP TO 0.5 MG NEBULIZER E0570 FRAN PETERS WITH 8 HOME MED HOME MED COMPRESSO EQUIP. EQUIP. R [facility] ALBUTEROL J7611 CAIO KEARNEY, INHAL 8 CARLI B CARLI B NON-CP THRU DME CONC FORM 1 MG AREO MASK A7015 FRAN PETERS USED W/ 8 HOME MED HOME MED DME NEB [facility] [facility] PHARM G0333 YOUR YOUR DISPEN 8 PHARMACY PHARMACY FEE INHAL [facility] RX; INITIAL 30-DAY SUPPLY ALBUTEROL J7613 YOUR YOUR INHAL 8 PHARMACY PHARMACY NON-CP [facility] PROD THRU DME U DOSE 1 MG O2 CONC 1 E1390 [place] 8 HOME MED HOME MED 85%/>02 EQUIP. EQUIP. CONC AT [facility] PRSC FLW RATE O2 CONC 1 E1390 [place] 8 HOME MED HOME MED 85%/>02 EQUIP. EQUIP. CONC AT [facility] O2 CONC 1 E1390 [place]AN [place] 8 HOME MED HOME MED 85%/>02 EQUIP. EQUIP. CONC [facility] O2 CONC 1 E1390 [place] 8 HOME MED HOME MED 85%/>[address]. [facility] [facility] 58773 LYNN CO REM[place], N VENOUS 8 [facility] BLOOD CARE VENIPUNCT CENTERINC URE INJECTION 28811 PAWSAT, PAWSAT, 1 TENDON 8 MELLISSA D MELLISSA D SHEATH/LI GAMENT APONEUROS IS INJECTION J1030 PAWSAT, PAWSAT, 8 MELLISSA D MELLISSA D METHYLPRE DNISOLONE ACETATE 40 MG O2 CONC 1 E1390 [facility] 8 HOME MED HOME MED 85%/>02 EQUIP. EQUIP. CONC [facility] R[facility] STRAPPING 42745 PAWSAT, PAWSAT, ANKLE 8 MELLISSA D MELLISSA D &/FOOT INJECTION J1030 PAWSAT, PAWSAT, 8 MELLISSA D MELLISSA D METHYLPRE DNISOLONE ACETATE 40 MG INJECTION 44566 PAWSAT, PAWSAT, 1 TENDON 8 MELLISSA D MELLISSA D SHEATH/LI GAMENT APONEUROS IS O2 CONC 1 E1390 [place]AN [place] 8 HOME MED HOME MED 85%/>02 EQUIP. EQUIP. CONC AT [facility] O2 CONC 1 E1390 [place] 8 HOME MED HOME MED 85%/>[address]. [facility] [facility] 1 E1390 [place] 8 HOME MED HOME MED 85%/>[address] [facility] En[facility]ters Encounter Start End Date Code Location Performer Type Date EMERGENCY 96665 [facility] 7 7 N OUTPATIEN COMMUNTIY T HOSPITA OFFICE 04930 [facility] OUTPATI 7 7 N T VISIT CARDIOLOG 25 Y MINUTES OFFICE 38124 [facility] 7 7 DESIREE DESIREE T VISIT 25 MINUTES [facility] 66936 [facility] 6 6 DESIREE ELLIOTT T VISIT 15 MINUTES [facility] 6 6 N INPATIENT [facility] 88055 [facility] 5 5 DESIREE LEXI ELLIOTT T VISIT 25 MINUTES [facility] 07159 [facility] 4 4 DESIREE ELLIOTT DESIREE ELLIOTT T VISIT 10 MINUTES [facility] - 4 4 W [facility] - 4 4 W [facility] [address] OFFICE [address]390 CAIO CAIO OUTPATI 3 3 CARLI BOYCE T VISIT 40 MINUTES [facility]OSP[facility] [place] [address] 3 [facility] T OFFICE 88301 CHELI HANSEN OUTPATIEN 3 3 W GENERAL III DAYNE T NEW 30 SURGERY MINUTES OFFICE 76846 [facility] Schmitt OUTPATIEN 2 2 C C T VISIT 25 MINUTES [facility] 2 HOSPITAL OUTPATIEN T OFFICE 88219 [facility] 2 2 ANT ANT T VISIT 25 MINUTES EMERGENCY 57657 JACQUES 2 2 [facility] DEPARTMEN INC T VISIT HIGH/URGE NT SEVERITY HOSPITAL JACQUES - 2 2 [facility] OUTPATIEN INC T OFFICE 91830 [facility] 2 2 ANT ANT T VISIT 25 MINUTES OFFICE 52347 [facility] 2 2 RENAL PAT T VISIT CARE PSC 25 MINUTES OFFICE 62131 [facility] 2 ANT ANT T VISIT 25 MINUTES OFFICE 15757 [facility] BOYER [facility] 1 1 ANT ANT T VISIT 15 MINUTES OFFICE 04638 [facility] 1 1 RENAL PAT T VISIT CARE PSC 25 MINUTES OFFICE 91121 [facility] BOYER [facility] 1 1 ANT ANT T VISIT 25 MINUTES [facility] - 1 N INPATIENT COMMUNITY [facility]PITA OFFICE 67160 [facility] 1 AMB AMB T VISIT 25 MINUTES OFFICE 85528 [facility] 1 1 ANT ANT T VISIT 15 MINUTES OFFICE 52045 [facility] BOYER [facility] 1 1 ANT ANT T VISIT 15 MINUTES OFFICE 22639 [facility] BOYER [facility] 1 1 ANT ANT T VISIT 25 MINUTES [facility] - 1 N OUTPATIEN [facility] T HOSPITA OFFICE 10169 [facility] BOYER [facility] 1 1 ANT ANT T VISIT 25 MINUTES [facility] 0 0 [facility] OUTPAT[facility] T OFFICE 35995 [facility] BOYER OUTPATIEN 0 0 ANT ANT T VISIT 25 MINUTES OFFICE 52951 [facility] OUTPATIEN 0 0 N DEYANIRA T NEW 45 MINUTES OFFICE 92707 [facility] BOYER OUTPATIEN 0 0 ANT ANT T VISIT 25 MINUTES OFFICE 58319 [facility] BOYER OUTPATIEN 0 0 ANT ANT T VISIT 25 MINUTES [facility]OSPITAL [facility] - 0 0 N OUTPATIEN [facility] HOSPITA OFFICE 51622 [facility] BOYER, OUTPATIEN 0 0 ANGE Marquise CASSIDY L T VISIT 25 MINUTES OFFICE 57000 [facility] OUTPATIEN 0 0 ANT ANT T VISIT 25 MINUTES OFFICE 03042 [facility] BO[facility]ER OUTPATIEN 0 0 ANT ANT T VISIT 25 MINUTES HOSPITAL JACQUES - 0 0 [facility] OUTPATIEN INC T OFFICE 64242 [facility] FARIA, OUTPATIEN 0 0 MD [facility] FARIA VISIT PSC 40 MINUTES [facility] [place] 0 0 HOSPITAL OUTPATI T OFFICE 52682 COCOISCH, COCOISCH, OUTPATIEN 0 0 AMADOR AMADOR T NEW 30 K K MINUTES OFFICE 34120 [facility] ANJANA, OUTPATIEN 0 0 [facility] CONCEPCIÓN Vazquez VISIT 5 CARDIOLOG MINUTES Y ASS [facility]OS[facility] 0 0 [facility] 23674 [facility]ON[facility] ANJANA, OUTPATIEN 0 0 [facility] CONCEPCIÓN Vazquez VISIT CARDIOLOG 15 Y ASSOC MINUTES OFFICE 81234 [facility] OUTPATIEN 0 0 N T NEW 10 [facility] 0 0 N INPATIENT [facility] OFFICE 51312 [facility] BOYER OUTPATIEN 9 9 ANGE aCmarillo T VISIT 15 MINUTES OFFICE 26173 NEUROSURG NOEMÍ DOPATIEN 9 9 LORAINE HAWKINSEN Iban T VISIT ASSOCIATE 15 S MINUTES OFFICE 26734 [facility]LIN BOYER OUTPATILAY 9 9 ANGE Camarillo T NEW 45 MINUTES HOSP[facility] [place] [address] 9 HOSPITAL INPATIENT EMERGENCY 61402 [place] [facility]PT 9 9 [facility] VISIT INC HIGH SEVERITY& THREAT [facility] [place] [address] 9 HOSPITAL INPATIENT EMERGENCY 95799 [facility] DEPT 9 9 [facility] VISIT INC HIGH SEVERITY& THREAT [facility] [place] [facility] OFF[facility] 71401 CARDIOLOG Tod BANDA CONSULTAT 9 9 Y A ION ASSOCIATE NEW/ESTAB S OF PATIENT [place] 40 MIN OFFICE 02773 BRIANDA LAMAR OUTPATIEN 9 9 CONCEPCIÓN Ferrera T VISIT 25 MINUTES OFFICE 20289 CAIO KEARNEY OUTPATIEN 9 9 CARLI B CARLI B T VISIT 25 MINUTES [facility] [place] - 9 9 [facility] T OFFICE 68227 BRIANDA LAMAR OUTPATIEN 9 9 CONCEPCIÓN Ferrera T NEW 45 MINUTES OFFICE 74620 CAIO KEARNEY OUTPATIEN 9 9 CARLI B CARLI B T VISIT 25 MINUTES OFFICE 04781 CAIO KEARNEY OUTPATIEN 8 8 CARLI B CARLI B T VISIT 25 MINUTES HOSPITAL [facility] - 8 8 [facility] T OFFICE 70573 CAIO KEARNEY, CONSULTAT 8 8 CARLI B CARLI B ION NEW/ESTAB PATIENT 80 MIN OFFICE 86240 [place] OUTPATIEN 8 8 PRIMARY T VISIT CARE 10 [facility] [place] FREE 8 8 [facility]IMARY [facility]AND[facility] [place] FREE 8 8 [facility] OFFICE 94774 [place] [facility] OUTPATIEN 8 8 PRIMARY T [facility]ISIT CARE 10 [facility] OFFICE 18811 [place] OUTPATIEN 8 8 PRIMARY T [facility]ISIT CARE 10 [facility] [place] FREE 8 8 [facility]IMARY [facility] OFFICE 42791 AD DUONG OUTPATIEN 8 8 MELLISSA Vazquez [facility] 20 MINUT[facility] OFFICE 78875 [place] OUTPATIEN 8 8 PRIMARY T VISIT CARE 10 [facility], [place] FREE 8 8 PRIMARY STAND[facility] CARE [facility] FREE 8 8 [facility].
--- OUTSIDE RECORDS SUMMARY | 2017-02-21 02:49 | External Medical Summary Rpt ---
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 Unavailable Unavailable SERVICE, [facility] MELINA AYALA BUCK, Unavailable Unavailable DIGNA MCLAUGHLIN Unavailable Unavailable ANJANA DOMÍNGUEZ Unavailable Unavailable CONCEPCIÓN GONZALEZ, Unavailable Unavailable CONCEPCIÓN [facility], Unavailable Unavailable [facility] Unavailable Unavailable PULMONARY M, [facility] YAJAIRA TER, YAJAIRA TER Unavailable Unavailable ORTEGA HESHAM, ORTEGA Unavailable Unavailable HESHAM [facility], Unavailable Unavailable [facility] TERE, TERE Unavailable Unavailable TERE MARIA ISABEL, Unavailable Unavailable TERE MARIA ISABEL ANNE CARRANZA, Unavailable Unavailable ANNE CARRANZA MD Unavailable [facility] MD [facility] ASTRID GOODWIN Unavailable Unavailable ASTRID GOODWIN Unavailable [...] Unavailable Unavailable [facility]SP[facility]ATION [facility], [facility] Unavailable Unavailable CARDIOLOGY, [facility] Unavailable Unavailable HOSPITA, [facility] Unavailable Unavailable HOSPITAL, [facility] Unavailable Unavailable HOSPITA, [facility] GREGONIS VERITO, Unavailable Unavailable GREGONIS VERITO ANKITA RHO, ANKITA Unavailable Unavailable RHO ANKITA, NATTY G, Unavailable Unavailable ANKITA, NATTY G REMINGTONSANDRO GRAY E, Unavailable Unavailable REMINGTON, SANDRO E HALLAK PAT, HALLAK Unavailable Unavailable KEYUR BETTENCOURT, Unavailable Unavailable KEYUR NICK DAVID P, Unavailable Unavailable CONCEPCIÓN [facility] Unavailable Unavailable INC, [facility] Unavailable Unavailable HOSPITAL , [facility] MARIE PICHARDO, Unavailable Unavailable MARIE PICHARDO, Unavailable Unavailable Tod PERES KAPALI, Unavailable Unavailable N A LEELA III JASON, Unavailable Unavailable LEELA III JASON [facility] Unavailable Unavailable IMAGING ASS, [facility] DOMINGO DO, Unavailable Unavailable [...] CARLI B, Unavailable Unavailable CAIO, CARLI B [facility] Unavailable Unavailable ASSOCIAT, [facility] Unavailable Unavailable SURGERY, [facility] Unavailable Unavailable MEDICAL, [facility] Unavailable Unavailable ASSOCIATES, [facility] Unavailable Unavailable [facility] Unavailable [...] MARICRUZ, Unavailable Unavailable MARICRUZ DEL RIO [facility] Unavailable Unavailable SU[facility]PL[facility], [facility] Unavailable Unavailable SUPPLY, [facility], Unavailable Unavailable LLC, HEALTHCARE SUPPLY, [facility], Unavailable Unavailable LLC, HEALTHCARE SUPPLY, [facility], [facility] Unavailable Unavailable INC PATRICA HARO, Unavailable Unavailable PATRICA HARO [facility] [id number], Unavailable Unavailable [facility] [id number] [facility] Unavailable Unavailable #571, [facility] Unavailable Unavailable #591, [facility] # Unavailable Unavailable [id number], [facility] # [id number] TERESO III DEYANIRA, Unavailable Unavailable TERESO III [...] TRANSPORTAT ION SER E119 TYPE 2 11-13-2016 [facility] MEDICAL WITHOUT SUPPLY COMPLICATIO NS I10 ESSENTIAL 10-26-2016 [facility] PRIMARY L HYPERTENSIO N M6281 MUSCLE 10-26-2016 [facility] WEAKNESS L GENERALIZED R296 REPEATED 10-26-2016 [facility] FALLS L I110 HYPERTENSIV 10-13-2016 [facility] E HEART COMMUNTIY DISEASE HOSPITA WITH HEART FAILURE I4891 UNSPECIFIED 10-13-2016 [facility] ATRIAL COMMUNTIY FIBRILLATIO HOSPITA N I509 HEART 10-13-2016 [facility] FAILURE COMMUNTIY UNSPECIFIED HOSPITA M170 BILATERAL 10-13-2016 [facility] PRIMARY COMMUNTIY OSTEOARTHRI HOSPITA TIS OF KNEE G14282 PAIN IN 10-13-2016 [facility] [place] RIGHT [facility] RADIOLOGY W94384 PAIN IN 10-13-2016 [facility] [place] LEFT KNEE RADIOLOGY M797 FIBROMYALGI 10-13-2016 [facility] A COMMUNTIY HOSPITA 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 10-13-2016 [facility] HISTORY OF COMMUNTIY NICOTINE HOSPITA DEPENDENCE M1611 UNILATERAL 10-10-2016 [facility] OSTEOARTHRI IMAGING ASS TIS RIGHT HIP K37490 PAIN IN 10-10-2016 [facility] RIGHT HIP MEDICAL IMAGING ASS J00337 PAIN IN 10-10-2016 [place] RIGHT LEG MEDICAL IMAGING ASS 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 E1165 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[facility] DIABETES L MELLITUS WITH HYPERGLYCEM IA G4733 OBSTRUCTIVE 07-11-2016 [facility] SLE[facility] HOME APNEA ADULT MEDICAL PEDIATRIC EQUIPME I2510 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 R079 CHEST PAIN 06-28-2016 [facility] UNSPECIFIED CARDIOLOGY R609 EDEMA 06-28-2016 [facility] UNSPECIFIED CARDIOLOGY E6601 MORBID 06-27-2016 EXTREME SEVERE [...] HISTORY OF 01-05-2016 [facility] FALLING L MAT I33422 PAIN IN 12-10-2015 [facility] RIGHT COMMUNTIY SHOULDER HOSPITA Y45129 PAIN IN 12-10-2015 [facility] LEFT LEG COMMUNTIY HOSPITA R600 LOCALIZED 12-10-2015 [facility] [place] [facility] RAD[facility] E662 MORBID 08-09-2015 [facility] SEVERE L MAT OBESITY W/ALVEOLAR HYPOVENTILA TION E669 OBESITY 07-13-2015 [facility] UNSPECIFIED COMMUNTIY HOSPITA G2581 RESTLESS 07-13-2015 [facility] LEGS COMMUNTIY SYNDROME HOSPITA G4710 HYPERSOMNIA 07-13-2015 EAR, NOSE AND THROAT UNSPECIFIED SPECIAL G4761 PERIODIC 07-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 [facility] LIMB COMMUNTIY MOVEMENT HOSPITA DISORDER R0689 OTHER 07-13-2015 [facility] ABNORMALITI COMMUNTIY ES OF HOSPITA BREATHING I259 CHRONIC 06-14-2015 [facility] ISCHEMIC COMMUNTIY HEART HOSPITA DISEASE UNSPECIFIED J9600 ACUTE 06-14-2015 MISSAEL KLEIN RESPIRATORY FAIL UNS HYPOXIA/HYP ERCAPNIA J9601 ACUTE 06-14-2015 [facility] RESPIRATORY COMMUNTIY FAILURE HOSPITA WITH HYPOXIA J9602 ACUTE 06-14-2015 [facility] RESPIRATORY COMMUNTIY FAILURE HOSPITA WITH HYPERCAPNIA N179 ACUTE 06-14-2015 [facility] KIDNEY COMMUNTIY FAILURE HOSPITA UNSPECIFIED R0602 SHORTNESS 06-14-2015 [facility] [place] OF BREATH RADIOLOGY R200 ANESTHESIA 06-14-2015 MISSAEL ERNIE OF SKIN R4781 SLURRED 06-14-2015 [facility] [place] SPEECH RADIOLOGY Z6844 BODY MASS 06-14-2015 [facility] INDEX BMI COMMUNTIY 60.0-69.9 HOSPITA ADULT 496 CHRONIC 01-22-2015 [facility] HOME OBSTRUCTION MEDICAL NEC EQUIPME 42947 OSTEOARTHRO 01-22-2015 [facility] S UNSPEC HOME WHETHER MEDICAL GEN/LOC EQUIPME UNSPEC SITE 78690 HYPERSOMNIA 01-14-2015 [facility] WITH SLEEP HOME APNEA MEDICAL UNSPECIFIED EQUIPME 67349 ATRIAL 12-17-2014 [employer] 96886 DIAB W/O 11-09-2014 [place] COMP TYPE STATES II/UNS NOT MEDICAL STATED SUPPLY UNCNTRL 33324 DIAB W/O 10-08-2014 [facility] COMP TYPE II/UNS TYPE UNCNTRL 07802 OBSTRUCTIVE 07-27-2014 [facility] SLEEP COMMUNTIY APNEA HOSPITA 75658 GENERALIZED 07-06-2014 [facility] DISORDER 64265 RESTLESS 07-06-2014 [facility] LEGS L MAT SYNDROME 4149 UNSPECIFIED 07-06-2014 [facility] ISCHEMIC HEART DISEASE 5852 CHRONIC 07-06-2014 [facility] DISEASE STAGE II (MILD) 44779 GENERALIZED 07-06-2014 [facility] L MAT OSTEOARTHRO SIS UNSPECIFIED SITE 83973 SHORTNESS 02-24-2014 [facility] 51823 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 26255 OTHER 02-24-2014 [facility] [place] NONSPECIFIC [facility]Y ABNORMAL FINDING OF LUNG FIELD 2662 OTHER 02-05-2014 [facility] B-COMPLEX L MAT DEFICIENCIE S V0382 NEED PROPH 02-05-2014 [facility] VACCINATION L MAT AGAINST STREP PNEUMONE V0481 NEED 02-05-2014 [facility] PROPHYLACTI L MAT C VACCINATION &INOCULATIO N FLU V5861 LONG-TERM 02-05-2014 [facility] (CURRENT) L MAT [place] 35802 INSOMNIA 01-01-2014 [facility] UNSPECIFIED L MAT V643 PROCEDURE 12-09-2013 [facility] NOT CARRIED REGIONAL OUT FOR MEDICAL OTHER REASONS 7821 RASH AND 12-02-2013 [facility] OTHER L MAT NONSPECIFIC SKIN ERUPTION 4019 UNSPECIFIED 11-26-2013 [facility] ESSENTIAL REGIONAL HYPERTENSIO MEDICAL N 4293 CARDIOMEGAL 11-26-2013 [facility] Y RADIOLOGY ASSOCIAT 54318 OTHER 11-26-2013 [facility] DISEASES OF RADIOLOGY LUNG NOT ASSOCIAT ELSEWHERE CLASSIFIED V7283 OTHER 11-26-2013 [facility] SPECIFIED RADIOLOGY PRE-OPERATI ASSOCIAT VE EXAMINATION V7284 UNSPECIFIED 11-26-2013 [facility] PRE-OPERATI MEDICAL VE EXAMINATION 63182 MORBID 11-17-2013 [facility] OBESITY CARDIOLOGY 75987 COR 11-17-2013 [facility] ATHEROSLERO CARDIOLOGY UNSPEC TYPE VESSEL PORT LIONS/DIDI T 56321 PRIMARY 10-02-2013 [facility] LOCALIZED L MAT OSTEOARTHRO SIS OT SPEC SITES 70830 UNSPECIFIED 10-02-2013 [facility] RETENTION L MAT OF URINE 13219 HYPOXEMIA 02-27-2013 [facility] MEDICAL EQUIPME 2724 OTHER AND 02-17-2013 [facility] HYPERLIPIDE SHAKIRA 4139 OTHER AND 02-17-2013 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 20500 IDIOPATH 12-26-2012 [facility] SLEEP REL CARLI NONOBST ALVEOLAR HYPOVENT 4770 ALLERGIC 12-26-2012 [facility] RHINITIS CARLI DUE TO POLLEN 4778 ALLERGIC 12-26-2012 [facility] RHINITIS CARLI DUE TO OTHER ALLERGEN 3319 UNSPECIFIED 11-19-2012 [facility] DEGENERATIO IMAGING ASS N 4359 UNSPECIFIED 11-19-2012 [facility] CEREBRAL INC ISCHEMIA 4371 OTH 11-19-2012 [place] 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 4553 EXTERNAL 09-05-2012 [facility] HEMORRHOIDS WITHOUT MENTION COMP 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 08628 DIARRHEA 09-05-2012 [facility] 07494 PRIMARY 07-01-2012 [facility] LOCALIZED GENERAL OSTEOARTHRO SURGERY SIS LOWER LEG 18142 PAIN IN 07-01-2012 [facility] JOINT, GENERAL LOWER LEG SURGERY 07094 GENU VARUM 07-01-2012 [facility] GENERAL SURGERY 4111 INTERMEDIAT 03-06-2012 [facility] SYNDROME 43407 CHEST PAIN 12-01-2011 [facility] [place] UNSPECIFIED RADIOLOGY 4011 ESSENTIAL 11-30-2011 CONCEPCIÓ[facility] Brown HYPERTENSIO ANJANA KAMARA N, BENIGN PLLC 40689 ATRIAL 11-30-2011 CONCEPCIÓN YEUNG MD PLLC 2409 GOITER, 11-01-2011 [facility] UNSPECIFIED COMMUNITY HOSPITA 490 BRONCHITIS 11-01-2011 WEHR[facility] III NOT DEYANIRA SPECIFIED ACUTE OR CHRONIC 74480 OBST 11-01-2011 [facility] W/ACUTE BRONCHITIS 43612 FEVER 11-01-2011 WEHR[facility] III UNSPECIFIED DEYANIRA 69413 OTHER CHEST 10-27-2011 [facility] ANT PAIN 7823 EDEMA 10-07-2011 [facility] HOME MEDICAL EQUIPME 7993 UNSPECIFIED 10-07-2011 [facility] HOME MEDICAL EQUIPME 4280 CONGESTIVE 06-27-2011 [facility] RENAL CARE FAILURE PSC UNSPECIFIED 2859 UNSPECIFIED 05-19-2011 [facility] 7295 PAIN IN 03-31-2011 [facility] TISSUES OF MEDICAL LIMB SUPPLY 03867 OTHER FLUID 01-17-2011 [facility]WORK 5853 CHRONIC 01-17-2011 [facility] DISEASE NETWORK STAGE III (MODERATE) 37014 OBSTRUCTIVE 01-09-2011 [facility] ANT CHRONIC BRONCHITIS WITH EXACERBATIO N 5859 CHRONIC 01-09-2011 [facility] KIDNEY DISEASE UNSPECIFIED 25233 GEN 01-09-2011 [facility] OSTEOARTHRO SIS INVOLVING MULTIPLE SITES 28291 OBESITY, 01-06-2011 [facility] ANT UNSPECIFIED 10184 HTN CKD UNS 12-20-2010 [facility] W/CKD COMMUNITY STAGE I HOSPITA THRU STAGE IV/UNS 47338 UNSPECIFIED 12-20-2010 [facility] DIASTOLIC COMMUNITY HEART HOSPITA FAILURE V8543 BODY MASS 12-20-2010 [facility] INDEX COMMUNITY 50.0-59.9 HOSPITA ADULT 5990 URINARY 12-07-2010 [facility] TRA[facility] [employer] [employer]FE[facility] HOLDING SITE NOT SPECIFIED 33967 NOCTURIA 12-07-2010 [facility] 09099 URGENCY OF 12-07-2010 [facility] URINATION AMB 78085 URINARY 12-07-2010 [facility] HESITANCY AMB 20153 UNSPECIFIED 09-27-2010 [facility] SLEEP CARLI APNEA 67345 ACUTE 07-07-2010 [facility] GASTRITIS NKLIN DAYNE WITHOUT MENTION OF HEMORRHAGE 58761 ATROPHIC 07-07-2010 PATHOLOGY & GASTRITIS CYTOLOGY WITHOUT LAB MENTION OF HEMORRHAGE 60563 OTHER SPEC 07-07-2010 [facility] GASTRITIS COMMUNITY WITHOUT HOSPITA MENTION HEMORRHAGE 5533 DIAPHRAGMAT 07-07-2010 [facility] YANET W/O COMMUNITY MENTION HOSPITA OBSTRUCTION /GANGREN 78613 ABDOMINAL 07-07-2010 [facility] PAIN, NKLIN DAYNE EPIGASTRIC 3970 DISEASES OF 04-29-2010 [facility] VALVE 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[facility] DISORDERS 16505 OTHER 04-29-2010 [facility] CARDIAC DYSRHYTHMIA S 50918 NUCLEAR 02-16-2010 [facility] SCLEROSIS DEYANIRA 49967 REGULAR 02-16-2010 [facility]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 DEYANIRA 22257 UNSPECIFIED 02-16-2010 [place] [place] [address] MEMORY LOSS 01-05-2010 [facility] ANT 7931 NONSPEC 01-05-2010 [facility] FIND RAD RADIOLOGY OTH EXAM BODY STRUCT LUNG FIELD 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 [facility] 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 7804 DIZZINESS 08-13-2009 [facility] AND [place] [facility] GIDDINESS 63890 OTHER 08-13-2009 [facility] ABNORMAL [facility] GLUCOSE 2449 UNSPECIFIED 08-11-2009 [facility] HYPOTHYROID INC ISM 7820 DISTURBANCE 08-04-2009 CONCE[facility]ÓN HAMMER SKIN MD GIANA SENSATION PSC 62342 ATHEROSLERO 07-30-2009 [facility] ART H EXTREM CARDIOLOGY W/INTERMIT ASSOC CLAUDICAT V1582 PERS HX 07-30-2009 [facility] TOBACCO USE [facility] PRESENTING [facility] 7862 COUGH 07-02-2009 [facility] 7291 UNSPECIFIED 06-30-2009 [facility] MYALGIA [facility] AND MYOSITIS 4412 THORACIC 06-22-2009 [facility] ANEURYSM RADIOLOGY WITHOUT MENTION OF RUPTURE 2761 HYPOSMOLALI 06-21-2009 [facility] MUNOZ TY AND/OR HYPONATREMI A 2767 HYPERPOTASS 06-21-2009 [facility] MUNOZ EMIA 08670 UNSPEC 06-21-2009 [facility] [place] CERBRL ART RADIOLOGY OCCLUSION W/O MENTION INFARCT 5849 ACUTE 06-21-2009 [facility] MUNOZ KIDNEY FAILURE UNSPECIFIED 5939 UNSPECIFIED 06-21-2009 [facility] DISORDER [facility] 41369 RHABDOMYOLY 06-21-2009 [facility] SIS [facility] SERVICES [facility] 49040 ALTERED 06-21-2009 [facility] MENTAL [facility] STATUS SERVICES [facility] 04670 NONSPECIFIC 06-21-2009 [place] ABNORMAL EMERGENCY ELECTROCARD SERVICES IOGRAM ASSOC[facility]ATES 25845 HYPERTENSIV 06-16-2009 [facility] E [facility]ART [facility] UNSPEC W/HEART FAIL 4409 GENERALIZED 06-16-2009 [facility] UNSPECIFIED HOSPITAL ATHEROSCLER OSIS V4509 OTHER 06-16-2009 [facility] CARDIAC [facility] DEVICE IN SITU V5789 OTHER 06-16-2009 [facility] SPECIFIED [facility] ION PROCEDURE OTHER 2788 OTHER 06-09-2009 [facility] HYPERALIMEN [facility] V173 FAMILY 06-09-2009 [facility] HISTORY OF [facility] ISCHEMIC [facility] HEART DISEASE 7242 LUMBAGO 02-01-2009 ANGE BOYER 38641 SPINAL STEN 12-30-2008 [facility] AL W/O ASSOCIATES NEUROGENIC CLAUDICATIO N 09237 OTHER&UNSPE 10-20-2008 [facility] [place] CIFIED DISC RADIOLOGY DISORDER OF LUMBAR REGION 4539 EMBOLISM 10-15-2008 [facility] AND H THROMBOSIS CARDIOLOGY OF ASSOC UNSPECIFIED SITE 09298 PAIN IN 10-15-2008 [facility] [place] JOINT RADIOLOGY PELVIC REGION AND THIGH 7224 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-13-2008 [facility] [place] 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 40564 AC ARLEN 10-12-2008 [facility] UNSPEC DEEP PROF SERV VES LOWER EXT V854 BODY MASS 10-12-2008 [facility] INDEX 40 HOSPITAL AND OVER ADULT 2801 IRON DEFIC 10-09-2008 [facility] DIET IRON INTAKE V5869 LONG-TERM 10-09-2008 [facility] (CURRENT) [facility] USE OF HOSPITAL OTHER PROF SERV MEDICATIONS 70676 ASTHMA, 09-17-2008 [facility] UNSPECIFIED [facility] , HOSP UNSPECIFIED STATUS 27563 UNSPECIFIED 09-17-2008 [facility]THROPATHY HOSP SITE UNSPECIFIED 84995 DISPLCMT 07-31-2008 BRIANDA LUMBAR CONCEPCIÓN Ferrera 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 53918 COUGH 07-14-2008 [facility], VARIANT CARLI B ASTHMA 57052 UNSPECIFIED 2008 [facility] OSTEOPOROSI INC S 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 4779 ALLERGIC 05-21-2008 [facility], RHINITIS CARLI B CAUSE UNSPECIFIED 79317 OTHER 02-06-2008 [facility], CHRONIC CARLI B ALLERGIC CONJUNCTIVI TIS 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, OF NASAL CARLI B TURBINATES 4720 CHRONIC 01-21-2008 [facility], RHINITIS CARLI B 4910 SIMPLE 01-21-2008 [facility] 46499 ESOPHAGEAL 01-21-2008 CAIO, REFLUX CARLI B 37820 PAIN IN 12-17-2007 [facility] JOINT, SITE PRIMARY CARE UNSPECIFIED CENTERINC 7245 UNSPECIFIED 12-17-2007 [facility] BACKACHE [facility]ARE [facility] 19134 OTH 09-02-2007 PAWSAT, FIBROMATOSE MELLISSA D S MUSCLE LIGAMENT AND FASCIA OTH 4660 ACUTE 08-19-2007 [facility] MC[facility] BRONCHITIS PRIMARY [facility]ARE [facility]ENTER[facility] 22142 CAVUS 08-05-2007 PAWT, DEFORMITY MELLISSA D OF [...] MEDICAL R EQUIPME EQUIPME LANCETS A4259 [facility] [place] PER BOX 7 [facility] OF 100 MEDICAL MEDICAL SUPPLY SUPPLY SPRING-PO A4258 [facility] WERED 7 [facility] DEVICE MEDICAL MEDICAL FOR SUPPLY SUPPLY LANCET EACH BLD GLU A4253 [facility] TEST/REAG 7 [facility] T [facility] HOME BLD SUPPLY SUPPLY GLU MON-50 NORMAL A4256 [facility] LOW AND 7 [facility] HIGH MEDICAL MEDICAL CALIBRATO SUPPLY SUPPLY R SOLUTION/ CHIPS REPL BRANT A4235 [facility] LITHIUM [address] [place] [address] MED NECES MEDICAL MEDICAL ROMÁN BG SUPPLY [...] COMPRESSO MEDICAL MEDICAL R EQUIPME EQUIPME THERAPEUT 92278 [facility] IC 7 N N PROPHYLAC COMMUNTIY COMMUNTIY TIC/DX HOSPITA HOSPITA INJECTION SUBQ/IM RADIOLOGI 26286 [facility] VAHID SAWYER C 7 RADIOLOGY EXAMINATI ON KNEE 1/2 VIEWS HOS BED E0303 FR[facility] RAMIREZRELL HEVY DUTY 7 HOME HOME W/WT CAP MEDICAL MEDICAL >350 EQUIPME EQUIPME PDS</=TO 600 PDS DUP-SCAN 07545 FARZANA CARRANZA XTR VEINS 7 MEDICAL IMAGING UNILATERA ASS L/LIMITED STUDY RADEX HIP 91958 [facility] CULLEN 7 MEDICAL UNILATERA IMAGING L WITH [...] EQUIPME EQUIPME MO SUPPLY=1 UNIT NORMAL A4256 [facility] AND [address] [place] [address] HIGH MEDICAL MEDICAL CALIBRATO SUPPLY SUPPLY R [...] 1 EQUIPME EQUIPME MO SUPPLY=1 UNIT ECG 49821 [facility] ROUTINE 7 N ECG CARDIOLOG W/LEAST Y [...] EQUIPME MO SUPPLY=1 UNIT NORMAL A4256 [facility] [place] LOW AND 7 STATES STATES HIGH MEDICAL MEDICAL CALIBRATO SUPPLY SUPPLY R SOLUTION/ CHIPS BLD GLU A4253 [facility] TEST/REAG 7 STATES STATES T [facility] MEDICAL HOME BLD SUPPLY SUPPLY GLU MON-50 LANCETS A4259 [facility] [place] PER BOX 7 STATES STATES OF 100 MEDICAL MEDICAL SUPPLY SUPPLY ADMN SET A7003 YOUR YOUR SM VOL 7 PHARMACY PHARMACY NONFILTR [employer] PNEUMAT NEBULIZR DISPBL NEBULIZER E0570 [facility] WITH 7 HOME HOME COMPRESSO MEDICAL MEDICAL R EQUIPME EQUIPME PHRM Q0513 YOUR YOUR DISPENSIN 7 PHARMACY PHARMACY G FEE [employer] INHALATIO N RX; PER 30 DAYS ALBUTEROL J7620 YOUR YOUR TO 2.5 7 PHARMACY PHARMACY MG & [employer] IPRATROPI UM BROM TO 0.5 MG HOS [...] EQUIPME EQUIPME PRESSURE DEVICE BLD GLU A4253 [facility] TEST/REAG [address] [place] [address] T [facility] MEDICAL HOME BLD SUPPLY SUPPLY GLU MON-50 REPL BRANT A4235 [facility] LITHIUM [address] [place] [address] STATES MED NECES MEDICAL MEDICAL ROMÁN BG SUPPLY SUPPLY MON OWN PT EA NORMAL A4256 [facility] LOW AND [address] [place] [address] HIGH MEDICAL MEDICAL CALIBRATO SUPPLY SUPPLY R SOLUTION/ CHIPS SPRING-PO A4258 [facility] WERED [address] [place] [address] DEVICE MEDICAL MEDICAL FOR SUPPLY SUPPLY LANCET EACH LANCETS A4259 [facility] PER BOX 6 [facility] OF [facility] MEDICAL MEDICAL SUPPLY SUPPLY HOS BED E0303 [...] EQUIPME EQUIPME PDS</=TO 600 PDS CONTINUOU E0601 [facility] S 6 HOME HOME POSITIVE MEDICAL [...] MEDICAL AIRWAY EQUIPME EQUIPME PRESSURE DEVICE RADIOLOGI 46312 [facility] [place] SCALF YUE C 6 RADIOLOGY EXAMINATI ON KNEE 3 VIEWS DUP-SCAN 90603 [facility] [place]AL[place] Y[place] XTR VEINS 6 RADIOLOGY UNILATERA L/LIMITED STUDY RADEX 38588 [facility] [place]AL[place] YUE SHOULDER 6 RADIOLOGY [...] UNITED PER BOX 6 STATES STATES OF [facility] MEDICAL MEDICAL SUPPLY SUPPLY O2 CONC 1 [...] RENT; EQUIPME EQUIPME FLWMTR HUMIDFR&M ASK POLYSOM 37326 [facility] 6/>YRS 6 N N SLEEP COMMUNTIY COMMUNTIY W/CPAP HOSPITA HOSPITA 4/> ADDL STEVE ATTND PHYS CERT G0180 BIRDWHIST BIRDWHIST MCR-COVR 6 ELL MAT ELL MAT ROMÁN HLTH SRVC PER CERT PRD PRTBLE E0431 FRAN PETERS GASEOUS 6 HOME HOME O2 SYS MEDICAL MEDICAL RENT; EQUIPME EQUIPME FLWMTR HUMIDFR&M ASK HOSPITAL 64300 BIRDWHIST BIRDWHIST DISCHARGE 6 ELL MAT ELL MAT DAY MANAGEMEN T 30 MIN/< O2 CONC 1 E1390 FRAN SINGER 6 HOME HOME 85%/>02 MEDICAL MEDICAL CONC [place] E[place] [address] [facility] [place] ANKITA HEAD/BRAI 6 RADIOLOGY RHO N W/O CONTRAST MATERIAL RADIOLOGI 35754 [facility] [place] ANKITA C 6 RADIOLOGY RHO EXAMINATI ON CHEST SINGLE VIEW FRONTAL CRITICAL 93182 MISSAELMana FELIPEY ERNIE CARE 6 ILL/INJUR ED PATIENT INIT 30-74 MIN ECG 52104 MISSAEL CANAS ERNIE ROUTINE 6 ECG W/LEAST [...] EQUIPME PRSC FLW RATE PRTBLE E0431 FRAN PTEERS GASEOUS 5 HOME HOME O2 SYS MEDICAL [...] EQUIPME FLWMTR HUMIDFR&M ASK PRVS TEST G0249 [facility] MATL & 5 HEALTHCAR HEALTHCAR EQUIP E [...] MEDICAL RENT; EQUIPME EQUIPME FLWMTR HUMIDFR&M ASK [facility] A4258 [place] [facility] WERED 5 [facility] STATES DEVICE MEDICAL MEDICAL FOR SUPPLY SUPPLY LANCET EACH REPL BRANT A4233 [facility] ALKALINE 5 [facility] NOT J MEDICAL MEDICAL CELL ROMÁN SUPPLY SUPPLY BG MON OWND PT NORMAL A4256 [facility] LOW AND [address] [place] [address] HIGH MEDICAL MEDICAL CALIBRATO SUPPLY SUPPLY R SOLUTION/ CHIPS O2 CONC 1 E1390 FRAN PETERS DEL PORT 5 HOME HOME 85%/>02 MEDICAL MEDICAL CONC AT EQUIPME EQUIPME PRSC FLW RATE PRTBLE E0431 FRAN PETERS GASEOUS 5 HOME HOME O2 SYS MEDICAL MEDICAL RENT; EQUIPME EQUIPME FLWMTR HUMIDFR&M ASK LANCETS A4259 [facility] PER BOX [address] [place] BLD GLU A4253 [facility] BEYOND TEST/REAG 5 MEDICAL MEDICAL T STRIPS [facility] HOME BLD GLU MON-50 O2 CONC 1 E1390 FRNA PETERS DEL PORT 5 HOME HOME 85%/>02 [...] EQUIPME PRSC FLW RATE NORMAL A4256 [place] LOW AND [address] [place] [address] STATES HIGH MEDICAL MEDICAL CALIBRATO SUPPLY SUPPLY R SOLUTION/ CHIPS LANCETS A4259 UNITED UNITED PER BOX 5 STATES [place] OF [facility] MEDICAL MEDICAL SUPPLY SUPPLY BLD GLU A4253 [facility] TRUMBULL TEST/REAG 5 [facility] STATES T STRIPS MEDICAL MEDICAL HOME BLD SUPPLY SUPPLY GLU MON-50 POLYSOM 50468 EAR, NOSE SHASHY 6/>YRS 7 AND CHANELLE SLEEP 4/> THROAT ADDL SPECIAL STEVE ATTND BLD GLU A4253 [facility]OND TEST/REAG 5 MEDICAL MEDICAL T STRIPS [facility] HOME BLD GLU MON-50 LANCETS A4259 BEYOND [...] RENT; EQUIPME EQUIPME FLWMTR HUMIDFR&M ASK COMPREHEN 42740 [facility] QUEST SIVE 5 DIAGNOSTI DIAGNOST[place] [address] [facility] QUEST THYROXINE 5 DIAGNOSTI DIAGNOSTI TOTAL CS CS HEMOGLOBI 25821 QUEST QUEST N 5 DIAGNOSTI DIAGNOSTI GLYCOSYLA CS CS EUGENIO A1C BLOOD 79644 QUEST QUEST COUNT 5 DIAGNOSTI DIAGNOSTI COMPLETE CS CS AUTO&AUTO DIFRNTL WBC THYROID 23454 QUEST QUEST HORM 5 DIAGNOSTI DIAGNOSTI UPTK/THYR CS CS [place] [address] QUEST QUEST THYROID 5 DIAGNOSTI DIAGNOSTI STIMULATI CS CS NG HORMONE TSH COLLECTIO 97809 QUEST QUEST N VENOUS 5 DIAGNOSTI DIAGNOSTI BLOOD CS CS VENIPUNCT URE PRTBLE E0431 FRAN RAMIREZRELL GASEOUS 5 HOME HOME O2 SYS MEDICAL MEDICAL RENT; [facility] H[facility]&M ASK BLD GLU A4253 UNITED [...] HOME 85%/>02 MEDICAL MEDICAL CONC AT [facility] FL[facility] B[facility] GLU A4253 BEYOND BEYOND TEST/REAG 4 MEDICAL MEDICAL T STRIPS [facility] HOME BLD GLU MON-50 PLETHYSMO 07411 [facility] GRAPHY 4 [place] LUNG PULMONARY VOLUMES M W/WO AIRWAY RESIST SPMTRY 41419 [facility] W/VC 4 N N EXPIRATOR COMMUNITY COMMUNITY Y JIE HOSPITA HOSPITA W/WO MXML VOL VNTJ BRNCDILAT 03454 [facility] RSPSE 4 [place] SPMTRY PULMONARY PRE&POST- M BRNCDILAT ADMN CT THORAX 78658 [facility] [place] SCALF YUE W/O [place] [address] [facility] DIFFUSING 4 [place] CAPACITY PULMONARY M PRTBLE E0431 FRAN RAMIREZRELL GASEOUS 4 HOME HOME O2 SYS MEDICAL MEDICAL RENT; EQUIPME EQUIPME FLWMTR HUMIDFR&M ASK O2 CONC 1 E1390 FRANCURT PETERS [place] PORT 4 HOME HOME 85%/>02 MEDICAL MEDICAL CONC AT EQU[facility]ME [facility] FLW [facility]ATE PHRM Q0513 [facility] DISPENSIN 4 PHARMACY PHARMACY G FEE #591 #591 INHALATIO N RX; PER 30 DAYS THERAPEUT 48580 BIRDWHIST BIRDWHIST IC 4 ELL MAT ELL MAT PROPHYLAC TIC/DX INJECTION SUBQ/IM INJECTION J3420 BIRDWHIST BIRDWHIST VIT B-12 4 ELL MAT ELL MAT CYANOCOBA [place] TO 1000 MCG ALBUTEROL J7613 [facility] INHAL 4 PHARMACY PHARMACY NON-CP #591 #591 PROD THRU DME U DOSE 1 MG PO A4258 BEYOND BEYOND WERED 4 MEDICAL SILK [employer] [place] FOR LANCET EACH NORMAL A4256 [...] RENT; EQUIPME EQUIPME FLWMTR HUMIDFR&M ASK THERAPEUT 26720 BIRDWHIST BIRDWHIST IC 4 ELL MAT ELL [...] 85%/>02 MEDICAL MEDICAL CONC AT EQUIPME EQUIPME [facility] FLW RATE ANTIBODY 31513 MEADOWVIE MEADOWVIE SCREEN 4 W W RBC EACH REGIONAL REGIONAL SERUM MEDICAL MEDICAL TECHNIQUE INJECTION J3420 BIRDWHIST BIRDWHIST VIT B-12 4 ELL MAT ELL MAT CYAN[place]OBA [place] TO 1000 MCG THERAPEUT 05675 BIRDWHIST BIRDWHIST IC 4 ELL MAT ELL MAT PROPHYLAC TIC/DX INJECTION SUBQ/IM RADIOLOGI 74540 [facility] INSTIT[facility] C EXAM 4 HESHAM CHEST 2 RADIOLOGY VIEWS ASSOCIAT FRONTAL&L ATERAL ANTIBODY 99904 MEADOWVIE MEADOWVIE SCREEN 4 W W RBC EACH REGIONAL REGIONAL SERUM MEDICAL MEDICAL TECHNIQUE ECG 24920 [facility] ROUTINE 4 N N ECG CARDIOLOG CARDIOLOG [...] YOUR YOUR L 4 PHARMACY PHARMACY FUMARATE [employer] INHAL [place] U DOSE FORM 20 MCG BUDESONID J7626 YOUR YOUR E INHAL 4 PHARMACY PHARMACY NON- [employer] UNIT DOSE UP TO 0.5 MG ALBUTEROL J7613 YOUR YOUR INHAL 4 PHARMACY PHARMACY NON- [employer] PROD THRU DME U DOSE 1 MG ADMN SET A7005 YOUR YOUR W/SM VOL 4 PHARMACY PHARMACY NONFILTR [employer] NEBULIZR NON-DISPB L INJECTION J3420 BIRDWHIST BIRDWHIST VIT B-12 4 ELL MAT ELL MAT [place]AN[place] TO 1000 MCG THERAPEUT 95354 BIRDWHIST BIRDWHIST IC 4 ELL MAT ELL [...] YOUR DISPENSIN 3 PHARMACY PHARMACY G FEE [employer] INHALATIO N RX; PER 30 DAYS BUDESONID J7626 YOUR YOUR E INHAL 3 PHARMACY PHARMACY NON-CP [employer] UNIT DOSE UP TO 0.5 MG FORMOTERO J7606 YOUR YOUR L 3 PHARMACY PHARMACY FUMARATE [employer] INHAL [place] U DOSE FORM 20 MCG ALBUTEROL J7613 YOUR YOUR INHAL 3 PHARMACY PHARMACY NON-CP [employer] PROD THRU DME U DOSE 1 MG PROTHROMB 78693 [facility] IN [address] HOSPITAL R & L HRT [address] WINJX HRT ART& L VENTR IMG LIPID [address] [facility] BASIC [address] [facility] METABOLIC [address] [place] [address] PANEL CALCIUM TOTAL RADIOLOGI [address] EXAMINATI ON CHEST SINGLE VIEW FRONTAL PROTHROMB 88887 [facility] IN [address] FIBRIN [address] [facility] DGRADJ [address] [place] [address] PRODUCTS D-DIMER QUANTITAT DINA BLOOD [address] COMPLETE AUTOMATED O2 CONC 1 E1390 FRAN PETERS [place] 3 HOME HOME 85%/>02 MEDICAL MEDICAL CONC AT EQUIPME EQUIPME PRSC FLW RATE ECHO 63009 [facility] OLIVARES TTHRC R-T 3 KIR KIR 2D W/WOM-MOD E COMPL SPEC&COLR D ECG 56338 [facility] OLIVARES ROUTINE 3 KIR KIR ECG [...] YOUR DISPENSIN 3 PHARMACY PHARMACY G FEE [employer] INHALATIO N RX; PER 30 DAYS DEMO&/NOVA 17654 CAIO KEARNEY L OF PT 3 CARLI BOYCE UTILIZ AERSL GEN/NEB/I NHLR/IP PRESSURIZ 03762 CAIO KEARNEY ED/NONPRE 3 CARLI BOYCE SSURIZED INHALATIO N TREATMENT BUDESONID J7626 YOUR YOUR E INHAL 3 PHARMACY PHARMACY NON- [facility] UNIT DOSE UP TO 0.5 MG FORMOTERO J7606 YOUR YOUR L 3 PHARMACY PHARMACY FUMARATE [employer] INHAL [place] U DOSE FORM 20 MCG BRNCDILAT 80118 CAIO KEARNEY RSPSE 3 CARLI BOYCE SPMTRY PRE&POST- BRNCDILAT ADMN ADMN SET A7005 YOUR YOUR W/SM VOL 3 PHARMACY PHARMACY NONFILTR [employer] NEBULIZR NON-DISPB L ALBUTEROL J7613 YOUR YOUR INHAL 3 PHARMACY PHARMACY NON-CP [employer] PROD THRU DME U DOSE 1 MG PRTBLE E0431 FRAN FRAN GASEOUS 3 HOME HOME O2 SYS MEDICAL MEDICAL RENT; EQUIPME EQUIPME FLWMTR HUMIDFR&M ASK CREATININ 81599 JACQUES HANNA E BLOOD 3 [facility] INC INC MRI BRAIN 67581 FARZANA CARRANZA BRAIN 3 MEDICAL MARIA ISABEL STEM W/O IMAGING CONTRAST ASS MATERIAL COLLECTIO 12319 JACQUES HANNA N VENOUS 3 [facility] BLOOD [place] [address] JACQUES HANNA UREA 3 [facility] NITROGEN INC INC QUANTITAT DINA O2 CONC 1 E1390 FRAN [place] 3 HOME HOME 85%/>02 MEDICAL MEDICAL CONC AT EQUIPME EQUIPME PRSC FLW RATE PRTBLE E0431 FRAN RAMIREZRELL GASEOUS 3 HOME HOME O2 SYS MEDICAL MEDICAL RENT; EQUIPME EQUIPME FLWMTR HUMIDFR&M ASK ECG 62458 MARSHALL OLIVARES ROUTINE 3 KIR KIR ECG W/LEAST 12 LDS TRCG ONLY W/O I&R ECHO 79534 MARSHALL OLIVARES TTHRC R-T 3 KIR KIR 2D W/WOM-MOD E COMPL SPEC&COLR D PRTBLE E0431 FRAN PETERS GASEOUS 3 HOME HOME O2 SYS MEDICAL MEDICAL RENT; EQUIPME EQUIPME FLWMTR HUMIDFR&M ASK COLONOSCO 64377 ASTRID WILTON ASTRID WILTON PY 3 W/BIOPSY SINGLE/[place] [address] SURG 3 MACEY & [...] MEDICAL MEDICAL SUPPLY SUPPLY NORMAL A4256 [place] LOW AND 3 STATES STATES HIGH MEDICAL MEDICAL CALIBRATO SUPPLY SUPPLY R SOLUTION/ CHIPS RADIOLOGI 12439 CHELI Mcclain 3 W GENERAL III DAYNE EXAMINATI SURGERY ON KNEE 1/2 VIEWS RADIOLOGI 91805 KAYLEESachiCHRISTIANE JADE Mcclain EXAM 3 W GENERAL [...] MEDICAL SUPPLY SUPPLY REPL BRANT A4233 [place] ALKALINE 2 STATES STATES NOT J MEDICAL MEDICAL CELL ROMÁN SUPPLY SUPPLY BG MON OWND PT NORMAL A4256 [place] LOW AND 2 STATES STATES HIGH MEDICAL MEDICAL CALIBRATO SUPPLY SUPPLY R SOLUTION/ CHIPS BLD GLU A4253 [place] TEST/REAG 2 STATES STATES T STRIPS MEDICAL MEDICAL HOME BLD SUPPLY SUPPLY GLU MON-50 WEATOGUE-PO A4258 UNITED UNITED WERED 2 STATES STATES DEVICE MEDICAL MEDICAL FOR SUPPLY SUPPLY LANCET EACH PRTBLE E0431 FRAN PETERS GASEOUS 2 HOME HOME O2 SYS MEDICAL MEDICAL RENT; EQUIPME EQUIPME FLWMTR HUMIDFR&M ASK CV STRS [address] XERS&/OR RX CONT ECG TRCG ONLY INJECTION J2785 [address] REGADENOS ON 0.1 MG MYOCARDIA [address] MULTIPLE STUDIES PRTBLE E0431 FRAN FRAN GASEOUS 2 HOME HOME O2 SYS MEDICAL MEDICAL RENT; EQUIPME EQUIPME FLWMTR HUMIDFR&M ASK ECG 21710 PAMPLICO SARAFF ROUTINE 2 INTERNAL KIR ECG MEDICINE W/LEAST 12 LDS TRCG ONLY W/O I&R PRTBLE E0431 FRAN RFAN GASEOUS 2 HOME HOME O2 SYS MEDICAL [...] SUPPLY R SOLUTION/ CHIPS LANCETS A4259 [place] PER BOX 2 STATES STATES OF [facility] MEDICAL MEDICAL SUPPLY SUPPLY HOSPITAL [address] [place] DISCHARGE 2 ANJANA GARNER MD [facility] MANAGEMEN T 30 MIN/< RADIOLOGI 75353 [facility] [place] LEELA C 2 RADIOLOGY III JASON EXAMINATI ON CHEST SINGLE VIEW FRONTAL ECHO 00682 [place] TRANSESOP 2 ANJANA GRANT HAG R-T [facility] 2D W/PRB IMG ACQUISJ I&R PRESCRIPT G8553 [place] IONS GEN 2 ANJANA GRANT TRANSMITT [facility] ED QUALIFIED ERX SYS ECG 13235 [place] ROUTINE 2 ANJANA WILSON MD [facility] W/LEAST 12 LDS I&R ONLY ECHO 98782 [place] TTHRC R-T 2 ANJANA Duong MD [facility] W/WOM-MOD E COMPL SPEC&COLR D ECG 67237 PAMPLICO SARAFF ROUTINE 2 INTERNAL KIR ECG MEDICINE W/LEAST 12 LDS TRCG ONLY W/O I&R CATH PLMT 23733 [place] L HRT & 2 ANJANA PADILLA MD [facility] W/NJX & ANGIO IMG S&I INITIAL 19601 [place] Brown [facility] 2 ANJANA GRANT CARE/DAY [facility] 50 MINUTES MEDICATIO 99311 [place] ANY N ADMIN & 2 ANJANA GRANT MD [facility] HEMODYNAM IC MEASURMEN T PRTBLE E0431 FRAN PETERS GASEOUS 2 HOME HOME O2 SYS MEDICAL MEDICAL RENT; EQUIPME EQUIPME FLWMTR HUMIDFR&M ASK CREATINE 59307 JACQUES HANNA KINASE 2 [facility] [place] [address] JACQUES HANNA TROPONIN 2 [facility] [place] [address] JACQUES HANNA INFUSION 2 [facility] THERAPY/P INC INC ROPHYLAXI S /DX 1ST TO 1 HR CREATINE 10040 JACQUES HANNA KINASE MB 2 [facility] FRACTION INC INC ONLY CREATINE 00785 JACQUES HANNA KINASE MB 2 [facility] FRACTION INC INC ONLY NATRIURET 44335 JACQUES HANNA IC 2 [facility] PEPTIDE INC INC BLOOD 58683 JACQUES HANNA COUNT 2 [facility] COMPLETE INC INC AUTO&[place] [address] JACQUES HANAN TROPONIN 2 [facility] QUANTITAT INC INC DINA CULTURE 47023 JACQUES HANNA BACTERIAL 2 [facility] BLOOD INC INC AEROBIC W/ID ISOLATES PRESSURIZ 81028 JACQUES HANNA ED/NONPRE 2 [facility] SSURIZED INC INC INHALATIO N TREATMENT CREATINE 06104 JACQUES HANNA KINASE 2 [facility] TOTAL INC INC ECG 48019 JACQUES BAILEY JR ROUTINE 2 [facility] W/LEAST P 12 LDS I&R ONLY ECG 74283 JACQUES HANNA ROUTINE 2 [facility] ECG INC INC W/LEAST 12 LDS TRCG ONLY W/O I&R US SOFT 14401 [facility] 2 N N HEAD & COMMUNITY COMMUNITY NECK REAL HOSPITA HOSPITA TIME IMGE DOCM URNLS DIP 91112 JACQUES HANNA 2 [facility] STICK/TAB INC INC LET REAGENT AUTO MICROSCOP Y RADIOLOGI 88303 [facility] T[facility] C 2 MEDICAL MARIA ISABEL EXAMINATI IMAGING ON CHEST ASS SINGLE VIEW FRONTAL COMPREHEN 08153 JACQUES HANNA SIVE 2 [facility] METABOLIC INC INC PANEL PRTBLE E0431 FRAN FRAN GASEOUS 2 HOME HOME O2 SYS MEDICAL MEDICAL RENT; EQUIPME EQUIPME FLWMTR HUMIDFR&M ASK ECG 52201 MERLIN BOYER ROUTINE 2 ANT ANT ECG [...] BG MON OWND PT LANCETS A4259 [place] PER BOX 2 STATES STATES OF MEDICAL MEDICAL SUPPLY SUPPLY NORMAL A4256 UNITED [place] LOW AND 2 STATES STATES HIGH MEDICAL MEDICAL CALIBRATO SUPPLY SUPPLY R SOLUTION/ CHIPS SPRING-PO A4258 [place] WERED 2 STATES STATES DEVICE MEDICAL MEDICAL FOR SUPPLY SUPPLY LANCET EACH BLD GLU A4253 [place] TEST/REAG 2 LDS HOSPITAL STATES T STRIPS MEDICAL MEDICAL HOME [...] 1 EQUIPME EQUIPME MO SUPPLY=1 UNIT COMPREHEN 18989 QUEST QUEST SIVE 2 DIAGNOSTI DIAGNOSTI METABOLIC CS CS PANEL LIPID 89855 QUEST QUEST PANEL 2 DIAGNOSTI DIAGNOSTI CS CS BLOOD 13889 QUEST QUEST COUNT 2 DIAGNOSTI DIAGNOSTI COMPLETE CS CS AUTO&AUTO DIFRNTL WBC HEMOGLOBI 67029 QUEST QUEST N 2 DIAGNOSTI DIAGNOSTI GLYCOSY[place] [address] QUEST QUEST THYROID 2 DIAGNOSTI DIAGNOSTI STIMULATI CS CS NG HORMONE TSH COLLECTIO 39845 QUEST QUEST N VENOUS 2 DIAGNOSTI DIAGNOSTI BLOOD CS CS VENIPUNCT URE HOS BED E0303 FRAN FRAN HEVY DUTY 2 HOME HOME W/WT CAP MEDICAL MEDICAL >350 EQUIPME EQUIPME PDS</=TO 600 PDS PRTBLE E0431 FRAN FRAN GASEOUS 2 HOME HOME O2 SYS MEDICAL MEDICAL RENT; EQUIPME EQUIPME FLWMTR HUMIDFR&M ASK BASIC 48000 [facility] METABOLIC 2 RENAL PAT PANEL CARE PSC CALCIUM IONIZED URNLS DIP 58105 [facility] 2 RENAL PAT STICK/TAB CARE PSC LET RGNT AUTO W/O MICROSCOP Y COLLECTIO 31364 [facility] RENAL PAT BLOOD CARE PSC VENIPUNCT URE CREATININ 79676 [facility] OTHER 2 RENAL PAT SOURCE CARE PSC HOS BED E0303 FRAN FRAN HEVY DUTY 2 HOME HOME W/WT CAP MEDICAL MEDICAL >350 EQUIPME EQUIPME PDS</=TO 600 PDS PRTBLE E0431 FRAN FRAN GASEOUS 2 HOME HOME O2 SYS MEDICAL MEDICAL RENT; EQUIPME EQUIPME FLWMTR HUMIDFR&M ASK COMPREHEN 51618 QUEST QUEST SIVE 2 DIAGNOSTI DIAGNOSTI METABOLIC CS CS PANEL HEMOGLOBI 33530 QUEST QUEST N 2 DIAGNOSTI DIAGNOSTI GLYCOSYLA CS CS EUGENIO A1C COLLECTIO 84198 QUEST QUEST N VENOUS 2 DIAGNOSTI DIAGNOSTI [...] RENT; EQUIPME EQUIPME FLWMTR HUMIDFR&M ASK 25 00742 [facility] S[facility] HYDROXY 1 LABORATOR LABORATOR INCLUDES Y NETWORK Y NETWORK FRACTIONS IF PERFORMED BASIC 77701 [facility] METABOLIC 1 LABORATOR LABORATOR PANEL Y NET[place] [address] S[facility]UM SPECTRUM PARATHORM 1 LABORATOR [place]OR[place] [address] SPECTRUM SPECTRUM PHOSPHORU 1 LABORATOR LABORATOR S [place] [address] SPECTRUM SPECTRUM URINE 1 LABORATOR LABORATOR [place] [address] SPECTRUM SPECTRUM UREA 1 LABORATOR LABORATOR NITROGEN Y NETWORK Y NETWORK URINE CREATININ 12533 S[facility]UM SPECTRUM E OTHER 1 LABORATOR LABORATOR SOURCE Y NETWORK Y NETWORK CALCIUM 92062 SPECT[facility]UM SPECTRUM TOTAL 1 LABORATOR LABORATOR Y NETWORK Y NETWORK O2 CONC 1 E1390 [facility] [place] [place] 1 HOME HOME 85%/>02 MEDICAL MEDICAL CONC AT EQUIPME EQUIPME PRSC FLW RATE PHYS CERT G0180 [facility] MCR-COVR 1 ANT ANT ROMÁN HLTH SRVC [...] INC COMPRESSO R REPL BRANT A4233 [place] ALKALINE 1 STATES STATES NOT J MEDICAL MEDICAL CELL ROMÁN SUPPLY SUPPLY BG MON OWND PT SBSQ 87517 [facility] 1 RENAL CARE/DAY CARE PSC 35 MINUTES NORMAL A4256 UNITED [place] LOW AND 1 STATES STATES HIGH MEDICAL MEDICAL CALIBRATO SUPPLY SUPPLY R SOLUTION/ CHIPS LANCETS A4259 UNITED UNITED PER BOX 1 STATES STATES OF 100 MEDICAL MEDICAL SUPPLY SUPPLY BLD GLU A4253 UNITED UNITED TEST/REAG 1 STATES STATES T STRIPS MEDICAL MEDICAL HOME BLD SUPPLY SUPPLY GLU MON-50 HOSPITAL 99144 [facility] DISCHARGE 1 ANT ANT DAY MANAGEMEN T 30 MIN/< SPRING-PO A4258 [place] WERED 1 LDS HOSPITAL STATES DEVICE MEDICAL MEDICAL FOR SUPPLY SUPPLY LANCET EACH SBSQ 11178 [facility] 1 ANT ANT CARE/DAY 25 MINUTES SBSQ 49720 [facility] 1 RENAL CARE/DAY CARE PSC 35 MINUTES SBSQ 21157 [facility] 1 RENAL CARE/DAY CARE PSC 35 MINUTES SBSQ 77518 [facility] 1 ANT ANT CARE/DAY 25 MINUTES INITIAL 94392 [facility] 1 ANT ANT CARE/DAY 50 MINUTES INITIAL 37894 [facility] 1 RENAL CARE/DAY CARE PSC 70 MINUTES O2 CONC 1 E1390 FRAN [facility] 1 HOME HOME 85%/>02 MEDICAL MEDICAL CONC AT EQUIPME EQUIPME PRS FLW RATE URNLS DIP 76813 [facility] 1 AMB AMB STICK/TAB LET RGNT NON-AUTO W/O MICRSCP MARIFER 43089 [facility] POST-VOID 1 AMB AMB ING RESIDUAL URINE&/BL ADDER CAP CULTURE 45874 LAB FRANK LAB FRANK BACTERIAL 1 AMERIC [...] INC COMPRESSO R O2 CONC 1 E1390 [facility] 1 HOME HOME 85%/>02 MEDICAL [...] INC COMPRESSO R O2 CONC 1 E1390 [facility] 1 HOME MED HOME MED 85%/>02 EQUIP. L EQUIP. L CONC AT [facility] FLW RATE HOS BED E0303 FRAN PETERS HEVY DUTY 1 HOME HOME W/WT CAP MEDICAL MEDICAL >350 EQUIPME EQUIPME PDS</=TO 600 PDS HEMOGLOBI 51807 [facility] N 1 [facility] GLYCOSYLA EUGENIO A1C INJECTION J1040 CAIO CAIO 1 CARLI CARLI METHYLPRE DNISOLONE ACETATE 80 MG IPRATROPI J7644 CAIO CAIO UM 1 CARLI CARLI BROMIDE INHAL NON-CP U DOSE PER MG LEVALBUTE J7614 CAIO CAIO ROL INHAL 1 CARLI CARLI NON-CP THRU DME U DOSE 0.5 MG INJECTION J2010 CAIO CAIO 1 CARLI CARLI LINCOMYCI N HCL UP TO 300 MG COLLECTIO 43355 [facility] N VENOUS 1 [facility] BLOOD VENIPUNCT URE COMPREHEN 14591 [facility] SIVE 1 [facility] METABOLIC PANEL PRTBLE E0431 FRAN PETERS GASEOUS 1 HOME MED HOME MED O2 SYS EQUIP. L EQUIP. L RENT; FLWMTR HUMIDFR&M ASK THERAPEUT 14428 CAIO CAIO IC 1 CARLI CARLI PROPHYLAC TIC/DX INJECTION SUBQ/IM DEMO&/NOVA 15686 CAIO CAIO L OF PT 1 CARLI CARLI UTILIZ AERSL GEN/NEB/I NHLR/IP BRNCDILAT 82831 CAIO CAIO RSPSE 1 CARLI CARLI SPMTRY [...] BLD SUPPLY SUPPLY GLU MON-50 NEBULIZER E0570 [facility] MED WITH 1 INC INC COMPRESSO R O2 CONC 1 E1390 [facility] [place] 1 HOME MED HOME MED 85%/>02 EQUIP. L EQUIP. L CONC AT [facility] FLW RATE PRTBLE E0431 FRAN [...] 85%/>02 EQUIP. L EQUIP. L CONC AT [facility] FLW RATE ANES 40415 MA VAN UPPER GI 1 ANESTHESI PAT ENDOSCOPY A GROUP PROXIMAL PSC TO DUODENUM EGD 11589 [facility] TRANSORAL [address] [facility] SINGLE/MU HOSPITA HOSPITA LTIPLE UNLISTED 97895 [facility] ANESTHESI [address] [facility] [place] [address] PATHOLOGY PATHOLOGY SURG 1 & & PATHOLOGY CYTOLOGY CYTOLOGY LAB LAB GROSS&DASHA ROSCOPIC EXAM GLUC BLD 70244 [facility] GLUC MNTR [address] [facility] CLEARED HOSPITA HOSPITA FDA SPEC HOME USE SPECIAL 32532 PATHOLOGY PATHOLOGY STAIN 1 & & GROUP 1 CYTOLOGY CYTOLOGY MICROORGA LAB LAB NISMS I&R SPCL STN 33560 PATHOLOGY PATHOLOGY 2 I&R 1 & & EXCPT CYTOLOGY CYTOLOGY MICROORG/ LAB LAB ENZYME/IM CYT PRTBLE E0431 FRANCURT PETERS GASEOUS 1 HOME MED HOME MED O2 SYS EQUIP. L EQUIP. L RENT; FLWMTR HUMIDFR&M ASK COMPREHEN 96408 [facility] SIVE 1 [facility] INC METABOLIC PANEL BLOOD 68427 [facility] COUNT 1 [facility] INC COMPLETE AUTO&AUTO DIFRNTL WBC HEMOGLOBI 76221 [facility] N 1 [facility] INC GLYCOSYLA EUGENIO A1C COLLECTIO 36619 [facility] N VENOUS 1 [place] [facility] [place] [facility] BLOOD VENIPUNCT URE NEBULIZER E0570 [facility] MED WITH 1 INC INC COMPRESSO R LANCETS A4259 [place] PER BOX 1 [facility] MEDICAL MEDICAL SUPPLY SUPPLY NORMAL A4256 [place] LOW AND 1 [facility] HIGH MEDICAL MEDICAL CALIBRATO SUPPLY SUPPLY R SOLUTION/ CHIPS BLD GLU A4253 [facility] TEST/REAG 1 [facility] T STRIPS MEDICAL MEDICAL HOME BLD SUPPLY SUPPLY GLU MON-50 SPRING-PO A4258 [facility] WERED 1 [facility] DEVICE MEDICAL MEDICAL FOR SUPPLY SUPPLY LANCET EACH REPL BRANT A4235 [facility] LITHIUM [address] [place] [address] MED NECES MEDICAL MEDICAL ROMÁN BG SUPPLY [...] 85%/>02 EQUIP. L EQUIP. L CONC AT [facility] FLW RATE PRTBLE E0431 FRAN [...] 85%/>02 EQUIP. L EQUIP. L CONC [facility] [place] [address] YRONINE T3 TOTAL TT3 BASIC 44859 [facility] METABOLIC [address] [place] [address] PANEL CALCIUM IONIZED INJECTION 84643 [facility] CARDIAC [address] [place] [address] CATHJ L VENTR/L ATR ANGIOGRAP H RADIOLOGI 38254 [facility] C EXAM [address] [place] [address] CHEST 2 VIEWS FRONTAL&L ATERAL PLCMT G0269 [facility] OCCL DEV[address] ARLEN/ART POST SURG/INTR VNL PROC ECHO 64320 [facility] [address] [place] [address] 2D W/WOM-MOD E COMPL SPEC&COLR D PRTBLE E0431 FRAN FRAN GASEOUS 0 HOME MED HOME MED O2 SYS EQUIP. L EQUIP. L RENT; FLWMTR HUMIDFR&M ASK ECG 37542 [facility] ROUTINE [address] [place] [address] ECG W/LEAST 12 LDS TRCG ONLY W/O I&R COLLECTIO 16474 [facility] VENOUS [address] [place] [address] [place] [address] [facility] THYROID [address] [place] [address] STIMULATI NG HORMONE TSH INTRDUCR/ C1894 [facility] SHEATH [address] [place] [address] NOT GUID INTRACARD EP NON-LASR HEMOGLOBI [address] GLYCOSYLA EUGENIO A1C NATRIURET 03438 [facility] IC [address] [place] [address] PEPTIDE FIBRIN 10174 [facility] DGRADJ [address] [place] [address] PRODUCTS D-DIMER QUANTITAT DINA BLOOD 33112 [facility] COUNT [address] [place] [address] COMPLETE AUTOMATED CLOSURE C1760 [facility] DEVICE [address] [place] [address] VASCULAR L HRT 93441 [facility] CATHETERI [address] [place] [address] [place] [address] F/SLCTV C ANGRPH I SI&R 15472 [facility] F/NJX PX [address] [place] [address] DURING C-CATHJ VENTR&/AT R ANGRPH I SI&R 20197 [facility] F/NJX PX [address] [place] [address] DURING C-CATHJ PULM&/OR SELECT NEBULIZER E0570 US [...] 85%/>02 EQUIP. L EQUIP. L CONC AT [facility] FLW RATE PRTBLE E0431 FRAN PETERS GASEOUS 0 HOME MED HOME MED O2 SYS EQUIP. L EQUIP. L RENT; FLWMTR HUMIDFR&M ASK COMPREHEN 27472 [facility] SIVE 0 [employer] METABOLIC PANEL IIV3 17545 [facility] BOYER VACCINE 0 ANT ANT SPLIT VIRUS 0.5 ML DOSAGE IM USE ADMINISTR G0008 MERLIN BOYER ATION OF 0 ANT ANT INFLUENZA VIRUS VACCINE HEMOGLOBI 80533 [facility] N 0 [employer] [place] [address] [facility] THYROID 0 [employer] STIMULATI NG HORMONE TSH COLLECTIO 29403 [facility] N VENOUS 0 [employer] [place] [facility] BLOOD VENIPUNCT URE LANCETS [...] COMPRESS/ US GENERATOR O2 [facility] 1 [facility]90 [facility] HOME MED HOME MED 85%/>02 EQUIP. L EQUIP. L CONC AT [facility] FLW RATE NEBULIZER E0570 US MED US MED WITH 0 INC INC COMPRESSO R DETERMINA 10820 RICHARDSO RICHARDSO TION 0 N DEYANIRA N DEYANIRA REFRACTIV E STATE O2 CONC 1 E1390 [facility] HOME MED HOME MED 85%/>02 EQUIP. L EQUIP. L CONC AT [facility] FLW RATE ALBUTEROL J7620 US [...] WITH 0 INC INC COMPRESSO R COMPREHEN 59098 [facility] SIVE 0 [facility] METABOLIC PANEL O2 CONC 1 E1390 FRAN PET[facility] DEL PORT 0 HOME MED HOME MED 85%/>02 EQUIP. L EQUIP. L CONC AT [facility] FLW RATE COLLECTIO 94967 [facility] N VENOUS 0 [facility] BLOOD VENIPUNCT URE ELECTRIC E0215 [facility] PAD 0 [facility] MOIST MEDICAL MEDICAL SUPPLY SUPPLY BLOOD 21949 [facility] COUNT 0 [facility] COMPLETE AUTO&AUTO DIFRNTL WBC COLLECTIO 77242 [facility] N VENOUS 0 [facility] [place] [address] [facility] THYROID 0 [facility] STIMULATI NG HORMONE TSH COMPREHEN 18076 [facility] SIVE 0 [facility] METABOLIC PANEL RADIOLOGI 32808 [facility] [place] ANK[place] C EXAM 0 RADIOLOGY RHO CHEST 2 VIEWS FRONTAL&L ATERAL LANCETS A4259 [facility] PER BOX 0 STATES STATES OF [facility] MEDICAL MEDICAL SUPPLY SUPPLY BLD GLU A4253 [facility] TEST/REAG 0 [facility] STATES T [facility] HOME BLD SUPPLY SUPPLY GLU MON-50 SPRING-PO A4258 [facility] WERED 0 [facility] DEVICE MEDICAL MEDICAL FOR SUPPLY SUPPLY LANCET EACH NORMAL A4256 [facility] [place] LOW AND 0 STATES STATES HIGH MEDICAL [...] INC COMPRESSO R O2 CONC 1 E1390 [facility] PORT 0 HOME MED HOME MED 85%/>02 EQUIP. L EQUIP. L CONC AT [facility] FLW RATE COMPREHEN 95719 [facility] SIVE 0 [facility] METABOLIC PANEL COLLECTIO 31385 [facility] N VENOUS 0 [facility] BLOOD VENIPUNCT URE HEMOGLOBI 47091 [facility] OF [facility] OF N 0 [facility] GLYCOSYLA EUGENIO A1C O2 CONC 1 E1390 [facility] PORT 0 HOME MED HOME MED 85%/>02 EQUIP. EQUIP. CONC AT [facility] FLW RATE O2 CONC 1 E1390 [facility] PORT 0 HOME MED HOME MED 85%/>02 EQUIP. EQUIP. CONC AT [facility] FLW RATE ACCSS E0973 SOURCE SOURCE ADJUSTBL 0 ONE ONE HT DTACH MEDICAL MEDICAL ARMRST [employer] CMPL ASSMBL EA WHEELCHAI E2208 SOURCE SOURCE R 0 ONE ONE ACCESSORY MEDICAL MEDICAL CYLINDER [employer] TANK CARRIER EACH PWR E2361 SOURCE SOURCE ACSS 22NF 0 ONE ONE SEALED MEDICAL EMS INSTRUCTOR ACID INC INC BATTRY EA PWR K0825 SOURCE SOURCE GRP 2 0 ONE ONE [facility]T [employer] CHAIR PT [phone] LBS BLD GLU A4253 [facility] TEST/REAG 0 PHARMACY PHARMACY T STRIPS #591 #591 HOME BLD GLU MON-50 O2 CONC 1 E1390 [facility] PORT 0 HOME MED HOME MED 85%/>02 EQUIP. EQUIP. CONC AT [facility] FLW RATE PROTEIN 34628 [facility] TOTAL 0 [facility] XCPT REFRACTOM ETRY URINE CREATININ 44204 [facility] E OTHER 0 [facility] SOURCE COLLECTIO 84831 [facility] N VENOUS 0 [facility] BLOOD VENIPUNCT URE PROTEIN 24229 [facility] OF XCPT 0 [facility] REFRACTOM ETRY SERUM PLASMA/WH L BLD PROTEIN 45172 [facility] ELECTROPH 0 [facility] ORETIC FRACTJ&QU ANTJ SERUM PROTEIN 90371 [facility] ELECTROP 0 [facility] FXJ&NE[place] [address] [facility] FERRITIN 0 [facility] IRON 64760 [facility] BINDING 0 [facility] CAPACITY HEMOGLOBI 07041 [facility] N 0 [facility] GLYCOSYLA EUGENIO A1C BLOOD 51097 [facility] COUNT 0 [facility] COMPLETE AUTO&AUTO DIFRNTL WBC COLLECTIO 50234 [facility] N VENOUS 0 [facility] [place] [address] [facility] IRON 0 [facility] COMPREHEN 96983 [facility] SIVE 0 [facility] METABOLIC PANEL CYANOCOBA 81077 JACQUES HANNA [place] 0 [facility] VITAMIN INC INC B-12 [place] [address] JACQUES HANNA FREE 0 [facility] [place] [address] JACQUES HANNA THYROID 0 [facility] STIMULATI INC INC NG HORMONE TSH COLLECTIO 03802 JACQUES HANNA N VENOUS 0 [facility] BLOOD INC INC VENIPUNCT URE HEMOGLOBI 10027 JACQUES RODRIGESON N 0 [facility] GLYCOSYLA INC INC EUGENIO A1C PROTEIN 99306 JACQUES HANNA ELECTROPH 0 [facility] ORETIC INC INC FRACTJ&QU ANTJ SERUM O2 CONC 1 E1390 [facility] PORT 0 HOME MED HOME MED 85%/>02 EQUIP. EQUIP. CONC AT [facility] FLW RATE NDL EMG 2 75270 CON[facility] FARIA, XTR W/WO 0 MD CONCE[facility]N FARIA RELATED PSC PARASPINA L AREAS NRV CNDJ 30207 CON[facility] FARIA, AMPLT&LAT 0 MD CONCE[facility] FARIA EA PSC NRV MOTOR W/F-WAVE STD NRV CNDJ 11360 CONCE[facility] FARIA, AMPLITUDE 0 MD CONCEPCI[facility]N FARIA & PSC LATENCY EACH NERVE SENSORY INTRDUCR/ C1894 [facility] SHEATH [address] [place] [address] NOT [place] [address] [facility] UREA [address] [place] [address] NITROGEN QUANTITAT DINA BLOOD [address] HEMATOCRI T COLLECTIO 51287 [facility] N VENOUS [address] [place] [address] BLOOD VENIPUNCT URE GLUCOSE [address] DINA BLOOD XCPT REAGENT STRIP SODIUM [address] PLASMA OR WHOLE BLOOD POTASSIUM [address] PLASMA/WH OLE BLOOD INTRODUCT 80228 [facility] ION [address] [place] [address] CATHETER AORTA CLOSURE C1760 [facility] DEVICE [address] [place] [address] VASCULAR CATHETER [address] AORTOGRAP [address] [facility] HY ABDL [address] [place] [address] BI ILIOFEM LOW EXTREM CATH RS&I ANGIOGRAP 29049 COMMONWEA ANJANA, HY 0 [facility] CONCEPCIÓN Brown EXTREMITY CARDIOLOG Y ASSOC BILATERAL RS&I CREATININ 13185 [facility] E BLOOD [address] [place] [address] CHLORIDE 02035 [facility] BLD [address] [place] [address] PLCMT [id number] [facility] OCCL DEVC [address] [place] [address] ARLEN/ART POST SURG/INTR VNL PROC AORTOGRAP 65184 COMMONWEA ANJANA, HY 0 [facility] CONCEPCIÓN Brown ABDOMINAL CARDIOLOG Y ASSOC SERIALOGR APHY RS&I BLOOD [address] PLATELET AUTOMATED URNLS DIP 09074 RAKESH CAMERON, 0 AMADOR MAADOR STICK/TAB K K LET RGNT NON-AUTO W/O MICRSCP MARIFER 10541 WINDISCH, WINDISCH, POST-VOID 0 AMADOR AMADOR ING K K RESIDUAL URINE&/BL ADDER CAP O2 CONC 1 E1390 [facility] PORT 0 HOME MED HOME MED 85%/>02 EQUIP. EQUIP. CONC AT [facility] FLW RATE CT THORAX 02311 [facility] [place] ANK[place], W/O 0 RADIOLOGY NATTY G CONTRAST MATERIAL CREATINE 73561 [facility] KINASE 0 [facility] TOTAL ANTINUCLE 21675 [facility] AR 0 [facility] ANTIBODIE S CARMINE COMPREHEN 79255 [facility] SIVE 0 [facility] METABOLIC PANEL EXTRACTAB 45110 [facility] LE 0 [facility] NUCLEAR ANTIGEN ANTIBODY ANY METHOD ANTIBODY 88078 [facility] BORDETELL 0 [facility] A BLOOD 57021 [facility] COUNT 0 [facility] COMPLETE AUTO&AUTO DIFRNTL WBC C-REACTIV 35950 [facility] E PROTEIN 0 [facility] COLLECTIO 77056 [facility] N VENOUS 0 [facility] BLOOD VENIPUNCT URE HOME E0607 [facility] BLOOD 0 PHARMACY PHARMACY GLUCOSE #571 #571 MONITOR LANCETS A4259 [facility] PER BOX 0 PHARMACY PHARMACY OF [facility] #571 #571 BLD GLU A4253 [facility] TEST/REAG 0 PHARMACY PHARMACY T STRIPS #571 #571 HOME BLD GLU MON-50 ALBUTEROL J7620 [facility] TO 2.5 0 PHARMACY PHARMACY MG & #571 #571 IPRATROPI UM BROM TO 0.5 MG PHRM Q0513 [facility] DISPENSIN 0 PHARMACY PHARMACY G FEE #571 #571 INHALATIO N RX; PER [address] [facility] [address] [facility] 0 ANT ANT DAY MANAGEMEN T 30 MIN/< SBSQ 29766 [facility] 0 ANT ANT CARE/DAY 25 MINUTES RADIOLOGI 94919 [facility] VAHID DERAS, C EXAM 0 RADIOLOGY RAJESH Casas CHEST 2 VIEWS FRONTAL&L ATERAL ECG 10945 NINA CLINE, ROUTINE 0 EMERGENCY ELI H ECG SERVICES W/LEAST 12 LDS ASSOCIATE I&R ONLY S CRITICAL 60826 NINA CHENEYARI, CARE 0 EMERGENCY ELI H ILL/INJUR SERVICES ED PATIENT ASSOCIATE INIT S 30-74 MIN RADIOLOGI 16156 [facility] VAHID DERAS, C 0 RADIOLOGY RAJESH Casas EXAMINATI [place] [address] [facility] VAHID DERAS, HEAD/BRAI 0 RADIOLOGY RAJESH Casas N W/O CONTRAST MATERIAL INITIAL 38216 [facility] 0 ANT ANT CARE/DAY 70 MINUTES OUTPATIEN 68075 [facility] T CARDIAC [address] [facility] W/[facility] ECG MONITORIN G INJECTION J2785 ZULEIKA YEUNG, 0 LTH CON[facility]PCI[facility]N Brown REGADENOS CARDIOLOG ON 0.1 MG Y ASSOC CV STRS 76375 MARYA ANJANA, TST 0 LTH [facility] Brown XERS&/OR CARDIOLOG RX CONT Y ASSOC ECG W/SI&R TECHNETIU A9502 ZULEIKA YEUNG, M TC-99M 0 LTH [facility] Brown TETROFOSM CARDIOLOG IN DX PER Y ASSOC STUDY DOSE MYOCARDIA 28546 ZULEIKA YEUNG L SPECT 0 LTH [facility] Brown MULTIPLE CARDIOLOG STUDIES Y ASSOC ECG 93611 [facility] ROUTINE [address] [facility] W/[facility] 12 LDS TRCG ONLY W/O I&R NON-INVAS 18249 [facility] 0 N N PHYSIOLOG [facility] EXTREMITY ART 2 LEVEL O2 CONC 1 E1390 FRAN SINGER 0 HOME MED HOME MED 85%/>02 EQUIP. EQUIP. CONC AT [facility] 86151 MERLIN BOYER, DISCHARGE 0 ANGE L ANGE L DAY MANAGEMEN T 30 MIN/< SBSQ 36858 [facility] 0 ANGE CASSIDY L CARE/DAY 25 MINUTES INITIAL 57931 [facility]GE L ANGE L CARE/DAY 70 MINUTES DEMO&/NOVA 43802 [facility] L OF PT 0 N N UTILIZ [facility] GEN/NEB/I NHLR/IP RADIOLOGI 88648 [place] [place] ANKITA, C EXAM 0 RADIOLOGY NATTY G CHEST 2 VIEWS FRONTAL&L ATERAL ECHO 03930 CANDIDO REY, [facility] R-T 0 JOSAFAT MAURICE 2D P P W/WOM-MOD E COMPL SPEC&COLR D O2 CONC 1 E1390 [place] [address] HOME MED HOME MED 85%/>02 EQUIP. EQUIP. CONC AT [facility] FLW RATE O2 CONC 1 E1390 [place] [address] HOME MED HOME MED 85%/>02 EQUIP. EQUIP. CONC AT [facility] FLW RATE O2 CONC 1 E1390 [place] [address] HOME MED HOME MED 85%/>02 EQUIP. EQUIP. CONC AT [facility] FLW RATE O2 CONC 1 E1390 [place] [address] HOME MED HOME MED 85%/>02 EQUIP. EQUIP. CONC AT [facility] FLW RATE ARTHROCEN 61330 MERLIN BOYER TESIS 9 ANGE L ANGE Marquise ASPIR&/IN J MAJOR JT/BURSA W/O US IIV3 34386 MER[facility] BOYER, VACCINE 9 ANGE Marquise ANGE Marquise SPLIT VIRUS 0.5 ML DOSAGE IM USE ADMINISTR G0008 MERLIN BOYER, ATION OF 9 ANGE L ANGE L INFLUENZA VIRUS VACCINE O2 CONC 1 E1390 [place] [address] HOME MED HOME MED 85%/>02 EQUIP. EQUIP. CONC AT [facility] FLW RATE O2 CONC 1 E1390 [place] [address] HOME MED HOME MED 85%/>02 EQUIP. EQUIP. CONC AT [facility] FLW RATE 3D 07-30-200 95951 TERE CARRANZA, RENDERING 9 ANNE ANNE W/INTERP & [place] [address] TERE, ETRE, SPINAL 9 ANNE ANNE CANAL LUMBAR W/O CONTRAST MATERIAL NEBULIZER E0570 [facility] PET[facility] WITH 9 HOME MED HOME MED COMPRESSO EQUIP. EQUIP. R [facility] O2 CONC 1 E1390 [facility] PORT 9 HOME MED HOME MED 85%/>02 EQUIP. EQUIP. CONC AT [facility] FLW RATE HOSPITAL 61518 COMMONA ANJANA, DISCHARGE 9 [facility] DAY CARDIOLOG MANAGEMEN Y ASSOC T 30 MIN/< CT LUMBAR 85586 [place] [place] SCALF, SPINE 9 RADIOLOGY FAROOQ E W/CONTRAS T MATERIAL ECG 58020 MARY ANJANA, ROUTINE 9 [facility] ECG CARDIOLOG W/LEAST Y ASSOC 12 LDS I&R ONLY NEBULIZER E0570 FRAN PETERS WITH 9 HOME MED HOME MED COMPRESSO EQUIP. EQUIP. R [facility] MYELOGRAP 97404 [place] SCALF, Y 9 RADIOLOGY FAROOQ E LUMBOSACR AL RS&I CONTRAST 8721 [facility] MYELOGRAM [address] [facility] [address]35 [facility] 9 [facility] CONCEPCIÓN CARE/DAY CARDIOLOG 15 Y ASSOC MINUTES SBSQ 57829 [facility] ALICE 9 PHYSICIAN RONALD Marshall CARE/DAY S GROUP 25 MINUTES SBSQ 69989 [facility] 9 MD Oskar FARIA SHARON CARE/DAY PSC [address] LOWER [address] [place] [place] AYALA, EXTREMITY 9 RADIOLOGY MELINA L W/O CONTRAST MATERIAL INITIAL 15376 [facility] INPATIENT 9 MD Oskar FARIA SHARON CONSULT PSC NEW/ESTAB PT 110 MIN NON-INVAS 15146 [facility], 9 [facility] PHYSIOLOG CARDIOLOG IC STD Y ASSOC EXTREMITY ART 2 LEVEL SBSQ 30812 MARY ANJANA, HOSPITAL 9 [facility] CARE/DAY CARDIOLOG 15 Y ASSOC MINUTES ECG 08890 ZULEIKA YEUNG, ROUTINE 9 [facility] ECG CARDIOLOG W/LEAST Y ASSOC 12 LDS I&R ONLY INITIAL 86566 [facility], [facility] 9 [facility] CARE/[place]ARDI[place] [address] [place] [address] [place] [place] ANGIOGRAP 9 RADIOLOGY LD, A D HY CHEST W/CONTRAS T/[place] [address] [place] [place] CERVICAL 9 RADIOLOGY LD, A D SPINE W/O CONTRAST MATERIAL FIBRIN 85245 JACQUES HANNA DGRADJ 9 [facility] PRODUCTS INC INC D-DIMER QUAL/SEMI NEEL BLOOD 56321 JACQUSE HANNA COUNT 9 [facility] COMPLETE INC INC AUTO&AUTO DIFRNTL WBC THERAPEUT 74698 JACQUES HANNA IC 9 [facility] INJECTION INC INC IV PUSH EACH NEW DRUG AMB A0427 [facility] SERVICE 9 AMBULANCE AMBULANCE ALS SERVICE SERVICE EMERGENCY TRANSPORT LEVEL 1 CRITICAL 17730 NINA BERWSTER CARE 9 EMERGENCY MERLIN J ILL/INJUR SERVICES ED PATIENT ASSOCIATE INIT S 30-[address] LOWER 92084 JACQUES HANNA EXTREMITY 9 [facility] W/O INC INC CONTRAST MATERIAL GROUND A0425 [facility] MILEAGE 9 AMBULANCE AMBULANCE PER SERVICE SERVICE STATUTE MILE 3D 38984 JACQUES HANNA RENDERING 9 [facility] INC INC W/INTERP& POSTPROC DIFF WORK STATION COMPREHEN 76029 JACQUES HANNA SIVE 9 [facility] METABOLIC INC INC PANEL ECG 21488 NINA BREWSTER ROUTINE 9 EMERGENCY MERLIN J ECG SERVICES W/LEAST 12 LDS ASSOCIATE I&R ONLY S THERAPEUT 51458 JACQUES HANNA IC 9 [facility] PROPHYLAC INC INC TIC/DX INJECTION SUBQ/IM ECG 47521 JACQUES HANNA ROUTINE 9 [facility] ECG INC INC W/LEAST 12 LDS TRCG ONLY W/O I&R DUP-SCAN 26211 JACQUES HANNA XTR VEINS 9 [facility] H[facility] INC INC UNILATERA L/LIMITED STUDY ECG 99244 ZULEIKA YEUNG, ROUTINE 9 [facility] CONCEPCIÓN Brown ECG CARDIOLOG W/LEAST Y ASSOC 12 [facility] 67526 ZULEIKA YEUNG, DISCHARGE 9 [facility] CONCEPCIÓN Brown DAY CARDIOLOG MANAGEMEN Y ASSOC T 30 MIN/< ENDOLUMIN 53050 ZULEIKA YEUNG, [place] 9 [facility] CONCEPCIÓN Brown CORONARY CARDIOLOG IVUS OCT Y ASSOC I&R INITIAL VESSEL TCAT PLMT 39373 ZULEIKA YEUNG, 9 [facility] CONCEPCIÓN Brown INTRACORO CARDIOLOG NARY Y ASSOC STENT PRQ 1 VESSEL INJECTION 22079 ZULEIKA YEUNG, CARDIAC 9 [facility] CONCECPIÓN Brown CATHJ L CARDIOLOG VENTR/L Y ASSOC ATR ANGIOGRAP H INITIAL 20604 PULMONARY TZOUANAKI INPATIENT 9 S, CONSULT ASSOCIATE QUANG MARKHAM/ESTAB S, INC PT 80 MIN ECHO 87849 ZULEIKA YEUNG, TTHRC R-T 9 [facility] CONCEPCIÓN Brown 2D CARDIOLOG W/WOM-MOD Y ASSOC E COMPL SPEC&COLR D SPMTRY 97775 PULMONARY VILLARAN, W/VC 9 PATRICA EXPIRATOR ASSOCIATE Y JIE S, INC W/WO MXML VOL VNTJ O2 CONC 1 E1390 FRAN PETERS [facility] 9 HOME MED HOME MED 85%/>02 EQUIP. EQUIP. CONC AT [facility] FLW RATE L HRT 25108 ZULEIKA YEUNG, CATHETERI 9 [facility] CONCEPCIÓN Brown ZATION CARDIOLOG RETROGRAD Y ASSOC E BRACHIAL PERQ I SI&R 92812 ZULEIKA YEUNG, F/NJX PX 9 [facility] CONCEPCIÓN Brown DURING CARDIOLOG C-CATHJ Y ASSOC PULM&/OR SELECT I SI&R 69858 ZULEIKA YEUNG, F/NJX PX 9 [facility] CONCEPCIÓN Brown DURING CARDIOLOG C-CATHJ Y ASSOC VENTR&/[place] [address] ZULEIKA YEUNG C-CATHJ 9 [facility] CONCEPCIÓN F/SLCTV C CARDIOLOG ANGRPH Y ASSOC LEFT 3722 [facility] HEART [address] [place] [address] CARDIAC CATHETERI ZATION CORONARY 8856 [facility] ARTERIOGR [address] [place] [address] APHY USING TWO CATHETERS INSERTION [address] DRUG-ELUT ING CORONARY ARTERY STENT ANGIOCARD 8853 [facility] IOGRAPHY [address] [place] [address] OF LEFT HEART STRUCTURE S PERQ 0066 [facility] TRANSLUMI [address] [place] [address] NAL CORONARY ANGIOPLAS TY PTCA CREATINE 60788 JACQUES HANNA KINASE MB 9 [facility] [place] [address] JACQUES HANNA TROPONIN 9 [facility] QUANTITAT INC INC DINA BLOOD 24411 JACQUES HANNA COUNT 9 [facility] COMPLETE INC INC AUTO&AUTO DIFRNTL WBC THER 58487 JACQUES HANNA PROPH/DX 9 [facility] NJX IV INC INC PUSH SINGLE/1S T SBST/DRUG CREATINE 71165 JACQUES HANNA KINASE 9 [facility] TOTAL INC INC ECG 88969 OMA MONTERROSO 9 EMERGENCY KEYUR R ECG SERVICES W/LEAST 12 LDS ASSOCIATE I&R ONLY S ECG 52199 JACQUES HANNA ROUTINE 9 [facility] ECG INC INC W/LEAST 12 LDS TRCG ONLY W/O I&R AMBULANCE A0429 [facility] SERVICE 9 AMBULANCE AMBULANCE BLS SERVICE SERVICE EMERGENCY TRANSPORT GROUND A0425 [facility] MILEAGE 9 AMBULANCE AMBULANCE PER SERVICE SERVICE STATUTE MILE INITIAL [address] CARE/DAY CARDIOLOG 50 Y ASSOC MINUTES LIPID 55921 JACQUES HANNA PANEL 9 [facility] INC INC RADIOLOGI 95113 JACQUES HANNA C 9 [facility] EXAMINATI INC INC ON CHEST SINGLE VIEW FRONTAL CRITICAL 42153 NINA NICK, CARE 9 EMERGENCY KEYUR R ILL/INJUR SERVICES ED PATIENT ASSOCIATE INIT S 30-74 MIN BASIC 93137 JACQUES HANNA METABOLIC 9 [facility] PANEL INC INC CALCIUM TOTAL DUP-SCAN 19524 ALEXA BADILLO, XTR VEINS 9 ELIECER G COMPLETE CARDIOLOG Y BILATERAL CONSULTAN STUDY T NEBULIZER E0570 FRAN PETERS WITH 9 HOME MED HOME MED COMPRESSO EQUIP. EQUIP. R [facility] 23209 NEUROSURG NEUROSURG FACETECTO 9 ICAL ICAL MY&FORAMT ASSOCIATE ASSOCIATE KEVIN 1 SGM S S EA CRV THRC/LMBR ANESTHESI 31172 [facility] A LUMBAR 9 [place] III, [place] ANESTHESI M NOS A PSC [facility] 43359 NEUROSURG NEUROSURG FACETECTO 9 ICAL ICAL MY & ASSOCIATE ASSOCIATE DARNELLM S S Y 1 SEGMENT LUMBAR OTHER 0309 [facility]EN[facility]AL CENTRAL EXPLORATI 9 [facility] HOSP RESSION OF SPINAL CANAL ECG 90604 [facility] ROUTINE 9 ORTH, ECG CARDIOLOG MARIE W/LEAST Y 12 LDS CONSULTAN I&R ONLY T ECG 93946 CARDIOLOG Tdo BANDA ROUTINE 9 Y A ECG ASSOCIATE W/LEAST S OF 12 [facility] W/I&R O2 CONC 1 E1390 [facility] [place] 9 HOME MED HOME MED 85%/>02 EQUIP. EQUIP. CONC AT [facility] FLW RATE NEBULIZER E0570 FRANCURT PETERS WITH 9 HOME MED HOME MED COMPRESSO EQUIP. EQUIP. R [facility] O2 CONC 1 E1390 [facility] [place] 9 HOME MED HOME MED 85%/>02 EQUIP. EQUIP. CONC AT [facility] PRS FLW RATE MRI 64983 TERE CARRANZA, SPINAL 9 ANNE ANNE CANAL LUMBAR W/O CONTRAST MATERIAL 3D 16663 TERE CARRANZA, RENDERING 9 ANNE ANNE W/INTERP & POSTPROCE SS SUPERVISI ON NEBULIZER E0570 FRAN FRAN WITH 9 HOME MED HOME MED COMPRESSO EQUIP. [facility]. R [facility] 87945 CAIO, CAIO, W/VC 9 CARLI B CARLI B EXPIRATOR Y JIE W/[place] [address] CAIO, CAIO, ALLG 9 CARLI B CARLI B IMMNTX X W/PRV ALLGIC XTRCS NJXS O2 CONC 1 E1390 [facility] [place] 9 HOME MED HOME MED 85%/>02 EQUIP. EQUIP. CONC AT [facility] FLW RATE 25 03581 JACQUES HANNA HYDROXY 9 [facility] HOSP INCLUDES INC INC FRACTIONS IF PERFORMED COLLECTIO 07267 JACQUES HANNA N VENOUS 9 [facility] HOSP [place]LOOD [place] [address] BRIANDA LAMAR, ANES&/STR 9 CONCEPCI[facility]N Casas JT NRV LMBR/SAC 1 LVL FLUOR 90453 BRIANDA LAMAR, NEEDLE/CA 9 CONCEPCI[facility]N Ferrera TH SPINE/PAR ASPINAL DX/THER ADDON O2 CONC 1 E1390 [facility] [place] 9 HOME MED HOME MED 85%/>02 EQUIP. EQUIP. CONC AT [facility] FLW RATE NEBULIZER E0570 FRAN PETERS WITH 9 HOME MED HOME MED COMPRESSO EQUIP. EQUIP. R [facility] 67944 CAIO, CAIO, W/VC 9 CARLI B CARLI B EXPIRATOR Y JIE W/WO MXML VOL VNTJ O2 CONC 1 E1390 [facility] [place] 8 HOME MED HOME MED 85%/>02 EQUIP. EQUIP. CONC AT [facility] FLW RATE NEBULIZER E0570 FRAN PETERS WITH 8 HOME MED HOME MED COMPRESSO EQUIP. EQUIP. R [facility] O2 CONC 1 E1390 [facility] [place] 8 HOME MED HOME MED 85%/>02 EQUIP. EQUIP. CONC AT [facility] [place] [address] CAIO, CAIO, ALLG 8 CARLI B CARLI B IMMNTX X W/PRV ALLGIC XTRCS NJXS NEBULIZER E0570 FRAN PETERS WITH 8 HOME MED HOME MED COMPRESSO EQUIP. EQUIP. R [facility] O2 CONC 1 E1390 [facility] [facility] [place] 8 HOME MED HOME MED 85%/>02 EQUIP. EQUIP. CONC AT [facility] FLW RATE PROF SVCS 50500 CAIO, CAIO, ALLG 8 CARLI B CARLI B IMMNTX X W/PRV ALLGIC XTRCS NJXS PROF SVCS 20595 CAIO, CAIO, ALLG 8 CARLI B CARLI B IMMNTX X W/PRV ALLGIC XTRCS NJXS NEBULIZER E0570 FRAN PETERS WITH 8 HOME MED HOME MED COMPRESSO EQUIP. EQUIP. R [facility] PREPJ& 58805 CAIO, CAIO, ALLERGEN 8 CARLI B CARLI B IMMUNOTHE RAPY 1/BORDER MACHINE OPERATOR ANTIGEN O2 CONC 1 E1390 FRANCURT PETERS [facility] PORT 8 HOME MED HOME MED 85%/>02 EQUIP. EQUIP. CONC AT [facility] FLW RATE SPMTRY 40959 CAIO, CAIO, W/VC 8 CARLI B CARLI B EXPIRATOR Y JIE W/WO MXML VOL VNTJ PERCUTANE 72736 CAIO, CAIO, OUS TESTS 8 CARLI B CARLI B W/ALLERGE VIKA EXTRACTS INTRACUTA 67585 CAIO, CAIO, NEOUS 8 CARLI B CARLI B TESTS W/ALLERGE VIKA EXTRACTS O2 CONC 1 E1390 FRANCURT RAMIREZRELL DEL PORT 8 HOME MED HOME MED 85%/>02 EQUIP. EQUIP. CONC AT [facility] FLW RATE RADIOLOGI 88323 Johny ÁLVAREZ EXAM 8 MEDICAL ANNE CHEST 2 IMAGING VIEWS ASSOCIATE FRONTAL&L S ATERAL ALPHA-1-A 54979 JACQUES HANNA NTITRYPSI 8 [facility] N TOTAL INC INC ALPHA-1-A 39504 JACQUES HANNA NTITRYPSI 8 [facility] N INC INC PHENOTYPE BLOOD 36947 JACQUES HANNA COUNT 8 [facility] COMPLETE INC INC AUTO&[place] [address] JACQUES HANNA GAMMAGLOB 8 [facility] H[facility] ULIN IGE INC INC COLLECTIO 05659 JACQUES HANNA N VENOUS 8 [facility] BLOOD INC INC VENIPUNCT URE IPRATROPI J7644 CAIO KEARNEY, UM 8 CARLI B CRALI B BROMIDE INHAL NON-CP U DOSE PER MG ADMN SET A7005 YOUR YOUR W/SM VOL 8 PHARMACY PHARMACY NONFILTR [facility] NEBULIZR NON-DISPB L BRNCDILAT 00892 CAIO KEARNEY, RSPSE 8 CARLI B CARLI B SPMTRY PRE&POST- BRNCDILAT ADMN PERCUTANE 87823 CAIO KEARNEY, OUS TESTS 8 CARLI B CARLI B W/ALLERGE VIKA EXTRACTS ALBUTEROL J7620 YOUR YOUR TO 2.5 8 PHARMACY PHARMACY [facility] IPRATROPI UM BROM TO 0.5 MG BUDESONID J7626 CAIO KEARNEY, E INHAL 8 CARLI B CARLI B NON-CP UNIT DOSE UP TO 0.5 MG NEBULIZER E0570 FRAN PETERS WITH 8 HOME MED HOME MED COMPRESSO EQUIP. EQUIP. R [facility] ALBUTEROL J7611 CAIO KEARNEY, INHAL 8 CARLI B CARLI B NON-CP THRU DME CONC FORM 1 MG AREO MASK A7015 FRAN PETERS USED W/ 8 HOME MED HOME MED DME NEB EQUIP. EQUIP. LLC [facility] PHARM [id number] YOUR YOUR DISPEN 8 PHARMACY PHARMACY FEE INHAL [facility] RX; INITIAL 30-DAY SUPPLY ALBUTEROL J7613 YOUR YOUR INHAL 8 PHARMACY PHARMACY NON-CP [facility] PROD THRU DME U DOSE 1 MG O2 CONC 1 E1390 FRAN PETERS [place] 8 HOME MED HOME MED 85%/>02 EQUIP. EQUIP. CONC AT [facility] PRSC FLW RATE O2 CONC 1 E1390 FRAN PETERS DEL PORT 8 HOME MED HOME MED 85%/>02 EQUIP. EQUIP. CONC AT [facility] FLW RATE O2 CONC 1 E1390 FRAN FRAN DEL PORT 8 HOME MED HOME MED 85%/>02 EQUIP. EQUIP. CONC AT [facility] FLW RATE O2 CONC 1 E1390 FRAN FRAN DEL PORT 8 HOME MED HOME MED 85%/>02 EQUIP. [facility]. [facility] COLLECTIO 03045 [place], N VENOUS 8 PRIMARY [facility] VENIPUNCT CENTERINC URE INJECTION 12029 PAWSAT, PAWSAT, 1 TENDON 8 MELLISSA D MELLISSA D SHEATH/LI GAMENT APONEUROS IS INJECTION J1030 PAWSAT, PAWSAT, 8 MELLISSA D MELLISSA D METHYLPRE DNISOLONE ACETATE 40 MG O2 CONC 1 E1390 [facility] DEL PORT 8 HOME MED HOME MED 85%/>02 EQUIP. EQUIP. CONC AT [facility] FLW RATE STRAPPING 74828 PAWSAT, PAWSAT, ANKLE 8 MELLISSA D MELLISSA D &/FOOT INJECTION J1030 PAWSAT, PAWSAT, 8 MELLISSA D MELLISSA D METHYLPRE DNISOLONE ACETATE 40 MG INJECTION 14068 PAWSAT, PAWSAT, 1 TENDON 8 MELLISSA D MELLISSA D SHEATH/LI GAMENT APONEUROS IS O2 CONC 1 E1390 FRAN FRAN [place] 8 HOME MED HOME MED 85%/>02 EQUIP. EQUIP. CONC AT [facility] FLW RATE O2 CONC 1 E1390 FRAN FRAN [place] 8 HOME MED HOME MED 85%/>02 EQUIP. [facility]. [facility] O2 CONC 1 E1390 FRAN FRAN [place] 8 HOME MED HOME MED 85%/>02 EQUIP. [facility]. [facility] Encounters Encounter Start End Date Code Location Performer Type Date EMERGENCY [address] [facility] 7 7 N OUTPATIEN COMMUNTIY T HOSPITA OFFICE 19932 [place] [facility] [facility] 7 N T VISIT CARDIOLOG 25 Y MINUTES OFFICE 82016 [facility] OUTPATIEN 7 7 DESIREE DESIREE T VISIT 25 MINUTES [facility] 51900 [facility] OUTPATIEN 6 6 DESIREE ELLIOTT T VISIT 15 MINUTES [facility] 6 6 N [facility] 6 6 N [facility] 5 5 [facility] 31044 [facility] OUTPATIEN 5 5 DESIREE LEXI ELLIOTT T VISIT 25 MINUTES [facility] 41810 [facility]IRDWHIST BIRDWHIST OUTPATIEN 4 4 DESIREE ELLIOTT DESIREE ELLIOTT T VISIT 10 MINUTES [facility] 4 4 [facility] - 4 4 W [facility] [address] OFFICE [address] CAIO CAIO OUTPATI 3 3 CARLI BOYCE T VISIT 40 MINUTES [facility] [place] [id number] [facility] T OFFICE 68928 CHE[facility] HANSEN OUTPATIEN 3 3 W GENERAL III DAYNE T NEW 30 SURGERY MINUTES OFFICE 95340 [facility] Sch[facility] OUTPATIEN 2 2 C C T VISIT 25 MINUTES [facility] 2 2 [facility]PITAL OUTPATI[facility] T OFFICE 41100 [facility] 2 ANT ANT T VISIT 25 MINUTES EMERGENCY 73319 [facility] 2 2 [facility] DEPARTMEN INC T VISIT HIGH/URGE NT SEVERITY [facility]OSPITAL [facility] - 2 2 [facility] T OFFICE 30587 [facility] 2 2 ANT ANT T VISIT 25 MINUTES OFFICE 61872 [facility] 2 2 RENAL PAT T VISIT CARE PSC 25 MINUTES OFFICE 73226 [facility] 2 ANT ANT T VISIT 25 MINUTES OFFICE 28170 [facility] 1 1 ANT ANT T VISIT 15 MINUTES OFFICE 59401 [facility] 1 1 RENAL PAT T VISIT CARE PSC 25 MINUTES OFFICE 82554 [facility] 1 1 ANT ANT T VISIT 25 MINUTES [facility] - 1 N [facility] 1 AMB AMB T VISIT 25 MINUTES OFFICE 68985 [facility] 1 1 ANT ANT T VISIT 15 MINUTES OFFICE 49094 [facility] 1 1 ANT ANT T VISIT 15 MINUTES OFFICE 45691 [facility] 1 1 ANT ANT T VISIT 25 MINUTES [facility]OS[facility] - 1 N OUTPATIEN [facility] OFF[facility] 00873 [facility] 1 1 ANT ANT T VISIT 25 MINUTES HOSPITAL [facility] [address] [facility] OUTPATIEN T OFFICE 32470 [facility] BOYER OUTPATIEN 0 0 ANT ANT T VISIT 25 MINUTES OFFICE 13925 [facility] OUTPATIEN 0 0 N DEYANIRA T NEW 45 MINUTES OFFICE 96956 [facility] 0 0 ANT ANT T VISIT 25 MINUTES OFFICE 09748 [facility] 0 0 ANT ANT T VISIT 25 MINUTES [facility]OSP[facility] - 0 0 N OUTPATIEN [facility] OFFICE 15079 [facility] BOYER, OUTPATIEN 0 0 ANGE Marquise CASSIDY L T VISIT 25 MINUTES OFFICE 25412 [facility] 0 0 ANT ANT T VISIT 25 MINUTES OFFICE 20119 [facility] 0 0 ANT ANT T VISIT 25 MINUTES HOSPITAL [facility] - 0 0 [facility] OUTPATI[facility] INC T OFFICE 51273 CONCEPCIÓN FARIA, OUTPATIEN 0 0 MD CONCEPCIÓN FARIA VISIT PSC 40 MINUTES [facility] - 0 0 HOSPITAL OUTPATI T OFFICE 43206 [place], [facility], OUTPATIEN 0 0 AMADOR AMADOR T NEW 30 K K MINUTES OFFICE 70176 [facility] ANJANA, OUTPATIEN 0 0 [facility] CONCEPCIÓN Vazquez VISIT 5 CARDIOLOG MINUTES Y ASS [facility] 62226 [facility] ANJANA, OUTPATIEN 0 0 [facility] CONCEPCIÓN Vazquez VISIT CARDIOLOG 15 Y ASSOC MINUTES OFFICE 96018 [facility] OUTPATIEN 0 0 N T NEW 10 [facility] - 0 0 N INPATIENT [facility] OFFICE 78523 [facility] BOYER OUTPATIEN 9 9 ANGE [place] T VISIT 15 MINUTES OFFICE 09968 NEUROSURG NOEMÍ DOPATIEN 9 9 LORAINE HAWKINSEN Iban T VISIT ASSOCIATE 15 S MINUTES OFFICE 20188 [facility] OUTPATILAY 9 9 ANGE [place] T NEW 45 MINUTES H[facility] [place] [address] 9 HOSPITAL INPATIENT EMERGENCY 59615 [facility] 9 9 [facility] VISIT INC HIGH SEVERITY& THREAT [facility] [place] [address] 9 HOSPITAL INPATIENT EMERGENCY 00122 [facility] 9 9 [facility] VISIT INC [facility]IGH SEVERITY& THREAT [facility] - 9 9 [facility] OFFICE 91854 CARDIOLOG Tod BANDA CONSULTAT 9 9 Y A ION ASSOCIATE NEW/ESTAB S OF PATIENT [place] 40 MIN OFFICE 36751 BRIANDA LAMAR OUTPATIEN 9 9 CONCEPCIÓN Ferrera T VISIT 25 MINUTES OFFICE 06173 CAIO KEARNEY OUTPATIEN 9 9 CARLI B CARLI B T VISIT 25 MINUTES [facility] [place] - 9 9 [facility] OUTPATIEN INC T OFFICE 31388 BRIANDA LAMAR OUTPATIEN 9 9 CONCEPCIÓN Ferrera T NEW 45 MINUTES OFFICE 56474 [facility] KEARNEY OUTPATIEN 9 9 CARLI B CARLI B T VISIT 25 MINUTES OFFICE 17750 CAIO KEARNEY OUTPATIEN 8 8 CARLI B CARLI B T VISIT 25 MINUTES HOSPITAL [facility] - 8 8 [facility] OUTPATIEN INC T OFFICE 35495 CAIO KEARNEY, CONSULTAT 8 8 CARLI B CARLI B ION NEW/ESTAB PATIENT 80 MIN OFFICE 79064 [place] [facility] 8 8 PRIMARY T VISIT CARE 10 [facility] [place] FREE 8 8 [facility] [place] FREE 8 8 [facility]IMARY [facility] OFFICE 60670 [place] [facility] OUTPAT[facility]EN 8 8 PRIMARY T VISIT CARE 10 [facility] OFFICE 42040 [place] [facility] OUTPATIEN 8 8 PRIMARY T VISIT CARE 10 [facility] [place] FREE 8 8 PRIMARY [facility] OFFICE 23767 AD DUONG OUTPATIEN 8 8 MELLISSA Vazquez [facility] 20 MINUTES OFFICE 93952 [place] OUTPATIEN 8 8 PRIMARY T VISIT CARE [address] [facility] [place] FREE 8 8 PRIMARY [facility] FREE 8 8 [facility].
--- OUTSIDE RECORDS SUMMARY | 2017-02-21 02:52 | External Medical Summary Rpt ---
Demographics Preferred Language Serbian Marital Status Unknown Yazidism Affiliation Unknown Race Unknown Ethnic Group Unknown Author VINNIE Sigala Address Unknown Phone Immunization No patient found.
--- OUTSIDE RECORDS SUMMARY | 2017-02-21 02:52 | External Medical Summary Rpt ---
Demographics Preferred Language Greek Marital Status Unknown Catholic Affiliation Unknown Race Unknown Ethnic Group Unknown Author VINNIE Sigala Address Unknown Phone Immunization No patient found.
--- OUTSIDE RECORDS SUMMARY | 2017-02-21 02:52 | External Medical Summary Rpt ---
Author Author [employer], [employer]ARG[employer] Organization [employer] Address Unknown Phone Unavailable Results Natriutietic peptide B [Mass/volume] in Serum or Plasma Observa Value Referen Units Interpr Notes Date tion ce etation Range Natriutie 0 - 100 pg/mL High No Sep 18 tic informati 2017 6:25 peptide B on in AM source [Mass/vol data ume] in Serum or Plasma INR in Blood by Coagulation assay Observa Value Referen Units Interpr Notes Date tion ce etation Range IS PATIENT ON ANTICOAGULANTS? 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 2.5 - 3.5VALVE; PREVENTIO N OF SYSTEMICE MBOLISM SECONDARY TO AMI Prothromb 9.4 - SECONDS High No Sep 18 in time 11.8 informati 2016 6:25 (PT) in on in AM Platelet source poor data plasma by Coagulati on assay Lactate [Moles/volume] in Blood Observa Value Referen Units Interpr Notes Date tion ce etation Range Lactate 0.4 - 2.0 mmol/L Normal No Sep 18 [Moles/vo informati 2017 6:25 lume] in on in AM Blood source data CBC W Auto Differential panel in Blood Observa Value Referen Units Interpr Notes Date tion ce etation Range Basophils 0 - 0.2 K/MM3 Normal No Sep 18 informati 2017 6:25 [#/volume on in AM ] in source Blood by data Automated count Basophils 0.1 - 2.0 % Normal No Sep 18 /100 informati 2017 6:25 leukocyte on in AM s in source Blood by data Automated count Eosinophi 0.0 - 0.4 K/mm3 Normal No Sep 18 ls informati 2016 6:25 [#/volume on in AM ] in source Blood by data Automated count Eosinophi 0.1 - % Normal No Sep 18 ls/100 12.0 informati 2017 6:25 leukocyte on in AM s in source Blood by data Automated count Granulocy 1.8 - 7.8 K/mm3 High No Sep 18 aparna informati 2017 6:25 [#/volume on in AM ] in source Blood by data Automated count Granulocy 37.0 - % High No Sep 18 aparna/100 80.0 informati 2017 6:25 leukocyte on in AM s in source Blood by data Automated count Hematocri 37.0 - % Low No Sep 18 t [Volume 47.0 informati 2017 6:25 on in AM Fraction] source of Blood data Hemoglobi 12.2 - g/dL Low No Sep 18 n 16.2 informati 2017 6:25 [Mass/vol on in AM ume] in source Blood data Lymphocyt 0.7 - 4.5 K/mm3 Normal No Sep 18 es informati 2017 6:25 [#/volume on in AM ] in source Unspecifi data ed specimen by Automated count Lymphocyt 10 - 50.0 % Normal No Sep 18 es informati 2017 6:25 [#/volume on in AM ] in source Unspecifi data ed specimen by Automated count Erythrocy 27 - 31.2 pg Normal No Sep 18 te mean informati 2017 6:25 corpuscul on in AM ar source hemoglobi data n [Entitic mass] Erythrocy 31.8 - g/dl Normal No Sep 18 te mean 35.4 informati 2017 6:25 corpuscul on in AM ar source hemoglobi data n concentra tion [Mass/vol ume] by Automated count Erythrocy 82.2 - fl Normal No Sep 18 te mean 97.8 informati 2017 6:25 corpuscul on in AM ar volume source [Entitic data volume] by Automated count Monocytes 0.1 - 1.0 K/mm3 Normal No Sep 18 informati 2017 6:25 [#/volume on in AM ] in source Blood by data Automated count Monocytes 1.7 - 9.3 % Normal No Sep 18 /100 informati 2017 6:25 leukocyte on in AM s in source Blood by data Automated count Platelet 7.4 - fl Low No Sep 18 mean 10.4 informati 2016 6:25 volume on in AM [Entitic source volume] data in Blood by Automated count Platelets 142 - 424 K/mm3 Normal No Sep 18 informati 2016 6:25 [#/volume on in AM ] in source Blood data Erythrocy 4.2 - 5.4 M/mm3 Low No Sep 18 aparna informati 2016 6:25 [#/volume on in AM ] in source Amniotic data fluid Erythrocy 11.5 - % Normal No Jan 18 te 17.5 informati 2016 6:25 distribut on in AM ion width source [Entitic data volume] by Automated count Leukocyte 4.8 - K/MM3 High No Sep 18 s 10.8 informati 2016 6:25 [#/volume on in AM ] in source Blood data Comprehensive metabolic 2000 panel in Serum or Plasma Observa Value Referen Units Interpr Notes Date tion ce etation Range Albumin/G 1.1 - 1.8 No Low No October 10 lobulin informati informati 2016 4:10 [Mass on in on in PM ratio] in source source Serum or data data Plasma Albumin 3.4 - 5.0 gm/dL Low No October 10 [Mass/vol informati 2016 4:10 ume] in on in PM Serum or source Plasma data Alkaline 46 - 116 U/L Normal No October 10 phosphata informati 2016 4:10 se on in PM [Enzymati source c data activity/ volume] in Serum or Plasma Bilirubin 0.2 - 1.0 mg/dL Normal No October 10 .total informati 2016 4:10 [Mass/vol on in PM ume] in source Serum or data Plasma Urea 7 - 18 mg/dL High No October 10 nitrogen informati 2016 4:10 [Mass/vol on in PM ume] in source Serum or data Plasma Calcium 8.5 - mg/dL Normal No October 10 [Mass/vol 10.1 informati 2016 4:10 ume] in on in PM Serum or source Plasma data Chloride 98 - 107 mmoL/L Normal No October 10 [Moles/vo informati 2016 4:10 lume] in on in PM Serum or source Plasma data Carbon 21.0 - mmoL/L High No October 10 dioxide, 32.0 informati 2017 4:10 total on in PM [Moles/vo source lume] in data Serum or Plasma Creatinin 0.55 - mg/dL High No October 10 e 1.02 informati 2016 4:10 [Mass/vol on in PM ume] in source Serum or data Plasma Creatinin 50 - 200 ML/MIN Normal No October 10 e renal informati 2016 4:10 clearance on in PM source predicted data by Cockcroft -Gault formula Estimated 59- ML/MIN Low REFERENCE October 10 RANGE: 2016 4:10 glomerula >60 PM r ML/MIN/1. filtratio 73 SQUARE n rate METERSIf (GF this patient is -A merican, then multiply theresult by 1.210. Globulin 1.3 - 3.2 gm/dL High No October 10 [Mass/vol informati 2016 4:10 ume] in on in PM Serum source data Glucose 74 - 106 mg/dL High No October 10 [Mass/vol informati 2016 4:10 ume] in on in PM Serum or source Plasma data Potassium 3.5 - 5.1 mmoL/L Normal No October 10 inform2016 4:10 [Moles/vo on in PM lume] in source Serum or data Plasma Sodium 136 - 145 mmoL/L Normal No October 10 [Moles/vo ati 2016 4:10 lume] in on in PM Serum or source Plasma data Aspartate 15 - 37 U/L Low No October 10 inform2016 4:10 aminotran on in PM sferase source [Enzymati data c activity/ volume] in Serum or Plasma Alanine 12 - 78 U/L Normal No October 10 aminotran 2016 4:10 sferase on in PM [Enzymati source c data activity/ volume] in Serum or Plasma Protein 6.4 - 8.2 gm/dL Normal No October 10 [Mass/vol informati 2016 4:10 ume] in on in PM Serum or source Plasma data INR in Blood by Coagulation assay Observa Value Referen Units Interpr Notes Date tion ce etation Range IS PATIENT ON ANTICOAGULANTS? Y LIST ANTICOAGULANTS: WARFARIN INR in 0.9 - 1.1 No High INDICATIO October 10 Blood by informati N 2016 4:10 Coagulati on in PM on assay source INR data RANGETHER APY FOR DVT, PE, ATRIAL FIB; 2.0 - 3.0PROPHY LAXIS FOR VTETHERAP Y FOR MECHANICA L HEART 2.5 - 3.5VALVE; PREVENTIO N OF SYSTEMICE MBOLISM SECONDARY TO AMI Prothromb 9.4 - SECONDS High No October 10 in time 11.8 informati 2016 4:10 (PT) in on in PM Platelet source poor data plasma by Coagulati on assay CBC W Auto Differential panel in Blood Observa Value Referen Units Interpr Notes Date tion ce etation Range Basophils 0 - 0.2 K/MM3 Normal No October 10 informati 2016 4:10 [#/volume on in PM ] in source Blood by data Automated count Basophils 0.1 - 2.0 % Normal No October 10 / informati 2016 4:10 leukocyte on in PM s in source Blood by data Automated count Eosinophi 0.0 - 0.4 K/mm3 Normal No October 10 ls informati 2016 4:10 [#/volume on in PM ] in source Blood by data Automated count Eosinophi 0.1 - % Normal No October 10 ls/100 12.0 informati 2016 4:10 leukocyte on in PM s in source Blood by data Automated count Granulocy 1.8 - 7.8 K/mm3 High No October 10 aparna informati 2016 4:10 [#/volume on in PM ] in source Blood by data Automated count Granulocy 37.0 - % Normal No October 10 aparna/100 80.0 informati 2016 4:10 leukocyte on in PM s in source Blood by data Automated count Hematocri 37.0 - % Low No October 10 t [Volume 47.0 informati 2016 4:10 on in PM Fraction] source of Blood data Hemoglobi 12.2 - g/dL Low No October 10 n 16.2 informati 2016 4:10 [Mass/vol on in PM ume] in source Blood data Lymphocyt 0.7 - 4.5 K/mm3 Normal No October 10 es informati 2016 4:10 [#/volume on in PM ] in source Unspecifi data ed specimen by Automated count Lymphocyt 10 - 50.0 % Normal No October 10 es informati 2016 4:10 [#/volume on in PM ] in source Unspecifi data ed specimen by Automated count Erythrocy 27 - 31.2 pg Normal No October 10 te mean informati 2016 4:10 corpuscul on in PM ar source hemoglobi data n [Entitic mass] Erythrocy 31.8 - g/dl Normal No October 10 te mean 35.4 informati 2016 4:10 corpuscul on in PM ar source hemoglobi data n concentra tion [Mass/vol ume] by Automated count Erythrocy 82.2 - fl Normal No October 10 te mean 97.8 informati 2017 4:10 corpuscul on in PM ar volume source [Entitic data volume] by Automated count Monocytes 0.1 - 1.0 K/mm3 Normal No October 10 informati 2017 4:10 [#/volume on in PM ] in source Blood by data Automated count Monocytes 1.7 - 9.3 % Normal No October 10 /100 informati 2017 4:10 leukocyte on in PM s in source Blood by data Automated count Platelet 7.4 - fl Low No October 10 mean 10.4 informati 2017 4:10 volume on in PM [Entitic source volume] data in Blood by Automated count Platelets 142 - 424 K/mm3 Normal No October 10 informati 2017 4:10 [#/volume on in PM ] in source Blood data Erythrocy 4.2 - 5.4 M/mm3 Low No October 10 aparna informati 2017 4:10 [#/volume on in PM ] in source Amniotic data fluid Erythrocy 11.5 - % Normal No October 10 te 17.5 informati 2017 4:10 distribut on in PM ion width source [Entitic data volume] by Automated count Leukocyte 4.8 - K/MM3 High No October 10 s 10.8 informati 2017 4:10 [#/volume on in PM ] in source Blood data
== END 2017-01-29 08:24 | disposition home or self-care (01) ==
LOC: ER 05:59
PROVIDERS: Emergency Medicine
DX: J44.9 Chronic obstructive pulmonary disease, unspecified (principal); I48.2 Chronic atrial fibrillation; Z79.01 Long term (current) use of anticoagulants; I25.10 Atherosclerotic heart disease of native coronary artery without angina pectoris; I11.0 Hypertensive heart disease with heart failure; I50.9 Heart failure, unspecified; E11.9 Type 2 diabetes mellitus without complications; Z79.84 Long term (current) use of oral hypoglycemic drugs; Z79.02 Long term (current) use of antithrombotics/antiplatelets; Z79.891 Long term (current) use of opiate analgesic; Z99.81 Dependence on supplemental oxygen; Z79.899 Other long term (current) drug therapy; Z87.891 Personal history of nicotine dependence